=== PATIENT | male | born 1945 | race Caucasian/White ===

== ENCOUNTER → 2017-07-17 06:45 | Outpatient (REF) | payer MEDICARE, SELFPAY ==
[2017-07-17 09:13] LABS: Hematocrit 37.5 % (40-54); Hemoglobin 12.9 g/dl (13.0-16.5); Mean Corp Hgb Conc 34.4 g/gl (32-36); Mean Corpuscular Hgb 30.7 pg (27.0-32.0); Mean Corpuscular Volume 89.3 fL (80-94); Mean Platelet Vol. 11.7 fl (6.2-12.0); Platelet Count 153 K/mm3 (150-450); RBC Distribution Width CV 13.3 % (11.6-14.6); RBC Distribution Width SD 43.1 fl (35.1-43.9); Scan Indicated on CBC? Y/N NO; White Blood Count 13.5 K/mm3 (4.4-11.0)
[2017-07-17 09:30] LABS: Valproic Acid (Depakene) Level 43 ug/mL (50-100)
[2017-07-17 09:34] LABS: AST(SGOT) 13 U/L (15-37); Alanine Aminotransfer ALT/SGPT 16 U/L (16-61); Albumin, Serum 3.2 g/dL (3.2-5.0); Alkaline Phosphatase 63 U/L (45-117); Anion Gap 8 (5-15); BUN 14 mg/dL (7-18); BUN/Creat Ratio 14.2 RATIO (10-20); Bilirubin, Direct 0.08 mg/dL (0.00-0.30); Calcium,Total 8.2 mg/dL (8.5-10.1); Chloride 101 mmol/L (98-107); Cholesterol 129 mg/dL (200); Creatinine, Serum 0.98 mg/dL (0.70-1.30); EST Glomerular Filtration Rate 80 mL/min (>60); Est Glom Filt Rate - Afr Amer 96 mL/min (>60); Glucose 75 mg/dL (74-106); High Density Lipoprotein 41 mg/dL; Potassium 4.3 mmol/L (3.5-5.1); Protein, Total 6.2 g/dL (6.4-8.2); Sodium Level 134 mmol/L (136-145); Thyroid Stim Hormone (TSH) 0.53 uIU/mL (0.358-3.74); Triglycerides 97 mg/dL; Uric Acid 5.2 mg/dL (3.5-7.2); Very Low Density Lipoprotein 19 mg/dL (5-40)
== END ==
LOC: OLS.WHLEAS 06:45
PROVIDERS: Visit Provider Family Medicine
DX: I10 Essential (primary) hypertension (principal); E03.9 Hypothyroidism, unspecified; Z79.899 Other long term (current) drug therapy; J44.9 Chronic obstructive pulmonary disease, unspecified
CPT/HCPCS: 36415; 80048; 80061; 80076; 80164; 84443; 84550; 85027

== ENCOUNTER → 2017-10-09 05:41 | Outpatient (REF) | payer MEDICARE, SELFPAY ==
[2017-10-09 07:50] LABS: Anion Gap 9 (5-15); BUN 15 mg/dL (7-18); BUN/Creat Ratio 15.5 RATIO (10-20); Calcium,Total 8.4 mg/dL (8.5-10.1); Chloride 103 mmol/L (98-107); Creatinine, Serum 0.97 mg/dL (0.70-1.30); EST Glomerular Filtration Rate 81 mL/min (>60); Est Glom Filt Rate - Afr Amer 98 mL/min (>60); Glucose 85 mg/dL (74-106); Potassium 4.4 mmol/L (3.5-5.1); Sodium Level 136 mmol/L (136-145)
== END ==
LOC: OLS.WHLEAS 05:41
PROVIDERS: Visit Provider Family Medicine
DX: I10 Essential (primary) hypertension (principal); E87.1 Hypo-osmolality and hyponatremia
CPT/HCPCS: 36415; 80048

== ENCOUNTER → 2018-01-08 05:00 | Outpatient (REF) | payer MEDICARE, SELFPAY ==
[2018-01-08 08:07] LABS: Hematocrit 38.7 % (40-54); Hemoglobin 13.2 g/dl (13.0-16.5); Mean Corp Hgb Conc 34.1 g/gl (32-36); Mean Corpuscular Volume 90.8 fL (80-94); Mean Platelet Vol. 11.5 fl (6.2-12.0); Platelet Count 150 K/mm3 (150-450); RBC Distribution Width CV 13.3 % (11.6-14.6); Red Blood Count 4.26 M/mm3 (4.6-6.2); White Blood Count 13.5 K/mm3 (4.4-11.0)
[2018-01-08 08:11] LABS: Scan Indicated on CBC? Y/N NO
[2018-01-08 08:18] LABS: Valproic Acid (Depakene) Level 48 ug/mL (50-100)
[2018-01-08 08:27] LABS: AST(SGOT) 15 U/L (15-37); Alanine Aminotransfer ALT/SGPT 19 U/L (16-61); Albumin, Serum 3.8 g/dL (3.2-5.0); Alkaline Phosphatase 66 U/L (45-117); Anion Gap 10 (5-15); BUN 14 mg/dL (7-18); BUN/Creat Ratio 13.2 RATIO (10-20); Calcium,Total 8.7 mg/dL (8.5-10.1); Chloride 100 mmol/L (98-107); Cholesterol 135 mg/dL (200); Creatinine, Serum 1.06 mg/dL (0.70-1.30); EST Glomerular Filtration Rate 73 mL/min (>60); Est Glom Filt Rate - Afr Amer 88 mL/min (>60); Glucose 90 mg/dL (74-106); High Density Lipoprotein 55 mg/dL; Potassium 4.1 mmol/L (3.5-5.1); Protein, Total 6.8 g/dL (6.4-8.2); Sodium Level 136 mmol/L (136-145); Thyroid Stim Hormone (TSH) 0.42 uIU/mL (0.358-3.74); Triglycerides 73 mg/dL; Uric Acid 4.1 mg/dL (3.5-7.2); Very Low Density Lipoprotein 15 mg/dL (5-40)
== END ==
LOC: OLS.WHLEAS 05:00
PROVIDERS: Visit Provider Family Medicine
DX: J44.9 Chronic obstructive pulmonary disease, unspecified (principal); I10 Essential (primary) hypertension; E78.5 Hyperlipidemia, unspecified; Z79.899 Other long term (current) drug therapy
CPT/HCPCS: 36415; 80048; 80061; 80076; 80164; 84443; 84550; 85027

== ENCOUNTER → 2018-01-19 05:00 | Outpatient (REF) | payer MEDICARE, SELFPAY ==
[2018-01-19 10:26] LABS: Absolute Lymphocyte Count 9.07 X10^3/ul (0.83-4.51); Absolute Neutrophil Count 2.9 X10^3/uL (2.0-7.7); Basophil# 0.03 X10^3/uL; Basophil% 0.2 % (0-1); Eosinophil# 0.07 X10^3/uL; Eosinophils% 0.5 % (0-5); Hematocrit 37.4 % (40-54); Hemoglobin 12.9 g/dl (13.0-16.5); Lymphocyte # 9.07 X10^3/ul (4.0); Lymphocyte % 70.9 % (19-41); Mean Corp Hgb Conc 34.5 g/gl (32-36); Mean Corpuscular Hgb 31.1 pg (27.0-32.0); Mean Corpuscular Volume 90.1 fL (80-94); Mean Platelet Vol. 11.1 fl (6.2-12.0); Monocyte# 0.71 X10^3/uL; Monocyte% 5.6 % (0-10); Neutrophil # 2.89 X10^3/uL (2.7-7.7); Neutrophil % 22.6 % (47-70); Platelet Count 147 K/mm3 (150-450); RBC Distribution Width CV 13.1 % (11.6-14.6); RBC Distribution Width SD 42.9 fl (35.1-43.9); Red Blood Count 4.15 M/mm3 (4.6-6.2); White Blood Count 12.8 K/mm3 (4.4-11.0)
[2018-01-19 10:40] LABS: Differential Indicated SCAN CRITERIA MET; POSITIVE COUNT NO; POSITIVE DIFFERENTIAL YES; POSITIVE MORPHOLOGY YES
[2018-01-19 11:06] LABS: Anion Gap 7 (5-15); BUN 13 mg/dL (7-18); BUN/Creat Ratio 12.7 RATIO (10-20); Chloride 98 mmol/L (98-107); Creatinine, Serum 1.02 mg/dL (0.70-1.30); EST Glomerular Filtration Rate 76 mL/min (>60); Est Glom Filt Rate - Afr Amer 92 mL/min (>60); Glucose 88 mg/dL (74-106); Potassium 4.5 mmol/L (3.5-5.1); Sodium Level 131 mmol/L (136-145)
== END ==
LOC: OLS.WHLEAS 05:00
PROVIDERS: Visit Provider Family Medicine
DX: F03.90 Unspecified dementia, unspecified severity, without behavioral disturbance, psychotic disturbance, mood disturbance, and anxiety (principal); E11.9 Type 2 diabetes mellitus without complications; E03.9 Hypothyroidism, unspecified; J44.9 Chronic obstructive pulmonary disease, unspecified
CPT/HCPCS: 36415; 80048; 85025

== ENCOUNTER 2018-02-20 23:37 | Emergency (ER) | payer MEDICARE, SELFPAY ==
[2018-02-20 23:39] VITALS: BP 170/91; PULSE 70; RESP 24; TEMP 36.2; O2SAT 98; BMI 26.8
[2018-02-21] MEDS: Lidocaine Jelly 2% 20 ML Syringe (URO-JET) 20 APPLIC TOPICAL (00:21)
[2018-02-21 00:22] VITALS: BP 169/86
[2018-02-21 00:39] LABS: Mucous, Urine 0 SEEN /hpf (<or=2+); Squamous Epithelial Cells - UA 0 SEEN /hpf (0-5)
[2018-02-21 00:42] LABS: Color, Urine Yellow (Yellow); Glucose, Dipstick Normal (Normal); Ketone-Dipstick Negative (Negative); Leukocyte Esterase-Dipstick Negative /ul (Negative); Nitrite-Dipstick Negative (Negative); Occult Blood-Urine 50 /ul (Negative); Protein-Dipstick 30 mg/dl (Negative); Urine Bilirubin Dipstick Negative (Negative); Urine Clarity Clear (Clear); Urine Urobilinogen Normal (Normal)
[2018-02-21 00:45] LABS: Absolute Lymphocyte Count 9.79 X10^3/ul (0.83-4.51); Absolute Neutrophil Count 4.3 X10^3/uL (2.0-7.7); Basophil# 0.05 X10^3/uL; Basophil% 0.3 % (0-1); Eosinophil# 0.12 X10^3/uL; Eosinophils% 0.8 % (0-5); Hemoglobin 12.4 g/dl (13.0-16.5); Lymphocyte # 9.79 X10^3/ul (4.0); Lymphocyte % 63.7 % (19-41); Mean Corp Hgb Conc 34.4 g/gl (32-36); Mean Corpuscular Hgb 30.9 pg (27.0-32.0); Mean Corpuscular Volume 89.8 fL (80-94); Mean Platelet Vol. 10.6 fl (6.2-12.0); Monocyte# 1.03 X10^3/uL; Monocyte% 6.7 % (0-10); Neutrophil # 4.28 X10^3/uL (2.7-7.7); Neutrophil % 27.8 % (47-70); Platelet Count 150 K/mm3 (150-450); RBC Distribution Width CV 13.2 % (11.6-14.6); RBC Distribution Width SD 43.1 fl (35.1-43.9); Red Blood Count 4.01 M/mm3 (4.6-6.2); White Blood Count 15.4 K/mm3 (4.4-11.0)
[2018-02-21 00:46] LABS: Differential Indicated SCAN CRITERIA MET; POSITIVE COUNT NO; POSITIVE DIFFERENTIAL YES; POSITIVE MORPHOLOGY YES
[2018-02-21 00:47] LABS: Bacteria RARE /hpf (None Seen); Red Blood Cells-Urine 0-5 SEEN /hpf (0-5); White Blood Cells 0-5 SEEN /hpf (0-5)
[2018-02-21 01:10] LABS: Anion Gap 9 (5-15); BUN 16 mg/dL (7-18); BUN/Creat Ratio 12.5 RATIO (10-20); Calcium,Total 8.8 mg/dL (8.5-10.1); Chloride 98 mmol/L (98-107); Creatinine, Serum 1.28 mg/dL (0.70-1.30); EST Glomerular Filtration Rate 59 mL/min (>60); Est Glom Filt Rate - Afr Amer 71 mL/min (>60); Glucose 105 mg/dL (74-106); Potassium 4.7 mmol/L (3.5-5.1); Sodium Level 131 mmol/L (136-145)
--- NOTE | 2018-02-21 01:34 | ED.DCSUM_ITS ---
- ER Visit Summary Date of Service: 02/21/18 Chief Complaint: Urinary retention History of Present Illness: The patient is a 73 M presenting for evaluation secondary to urinary retention. Patient reports he has a history of a swollen prostate and has had a history of retaining urine in the past. Patient states of the course last 2-3 days he has been having increasing urinary frequency. He denies any presence of fevers. He does endorse some dysuria and abdominal pain. Denies any testicular pain. No hematuria. Review of systems otherwise negative. Physical Examination: Elderly male no acute distress sitting comfortably in the bed stable vital signs except for hypertension 170/91. Head normocephalic. Moist mucous membranes. No JVD. Heart regular rate and rhythm lungs clear. Abdomen was tender in suprapubic region nondistended no guarding or rebound tenderness. was normal to inspection. Remainder physical otherwise unremarkable. Test Results: CBC shows leukocytosis of 15, chemistry unremarkable no acute kidney injury, urinalysis shows no evident of infection Emergency Department Course and Treatment: Patient presented for evaluation secondary to urinary retention. He required 2 attempts, but ultimately a size 16 coud? catheter was able to be placed and the patient drained approximately 2 L of clear urine. There is no evidence of UTI, there is no evidence of acute kidney injury, patient has a leukocytosis likely reactive to his urinary retention discomfort. Patient will be discharged with a leg bag, he is already on Flomax, will be given follow-up with urology. Disposition: Discharge Impression: 1. Acute urinary retention This note was generated with [employer] dictation software. It may contain incorrect words, spelling, and punctuation that were not noted in review of the chart prior to signing ED Disposition - Plan for ED Patient: Disposition: Home or Assisted Living Chief Complaint: Complaint Diagnosis: Urinary retention Instructions: ED Retention Urinary Male Referrals: Riri Urrutia MD [STAFF PHYSICIAN] - 3-5 Days
[2018-02-21 01:38] VITALS: BP 146/92; PULSE 78; RESP 16; O2SAT 98
--- NOTE | 2018-02-24 12:39 | CM.ED ---
Call received from [facility] stating that patient's family tried to make urology appointment, as recommended, and was informed that Riri Urrutia MD only sees female patients. Laura Vasquez, from [facility], contacted me requesting that I assist family with finding a urologist. Laura requested I call family, Elvia Baptiste, directly. Call placed to Elvia with no answer. Voicemail left with contact information for urologists that are in-network for the patient and are accepting new patients. Return contact information provided.
--- NOTE | 2018-02-24 13:07 | CM.ED ---
Addendum entered by Delores Swanson 02/24/18 14:07: Pat called to let me know the patient has an appointment at [facility], with Dr. Ibarra, on ThursdayMarch 28. Clinicals faxed to this office. Original Note: Patient's sister, Elvia, returned call to . I reviewed options for other urologists in the area. Elvia states she will call, now, to schedule appointment for the patient. I asked Elvia to please call me back if she needs further assistance. Patient's sister denies questions or further needs at this time.
== END 2018-02-21 01:52 | disposition home or self-care (01) ==
PROVIDERS: Emergency Provider Emergency Medicine; Family Provider Family Medicine; PCP Family Medicine
DX: R33.9 Retention of urine, unspecified (principal); R30.0 Dysuria; R35.0 Frequency of micturition; R10.30 Lower abdominal pain, unspecified; I10 Essential (primary) hypertension; F20.9 Schizophrenia, unspecified; Z79.82 Long term (current) use of aspirin; Z79.899 Other long term (current) drug therapy
CPT/HCPCS: 51702; 80048; 81001; 85025; 99285; A4216

== ENCOUNTER → 2018-05-03 05:00 | Outpatient (REF) | payer MEDICARE, SELFPAY ==
[2018-05-03 09:06] LABS: Anion Gap 7 (5-15); BUN 14 mg/dL (7-18); BUN/Creat Ratio 11.8 RATIO (10-20); Calcium,Total 8.4 mg/dL (8.5-10.1); Chloride 100 mmol/L (98-107); Creatinine, Serum 1.19 mg/dL (0.70-1.30); EST Glomerular Filtration Rate 64 mL/min (>60); Est Glom Filt Rate - Afr Amer 77 mL/min (>60); Glucose 80 mg/dL (74-106); Potassium 4.2 mmol/L (3.5-5.1); Sodium Level 132 mmol/L (136-145)
== END ==
LOC: OLS.WHLEAS 05:00
PROVIDERS: Visit Provider Family Medicine
DX: I10 Essential (primary) hypertension (principal); F03.90 Unspecified dementia, unspecified severity, without behavioral disturbance, psychotic disturbance, mood disturbance, and anxiety; F31.9 Bipolar disorder, unspecified; E87.1 Hypo-osmolality and hyponatremia; E03.9 Hypothyroidism, unspecified
CPT/HCPCS: 36415; 80048

== ENCOUNTER → 2018-07-22 06:25 | Outpatient (REF) | payer MEDICARE, SELFPAY ==
[2018-07-22 08:42] LABS: Hemoglobin 12.1 g/dl (13.0-16.5); Mean Corp Hgb Conc 33.6 g/gl (32-36); Mean Corpuscular Hgb 29.8 pg (27.0-32.0); Mean Corpuscular Volume 88.7 fL (80-94); Mean Platelet Vol. 11.4 fl (6.2-12.0); Platelet Count 163 K/mm3 (150-450); RBC Distribution Width CV 14.2 % (11.6-14.6); RBC Distribution Width SD 45.6 fl (35.1-43.9); Red Blood Count 4.06 M/mm3 (4.6-6.2); Scan Indicated on CBC? Y/N NO; White Blood Count 20.5 K/mm3 (4.4-11.0)
[2018-07-22 08:47] LABS: Valproic Acid (Depakene) Level 52 ug/mL (50-100)
[2018-07-22 09:00] LABS: AST(SGOT) 11 U/L (15-37); Alanine Aminotransfer ALT/SGPT 12 U/L (16-61); Albumin, Serum 3.2 g/dL (3.2-5.0); Alkaline Phosphatase 65 U/L (45-117); Anion Gap 9 (5-15); BUN 11 mg/dL (7-18); BUN/Creat Ratio 10.3 RATIO (10-20); Bilirubin, Direct 0.09 mg/dL (0.00-0.30); Calcium,Total 8.4 mg/dL (8.5-10.1); Chloride 103 mmol/L (98-107); Cholesterol 117 mg/dL (200); Creatinine, Serum 1.07 mg/dL (0.70-1.30); EST Glomerular Filtration Rate 72 mL/min (>60); Est Glom Filt Rate - Afr Amer 87 mL/min (>60); Globulin 2.5 g/dL (2.2-4.2); Glucose 76 mg/dL (74-106); High Density Lipoprotein 38 mg/dL; Potassium 4.7 mmol/L (3.5-5.1); Protein, Total 5.7 g/dL (6.4-8.2); Sodium Level 135 mmol/L (136-145); Triglycerides 103 mg/dL; Very Low Density Lipoprotein 21 mg/dL (5-40)
== END ==
LOC: OLS.WHLEAS 06:25
PROVIDERS: Visit Provider Family Medicine
DX: I10 Essential (primary) hypertension (principal); F03.90 Unspecified dementia, unspecified severity, without behavioral disturbance, psychotic disturbance, mood disturbance, and anxiety; E03.9 Hypothyroidism, unspecified; F31.9 Bipolar disorder, unspecified; M10.9 Gout, unspecified; Z79.899 Other long term (current) drug therapy
CPT/HCPCS: 36415; 80048; 80061; 80076; 80164; 84443; 84550; 85027

== ENCOUNTER → 2018-07-24 04:45 | Outpatient (REF) | payer MEDICARE, SELFPAY ==
[2018-07-24 08:55] LABS: Mucous, Urine 0 SEEN /hpf (<or=2+)
[2018-07-24 09:20] LABS: Color, Urine Yellow (Yellow); Glucose, Dipstick Normal (Normal); Ketone-Dipstick Negative (Negative); Leukocyte Esterase-Dipstick 500 /ul (Negative); Nitrite-Dipstick Negative (Negative); Occult Blood-Urine 50 /ul (Negative); Protein-Dipstick 30 mg/dl (Negative); Specific Gravity, Urine 1.005 (1.002-1.030); Urine Bilirubin Dipstick Negative (Negative); Urine Clarity Cloudy (Clear); Urine Urobilinogen Normal (Normal)
[2018-07-24 09:50] LABS: Bacteria 3+ /hpf (None Seen); Red Blood Cells-Urine 0-5 SEEN /hpf (0-5); Squamous Epithelial Cells - UA 0-5 SEEN /hpf (0-5); White Blood Cells 5-10 SEEN /hpf (0-5)
== END ==
LOC: OLS.WHLCAR 04:45
PROVIDERS: Visit Provider Family Medicine
DX: N39.0 Urinary tract infection, site not specified (principal)
CPT/HCPCS: 81001; 87077; 87086; 87088; 87186

== ENCOUNTER → 2018-07-26 04:00 | Outpatient (REF) | payer MEDICARE, SELFPAY ==
[2018-07-26 08:41] LABS: Absolute Neutrophil Count 3.2 X10^3/uL (2.0-7.7); Basophil# 0.08 X10^3/uL; Basophil% 0.4 % (0-1); Eosinophil# 0.37 X10^3/uL; Eosinophils% 1.9 % (0-5); Hematocrit 36.6 % (40-54); Hemoglobin 12.4 g/dl (13.0-16.5); Lymphocyte % 76.5 % (19-41); Mean Corp Hgb Conc 33.9 g/gl (32-36); Mean Corpuscular Hgb 30.2 pg (27.0-32.0); Mean Corpuscular Volume 89.1 fL (80-94); Mean Platelet Vol. 11.8 fl (6.2-12.0); Monocyte# 0.87 X10^3/uL; Monocyte% 4.4 % (0-10); Neutrophil # 3.21 X10^3/uL (2.7-7.7); Neutrophil % 16.4 % (47-70); Platelet Count 161 K/mm3 (150-450); RBC Distribution Width CV 14.3 % (11.6-14.6); RBC Distribution Width SD 46.5 fl (35.1-43.9); Red Blood Count 4.11 M/mm3 (4.6-6.2); White Blood Count 19.6 K/mm3 (4.4-11.0)
[2018-07-26 08:51] LABS: Differential Indicated SCAN CRITERIA MET; POSITIVE COUNT NO; POSITIVE DIFFERENTIAL YES; POSITIVE MORPHOLOGY YES
[2018-07-26 10:11] LABS: Reactive Lymphocyte 2+
[2018-07-27 14:07] LABS: Pathologist Review Reviewed
== END ==
LOC: OLS.WHLEAS 04:00
PROVIDERS: Visit Provider Family Medicine
DX: Z79.899 Other long term (current) drug therapy (principal)
CPT/HCPCS: 36415; 85025

== ENCOUNTER → 2018-08-02 04:00 | Outpatient (REF) | payer MEDICARE, SELFPAY ==
[2018-08-02 09:28] LABS: Absolute Lymphocyte Count 14.66 X10^3/ul (0.83-4.51); Absolute Neutrophil Count 3.3 X10^3/uL (2.0-7.7); Basophil# 0.05 X10^3/uL; Basophil% 0.3 % (0-1); Differential Indicated SCAN CRITERIA MET; Eosinophil# 0.38 X10^3/uL; Hematocrit 34.4 % (40-54); Hemoglobin 11.7 g/dl (13.0-16.5); Lymphocyte # 14.66 X10^3/ul (4.0); Lymphocyte % 75.6 % (19-41); Mean Corpuscular Volume 88.2 fL (80-94); Mean Platelet Vol. 10.8 fl (6.2-12.0); Monocyte# 0.93 X10^3/uL; Monocyte% 4.8 % (0-10); Neutrophil # 3.32 X10^3/uL (2.7-7.7); POSITIVE COUNT NO; POSITIVE DIFFERENTIAL YES; POSITIVE MORPHOLOGY YES; Platelet Count 136 K/mm3 (150-450); RBC Distribution Width CV 14.3 % (11.6-14.6); RBC Distribution Width SD 46.3 fl (35.1-43.9); White Blood Count 19.4 K/mm3 (4.4-11.0)
[2018-08-04 10:12] LABS: Pathologist Review Reviewed
== END ==
LOC: OLS.WHLEAS 04:00
PROVIDERS: Visit Provider Family Medicine
DX: R53.83 Other fatigue (principal)
CPT/HCPCS: 36415; 85025

== ENCOUNTER → 2018-10-18 04:00 | Outpatient (REF) | payer MEDICARE, SELFPAY ==
[2018-10-18 09:11] LABS: Anion Gap 10 (5-15); BUN 14 mg/dL (7-18); BUN/Creat Ratio 13.2 RATIO (10-20); Calcium,Total 8.5 mg/dL (8.5-10.1); Chloride 106 mmol/L (98-107); Creatinine, Serum 1.06 mg/dL (0.70-1.30); EST Glomerular Filtration Rate 73 mL/min (>60); Est Glom Filt Rate - Afr Amer 88 mL/min (>60); Glucose 80 mg/dL (74-106); Potassium 4.3 mmol/L (3.5-5.1); Sodium Level 138 mmol/L (136-145)
[2018-10-18 10:49] VITALS: BMI 27.1
== END ==
LOC: OLS.WHLEAS 04:00
PROVIDERS: Visit Provider Family Medicine
DX: I10 Essential (primary) hypertension (principal)
CPT/HCPCS: 36415; 80048

== ENCOUNTER 2018-12-20 08:49 | Day surgery (SDC) | payer MEDICARE, MEDICAID, SELFPAY ==
[2018-10-18 10:49] VITALS: BMI 27.1
[2018-12-14 14:36] VITALS: BMI 27.1
--- NOTE | 2018-12-14 15:26 | RAD_ITS ---
STUDY: X-RAY CHEST REASON FOR EXAM: Male, 73 years old. Pacemaker change TECHNIQUE: Frontal and lateral views of the chest COMPARISON: None. FINDINGS: The lungs are clear. There are no pleural effusions. There is no pneumothorax. The heart is normal in size. There is a dual lead pacemaker with one lead overlying the right atrium and one lead overlying the right ventricle. The visualized osseous structures are within normal limits. RAD/Chest PA and Lateral IMPRESSION: Satisfactory position of the pacemaker. No pneumothorax. Electronically Signed: Javy Mandujano, at 16:35 EDT Tel , Service support ,
[2018-12-14 15:47] LABS: Mucous, Urine 0 SEEN /hpf (<or=2+)
[2018-12-14 16:31] LABS: Hematocrit 34.8 % (40-54); Hemoglobin 11.8 g/dl (13.0-16.5); Mean Corp Hgb Conc 33.9 g/gl (32-36); Mean Corpuscular Hgb 30.6 pg (27.0-32.0); Mean Corpuscular Volume 90.2 fL (80-94); Mean Platelet Vol. 10.9 fl (6.2-12.0); Platelet Count 148 K/mm3 (150-450); RBC Distribution Width CV 13.7 % (11.6-14.6); Red Blood Count 3.86 M/mm3 (4.6-6.2); White Blood Count 17.9 K/mm3 (4.4-11.0)
[2018-12-14 16:32] LABS: Scan Indicated on CBC? Y/N NO
[2018-12-14 16:39] LABS: Color, Urine Yellow (Yellow); Glucose, Dipstick Normal (Normal); International Normalized Ratio 1.1; Ketone-Dipstick Negative (Negative); Leukocyte Esterase-Dipstick 500 /ul (Negative); Nitrite-Dipstick Positive (Negative); Occult Blood-Urine 150 /ul (Negative); Protein-Dipstick 30 mg/dl (Negative); Prothrombin Time (Protime)PT. 13.7 SECONDS (11.7-14.9); Urine Bilirubin Dipstick Negative (Negative); Urine Clarity Sl. Cloudy (Clear); Urine Urobilinogen 1 mg/dl (Normal)
[2018-12-14 16:53] LABS: Anion Gap 8 (5-15); BUN 16 mg/dL (7-18); BUN/Creat Ratio 13.8 RATIO (10-20); Calcium,Total 8.5 mg/dL (8.5-10.1); Chloride 100 mmol/L (98-107); Creatinine, Serum 1.16 mg/dL (0.70-1.30); EST Glomerular Filtration Rate 65 mL/min (>60); Est Glom Filt Rate - Afr Amer 79 mL/min (>60); Glucose 83 mg/dL (74-106); Potassium 4.3 mmol/L (3.5-5.1); Red Blood Cells-Urine 5-10 SEEN /hpf (0-5); Sodium Level 135 mmol/L (136-145); Squamous Epithelial Cells - UA 0-5 SEEN /hpf (0-5)
[2018-12-14 16:54] LABS: Bacteria 2+ /hpf (None Seen); White Blood Cells 25-50 SEEN /hpf (0-5)
[2018-12-20] VITALS (14 sets, daily range): BP systolic 114–134; BP diastolic 68–81; PULSE 69–70; RESP 16; TEMP 36.1–37.1; O2SAT 96–100
--- NOTE | 2018-12-20 13:32 | PCM.HP.BLA ---
History and Physical Date of Admission: 12/20/18 HPI History of Present Illness Surgical H&P: Yes Details: Ibrahima Mercedes is a 73 year old male who presents to the hospital for pacemaker generator change. He has a history of sick sinus syndrome with pacemaker implant on 12/17/2010, hypertension, and hyperlipidemia. He also has a history of schizophrenia and resides in an assisted living. His dual-chamber pacemaker evaluation prior to office visit showed that he achieves FILEMON on 10/29/2018. Because of this, he will undergo a generator change. He denies chest, arm, jaw, or neck discomfort. His exercise tolerance is stable via walking. He denies symptoms of CHF, palpitations, lightheadedness, dizziness, near syncope, or syncopal episodes. He denies edema or claudication issues. He denies orthopnea, PND, fever, chills, blood in urine, blood in stool, myalgia, or unexplainable fatigue. Intake Vital Signs 12/14/18 Height 5 ft 9 in 12/14/18 Weight: 184 lb 12/14/18 Body Mass Index (BMI) 27.1 12/14/18 Blood Pressure 134/82 H 12/14/18 Blood Pressure Location Lt brachial 12/14/18 Blood Pressure Position Sitting 12/14/18 Respiratory Rate 18 12/14/18 Pulse Rate 70 12/14/18 Pulse Source Monitor 12/14/18 Pulse Ox 10 Intake Visit Reasons: update H & P for gen change/koby 2:30 Allergies No Known Allergies Allergy (Verified 12/14/18 14:54) Medications Acetaminophen [Tylenol] 650 mg PO Q4H PRN PRN 09/14/15 [History Confirmed 12/14/18] Allopurinol [Zyloprim] 100 mg PO DAILYCM 09/14/15 [History Confirmed 12/14/18] Aspirin [Aspirin, Baby] 81 mg PO DAILY@0800 09/14/15 [History Confirmed 12/14/18] Atorvastatin Calcium [Lipitor] 10 mg PO QHS 09/14/15 [History Confirmed 12/14/18] Divalproex Sodium [Depakote] 250 mg PO BID 09/14/15 [History Confirmed 12/14/18] Enalapril Maleate [Vasotec] 5 mg PO DAILY 09/14/15 [History Confirmed 12/14/18] Levothyroxine [Synthroid] 100 mcg PO DAILY 09/14/15 [History Confirmed 12/14/18] Quetiapine Fumarate [Seroquel] 200 mg PO BREAKFAST 09/14/15 [History Confirmed 12/14/18] Quetiapine Fumarate [Seroquel] 400 mg PO QHS 09/14/15 [History Confirmed 12/14/18] Risperidone [Risperdal] 3 mg PO QHS 09/14/15 [History Confirmed 12/14/18] traZODone [Desyrel] 50 mg PO QHS 09/14/15 [History Confirmed 12/14/18] alprazolam 1 mg tablet 1 mg PO DAILY PRN tab 10/18/18 [History Confirmed 12/14/18] buspirone 10 mg tablet 10 mg PO BID 10/18/18 [History Confirmed 12/14/18] guaifenesin 100 mg/5 mL oral liquid 200 mg PO Q6H PRN 10/18/18 [History Confirmed 12/14/18] ipratropium-albuterol 0.5 mg-3 mg(2.5 mg base)/3 mL nebulization soln 3 ml INHALATION Q4H PRN ml 10/18/18 [History Confirmed 12/14/18] magnesium hydroxide 400 mg/5 mL oral suspension 30 ml PO DAILY PRN ml 10/18/18 [History Confirmed 12/14/18] mirabegron ER 50 mg tablet,extended release 24 hr 50 mg PO DAILY 14 Days #14 tab 10/18/18 [History Confirmed 12/14/18] aluminum-mag hydroxide-simethicone 200 mg-200 mg-20 mg/5 mL oral susp 15 ml PO Q4H ml 12/14/18 [History Confirmed 12/14/18] ranitidine 150 mg tablet 150 mg PO DAILY 12/14/18 [History Confirmed 12/14/18] FOR[facility]LY [facility], [facility] Medical History (Updated 12/14/18 @ 15:24 by AIMEE Koch) Presence of permanent cardiac pacemaker (Chronic) Pure hypercholesterolemia (Chronic) Essential hypertension (Chronic) Sinoatrial node dysfunction (Chronic) 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) Retinopathy (Chronic) Gout (Chronic) Gout (Inactive) HTN (hypertension) (Inactive) Surgical History (Updated 10/11/18 @ 17:14 by Kacie Ramirez) History of lumbar surgery (Resolved) Family History (Updated 09/24/17 @ 13:52 by Laura Alvarez) Mother CAD (coronary artery disease) cabg Social History (Updated 12/14/18 @ 15:26 by AIMEE Koch) Smoking Status: Never smoker alcohol intake: never substance use type: does not use caffeine: Yes Type: coffee Number of servings: 6 what type of physical activity do you participate in: walking frequency: daily duration: 15-30 minutes/day seatbelt use: always do you feel safe at home: Yes ROS Const Const: Negative for fatigue, weakness, body ache, fever(s) or chills ENT ENT: Negative for dizziness Cardio Chest Pain: No Palpitations: No Edema: None Muscle aches with walking: None Resp Respiratory: Negative for SOB with activity, SOB at rest, SOB orthopnea\SOB lying down or paroxysmal nocturnal dyspnea GI GI: Negative nausea, vomiting blood/hematemesis, bright, red blood in stools or black,tarry stools : Negative for hematuria or frequent nighttime urination/ nocturia Musc Musc: Negative for muscle aches/ myalgia Skin Skin: Negative non-healing lesions or rash Neuro Neuro: Negative for dizziness, lightheadedness, near syncope, syncope, orthostatic symptoms or weakness Endo Endo: Negative for fatigue Allergy Allergy/Immunology: Negative for rash Cardiology Exam Const Appearance: cooperative, healthy appearing, comfortable and no acute distress Nutritional Appearance: well nourished and overweight Orientation: alert, awake and oriented x3 Head Head: normal to inspection Ears: hearing grossly normal bilaterally Nose: external nose normal Face and Sinus: face symmetric Mouth: oral mucosae normal Eyes General: appearance normal, both eyes and all related structures Eyelids: eyelids normal EOM: EOM intact bilaterally Neck Neck: normal visual inspection and no JVD Carotids: normal carotid upstroke Chest Chest inspection: normal inspection of the chest, symmetric chest movement and normal respiratory effort; negative cough Auscultation: Bilateral: Clear to Auscultation Cardio Rate: regular rate Rhythm: regular rhythm Heart sounds: S1 normal and S2 normal; negative rub, gallop or murmur GI GI: normal to inspection Neuro General: alert, awake, oriented x3 and CN's II-XI intact bilaterally Skin Skin: no rashes or lesions noted Extremities Pulses: Normal: Right Posterior Tibial Pulse, Left Posterior Tibial Pulse, Right Radial Pulse, Left Radial Pulse Lower Extremity Edema: None: Bilateral Psych Psychological: normal affect Assessment & Plan 1. Sinoatrial node dysfunction I49.5 Plan His pacemaker evaluation prior to office visit showed 0 MS episodes. He was ventricular paced at over greater than 99%. He was atrial paced at 52%. Patient's pacemaker appears to be functioning appropriately. We will continue to monitor this with routine/scheduled follow-ups. 2. Presence of permanent cardiac pacemaker Z95.0 Pacemaker placement 1992;Replacement of pulse generator 1999; Implant [employer] Pacemaker 2004; Implant of dual chamber [employer] pacemaker 12/17/10; His EKG today in office shows ventricular paced rhythm at 65 bpm. Orders Orders: 12 Lead EKG performed by [facility] [place] Today 3. Essential hypertension I10 Plan Patient's blood pressure is well-controlled. We will continue to monitor. We will not make any medication regimen changes. 4. Pure hypercholesterolemia E78.00 Plan Lipid panel from July 2018 showed cholesterol: 117, HDL: 38, LDL: 58, and triglycerides: 103. He will continue current low-dose statin medication. Plan Detail Additional Comments Thank you for allowing us to participate in the patients plan of care, if you have any questions please do not hesitate to call. This note was generated using a voice recognition system and there may be incorrect words, spelling or punctuation that were not noted when reviewing the office note prior to saving. Patient is scheduled to undergo a generator change with Dr. Wynne on 12/20/2018. He will follow-up with pacemaker clinic on 12/28/2018.
--- NOTE | 2018-12-20 14:10 | CL.IE_ITS ---
Patient: CARLA VANN Study Date: 12/20/2018 Performing: Flo Wynne MD : 1945 Age: 73 Gender: male PROCEDURES PERFORMED ZV35-[id number] REMOVAL+REPLACEMENT PACER-DUAL LEAD [id number]-HKSOAJ SINGLE LEAD (PACER OR ICD) INDICATIONS Sinoatrial node dysfunction/Sick sinus syndrome PROCEDURE DETAILS The patient was brought to the Catheterization Lab in the postabsorptive nonsedated state. Infor med consent was obtained prior to the procedure. Local anesthetic was given subcutaneously to the le ft subclavian region with Lidocaine 2%. Incision was made to the left subclavicular area. PPM generat or was removed. PPM atrial lead (existing) was checked and tested. PPM ventricular lead (existing) wa s checked and tested. PPM ventricular lead (existing) was checked and tested, it was determined that it needed to be replaced. PPM ventricular lead (existing) was disconnected and capped. Access was ach ieved and a guidewire was advanced into the left subclavian vein. PPM ventricular lead was inserted / positioned to right ventricular septal wall. PPM ventricular lead testing performed. PPM ventricular lead testing performed. PPM ventricular lead was removed. PPM ventricular lead was inserted / positi oned to right ventricular septal wall. PPM ventricular lead was removed. PPM ventricular lead was inserted / positioned to right ventricular septal wall. PPM ventricular lead testing perform ed. PPM ventricular lead testing performed. The Ventricular PM lead sutured in place with 3-0 Silk. P PM ventricular lead (existing) was disconnected and capped. Device pocket was irrigated with antibiot ic. PPM generator was attached to the lead(s) and inserted into the pocket. Subcutaneous closure was completed with 3-0 Vicryl. Skin closure was completed with 4-0 Vicryl. Steri-strips applied to left s ubclavicular incision. Instrument, sponge, and needle counts were noted to be normal. The patient teja erated the procedure well. 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[employer], Model # 5826 , Serial # [id number] IMPLANTED DEVICE(S): PPM Ventricular lead - Buy Boat Operator: [employer], Model # 7742 , Serial # [id number] PPM Ventricular lead - Buy Boat Operator: [employer], Model # 7742 , Serial # [id number] PPM Generator - Buy Boat Operator: [employer], Model # L111 , Serial # [id number] DEVICE PARAMETERS VENTRICULAR LEAD PARAMETERS: R wave (mV) - 10.0 current (mA) - 0.9 impedence (OHMS) - 1157 R wave- 10.0 (mV) Current- 0.9 (mA) threshold- 1.0V @ 0.4ms (V) impedence- 1157 (OHMS) DEVICE PARAMETERS: Mode - DDDR lower rate - 70 upper rate - 130 Mode- DDDR Lower rate- 70 Upper rate- 130 CONCLUSIONS / RECOMMENDATIONS Device Conclusions: Successful implantation of a dual chamber pacemaker battery change and replacemen t Device Recommendations: Follow up with Primary Care Physician PROCEDURE MEDICATIONS Versed 1 mg IV Versed 0.5 mg IV Oxygen: 2 L/min via nasal cannula Antibiotic given in appropriate timeframe. Ancef 2 Gm IV @ 12/20/2018 10:26:26 Signed By Flo Wynne MD On 12/20/2018 14:10:03 Flo Wynne MD
[2018-12-20] MEDS: Cefazolin 2 GM in 0.9% Normal Saline 100 ML IV (18:20)
[2018-12-21 02:52] VITALS: BP 146/72; PULSE 76; RESP 16; TEMP 36.7; O2SAT 94
[2018-12-21 02:59] VITALS: PULSE 73
--- NOTE | 2018-12-21 05:55 | RAD_ITS ---
STUDY: X-RAY CHEST REASON FOR EXAM: Male, 73 years old. Pneumothorax. TECHNIQUE: PA and lateral views of the chest. COMPARISON: 12/14/2018 FINDINGS: Lungs are mildly hypoinflated. Lungs are clear. No pneumothorax. There is no demonstrated pleural abnormality. Normal size heart. Stable left chest wall device. Normal mediastinum and jatinder. Normal visualized pulmonary arteries. Normal visualized aortic arch and descending thoracic aorta. Normal visualized thoracic spine. Normal visualized ribs, clavicles, and shoulders. There is no demonstrated abnormality of the visualized soft tissue structures of the upper abdomen. RAD/Chest PA and Lateral IMPRESSION: Lungs are mildly hypoinflated. No acute airspace disease. No pneumothorax. Electronically Signed: Vel Leung DO at 8:16 EDT Tel , Service support ,
[2018-12-21 07:00] VITALS: PULSE 89
--- NOTE | 2018-12-21 07:24 | PCM.PN.CARD ---
Subjectve: Patient seen and evaluated. Appears to be stable. Status post pacemaker lead revision yesterday. Mildly confused. Objective: Vital Signs Temp Pulse Resp BP Pulse Ox 98.0 F 89 16 146/72 H 94 12/21/18 02:52 12/21/18 07:00 12/21/18 02:52 12/21/18 02:52 12/21/18 02:52 Oxygen Delivery Method Room Air Body Mass Index (BMI) 27.1 Intake and Output for Last 24 Hours 12/19/18 12/20/18 12/21/18 23:59 23:59 23:59 Intake Total 627 / 627 240 / 240 Output Total 775 / 775 275 / 275 Balance -148 / -148 -35 / -35 General: Awake, Oriented x 3 HEENT: PERRL, EOMI, Sclera Non Icteric Neck: Supple, Good ROM, No Lymph Node Enlargement Lungs: Clear to auscultation Cardiovascular: Regular Rhythm, Normal S1, Normal S2, No Murmurs, No Rubs, No Gallops Vascular: No Carotid Bruits, Normal Femoral Pulses, Normal Radial Pulses, Normal Dorsalis Pedal Pulse, Normal Posterior Tibial Pulses Abdomen: Bowel Sounds Present, Soft, Non Tender, No HSM, No Organomegaly Extremities: No Cyanosis, No Clubbing, No edema Musculoskeletal: No Erythema Skin: No Rashes Lymphatic: No Lymph Node Enlargement Neurological: No Focal Motor or Sensory Deficit Psych/Mental Status: Appropriate Rhythm: EKG: ECHO: Stress Test: Cardiac Cath: PCI: CT Surgery: Holter monitor: EPS: PPM: CXR: Chest CT Scan: Medical Necessity - Tobacco Use Smoking Status: Never smoker Tobacco Use: Non-smoker Assessment/Plan 1. Status post pacemaker generator change yesterday. The patient also underwent a lead revision. Chest x-ray has been performed and will be reviewed. The pacemaker will also be interrogated. Patient has mild hematoma but this would be observed. Pacemaker interrogation demonstrates normal function and chest x-ray demonstrates no evidence of pneumothorax. The patient will be discharged for outpatient follow-up.
--- NOTE | 2018-12-21 08:40 | PCM.DC.PACE ---
Discharge Diet: No Restrictions Discharge Activity: May Not Drive Additional Activity Instructions:: May shower or bathe on []. Do not scrub the incision or soak in the tub. Just wash with soap and let the water run over the incision. Gently pat dry with towel. Medications: Take your pain medication as directed. Refer to your discharge instruction sheet for a list of medications you are to take. Call your doctor if your incision/area has: Continuous Slow Oozing, Sudden Increased Bleeding, Increased Pain/ Swelling, Increased Redness, Foul Smelling Discharge, Swelling at the incision site Call your doctor if you observe: Fever of 101 or Higher, Shortness of breath, Dizziness, Fainting spells, Swelling in the ankles, Chest pain, Prolonged hiccoughing, Increased palpitations (irregular heartbeat) Suture Line Care: Avoid Pulling/Pushing, Avoid Pinching/Bending Cleanse incision/area with: Do not get Incision Wet, Keep Dressing Clean & Dry Additional Dressing/Incision Instructions:: When dressing is removed, wash and dry incision. Keep covered with a light bandage if it is rubbing against your clothing. Do not cover the incision with an airtight bandage. Change the bandage daily. Do not remove steri strips. The strips will fall off on their own. Additional Instructions: Signs and Symptoms to Report to Your Doctor at Once - call your doctor's office or Doctor's Registry ([phone]) Call [phone] or go to the nearest Emergency Department if you feel you need urgent care. *Infection (fever, increased redness or swelling at the incision site, drainage from the incision increased pain at the pacemaker site) *Shortness of breath *Dizziness *Fainting spells *Swelling in the ankles *Chest pain *Prolonged hiccoughing *Increased palpitaitons (irregular heartbeat) Medications: Take your pain medication as directed. Refer to your discharge instruction sheet for a list of medications you are to take. Allergies/Adverse Reactions: Allergies No Known Allergies Allergy (Verified 12/14/18 14:54) Medications to take at Discharge Acetaminophen [Tylenol] 650 mg PO Q4H PRN PRN 09/14/15 Allopurinol [Zyloprim] 100 mg PO DAILYCM 09/14/15 Aspirin [Aspirin, Baby] 81 mg PO DAILY@0800 09/14/15 Atorvastatin Calcium [Lipitor] 10 mg PO QHS 09/14/15 Divalproex Sodium [Depakote] 250 mg PO BID 09/14/15 Enalapril Maleate [Vasotec] 5 mg PO DAILY 09/14/15 Levothyroxine [Synthroid] 100 mcg PO DAILY 09/14/15 Quetiapine Fumarate [Seroquel] 200 mg PO BREAKFAST 09/14/15 Quetiapine Fumarate [Seroquel] 400 mg PO QHS 09/14/15 Risperidone [Risperdal] 3 mg PO QHS 09/14/15 traZODone [Desyrel] 50 mg PO QHS 09/14/15 alprazolam 1 mg tablet 1 mg PO DAILY PRN tab 10/18/18 buspirone 10 mg tablet 10 mg PO BID 10/18/18 guaifenesin 100 mg/5 mL oral liquid 200 mg PO Q6H PRN 10/18/18 ipratropium-albuterol 0.5 mg-3 mg(2.5 mg base)/3 mL nebulization soln 3 ml INHALATION Q4H PRN ml 10/18/18 magnesium hydroxide 400 mg/5 mL oral suspension 30 ml PO DAILY ml 10/18/18 mirabegron ER 50 mg tablet,extended release 24 hr 50 mg PO DAILY 14 Days #14 tab 10/18/18 aluminum-mag hydroxide-simethicone 200 mg-200 mg-20 mg/5 mL oral susp 15 ml PO Q4H ml 12/14/18 ranitidine 150 mg tablet 150 mg PO DAILY 12/14/18 Primary Care Physician: Guillermo Espinal MD [Primary Care Provider] - Test Results: Test results from this visit will be discussed in further detail at your follow-up appointment, if applicable. When: PACER CLINIC FOLLOW UP SEE CARD Proposed Discharge Date: 12/21/18
[2018-12-21 09:15] VITALS: BP 143/87; PULSE 87; RESP 14; TEMP 36.6; O2SAT 94
--- NOTE | 2018-12-21 09:37 | CASEMGMT ---
Patient is from [facility] living. DESTINEY spoke with patient and his sister. 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 She gave her phone number. 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 Plan: d/c back to [facility]. Laura DU MSW
== END 2018-12-21 09:46 | disposition home or self-care (01) ==
LOC: CLSP 08:50 → PCU 12-21 09:08
PROVIDERS: Internal Medicine Cardiovascular Disease; Family Provider Family Medicine; Referring Provider Internal Medicine Cardiovascular Disease; Visit Provider Internal Medicine Cardiovascular Disease
DX: Z45.010 Encounter for checking and testing of cardiac pacemaker pulse generator [battery] (principal); I49.5 Sick sinus syndrome; I10 Essential (primary) hypertension; E78.00 Pure hypercholesterolemia, unspecified; F20.9 Schizophrenia, unspecified; M10.9 Gout, unspecified; Z79.899 Other long term (current) drug therapy
CPT/HCPCS: 33207; 33217; 33228; 33233; 36415; 71046; 80048; 81001; 85027; 85610; 99152; 99153; J7040; J7050; Q9967; C1769; C1894

== ENCOUNTER → 2018-12-22 06:42 | Outpatient (REF) | payer MEDICARE, SELFPAY ==
[2018-12-14 14:36] VITALS: BMI 27.1
[2018-12-22 08:07] LABS: Hematocrit 38.2 % (40-54); Mean Corpuscular Hgb 30.7 pg (27.0-32.0); Mean Corpuscular Volume 90.1 fL (80-94); Mean Platelet Vol. 11.9 fl (6.2-12.0); Platelet Count 180 K/mm3 (150-450); RBC Distribution Width CV 13.7 % (11.6-14.6); RBC Distribution Width SD 45.1 fl (35.1-43.9); Red Blood Count 4.24 M/mm3 (4.6-6.2); White Blood Count 23.6 K/mm3 (4.4-11.0)
[2018-12-22 08:20] LABS: Anion Gap 9 (5-15); BUN 28 mg/dL (7-18); BUN/Creat Ratio 24.3 RATIO (10-20); Calcium,Total 8.7 mg/dL (8.5-10.1); Chloride 102 mmol/L (98-107); Creatinine, Serum 1.15 mg/dL (0.70-1.30); EST Glomerular Filtration Rate 66 mL/min (>60); Est Glom Filt Rate - Afr Amer 80 mL/min (>60); Glucose 125 mg/dL (74-106); Potassium 4.3 mmol/L (3.5-5.1); Sodium Level 137 mmol/L (136-145)
== END ==
LOC: OLS.WHLEAS 06:42
PROVIDERS: Visit Provider Family Medicine
DX: K92.0 Hematemesis (principal)
CPT/HCPCS: 36415; 80048; 85027

== ENCOUNTER → 2019-01-17 06:15 | Outpatient (REF) | payer MEDICARE, SELFPAY ==
[2018-12-14 14:36] VITALS: BMI 27.1
[2019-01-17 08:57] LABS: Valproic Acid (Depakene) Level 51 ug/mL (50-100)
[2019-01-17 09:11] LABS: AST(SGOT) 10 U/L (15-37); Alanine Aminotransfer ALT/SGPT 11 U/L (16-61); Alkaline Phosphatase 64 U/L (45-117); Anion Gap 8 (5-15); BUN 15 mg/dL (7-18); BUN/Creat Ratio 13.5 RATIO (10-20); Bilirubin, Direct 0.11 mg/dL (0.00-0.30); Calcium,Total 8.2 mg/dL (8.5-10.1); Chloride 106 mmol/L (98-107); Cholesterol 116 mg/dL (200); Creatinine, Serum 1.11 mg/dL (0.70-1.30); EST Glomerular Filtration Rate 69 mL/min (>60); Est Glom Filt Rate - Afr Amer 83 mL/min (>60); Globulin 2.4 g/dL (2.2-4.2); Glucose 78 mg/dL (74-106); High Density Lipoprotein 41 mg/dL; Potassium 4.2 mmol/L (3.5-5.1); Protein, Total 5.4 g/dL (6.4-8.2); Sodium Level 140 mmol/L (136-145); Thyroid Stim Hormone (TSH) 1.94 uIU/mL (0.358-3.74); Triglycerides 80 mg/dL; Uric Acid 5.4 mg/dL (3.5-7.2); Very Low Density Lipoprotein 16 mg/dL (5-40)
== END ==
LOC: OLS.WHLEAS 06:15
PROVIDERS: Visit Provider Family Medicine
DX: F25.9 Schizoaffective disorder, unspecified (principal); F31.9 Bipolar disorder, unspecified; J44.9 Chronic obstructive pulmonary disease, unspecified; I10 Essential (primary) hypertension; E78.5 Hyperlipidemia, unspecified; I73.89 Other specified peripheral vascular diseases
CPT/HCPCS: 36415; 80048; 80061; 80076; 80164; 84443; 84550

== ENCOUNTER → 2019-04-18 05:00 | Outpatient (REF) | payer MEDICARE, SELFPAY ==
[2018-12-14 14:36] VITALS: BMI 27.1
[2019-04-18 08:17] LABS: Anion Gap 8 (5-15); BUN 12 mg/dL (7-18); Calcium,Total 8.4 mg/dL (8.5-10.1); Chloride 100 mmol/L (98-107); Creatinine, Serum 1.09 mg/dL (0.70-1.30); EST Glomerular Filtration Rate 70 mL/min (>60); Est Glom Filt Rate - Afr Amer 85 mL/min (>60); Glucose 80 mg/dL (74-106); Potassium 4.1 mmol/L (3.5-5.1); Sodium Level 132 mmol/L (136-145)
== END ==
LOC: OLS.WHLEAS 05:00
PROVIDERS: Visit Provider Family Medicine
DX: I10 Essential (primary) hypertension (principal); F25.9 Schizoaffective disorder, unspecified; F31.9 Bipolar disorder, unspecified; J44.9 Chronic obstructive pulmonary disease, unspecified; E78.5 Hyperlipidemia, unspecified; I73.89 Other specified peripheral vascular diseases
CPT/HCPCS: 36415; 80048

== ENCOUNTER → 2019-07-18 05:00 | Outpatient (REF) | payer MEDICARE, MEDICAID, SELFPAY ==
[2018-12-14 14:36] VITALS: BMI 27.1
[2019-07-18 08:38] LABS: Hematocrit 35.6 % (40-54); Hemoglobin 11.9 g/dL (13.0-16.5); Mean Corp Hgb Conc 33.4 g/dL (32-36); Mean Corpuscular Hgb 30.5 pg (27.0-32.0); Mean Corpuscular Volume 91.3 fL (80-94); Mean Platelet Vol. 11.1 fl (6.2-12.0); Platelet Count 180 K/mm3 (150-450); RBC Distribution Width CV 14.1 % (11.6-14.6); RBC Distribution Width SD 46.7 fl (35.1-43.9); White Blood Count 25.9 K/mm3 (4.4-11.0)
[2019-07-18 08:45] LABS: Valproic Acid (Depakene) Level 51 ug/mL (50-100)
[2019-07-18 08:58] LABS: AST(SGOT) 12 U/L (15-37); Alanine Aminotransfer ALT/SGPT 17 U/L (16-61); Albumin, Serum 3.4 g/dL (3.2-5.0); Alkaline Phosphatase 77 U/L (45-117); Anion Gap 4 (5-15); BUN 16 mg/dL (7-18); BUN/Creat Ratio 11.9 RATIO (10-20); Bilirubin, Direct 0.14 mg/dL (0.00-0.30); Calcium,Total 8.5 mg/dL (8.5-10.1); Chloride 98 mmol/L (98-107); Creatinine, Serum 1.34 mg/dL (0.70-1.30); EST Glomerular Filtration Rate 55 mL/min (>60); Est Glom Filt Rate - Afr Amer 67 mL/min (>60); Globulin 2.8 g/dL (2.2-4.2); Glucose 79 mg/dL (74-106); Potassium 4.1 mmol/L (3.5-5.1); Protein, Total 6.2 g/dL (6.4-8.2); Sodium Level 127 mmol/L (136-145); Thyroid Stim Hormone (TSH) 4.23 uIU/mL (0.358-3.74)
== END ==
LOC: OLS.WHLEAS 05:00
PROVIDERS: Visit Provider Family Medicine
DX: E78.5 Hyperlipidemia, unspecified (principal); E03.9 Hypothyroidism, unspecified; I10 Essential (primary) hypertension; F25.9 Schizoaffective disorder, unspecified; F31.9 Bipolar disorder, unspecified; F60.5 Obsessive-compulsive personality disorder; F03.91 Unspecified dementia, unspecified severity, with behavioral disturbance; J44.9 Chronic obstructive pulmonary disease, unspecified
CPT/HCPCS: 36415; 80048; 80076; 80164; 84443; 84550; 85027

== ENCOUNTER → 2019-09-22 05:00 | Outpatient (REF) | payer MEDICARE, MEDICAID, SELFPAY ==
[2018-12-14 14:36] VITALS: BMI 27.1
[2019-09-22 08:35] LABS: Absolute Neutrophil Count 6.3 X10^3/uL (2.0-7.7); Basophil# 0.09 X10^3/uL; Basophil% 0.2 % (0-1); Hematocrit 37.8 % (40-54); Hemoglobin 12.5 g/dL (13.0-16.5); Lymphocyte % 79.6 % (19-41); Mean Corp Hgb Conc 33.1 g/dL (32-36); Mean Corpuscular Hgb 30.4 pg (27.0-32.0); Mean Platelet Vol. 11.4 fl (6.2-12.0); Monocyte# 0.94 X10^3/uL; Monocyte% 2.6 % (0-10); NRBC Flagged by Analyzer 0 % (0-5); Neutrophil % 17.1 % (47-70); POSITIVE COUNT YES; POSITIVE DIFFERENTIAL YES; POSITIVE MORPHOLOGY YES; Platelet Count 189 K/mm3 (150-450); RBC Distribution Width CV 13.7 % (11.6-14.6); RBC Distribution Width SD 46.3 fl (35.1-43.9); Red Blood Count 4.11 M/mm3 (4.6-6.2)
[2019-09-22 08:46] LABS: White Blood Count 36.8 K/mm3 (4.4-11.0)
[2019-09-22 08:47] LABS: AST(SGOT) 16 U/L (15-37); Alanine Aminotransfer ALT/SGPT 15 U/L (16-61); Albumin, Serum 3.1 g/dL (3.2-5.0); Alkaline Phosphatase 70 U/L (45-117); Anion Gap 9 (5-15); BUN 24 mg/dL (7-18); BUN/Creat Ratio 20.7 RATIO (10-20); Calcium,Total 8.9 mg/dL (8.5-10.1); Chloride 101 mmol/L (98-107); Creatinine, Serum 1.16 mg/dL (0.70-1.30); EST Glomerular Filtration Rate 65 mL/min (>60); Est Glom Filt Rate - Afr Amer 79 mL/min (>60); Globulin 3.2 g/dL (2.2-4.2); Glucose 85 mg/dL (74-106); Potassium 3.8 mmol/L (3.5-5.1); Protein, Total 6.3 g/dL (6.4-8.2); Sodium Level 135 mmol/L (136-145); Thyroid Stim Hormone (TSH) 1.24 uIU/mL (0.358-3.74)
[2019-09-22 09:11] LABS: Differential Comment SCANNED
[2019-09-23 11:14] LABS: Pathologist Review Reviewed
== END ==
LOC: OLS.WHLEAS 05:00
PROVIDERS: Visit Provider Family Medicine
DX: E03.9 Hypothyroidism, unspecified (principal); F25.9 Schizoaffective disorder, unspecified; F31.9 Bipolar disorder, unspecified; F60.5 Obsessive-compulsive personality disorder; F03.91 Unspecified dementia, unspecified severity, with behavioral disturbance; J44.9 Chronic obstructive pulmonary disease, unspecified
CPT/HCPCS: 36415; 80053; 84443; 85025

== ENCOUNTER 2019-10-09 06:36 | Emergency (ER) | payer MEDICARE, MEDICAID, SELFPAY ==
[2018-12-14 14:36] VITALS: BMI 27.1
[2019-10-09 06:38] VITALS: BP 102/75; PULSE 79; RESP 16; TEMP 36.4; O2SAT 93; BMI 26.4
--- NOTE | 2019-10-09 06:51 | ED.DCSUM_ITS ---
- ER Visit Summary Date of Service: 10/09/19 Chief Complaint: Hematuria History of Present Illness: The patient is a 74 M who presents with hematuria that began today. Patient states he accidentally stepped on his Raymond catheter bag. Patient states this pulled on his catheter. Patient states he was having hematuria in his catheter since that time. Patient admits to some mild lower abdominal pain. Patient describes it as dull. Patient denies any fevers or chills. Patient denies any nausea or vomiting. Patient denies any abdominal pain. Physical Examination: Vital signs are stable. Patient is afebrile. Patient is in no acute distress. Oral mucosa is pink and moist. Neck is supple. Trachea is midline. There is no JVD. Heart was regular rate and rhythm. Lungs are clear and equal bilaterally. Abdomen is soft. Bowel sounds are normal. There is mild suprapubic tenderness. There is no rebound or guarding noted. Cranial nerves II through XII are grossly intact. There are no focal motor or sensory deficits noted. Test Results: CBC, basic metabolic profile, and urinalysis were ordered and are pending. Emergency Department Course and Treatment: A three-way Raymond catheter was placed and the bladder was irrigated. Disposition: Care of the patient was turned over to the oncoming physician pending lab results and bladder irrigation Impression: 1. Hematuria This note was generated with [employer] dictation software. It may contain incorrect words, spelling, and punctuation that were not noted in review of the chart prior to signing ED Disposition - Plan for ED Patient: Diagnosis: Hematuria Referrals: Guillermo Espinal MD [Primary Care Provider] -
[2019-10-09] MEDS: Lidocaine Jelly 2% 20 ML Syringe (URO-JET) 20 APPLIC TOPICAL (07:05)
[2019-10-09 07:16] LABS: Absolute Neutrophil Count 5.6 X10^3/uL (2.0-7.7); Basophil# 0.06 X10^3/uL; Basophil% 0.2 % (0-1); Hematocrit 30.7 % (40-54); Hemoglobin 9.9 g/dL (13.0-16.5); Lymphocyte % 72.7 % (19-41); Mean Corp Hgb Conc 32.2 g/dL (32-36); Mean Corpuscular Hgb 30.2 pg (27.0-32.0); Mean Corpuscular Volume 93.6 fL (80-94); Mean Platelet Vol. 9.9 fl (6.2-12.0); Monocyte# 1.79 X10^3/uL; Monocyte% 6.4 % (0-10); NRBC Flagged by Analyzer 0 % (0-5); Neutrophil # 5.62 X10^3/uL (2.7-7.7); Neutrophil % 20.3 % (47-70); POSITIVE DIFFERENTIAL YES; POSITIVE MORPHOLOGY YES; Platelet Count 201 K/mm3 (150-450); RBC Distribution Width CV 13.8 % (11.6-14.6); RBC Distribution Width SD 46.6 fl (35.1-43.9); Red Blood Count 3.28 M/mm3 (4.6-6.2); White Blood Count 27.8 K/mm3 (4.4-11.0)
[2019-10-09 07:17] LABS: Differential Indicated SCAN CRITERIA MET
--- NOTE | 2019-10-09 07:18 | ED.RN ---
patient from correction catheter replaced there. gross hematuria. catheter removed and 3 way moss catheter inserted manual irrigation with 300 ml of normal saline. large clots noted. able to get urine to a light pink ting. Patient tolerated procedure fairly well. Dr. Lemus made aware of results at this time
[2019-10-09 07:29] LABS: Anion Gap 7 (5-15); BUN 13 mg/dL (7-18); BUN/Creat Ratio 13.6 RATIO (10-20); Chloride 103 mmol/L (98-107); Creatinine, Serum 0.95 mg/dL (0.70-1.30); EST Glomerular Filtration Rate 82 mL/min (>60); Est Glom Filt Rate - Afr Amer 99 mL/min (>60); Estimated Creatinine Clearance 68.22 ml/min; Glucose 103 mg/dL (74-106); Potassium 3.9 mmol/L (3.5-5.1); Sodium Level 133 mmol/L (136-145)
[2019-10-09 07:33] LABS: Atypical Lymphocyte 1+ %; Differential Comment SCANNED; Reactive Lymphocyte 1+
[2019-10-09 11:44] VITALS: RESP 18
[2019-10-09 11:44] LABS: Mucous, Urine 0 SEEN /hpf (<or=2+)
[2019-10-09 11:55] LABS: Color, Urine Red (Yellow); Glucose, Dipstick Normal (Normal); Ketone-Dipstick 5 mg/dl (Negative); Leukocyte Esterase-Dipstick 500 /ul (Negative); Nitrite-Dipstick Negative (Negative); Occult Blood-Urine 250 /ul (Negative); Protein-Dipstick 100 mg/dl (Negative); Specific Gravity, Urine 1.005 (1.002-1.030); Urine Bilirubin Dipstick Negative (Negative); Urine Clarity Cloudy (Clear); Urine Urobilinogen Normal (Normal)
[2019-10-09 12:22] LABS: Red Blood Cells-Urine > 100 SEEN /hpf (0-5); White Blood Cells >100 SEEN /hpf (0-5)
[2019-10-09 12:23] LABS: Bacteria 4+ /hpf (None Seen); Squamous Epithelial Cells - UA 0-5 SEEN /hpf (0-5)
--- NOTE | 2019-10-09 12:27 | ED.DEP ---
ED Disposition - Plan for ED Patient: Diagnosis: Hematuria Instructions: ED Hematuria Referrals: Guillermo Espinal MD [Primary Care Provider] -
[2019-10-09 13:17] VITALS: BP 111/69; PULSE 71; RESP 16; TEMP 36.9; O2SAT 94
[2019-10-10 11:19] LABS: Pathologist Review Reviewed
== END 2019-10-09 13:15 | disposition home or self-care (01) ==
PROVIDERS: Emergency Provider Emergency Medicine
DX: N39.0 Urinary tract infection, site not specified (principal); R10.30 Lower abdominal pain, unspecified; C91.10 Chronic lymphocytic leukemia of B-cell type not having achieved remission; F41.9 Anxiety disorder, unspecified; Z96.0 Presence of urogenital implants; Z79.82 Long term (current) use of aspirin; Z79.899 Other long term (current) drug therapy; F25.9 Schizoaffective disorder, unspecified; F31.9 Bipolar disorder, unspecified; F03.91 Unspecified dementia, unspecified severity, with behavioral disturbance; F60.5 Obsessive-compulsive personality disorder; J44.9 Chronic obstructive pulmonary disease, unspecified
CPT/HCPCS: 51702; 80048; 81001; 85025; 87077; 87086; 87088; 87186; 99285; A4216

== ENCOUNTER → 2019-10-09 09:52 | Outpatient (REF) | payer MEDICARE, MEDICAID, SELFPAY ==
[2019-10-09 06:38] VITALS: BMI 26.4
[2019-10-09 09:58] LABS: Mucous, Urine 0 SEEN /hpf (<or=2+); Squamous Epithelial Cells - UA 0 SEEN /hpf (0-5)
[2019-10-09 10:29] LABS: Color, Urine Red (Yellow); Glucose, Dipstick Normal (Normal); Ketone-Dipstick 5 mg/dl (Negative); Leukocyte Esterase-Dipstick Negative /ul (Negative); Nitrite-Dipstick Negative (Negative); Occult Blood-Urine 150 /ul (Negative); Protein-Dipstick 500 mg/dl (Negative); Urine Bilirubin Dipstick Negative (Negative); Urine Clarity Turbid (Clear); Urine Urobilinogen Normal (Normal)
[2019-10-09 10:38] LABS: White Blood Cells 0 SEEN /hpf (0-5)
[2019-10-09 10:40] LABS: Bacteria 4+ /hpf (None Seen)
[2019-10-09 10:41] LABS: Red Blood Cells-Urine > 100 SEEN /hpf (0-5)
== END ==
LOC: OLS.WHLEAS 09:52
PROVIDERS: Visit Provider Family Medicine
DX: N39.0 Urinary tract infection, site not specified (principal); F25.9 Schizoaffective disorder, unspecified; F31.9 Bipolar disorder, unspecified; F03.91 Unspecified dementia, unspecified severity, with behavioral disturbance; F60.5 Obsessive-compulsive personality disorder; J44.9 Chronic obstructive pulmonary disease, unspecified
CPT/HCPCS: 81001; 87077; 87086; 87088; 87186

== ENCOUNTER → 2019-10-17 05:00 | Outpatient (REF) | payer MEDICARE, MEDICAID, SELFPAY ==
[2019-10-09 06:38] VITALS: BMI 26.4
[2019-10-17 09:10] LABS: Hematocrit 27.3 % (40-54); Hemoglobin 8.9 g/dL (13.0-16.5); Mean Corp Hgb Conc 32.6 g/dL (32-36); Mean Corpuscular Hgb 30.9 pg (27.0-32.0); Mean Corpuscular Volume 94.8 fL (80-94); Mean Platelet Vol. 11.3 fl (6.2-12.0); POSITIVE COUNT YES; Platelet Count 206 K/mm3 (150-450); RBC Distribution Width CV 14.6 % (11.6-14.6); RBC Distribution Width SD 50.3 fl (35.1-43.9); Red Blood Count 2.88 M/mm3 (4.6-6.2)
[2019-10-17 09:15] LABS: Scan Indicated on CBC? Y/N YES- FLAGS NOTED
[2019-10-17 09:23] LABS: Valproic Acid (Depakene) Level 44 ug/mL (50-100)
[2019-10-17 09:33] LABS: AST(SGOT) 16 U/L (15-37); Alanine Aminotransfer ALT/SGPT 13 U/L (16-61); Albumin, Serum 2.6 g/dL (3.2-5.0); Alkaline Phosphatase 60 U/L (45-117); Bilirubin, Direct 0.11 mg/dL (0.00-0.30); Cholesterol 109 mg/dL (200); Globulin 2.4 g/dL (2.2-4.2); High Density Lipoprotein 35 mg/dL; Thyroid Stim Hormone (TSH) 3.65 uIU/mL (0.358-3.74); Triglycerides 74 mg/dL; Uric Acid 4.9 mg/dL (3.5-7.2); Very Low Density Lipoprotein 15 mg/dL (5-40)
[2019-10-17 10:08] LABS: Differential Comment SCANNED
[2019-10-18 10:50] LABS: Pathologist Review Reviewed
== END ==
LOC: OLS.WHLEAS 05:00
PROVIDERS: Visit Provider Family Medicine
DX: I10 Essential (primary) hypertension (principal); F25.9 Schizoaffective disorder, unspecified; F31.9 Bipolar disorder, unspecified; F60.5 Obsessive-compulsive personality disorder; F03.91 Unspecified dementia, unspecified severity, with behavioral disturbance; J44.9 Chronic obstructive pulmonary disease, unspecified; E03.9 Hypothyroidism, unspecified; E78.5 Hyperlipidemia, unspecified
CPT/HCPCS: 36415; 80061; 80076; 80164; 84443; 84550; 85027

== ENCOUNTER → 2019-11-02 06:00 | Outpatient (REF) | payer MEDICARE, MEDICAID, SELFPAY ==
[2019-10-09 06:38] VITALS: BMI 26.4
[2019-11-02 11:12] LABS: Hematocrit 33.9 % (40-54); Hemoglobin 10.7 g/dL (13.0-16.5); Mean Corp Hgb Conc 31.6 g/dL (32-36); Mean Corpuscular Hgb 31.1 pg (27.0-32.0); Mean Corpuscular Volume 98.5 fL (80-94); Mean Platelet Vol. 11.5 fl (6.2-12.0); Platelet Count 176 K/mm3 (150-450); RBC Distribution Width CV 15.4 % (11.6-14.6); RBC Distribution Width SD 54.9 fl (35.1-43.9); Red Blood Count 3.44 M/mm3 (4.6-6.2); White Blood Count 18.5 K/mm3 (4.4-11.0)
[2019-11-03 09:56] VITALS: BMI 26.4
== END ==
LOC: OLS.WHLEAS 06:00
PROVIDERS: Visit Provider Family Medicine
DX: C91.10 Chronic lymphocytic leukemia of B-cell type not having achieved remission (principal); I10 Essential (primary) hypertension; F25.9 Schizoaffective disorder, unspecified; F31.9 Bipolar disorder, unspecified; F60.5 Obsessive-compulsive personality disorder; F03.91 Unspecified dementia, unspecified severity, with behavioral disturbance; J44.9 Chronic obstructive pulmonary disease, unspecified
CPT/HCPCS: 36415; 85027

== ENCOUNTER → 2020-01-16 04:00 | Outpatient (REF) | payer MEDICARE, MEDICAID, SELFPAY ==
[2019-11-03 09:56] VITALS: BMI 26.4
[2020-01-16 07:43] LABS: Hematocrit 32.2 % (40-54); Hemoglobin 10.5 g/dL (13.0-16.5); Mean Corp Hgb Conc 32.6 g/dL (32-36); Mean Corpuscular Hgb 30.6 pg (27.0-32.0); Mean Corpuscular Volume 93.9 fL (80-94); Mean Platelet Vol. 11.5 fl (6.2-12.0); POSITIVE COUNT YES; Platelet Count 167 K/mm3 (150-450); RBC Distribution Width CV 12.6 % (11.6-14.6); RBC Distribution Width SD 43.2 fl (35.1-43.9); Red Blood Count 3.43 M/mm3 (4.6-6.2)
[2020-01-16 07:49] LABS: Scan Indicated on CBC? Y/N YES- FLAGS NOTED
[2020-01-16 07:55] LABS: White Blood Count 33.5 K/mm3 (4.4-11.0)
[2020-01-16 08:06] LABS: Valproic Acid (Depakene) Level 46 ug/mL (50-100)
[2020-01-16 08:12] LABS: AST(SGOT) 12 U/L (15-37); Alanine Aminotransfer ALT/SGPT 14 U/L (16-61); Albumin, Serum 2.9 g/dL (3.2-5.0); Alkaline Phosphatase 77 U/L (45-117); Anion Gap 8 (5-15); BUN 12 mg/dL (7-18); BUN/Creat Ratio 11.1 RATIO (10-20); Bilirubin, Direct 0.14 mg/dL (0.00-0.30); Calcium,Total 8.2 mg/dL (8.5-10.1); Chloride 101 mmol/L (98-107); Cholesterol 101 mg/dL (200); Creatinine, Serum 1.08 mg/dL (0.70-1.30); EST Glomerular Filtration Rate 71 mL/min (>60); Est Glom Filt Rate - Afr Amer 86 mL/min (>60); Globulin 2.7 g/dL (2.2-4.2); Glucose 76 mg/dL (74-106); High Density Lipoprotein 28 mg/dL; Potassium 4.3 mmol/L (3.5-5.1); Protein, Total 5.6 g/dL (6.4-8.2); Sodium Level 135 mmol/L (136-145); Thyroid Stim Hormone (TSH) 1.81 uIU/mL (0.358-3.74); Triglycerides 95 mg/dL; Uric Acid 4.9 mg/dL (3.5-7.2); Very Low Density Lipoprotein 19 mg/dL (5-40)
[2020-01-16 13:15] LABS: Pathologist Review Reviewed
== END ==
LOC: OLS.WHLEAS 04:00
PROVIDERS: Visit Provider Family Medicine
DX: I10 Essential (primary) hypertension (principal); F25.9 Schizoaffective disorder, unspecified; F31.9 Bipolar disorder, unspecified; F60.5 Obsessive-compulsive personality disorder; F03.91 Unspecified dementia, unspecified severity, with behavioral disturbance; J44.9 Chronic obstructive pulmonary disease, unspecified
CPT/HCPCS: 36415; 80048; 80061; 80076; 80164; 84443; 84550; 85027

== ENCOUNTER → 2020-04-16 05:00 | Outpatient (REF) | payer MEDICARE, MEDICAID, SELFPAY ==
[2019-11-03 09:56] VITALS: BMI 26.4
[2020-04-16 08:39] LABS: Hematocrit 30.1 % (40-54); Hemoglobin 9.9 g/dL (13.0-16.5); Mean Corp Hgb Conc 32.9 g/dL (32-36); Mean Corpuscular Hgb 31.2 pg (27.0-32.0); POSITIVE COUNT YES; Platelet Count 163 K/mm3 (150-450); RBC Distribution Width CV 14.3 % (11.6-14.6); RBC Distribution Width SD 49.3 fl (35.1-43.9); Red Blood Count 3.17 M/mm3 (4.6-6.2); White Blood Count 35.4 K/mm3 (4.4-11.0)
[2020-04-16 08:47] LABS: Scan Indicated on CBC? Y/N YES- FLAGS NOTED
[2020-04-16 09:10] LABS: Valproic Acid (Depakene) Level 49 ug/mL (50-100)
[2020-04-16 09:13] LABS: Differential Comment SCANNED
[2020-04-16 09:16] LABS: AST(SGOT) 9 U/L (15-37); Alanine Aminotransfer ALT/SGPT 13 U/L (16-61); Albumin, Serum 3.2 g/dL (3.2-5.0); Alkaline Phosphatase 69 U/L (45-117); Anion Gap 6 (5-15); BUN 18 mg/dL (7-18); BUN/Creat Ratio 14.4 RATIO (10-20); Bilirubin, Direct 0.18 mg/dL (0.00-0.30); Calcium,Total 8.7 mg/dL (8.5-10.1); Chloride 110 mmol/L (98-107); Creatinine, Serum 1.25 mg/dL (0.70-1.30); EST Glomerular Filtration Rate 60 mL/min (>60); Est Glom Filt Rate - Afr Amer 72 mL/min (>60); Globulin 2.6 g/dL (2.2-4.2); Glucose 126 mg/dL (74-106); Potassium 3.8 mmol/L (3.5-5.1); Protein, Total 5.8 g/dL (6.4-8.2); Sodium Level 141 mmol/L (136-145)
[2020-04-17 13:59] LABS: Pathologist Review Reviewed
== END ==
LOC: OLS.WHLEAS 05:00
PROVIDERS: Visit Provider Family Medicine
DX: F25.9 Schizoaffective disorder, unspecified (principal); I10 Essential (primary) hypertension; F31.9 Bipolar disorder, unspecified; F60.5 Obsessive-compulsive personality disorder; F03.91 Unspecified dementia, unspecified severity, with behavioral disturbance; J44.9 Chronic obstructive pulmonary disease, unspecified
CPT/HCPCS: 36415; 80048; 80076; 80164; 85027

== ENCOUNTER → 2020-07-16 05:00 | Outpatient (REF) | payer MEDICARE, MEDICAID, SELFPAY ==
[2019-11-03 09:56] VITALS: BMI 26.4
[2020-07-16 07:15] LABS: Hematocrit 26.3 % (40-54); Hemoglobin 8.8 g/dL (13.0-16.5); Mean Corp Hgb Conc 33.5 g/dL (32-36); Mean Corpuscular Hgb 32.2 pg (27.0-32.0); Mean Corpuscular Volume 96.3 fL (80-94); Mean Platelet Vol. 11.9 fl (6.2-12.0); POSITIVE COUNT YES; Platelet Count 157 K/mm3 (150-450); RBC Distribution Width CV 13.3 % (11.6-14.6); RBC Distribution Width SD 46.4 fl (35.1-43.9); Red Blood Count 2.73 M/mm3 (4.6-6.2)
[2020-07-16 07:38] LABS: AST(SGOT) 13 U/L (15-37); Alanine Aminotransfer ALT/SGPT 20 U/L (16-61); Albumin, Serum 2.9 g/dL (3.2-5.0); Alkaline Phosphatase 66 U/L (45-117); Anion Gap 6 (5-15); BUN 23 mg/dL (7-18); BUN/Creat Ratio 20.7 RATIO (10-20); Bilirubin, Direct 0.08 mg/dL (0.00-0.30); Calcium,Total 8.2 mg/dL (8.5-10.1); Chloride 108 mmol/L (98-107); Cholesterol 96 mg/dL (200); Creatinine, Serum 1.11 mg/dL (0.70-1.30); EST Glomerular Filtration Rate 69 mL/min (>60); Est Glom Filt Rate - Afr Amer 83 mL/min (>60); Globulin 3.2 g/dL (2.2-4.2); Glucose 89 mg/dL (74-106); High Density Lipoprotein 28 mg/dL; Protein, Total 6.1 g/dL (6.4-8.2); Sodium Level 139 mmol/L (136-145); Thyroid Stim Hormone (TSH) 4.67 uIU/mL (0.358-3.74); Triglycerides 94 mg/dL; Uric Acid 5.7 mg/dL (3.5-7.2); Very Low Density Lipoprotein 19 mg/dL (5-40)
[2020-07-16 07:41] LABS: Scan Indicated on CBC? Y/N YES- FLAGS NOTED; White Blood Count 58.9 K/mm3 (4.4-11.0)
[2020-07-16 07:42] LABS: Differential Comment SCANNED
[2020-07-16 08:02] LABS: Valproic Acid (Depakene) Level 43 ug/mL (50-100)
[2020-07-17 12:51] LABS: Pathologist Review Reviewed
== END ==
LOC: OLS.WHLEAS 05:00
PROVIDERS: Visit Provider Family Medicine
DX: I10 Essential (primary) hypertension (principal); F25.9 Schizoaffective disorder, unspecified; F31.9 Bipolar disorder, unspecified; F60.5 Obsessive-compulsive personality disorder; F03.91 Unspecified dementia, unspecified severity, with behavioral disturbance; J44.9 Chronic obstructive pulmonary disease, unspecified; E78.5 Hyperlipidemia, unspecified; E03.9 Hypothyroidism, unspecified
CPT/HCPCS: 36415; 80048; 80061; 80076; 80164; 84443; 84550; 85027

== ENCOUNTER → 2020-09-10 03:44 | Outpatient (CLI) | payer MEDICARE, MEDICAID, SELFPAY ==
[2020-08-27 13:42] VITALS: BMI 24.3
== END ==
PROVIDERS: Visit Provider Internal Medicine Hematology & Oncology
DX: D72.820 Lymphocytosis (symptomatic) (principal); D64.9 Anemia, unspecified

== ENCOUNTER → 2020-09-12 05:00 | Outpatient (REF) | payer MEDICARE, MEDICAID, SELFPAY ==
[2020-08-27 13:42] VITALS: BMI 24.3
[2020-09-12 06:43] LABS: Absolute Lymphocyte Count 20.59 X10^3/uL (0.83-4.51); Absolute Neutrophil Count 4.2 X10^3/uL (2.0-7.7); Basophil# 0.05 X10^3/uL; Basophil% 0.2 % (0-1); Hemoglobin 9.4 g/dL (13.0-16.5); Lymphocyte # 20.59 X10^3/ul (4.0); Lymphocyte % 78.3 % (19-41); Mean Corp Hgb Conc 33.6 g/dL (32-36); Mean Corpuscular Hgb 32.5 pg (27.0-32.0); Mean Corpuscular Volume 96.9 fL (80-94); Monocyte# 1.35 X10^3/uL; Monocyte% 5.1 % (0-10); NRBC Flagged by Analyzer 0 % (0-5); Neutrophil # 4.23 X10^3/uL (2.7-7.7); Neutrophil % 16.1 % (47-70); POSITIVE DIFFERENTIAL YES; POSITIVE MORPHOLOGY YES; Platelet Count 208 K/mm3 (150-450); RBC Distribution Width CV 14.3 % (11.6-14.6); RBC Distribution Width SD 50.8 fl (35.1-43.9); Red Blood Count 2.89 M/mm3 (4.6-6.2); White Blood Count 26.3 K/mm3 (4.4-11.0)
[2020-09-12 06:44] LABS: Differential Indicated SCAN CRITERIA MET
[2020-09-12 06:51] LABS: Anion Gap 12 (5-15); BUN 57 mg/dL (7-18); Calcium,Total 8.5 mg/dL (8.5-10.1); Chloride 99 mmol/L (98-107); Creatinine, Serum 5.17 mg/dL (0.70-1.30); EST Glomerular Filtration Rate 12 mL/min (>60); Est Glom Filt Rate - Afr Amer 14 mL/min (>60); Glucose 111 mg/dL (74-106); Potassium 4.7 mmol/L (3.5-5.1); Sodium Level 131 mmol/L (136-145)
[2020-09-23 16:52] VITALS: BMI 26.9
== END ==
LOC: OLS.WHLEAS 05:00
PROVIDERS: Referring Provider Family Medicine; Visit Provider Family Medicine
DX: R33.9 Retention of urine, unspecified (principal); F25.9 Schizoaffective disorder, unspecified; F31.9 Bipolar disorder, unspecified; F60.5 Obsessive-compulsive personality disorder; F03.91 Unspecified dementia, unspecified severity, with behavioral disturbance; J44.9 Chronic obstructive pulmonary disease, unspecified
CPT/HCPCS: 36415; 80048; 85025

== ENCOUNTER 2020-09-12 08:18 | Inpatient (IN) | payer MEDICARE, MEDICAID, SELFPAY ==
[2020-08-27 13:42] VITALS: BMI 24.3
[2020-09-12] VITALS (30 sets, daily range): BP systolic 71–182; BP diastolic 45–136; PULSE 75–98; RESP 14–32; TEMP 36.2–38; O2SAT 85–100; BMI 25.5; BMI 25.3
--- NOTE | 2020-09-12 08:25 | EKG12_ITS ---
Test Reason : SOB Blood Pressure : / mmHG Vent. Rate : 087 BPM Atrial Rate : 087 BPM P-R Int : 208 ms QRS Dur : 114 ms QT Int : 390 ms P-R-T Axes : 078 110 064 degrees QTc Int : 469 ms Atrial-sensed ventricular-paced rhythm Abnormal ECG Confirmed by PRABHA BRIDGES, KAYLIE ([id number]), editor in chief JATIN HOUSTON ([id number]) on 09/14/2020 2:35:09 PM Referred By: MELBA Confirmed By:MIRIAM ARMANDO MD
[2020-09-12 08:38] LABS: Absolute Lymphocyte Count 19.16 X10^3/uL (0.83-4.51); Absolute Neutrophil Count 4.4 X10^3/uL (2.0-7.7); Basophil# 0.05 X10^3/uL; Basophil% 0.2 % (0-1); Hematocrit 28.6 % (40-54); Hemoglobin 9.8 g/dL (13.0-16.5); Lymphocyte # 19.16 X10^3/ul (4.0); Mean Corp Hgb Conc 34.3 g/dL (32-36); Mean Corpuscular Volume 96.3 fL (80-94); Mean Platelet Vol. 12.1 fl (6.2-12.0); Monocyte% 4.8 % (0-10); NRBC Flagged by Analyzer 0 % (0-5); Neutrophil # 4.43 X10^3/uL (2.7-7.7); Neutrophil % 17.8 % (47-70); POSITIVE DIFFERENTIAL YES; POSITIVE MORPHOLOGY YES; Platelet Count 222 K/mm3 (150-450); RBC Distribution Width CV 14.3 % (11.6-14.6); Red Blood Count 2.97 M/mm3 (4.6-6.2); White Blood Count 24.9 K/mm3 (4.4-11.0)
[2020-09-12 08:41] LABS: Differential Indicated SCAN CRITERIA MET
--- NOTE | 2020-09-12 08:46 | ED.DCSUM_ITS ---
History of Present Illness Chief Complaint: Shortness of Breath Informant: Patient, Family, SNF, PCP Onset: Days Context: Gradual Onset Narrative: Patient sent in from [facility] secondary to shortness of breath and concern for urosepsis. Patient report he developed a fever 2 days ago to 99.6. He has a chronic indwelling Raymond catheter and has had problems with urosepsis in the past. He was started on Levaquin. Last evening they noted decreased urine output. This morning they noted he did not have any urinary output and was more just short of breath with congestion. He was reportedly saturating 80% on 3 L nasal cannula. He is not normally on oxygen. On arrival patient's only complaint is left lower quadrant abdominal pain. He states this is been hurting him for quite some time. - Past Medical History (1) Schizophrenia Status: Chronic (2) CLL (chronic lymphocytic leukemia) Status: Chronic (3) Bipolar 1 disorder Status: Chronic (4) COPD (chronic obstructive pulmonary disease) Status: Chronic (5) Essential hypertension Status: Chronic (6) Hypothyroidism Status: Chronic (7) Pure hypercholesterolemia Status: Chronic (8) Schizo affective schizophrenia Status: Chronic Past Medical History - Allergies and Home Meds Allergies/Adverse Reactions: Allergies No Known Allergies Allergy (Verified 09/12/20 08:19) Primary Care Physician: Guillermo Espinal MD [Primary Care Provider] - Prior records reviewed: Yes Surgical History: - - History of pacemaker, back surgeries ?2 Lives: [facility] Smoking Status: Former smoker - Family History Maternal Family History: Family History (Last Reviewed 08/27/20 @ 14:03 by Caro Prieto) Mother CAD (coronary artery disease) Family History: Reports: Heart Disease Review of Systems General: Reports: Fever ENT: Denies: Rhinorrhea Cardiovascular: Denies: Chest pain Respiratory: Reports: Dyspnea Gastrointestinal: Reports: Abdominal pain, Vomiting Genitourinary: Reports: - - Chronic indwelling Raymond catheter Musculoskeletal: Denies: Extremity Pain Skin: Denies: Rash, Wounds Neurological: Reports: Weakness - Generalized weakness Hematologic: Denies: Easy bruising, Easy bleeding Allergy: Denies: Uticaria Physical Exam Vital Signs/Narrative: Vital Signs Temp Pulse Resp BP Pulse Ox 09/12/20 08:38 98.4 F 89 29 H 81/62 L 96 09/12/20 08:34 98.4 F 87 25 H 81/62 L 96 09/12/20 08:20 98.4 F 92 25 H 71/52 L 85 Inital Vital Signs reviewed: Yes General: Cachectic Head: Normocephalic Cardiovascular: Regular rate, Regular rhythm Respiratory: Rales, Rhonchi Abdomen: Soft, Tender - Left lower quadrant tenderness to palpation., Hypoactive bowel sounds Extremities: Nontender Skin: Pallor Neurological: Alert, - - No focal neurologic deficits. Diagnostic/Tx/Re-eval Chest X-Ray - ED: 1 View, Read by ED Physician, Chronic Changes Impressions Chest X-Ray 09/12/20 08:50 IMPRESSION: Left lower lobe pneumonia or atelectasis. Electronically Signed: Jermain Nicole MD at 9:14 EDT Tel , Service support , Abdomen/Pelvis CT 09/12/20 09:28 IMPRESSION: 1. Possible moderate small bowel obstruction but a transition point not clearly identified. No evidence of ischemia or perforation. Small amount of free fluid in the pelvis. 2. Small right inguinal hernia containing a segment of the cecum. 3. Large bilateral renal cysts. Electronically Signed: Jermain Nicole MD at 10:32 EDT Tel , Service support , Chest CT 09/12/20 09:28 IMPRESSION: Left lower lobe pneumonia. Electronically Signed: Jermain Nicole MD at 10:22 EDT Tel , Service support , 09/12/20 08:50 Chest 1 View (Portable) [RAD] Stat 09/12/20 09:28 Abdomen/Pelvis without Cont [CT] Stat CT Chest [Chest without Contrast] [CT] Stat 09/12/20 08:35 Mucosa - Nose SARS-CoV-2 Antigen (Rapid) - Final Laboratory Results 09/12/20 09/12/20 09/12/20 07:51 07:51 07:51 WBC 24.9 H RBC 2.97 L Hgb 9.8 L Hct 28.6 L MCV 96.3 H MCH 33.0 H MCHC 34.3 RDW Std Deviation 50.0 H RDW Coeff of Arben 14.3 Plt Count 222 MPV 12.1 H Immature Gran % (Auto) 0.200 Neut % (Auto) 17.8 L Lymph % (Auto) 77.0 H [place] % (Auto) 4.8 Eos % (Auto) 0.0 Baso % (Auto) 0.2 Absolute Neuts (auto) 4.4 Absolute Lymphs (auto) 19.16 H Nucleated RBC % 0 Differential Comment COMMENT PT 16.4 H INR 1.4 APTT 34.9 Sodium 130 L Potassium 5.0 Chloride 98 Carbon Dioxide 21.0 Anion Gap 11 BUN 58 H Creatinine 5.63 H Estim Creat Clear Calc 11.34 Est GFR (MDRD) Af Amer 13 L Est GFR (MDRD) Non-Af 11 L BUN/Creatinine Ratio 10.3 Glucose 114 H Lactic Acid Calcium 8.6 Total Bilirubin 0.80 AST 19 ALT 12 L Alkaline Phosphatase 58 Total Protein 5.6 L Albumin 2.6 L Globulin 3.0 Albumin/Globulin Ratio 0.9 Urine Color Urine Clarity Urine pH Ur Specific [place] Urine Protein Urine Glucose (UA) Urine Ketones Urine Occult Blood Urine Nitrite Urine Bilirubin Urine Urobilinogen Ur Leukocyte Esterase Urine RBC Urine WBC Ur Squamous Epith Cells Urine Bacteria Urine Mucus 09/12/20 09/12/20 07:51 08:50 WBC RBC Hgb Hct MCV MCH MCHC RDW Std Deviation RDW Coeff of Arben Plt Count MPV Immature Gran % (Auto) Neut % (Auto) Lymph % (Auto) [place] % (Auto) Eos % (Auto) Baso % (Auto) Absolute Neuts (auto) Absolute Lymphs (auto) Nucleated RBC % Differential Comment PT INR APTT Sodium Potassium Chloride Carbon Dioxide Anion Gap BUN Creatinine Estim Creat Clear Calc Est GFR (MDRD) Af Amer Est GFR (MDRD) Non-Af BUN/Creatinine Ratio Glucose Lactic Acid 3.0 H* Calcium Total Bilirubin AST ALT Alkaline Phosphatase Total Protein Albumin Globulin Albumin/Globulin Ratio Urine Color Yellow Urine Clarity Cloudy Urine pH 7.0 Ur Specific [place] 1.015 Urine Protein 500 H Urine Glucose (UA) Normal Urine Ketones 5 H Urine Occult Blood 250 H Urine Nitrite Negative Urine Bilirubin Negative Urine Urobilinogen 1 H Ur Leukocyte Esterase 500 H Urine RBC 0 SEEN Urine WBC >100 SEEN Ur Squamous Epith Cells 0 SEEN Urine Bacteria 0 SEEN Urine Mucus 0 SEEN - EKG Initial EKG Interpretation: - - Paced 87. No acute ST change. - Medical Decision Making Patient was placed on BiPAP on arrival. Patient has tolerated this very well and FiO2 has been able to be turned down to 30%. Patient's hypotension has been treated with small fluid boluses for a total of 30 cc/kg. Patient does have evidence of left lower lobe infiltrate. He is given Zosyn and vancomycin for this. Patient does have significant leukocytosis, however white count has been significantly elevated for some time secondary to his CLL. Patient has evidence of acute renal failure with a creatinine over 5. 3 weeks ago creatinine was 1.6. Lactic acid is elevated at 3. At this time on repeat evaluation heart rate is in the 60s. Blood pressures in the 90s over 70s and he is maintaining a MAP greater than 65. He does continue on BiPAP with an FiO2 of 30%. Patient's care has been discussed with his sister at bedside. She is POA. We discussed whether or not patient would want intubation if his respiratory status were to worsen. He currently has a DNR CCA order. She states that she will leave that up to hospital staff because she does not understand the long-term consequences of being on the ventilator. Patient will be discussed with hospitalist for admission. - Critical Care Time Critical care time (excluding procedures): 30-74 minutes, Discussing w/Patient &/or Family/Utility Teller, Performing Direct Patient Care at Bedside ED Disposition - Plan for ED Patient: Disposition: Acute Care Hospital [facility] Diagnosis: Pneumonia, Renal failure Referrals: Guillermo Espinal MD [Primary Care Provider] -
--- NOTE | 2020-09-12 08:50 | RAD_ITS ---
STUDY: X-RAY CHEST REASON FOR EXAM: Male, 75 years old. sob TECHNIQUE: Single AP portable view of the chest. COMPARISON: 12/21/2018 FINDINGS: Left subclavian triple lead pacemaker which is unchanged. Alveolar opacity in the lower left lung consistent with left lower lobe pneumonia or atelectasis. There is no demonstrated pleural abnormality. Normal size heart. Normal mediastinum and jatinder. Normal visualized pulmonary arteries. Normal visualized aortic arch and descending thoracic aorta. Normal visualized thoracic spine. Normal visualized ribs, clavicles, and shoulders. There is no demonstrated abnormality of the visualized soft tissue structures of the upper abdomen. RAD/Chest 1 View (Portable) IMPRESSION: Left lower lobe pneumonia or atelectasis. Electronically Signed: Jermain Nicole MD at 9:14 EDT Tel , Service support ,
[2020-09-12 08:53] LABS: Bacteria 0 SEEN /hpf (None Seen); Mucous, Urine 0 SEEN /hpf (<or=2+); Red Blood Cells-Urine 0 SEEN /hpf (0-5); Squamous Epithelial Cells - UA 0 SEEN /hpf (0-5)
[2020-09-12 08:54] LABS: ALB/GLOB Ratio 0.9 RATIO (0.9-2.4); AST(SGOT) 19 U/L (15-37); Alanine Aminotransfer ALT/SGPT 12 U/L (16-61); Albumin, Serum 2.6 g/dL (3.2-5.0); Alkaline Phosphatase 58 U/L (45-117); Anion Gap 11 (5-15); BUN 58 mg/dL (7-18); BUN/Creat Ratio 10.3 RATIO (10-20); Calcium,Total 8.6 mg/dL (8.5-10.1); Chloride 98 mmol/L (98-107); Creatinine, Serum 5.63 mg/dL (0.70-1.30); EST Glomerular Filtration Rate 11 mL/min (>60); Est Glom Filt Rate - Afr Amer 13 mL/min (>60); Estimated Creatinine Clearance 11.34 ml/min; Glucose 114 mg/dL (74-106); Protein, Total 5.6 g/dL (6.4-8.2); Sodium Level 130 mmol/L (136-145)
[2020-09-12 08:57] LABS: Color, Urine Yellow (Yellow); Glucose, Dipstick Normal (Normal); Ketone-Dipstick 5 mg/dl (Negative); Leukocyte Esterase-Dipstick 500 /ul (Negative); Nitrite-Dipstick Negative (Negative); Occult Blood-Urine 250 /ul (Negative); Protein-Dipstick 500 mg/dl (Negative); Specific Gravity, Urine 1.015 (1.002-1.030); Urine Bilirubin Dipstick Negative (Negative); Urine Clarity Cloudy (Clear); Urine Urobilinogen 1 mg/dl (Normal)
[2020-09-12 09:17] LABS: International Normalized Ratio 1.4; Prothrombin Time (Protime)PT. 16.4 SECONDS (11.7-14.9)
[2020-09-12 09:17] LABS: White Blood Cells >100 SEEN /hpf (0-5)
[2020-09-12 09:18] LABS: Partial Thromboplast Time 34.9 Seconds (24.1-36.2)
--- NOTE | 2020-09-12 09:28 | CT_ITS ---
STUDY: CT CHEST WITHOUT CONTRAST REASON FOR EXAM: Male, 75 years old. dyspnea RADIATION DOSAGE (If Supplied By Facility): CTDIvol = ( 19.53 ) mGy, DLP = ( 1748.95 ) mGycm TECHNIQUE: Transaxial imaging was performed without the administration of intravenous contrast material. Individualized dose optimization techniques were used for this CT. COMPARISON: Chest x-ray earlier today FINDINGS: Left subclavian pacemaker. Small air embolus in the right subclavian vein. Mild emphysematous changes. Alveolar density in the left lower lobe consistent with left lower lobe pneumonia. There is no demonstrated pleural abnormality. There is a small pericardial effusion. There are calcifications of the coronary arteries. Normal mediastinum. Normal hilar regions. Normal unenhanced pulmonary arteries. Normal aorta arch and descending thoracic aorta. Normal osseous structures. There is no demonstrated abnormality of the visualized upper abdomen. CT/Chest without Contrast IMPRESSION: Left lower lobe pneumonia. Electronically Signed: Jermain Nicole MD at 10:22 EDT Tel , Service support ,
--- NOTE | 2020-09-12 09:28 | CT_ITS ---
STUDY: CT ABDOMEN AND PELVIS WITHOUT CONTRAST REASON FOR EXAM: Male, 75 years old. abdominal pain RADIATION DOSAGE (If Supplied By Facility): CTDIvol = ( 19.53 ) mGy, DLP = ( 1748.95 ) mGycm TECHNIQUE: Transaxial images were obtained from the dome of the diaphragm to the symphysis pubis without oral contrast, and without intravenous contrast. Sagittal and coronal images were reconstructed. Individualized dose optimization techniques were used for this CT. COMPARISON: None. FINDINGS: Alveolar density in the left lower lobe consistent with left lower lobe pneumonia. The visualized portions of the heart are within normal limits. Normal liver. Normal gallbladder and extrahepatic biliary system. Normal spleen. Normal pancreas. Normal bilateral adrenal glands. Multiple large renal cysts bilaterally. Moderately distended fluid-filled stomach. Moderately dilated fluid-filled small bowel without a definite transition point. Normal colon. The appendix is visualized and appears normal. There is diffuse atherosclerotic calcification of the abdominal aorta, without a demonstrated aneurysm. Normal inferior vena cava. Normal retroperitoneum. Raymond catheter within the collapsed bladder. Small right angle hernia containing fat and a segment of the cecum. Normal osseous structures. CT/Abdomen/Pelvis without Cont IMPRESSION: 1. Possible moderate small bowel obstruction but a transition point not clearly identified. No evidence of ischemia or perforation. Small amount of free fluid in the pelvis. 2. Small right inguinal hernia containing a segment of the cecum. 3. Large bilateral renal cysts. Electronically Signed: Jermain Nicole MD at 10:32 EDT Tel , Service support ,
[2020-09-12] MEDS: 0.9% Normal Saline 1,000 ML 999 ML IV (09:39)
--- NOTE | 2020-09-12 11:35 | NURSING ---
DR COLE IN WITH PATIENT
--- NOTE | 2020-09-12 11:35 | NURSING ---
ICU 1 DOUGLAS PNEUMONIA, RESP FAILURE, SEPSIS
--- NOTE | 2020-09-12 11:47 | PCM.CON.CC ---
Reason for Consult Date of Consultation: 09/12/20 Reason for Consultation: Severe Sepsis History of Present Illness: The patient is a 75-year-old male, with a history as outlined below, who presented to the emergency department on September 12 with shortness of breath, fever and decreased urine output. The patient [facility] also [facility]. In addition, the patient had also reported the presence of some abdominal pain. The patient is not normally on supplemental oxygen at his baseline. On presentation to the emergency department, the patient was noted to be afebrile but was tachypneic and hypotensive with a blood pressure of 71/52 mmHg. The patient was initially placed on a nonrebreather and later a BiPAP to maintain appropriate oxygen saturations. Laboratory evaluation revealed an elevated white blood cell count to 25,000. Chemistry profile was notable for a sodium of 130, BUN of 58 and creatinine of 5.63. Lactate was elevated to 3.0. Urine analysis was positive for leukocyte esterase and greater than 100 white blood cells. Chest x-ray and CT chest was confirmed evidence of a left lower lobe pneumonia. The patient received supplemental IV fluid hydration and was started on broad-spectrum antimicrobials. He was subsequently admitted to the medical intensive care unit for further management. Past Medical History Past Medical History (Chronic Problems): Chronic Problems (Last Reviewed 08/27/20 @ 14:23 by Kacie Babcock RN) Hypothyroidism (Chronic) Bipolar 1 disorder (Chronic) COPD (chronic obstructive pulmonary disease) (Chronic) Schizo affective schizophrenia (Chronic) Lymphocytosis (Chronic) Anemia (Chronic) Schizophrenia (Chronic) CLL (chronic lymphocytic leukemia) (Chronic) Presence of permanent cardiac pacemaker (Chronic) Pacemaker placement 1992;Replacement of pulse generator 1999; Implant [employer] Pacemaker 2004; Implant of dual chamber [employer] pacemaker 12/17/10; Pure hypercholesterolemia (Chronic) Essential hypertension (Chronic) Sinoatrial node dysfunction (Chronic) nursing home use of drug (Chronic) Antihyperlipidemic Retinopathy (Chronic) Medical History: Medical History (Last Reviewed 08/27/20 @ 14:23 by Kacie Babcock RN) Presence of permanent cardiac pacemaker (Chronic) Z95.0 Pacemaker placement 1992;Replacement of pulse generator 1999; Implant [employer] Pacemaker 2004; Implant of dual chamber 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) Z79.899 Antihyperlipidemic Retinopathy (Chronic) H35.00 Gout M10.9 Gout (Inactive) M10.9 HTN (hypertension) (Inactive) I10 Allergies No Known Allergies Allergy (Verified 09/12/20 08:19) Home Medications: Ambulatory Orders Medication Instructions Recorded Acetaminophen [Tylenol] 650 mg PO Q4H PRN PRN 09/14/15 Allopurinol [Zyloprim] 100 mg PO DAILYCM 09/14/15 Aspirin [Aspirin, Baby] 81 mg PO DAILY@0800 09/14/15 Atorvastatin Calcium [Lipitor] 10 mg PO QHS 09/14/15 Divalproex Sodium [Depakote] 250 mg PO BID 09/14/15 Enalapril Maleate [Vasotec] 5 mg PO DAILY 09/14/15 Levothyroxine [Synthroid] 100 mcg PO DAILY 09/14/15 Quetiapine Fumarate [Seroquel] 200 mg PO BREAKFAST 09/14/15 Quetiapine Fumarate [Seroquel] 400 mg PO QHS 09/14/15 Risperidone [Risperdal] 3 mg PO QHS 09/14/15 traZODone [Desyrel] 50 mg PO QHS 09/14/15 alprazolam 1 mg tablet 1 mg PO DAILY PRN tab 10/18/18 guaifenesin 100 mg/5 mL oral liquid 200 mg PO Q6H PRN 10/18/18 ipratropium 0.5 mg-albuterol 3 mg 3 ml INHALATION Q4H PRN ml 10/18/18 (2.5 mg base)/3 mL nebulization soln magnesium hydroxide 400 mg/5 mL 30 ml PO DAILY ml 10/18/18 oral suspension aluminum-mag hydroxide-simethicone 15 ml PO Q4H ml 12/14/18 200 mg-200 mg-20 mg/5 mL oral susp buspirone 5 mg tablet 12.5 mg PO BID tab 11/03/19 mirabegron 50 mg tablet,extended 50 mg PO DAILY 14 Days #14 tab 11/03/19 release 24 hr Levofloxacin [Levaquin] 500 mg PO QHS 09/12/20 Surgical History: Surgical History (Last Reviewed 08/27/20 @ 14:03 by Caro Prieto) History of lumbar surgery Z98.890 Surgical History: - - History of pacemaker, back surgeries ?2 Psychiatric History: - - Bipolar disorder, schizoaffective personality disorder Lives: Group Home Smoking Status: Former smoker - *Family History Maternal Family History: Family History (Last Reviewed 08/27/20 @ 14:03 by Caro Prieto) Mother CAD (coronary artery disease) History Items: Heart Disease Review of Systems Constitutional: Denies: Chills, Fever Eyes: Denies: Blurred vision, Double vision HEENT: Denies: Head Aches, Sinus Congestion, Sinus Drainage Cardiovascular: Denies: Chest Pain, Palpitations Respiratory: Reports: Shortness of Breath Gastrointestinal: Reports: Abdominal Pain, Vomiting Genitourinary: Reports: - - Chronic indwelling Raymond catheter Musculoskeletal: Denies: Joint Pain, Joint Tenderness Skin: Denies: Rash, Wounds Neurological: Denies: Numbness, Tingling, Focal weakness Psychiatric: Denies: Anxiety, Depression, Homicidal Ideations, Suicidal Ideations Hematologic/ Lymphatic: Reports: Anemia Patient Problems: Active and Suspected Problems (Last Reviewed 08/27/20 @ 14:23 by Kacie Babcock RN) Pneumonia (Acute) Renal failure (Acute) Objective: The patient's most recent lab work, culture data and imaging studies have all been personally reviewed. Rapid coronavirus antigen testing was negative. Blood and urine cultures are pending. - Physical Exam Vitals/I&O's: Vital Signs Temp Pulse Resp BP Pulse Ox 97.1 F L 84 20 H 95/57 L 93 09/12/20 11:15 09/12/20 11:15 09/12/20 11:15 09/12/20 11:15 09/12/20 11:15 Oxygen Flow Rate (L/min) 15 Oxygen Delivery Method Bi-pap Weight: 173 lb 1.006 oz Body Mass Index (BMI) 25.5 Intake and Output for Last 24 Hours 09/10/20 09/11/20 09/12/20 23:59 23:59 23:59 Intake Total 1899 Balance 1899 General: Alert, Cooperative, Confused, - - BiPAP currently in place HEENT: Atraumatic, Normocephalic Oral: Dry Mucosa Neck: Supple, No Nodes, Trachea Midline Lungs: Diminished, Rhonchi Cardiovascular: Regular rate, Regular Rhythm Abdomen: Soft, Hypoactive Bowel Sounds, Distended Extremities: No clubbing, No cyanosis Skin: No breakdown Musculoskeletal: No Tenderness to Palpation of Joints or Extremities Lymphatic: No Cervical, Supraclavicular, or Inguinal Adenopathy Neurological: - - No focal neurological deficits. Psych/Mental Status: Normal Affect, Appropriate Labs (Last 48 Hours) 09/12/20 09/12/20 09/12/20 07:51 07:51 07:51 WBC 24.9 H RBC 2.97 L Hgb 9.8 L Hct 28.6 L MCV 96.3 H MCH 33.0 H MCHC 34.3 RDW Std Deviation 50.0 H RDW Coeff of Arben 14.3 Plt Count 222 MPV 12.1 H Immature Gran % (Auto) 0.200 Neut % (Auto) 17.8 L Lymph % (Auto) 77.0 H [place] % (Auto) 4.8 Eos % (Auto) 0.0 Baso % (Auto) 0.2 Absolute Neuts (auto) 4.4 Absolute Lymphs (auto) 19.16 H Nucleated RBC % 0 Differential Comment COMMENT PT 16.4 H INR 1.4 APTT 34.9 Sodium 130 L Potassium 5.0 Chloride 98 Carbon Dioxide 21.0 Anion Gap 11 BUN 58 H Creatinine 5.63 H Estim Creat Clear Calc 11.34 Est GFR (MDRD) Af Amer 13 L Est GFR (MDRD) Non-Af 11 L BUN/Creatinine Ratio 10.3 Glucose 114 H Lactic Acid Calcium 8.6 Total Bilirubin 0.80 AST 19 ALT 12 L Alkaline Phosphatase 58 Total Protein 5.6 L Albumin 2.6 L Globulin 3.0 Albumin/Globulin Ratio 0.9 Urine Color Urine Clarity Urine pH Ur Specific [place] Urine Protein Urine Glucose (UA) Urine Ketones Urine Occult Blood Urine Nitrite Urine Bilirubin Urine Urobilinogen Ur Leukocyte Esterase Urine RBC Urine WBC Ur Squamous Epith Cells Urine Bacteria Urine Mucus 09/12/20 09/12/20 07:51 08:50 WBC RBC Hgb Hct MCV MCH MCHC RDW Std Deviation RDW Coeff of Arben Plt Count MPV Immature Gran % (Auto) Neut % (Auto) Lymph % (Auto) [place] % (Auto) Eos % (Auto) Baso % (Auto) Absolute Neuts (auto) Absolute Lymphs (auto) Nucleated RBC % Differential Comment PT INR APTT Sodium Potassium Chloride Carbon Dioxide Anion Gap BUN Creatinine Estim Creat Clear Calc Est GFR (MDRD) Af Amer Est GFR (MDRD) Non-Af BUN/Creatinine Ratio Glucose Lactic Acid 3.0 H* Calcium Total Bilirubin AST ALT Alkaline Phosphatase Total Protein Albumin Globulin Albumin/Globulin Ratio Urine Color Yellow Urine Clarity Cloudy Urine pH 7.0 Ur Specific [place] 1.015 Urine Protein 500 H Urine Glucose (UA) Normal Urine Ketones 5 H Urine Occult Blood 250 H Urine Nitrite Negative Urine Bilirubin Negative Urine Urobilinogen 1 H Ur Leukocyte Esterase 500 H Urine RBC 0 SEEN Urine WBC >100 SEEN Ur Squamous Epith Cells 0 SEEN Urine Bacteria 0 SEEN Urine Mucus 0 SEEN Microbiology 09/12/20 08:35 Mucosa - Nose SARS-CoV-2 Antigen (Rapid) - Final Clinical Impression(s) from Imaging Studies Chest X-Ray 09/12/20 08:50 IMPRESSION: Left lower lobe pneumonia or atelectasis. Electronically Signed: Jermain Nicole MD at 9:14 EDT Tel , Service support , Abdomen/Pelvis CT 09/12/20 09:28 IMPRESSION: 1. Possible moderate small bowel obstruction but a transition point not clearly identified. No evidence of ischemia or perforation. Small amount of free fluid in the pelvis. 2. Small right inguinal hernia containing a segment of the cecum. 3. Large bilateral renal cysts. Electronically Signed: Jermain Nicole MD at 10:32 EDT Tel , Service support , Chest CT 09/12/20 09:28 IMPRESSION: Left lower lobe pneumonia. Electronically Signed: Jermain Nicole MD at 10:22 EDT Tel , Service support , Current Medications Vancomycin HCl 1,250 mg/ (Sodium Chloride) 275 mls @ 167 mls/hr IV X1 ONE Stop: 09/12/20 12:08 Last Admin: 09/12/20 11:15 Dose: 167 mls/hr Documented by: Assessment/Plan Active and Suspected Problems (Last Reviewed 08/27/20 @ 14:23 by Kcaie Babcock RN) Pneumonia (Acute) Renal failure (Acute) RECOMMENDATIONS: 1. Start additional supplemental IV fluid hydration, lactated Ringer's as ordered. 2. Continue broad-spectrum antimicrobials. 3. Maintain mean arterial pressure greater than 65 mmHg. Vasopressors to be initiated if indicated. 4. Hold antihypertensives and nephrotoxic medications. 5. Resend lactate now. 6. Wean patient from BiPAP and place on supplemental oxygen via nasal cannula. Goal to maintain saturations at or above 90%. 7. Start appropriate ICU prophylaxis. IMPRESSIONS: 1. Severe sepsis Clinical concern for pulmonary source of infection based upon chest imaging studies. In addition, the patient has a chronic indwelling Raymond, raising the possibility for concurrent urinary tract infection as well. The patient will be continued on broad-spectrum antimicrobials. He has been adequately volume resuscitated thus far. We will plan to continue gentle IV fluid hydration, with plans to initiate vasopressor support if clinically indicated. Plan to resend lactate now. Await finalized culture data. 2. Acute hypoxemic respiratory failure Appears to be secondary to large left lower lobe pneumonia. The patient is not normally on supplemental oxygen at his baseline. Although he was started on BiPAP in the emergency department, his oxygenation status has improved. Plan to wean from BiPAP to supplemental oxygen via nasal cannula with a goal to keep sats at or above 90%. 3. Acute kidney injury Likely prerenal in etiology. Aggressive volume resuscitation as noted above. Plan to replace Raymond catheter. Continue to monitor urine output. If no improvement is noted by tomorrow morning, will obtain nephrology consultation. 4. History of schizophrenia/sick sinus syndrome status post pacemaker implantation/hypothyroidism/hypertension/hyperlipidemia Complicates care, management, recovery and prognosis. This note was generated with [employer] dictation software. It may contain incorrect words, spelling, and punctuation that were not noted in checking the note before signing. Inpatient E&M: 56462 Init Hosp L3
--- NOTE | 2020-09-12 12:19 | NURSING ---
DR RIBEIRO IN ROOM
[2020-09-12 12:32] LABS: Reflex Lactate? Y
--- NOTE | 2020-09-12 12:32 | HP.PCM_ITS ---
Problem List (1) Hypothyroidism Status: Chronic (2) Bipolar 1 disorder Status: Chronic (3) COPD (chronic obstructive pulmonary disease) Status: Chronic (4) Schizo affective schizophrenia Status: Chronic (5) Lymphocytosis Status: Chronic (6) Anemia Status: Chronic (7) Schizophrenia Status: Chronic (8) CLL (chronic lymphocytic leukemia) Status: Chronic (9) Pneumonia Status: Acute (10) Renal failure Status: Acute (11) Presence of permanent cardiac pacemaker Status: Chronic Comment: Pacemaker placement 1992;Replacement of pulse generator 1999; Implant [employer] Pacemaker 2004; Implant of dual chamber 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 Patient also had vomiting last night and today. He complained of left lower quadrant abdominal pain and distention for last 2 days. Patient has chronic indwelling Raymond catheter and recurrent UTI in the past with multiple organisms, Providencia stuartii, E. coli, Proteus mirabilis; resistant to Cipro and Levaquin and Bactrim. As per ER physician, his primary care Dr. Espinal treated him for Levaquin for 2 last 2 days for low-grade fever. In ER, triage vitals shows hypotension 71/52, respiratory rate 25, heart rate 92, pulse ox 85% on nonrebreather and patient was put on BiPAP 70% FiO2, pulse ox 96%. Patient not on home oxygen. I saw the patient in the ER with Ms.Big Solano being her sister present in the room, her power of prosecuting attorney. I confirmed with patient and sister, he is DNR CC arrest and does not want intubation, ventilator and CPR. Lactic acid 3.0. Chest CT shows left lower lobe pneumonia. Patient has indwelling Raymond catheter for long time. The patient has not had good urine output since last evening and anuric since morning today. Past Medical History Past Medical History (Chronic Problems): Chronic Problems (Last Reviewed 08/27/20 @ 14:23 by Kacie Babcock RN) Hypothyroidism (Chronic) Bipolar 1 disorder (Chronic) COPD (chronic obstructive pulmonary disease) (Chronic) Schizo affective schizophrenia (Chronic) Lymphocytosis (Chronic) Anemia (Chronic) Schizophrenia (Chronic) CLL (chronic lymphocytic leukemia) (Chronic) Presence of permanent cardiac pacemaker (Chronic) Pacemaker placement 1992;Replacement of pulse generator 1999; Implant [employer] Pacemaker 2004; Implant of dual chamber [employer] pacemaker 12/17/10; Pure hypercholesterolemia (Chronic) Essential hypertension (Chronic) Sinoatrial node dysfunction (Chronic) recruiting team lead use of drug (Chronic) Antihyperlipidemic Retinopathy (Chronic) Medical History: Medical History (Last Reviewed 08/27/20 @ 14:23 by Kacie Babcock, ZEESHAN) Presence of permanent cardiac pacemaker (Chronic) Z95.0 Pacemaker placement 1992;Replacement of pulse generator 1999; Implant [employer] Pacemaker 2004; Implant of dual chamber [employer] pacemaker 12/17/10; Pure hypercholesterolemia (Chronic) E78.00 Essential hypertension (Chronic) I10 Sinoatrial node dysfunction (Chronic) I49.5 recruiting team lead use of drug (Chronic) Z79.899 Antihyperlipidemic Retinopathy (Chronic) H35.00 Gout M10.9 Gout (Inactive) M10.9 HTN (hypertension) (Inactive) I10 Allergies No Known Allergies Allergy (Verified 09/12/20 08:19) Home Medications: Ambulatory Orders Medication Instructions Recorded Acetaminophen [Tylenol] 650 mg PO Q4H PRN PRN 09/14/15 Allopurinol [Zyloprim] 100 mg PO DAILYCM 09/14/15 Aspirin [Aspirin, Baby] 81 mg PO DAILY@0800 09/14/15 Atorvastatin Calcium [Lipitor] 10 mg PO QHS 09/14/15 Divalproex Sodium [Depakote] 250 mg PO BID 09/14/15 Enalapril Maleate [Vasotec] 5 mg PO DAILY 09/14/15 Levothyroxine [Synthroid] 100 mcg PO DAILY 09/14/15 Quetiapine Fumarate [Seroquel] 200 mg PO BREAKFAST 09/14/15 Quetiapine Fumarate [Seroquel] 400 mg PO QHS 04/08/16 Risperidone [Risperdal] 3 mg PO QHS 09/14/15 traZODone [Desyrel] 50 mg PO QHS 09/14/15 alprazolam 1 mg tablet 1 mg PO DAILY PRN tab 10/18/18 guaifenesin 100 mg/5 mL oral liquid 200 mg PO Q6H PRN 10/18/18 ipratropium 0.5 mg-albuterol 3 mg 3 ml INHALATION Q4H PRN ml 10/18/18 (2.5 mg base)/3 mL nebulization soln magnesium hydroxide 400 mg/5 mL 30 ml PO DAILY ml 10/18/18 oral suspension aluminum-mag hydroxide-simethicone 15 ml PO Q4H ml 12/14/18 200 mg-200 mg-20 mg/5 mL oral susp buspirone 5 mg tablet 12.5 mg PO BID tab 11/03/19 mirabegron 50 mg tablet,extended 50 mg PO DAILY 14 Days #14 tab 11/03/19 release 24 hr Levofloxacin [Levaquin] 500 mg PO QHS 09/12/20 Surgical History: Surgical History (Last Reviewed 08/27/20 @ 14:03 by Caro Prieto) History of lumbar surgery Z98.890 Surgical History: - - History of pacemaker, back surgeries ?2 Psychiatric History: - - Bipolar disorder, schizoaffective personality disorder Lives: Long Term Smoking Status: Former smoker - *Family History Maternal Family History: Family History (Last Reviewed 08/27/20 @ 14:03 by Caro Prieto) Mother CAD (coronary artery disease) History Items: Heart Disease Review of Systems Cardiovascular: Denies: Chest Pain Respiratory: Reports: Cough, Shortness of Breath, Shortness of breath at rest, Shortness of breath upon exertion, Sputum production Gastrointestinal: Reports: Nausea, Vomiting, - - Last bowel movement yesterday. Patient passing flatus. Denies: Hematemesis, Hematochezia, Melena Genitourinary: Reports: - - Indwelling Raymond catheter. Anuric Musculoskeletal: Reports: Joint Pain Skin: Denies: Rash, Wounds Neurological: Reports: Balance problems, Incoordination Psychiatric: Reports: Anxiety, Depression Unable to obtain accurate/complete ROS d/t: Lethargic, BiPAP, mild altered mental status, short of breath VTE Information - Inpt Only VTE Present on Admission: No VTE Mechan Device Prophylaxis: None VTE Pharm Prophylaxis ordered?: Yes Patient Problems: Active and Suspected Problems (Last Reviewed 08/27/20 @ 14:23 by Kacie Babcock RN) Pneumonia (Acute) Renal failure (Acute) Objective: General: Awake, oriented x3, lethargic, in respiratory distress, HEENT: Atraumatic, PERRLA, EOMI, Normocephalic Oral: On BiPAP. Neck: Supple, No JVD, Negative Carotid Bruits Lungs: Air entry diminished in bilateral lung bases. Mild bilateral coarse crepitations less expiratory rhonchi. Cardiovascular: Regular rate, Regular Rhythm, Normal S1, Normal S2, left second ICS/LLSB systolic murmur 3/6 and grade Abdomen: Soft, tenderness present over left lower and upper quadrant. Distended. Bowel sound sluggish to absent : Indwelling Raymond catheter. Anuric. Dark urine in Raymond tube. no renal angle tenderness. No suprapubic tenderness. Extremities: Mild bilateral ankle edema, Capillary Refill Less than 3 Seconds Skin: Scar present in left leg. Musculoskeletal: No Tenderness to Palpation of Joints or Extremities Neurological: Cranial nerves II-XII grossly intact, Deep Tendon Reflexes 2+/4 Psych/Mental Status: Lethargic, anxious - Physical Exam Vitals/I&O's: Vital Signs Temp Pulse Resp BP Pulse Ox 97.1 F L 84 20 H 95/57 L 93 09/12/20 11:15 09/12/20 11:15 09/12/20 11:15 09/12/20 11:15 09/12/20 11:15 Oxygen Flow Rate (L/min) 15 Oxygen Delivery Method Bi-pap Weight: 173 lb 1.006 oz Body Mass Index (BMI) 25.5 Intake and Output for Last 24 Hours 09/10/20 09/11/20 09/12/20 23:59 23:59 23:59 Intake Total 1900 / 1900 Balance 1900 / 1900 Microbiology Past 72 Hours 09/12/20 08:35 Mucosa - Nose SARS-CoV-2 Antigen (Rapid) - Final Laboratory Results 09/12/20 07:51: WBC 24.9 H, RBC 2.97 L, Hgb 9.8 L, Hct 28.6 L, MCV 96.3 H, MCH 33.0 H, MCHC 34.3, RDW Std Deviation 50.0 H, RDW Coeff of Arben 14.3, Plt Count 222, MPV 12.1 H, Immature Gran % (Auto) 0.200, Neut % (Auto) 17.8 L, Lymph % (Auto) 77.0 H, Bonner % (Auto) 4.8, Eos % (Auto) 0.0, Baso % (Auto) 0.2, Absolute Neuts (auto) 4.4, Absolute Lymphs (auto) 19.16 H, Nucleated RBC % 0, Differential Comment COMMENT 09/12/20 07:51: PT 16.4 H, INR 1.4, APTT 34.9 09/12/20 07:51: Sodium 130 L, Potassium 5.0, Chloride 98, Carbon Dioxide 21.0, Anion Gap 11, BUN 58 H, Creatinine 5.63 H, Estim Creat Clear Calc 11.34, Est GFR (MDRD) Af Amer 13 L, Est GFR (MDRD) Non-Af 11 L, BUN/Creatinine Ratio 10.3, Glucose 114 H, Calcium 8.6, Total Bilirubin 0.80, AST 19, ALT 12 L, Alkaline Phosphatase 58, Total Protein 5.6 L, Albumin 2.6 L, Globulin 3.0, Albumin/Globulin Ratio 0.9 09/12/20 07:51: Lactic Acid 3.0 H* 09/12/20 08:50: Urine Color Yellow, Urine Clarity Cloudy, Urine pH 7.0, Ur Specific [place] 1.015, Urine Protein 500 H, Urine Glucose (UA) Normal, Urine Ketones 5 H, Urine Occult Blood 250 H, Urine Nitrite Negative, Urine Bilirubin Negative, Urine Urobilinogen 1 H, Ur Leukocyte Esterase 500 H, Urine RBC 0 SEEN, Urine WBC >100 SEEN, Ur Squamous Epith Cells 0 SEEN, Urine Bacteria 0 SEEN, Urine Mucus 0 SEEN Assessment/Plan All Active Problems (Last Reviewed 08/27/20 @ 14:23 by Kacie Babcock RN) Pneumonia (Acute) Renal failure (Acute) Anxiety (Resolved) Atherosclerotic heart disease (Resolved) Bipolar 1 disorder (Resolved) COPD (chronic obstructive pulmonary disease) (Resolved) Chronic lymphocytic leukemia of B-cell type not having achieved remission (Resolved) Dementia (Resolved) Dementia without behavioral disturbance (Resolved) HCAP (healthcare-associated pneumonia) (Resolved) Hypo-osmolality and hyponatremia (Resolved) Hyponatremia (Resolved) Hypothyroidism (Resolved) Insomnia (Resolved) Obsessive compulsive disorder (Resolved) Retention of urine (Resolved) Schizoaffective disorder (Resolved) Schizoaffective disorder (Resolved) Schizoaffective disorder (Resolved) Schizoaffective disorder (Resolved) 75-year-old gentleman from [facility] is being admitted in ICU for severe sepsis secondary to pneumonia, UTI possible MDRO and small bowel ileus 1. Severe sepsis secondary to secondary to left lower lobe pneumonia/UTI probably MDRO: Patient has hypotension, tachycardia, tachypnea and hypoxia and leukocytosis, 25,000 with left shift and lactic acidosis. Discussed with planning management it specialist. Green sheet in ER reviewed. Fluid bolus as per severe sepsis criteria 30 mils per KG. It seems patient had about 2 L IV fluid bolus during ER course including 500 mL normal saline given by EMS. 500 Ringer lactate bolus and then 100 mL/h. Broad-spectrum antibiotics IV vancomycin and Zosyn. Panculture with blood cultures x2, urine culture, sputum culture, MRSA nasal screen, respiratory panel and urinary antigens ordered. Rapid SARS-CoV-2 antigen negative. Keep patient n.p.o. 2. Acute hypoxic respiratory failure secondary to pneumonia: As mentioned abov e. Patient on BiPAP. Possible COPD although patient does not have PFT in EMR. 3. Small bowel ileus and gastric retention: CT abdomen individually reviewed and shows gastric and small bowel distention without definite transition point General surgeon consulted and discussed with Dr. Melissa. NG tube ordered and wall suction at medium pressure. Patient stated he moved bowel yesterday night but hard to corroborate history as patient might be confused. 4. Acute kidney injury stage 3 on CKD stage II with proteinuria in urine: Baseline BUN/creatinine 23/1.11 in July 29. Currently 58/5.63. Anuric. Will consult outside collector. 5. 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 Mendoza. Patient has leukocytosis. It was high about 58,000 in July 29. Hemoglo bin 9.8. 6. Other comorbidities include schizoaffective disorder, sick sinus syndrome status post pacemaker, hypothyroidism, dyslipidemia VTE prophylaxis: Heparin 5000 units subcutaneous twice daily and bilateral SCDs Living will/advanced directive/end of life care: Patient does have living will or advanced directive. Her sister is power of prosecuting attorney for health. After discussion of benefits/risks procedures involved with full code, DNR CC arrest and DNR CC, the patient and her sister opted for DNR-CC Arrest with no intubation Patient does not want artificial life support including intubation, tube feed, ventilator and/chest compression, but unclear about central venous catheter, vasopressor and DC shock if needed Total time spent in [id number] encounter in discussion of advanced directive 16 minutes. Clinical Impression(s) from Imaging Studies Chest X-Ray 09/12/20 08:50 IMPRESSION: Left lower lobe pneumonia or atelectasis. Electronically Signed: Jermain Nicole MD at 9:14 EDT Tel , Service support , Abdomen/Pelvis CT 09/12/20 09:28 IMPRESSION: 1. Possible moderate small bowel obstruction but a transition point not clearly identified. No evidence of ischemia or perforation. Small amount of free fluid in the pelvis. 2. Small right inguinal hernia containing a segment of the cecum. 3. Large bilateral renal cysts. Chest CT 09/12/20 09:28 IMPRESSION: Left lower lobe pneumonia. Electronically Signed: Jermain Nicole MD at 10:22 EDT Tel , Service support , Inpatient E&M: 21311 Init Hosp L3 Procedures: 16095 Advncd Care Plan 30 Min
--- NOTE | 2020-09-12 12:32 | PCM.CONS.GEN ---
Reason for Consult Date of Consultation: 09/13/20 History of Present Illness: The patient is a 75 year old M Admitted to the hospital from long-term due to anuric x1 day. In the ER patient was found to be hypotensive with a white blood count of 24, Creatinine of 5.63. Patient was admitted to ICU. Per nursing patient did have dried Brown emesis on him when he came up to the ICU. CT abdomen pelvis question possible bowel obstruction however no transition point was able to be seen. Patient has dementia and Is poor historian. Past Medical History Past Medical History (Chronic Problems): Chronic Problems (Last Reviewed 08/27/20 @ 14:23 by Kacie Babcock, RN) Hypothyroidism (Chronic) Bipolar 1 disorder (Chronic) COPD (chronic obstructive pulmonary disease) (Chronic) Schizo affective schizophrenia (Chronic) Lymphocytosis (Chronic) Anemia (Chronic) Schizophrenia (Chronic) CLL (chronic lymphocytic leukemia) (Chronic) Presence of permanent cardiac pacemaker (Chronic) Pacemaker placement 1992;Replacement of pulse generator 1999; Implant [employer] Pacemaker 2004; Implant of dual chamber [employer] pacemaker 12/17/10; Pure hypercholesterolemia (Chronic) Essential hypertension (Chronic) Sinoatrial node dysfunction (Chronic) correction use of drug (Chronic) Antihyperlipidemic Retinopathy (Chronic) Medical History: Medical History (Last Reviewed 08/27/20 @ 14:23 by Kacie Babcock, ZEESHAN) Presence of permanent cardiac pacemaker (Chronic) Z95.0 Pacemaker placement 1992;Replacement of pulse generator 1999; Implant [employer] Pacemaker 2004; Implant of dual chamber [employer] pacemaker 12/17/10; Pure hypercholesterolemia (Chronic) E78.00 Essential hypertension (Chronic) I10 Sinoatrial node dysfunction (Chronic) I49.5 correction use of drug (Chronic) Z79.899 Antihyperlipidemic Retinopathy (Chronic) H35.00 Gout M10.9 Gout (Inactive) M10.9 HTN (hypertension) (Inactive) I10 Allergies No Known Allergies Allergy (Verified 09/12/20 08:19) Home Medications: Ambulatory Orders Medication Instructions Recorded Acetaminophen [Tylenol] 650 mg PO Q4H PRN PRN 09/14/15 Allopurinol [Zyloprim] 100 mg PO DAILYCM 09/14/15 Aspirin [Aspirin, Baby] 81 mg PO DAILY@0800 09/14/15 Atorvastatin Calcium [Lipitor] 10 mg PO QHS 09/14/15 Divalproex Sodium [Depakote] 250 mg PO BID 09/14/15 Enalapril Maleate [Vasotec] 5 mg PO DAILY 09/14/15 Levothyroxine [Synthroid] 100 mcg PO DAILY 09/14/15 Quetiapine Fumarate [Seroquel] 200 mg PO BREAKFAST 09/14/15 Quetiapine Fumarate [Seroquel] 400 mg PO QHS 09/14/15 Risperidone [Risperdal] 3 mg PO QHS 09/14/15 traZODone [Desyrel] 50 mg PO QHS 09/14/15 alprazolam 1 mg tablet 1 mg PO DAILY PRN tab 10/18/18 guaifenesin 100 mg/5 mL oral liquid 200 mg PO Q6H PRN 10/18/18 ipratropium 0.5 mg-albuterol 3 mg 3 ml INHALATION Q4H PRN ml 10/18/18 (2.5 mg base)/3 mL nebulization soln magnesium hydroxide 400 mg/5 mL 30 ml PO DAILY ml 10/18/18 oral suspension aluminum-mag hydroxide-simethicone 15 ml PO Q4H ml 12/14/18 200 mg-200 mg-20 mg/5 mL oral susp buspirone 5 mg tablet 12.5 mg PO BID tab 11/03/19 mirabegron 50 mg tablet,extended 50 mg PO DAILY 14 Days #14 tab 11/03/19 release 24 hr Levofloxacin [Levaquin] 500 mg PO QHS 09/12/20 Surgical History: Surgical History (Last Reviewed 08/27/20 @ 14:03 by Caro Prieto) History of lumbar surgery Z98.890 Surgical History: - - History of pacemaker, back surgeries ?2 Psychiatric History: - - Bipolar disorder, schizoaffective personality disorder Lives: Half-Way Smoking Status: Former smoker - *Family History Maternal Family History: Family History (Last Reviewed 08/27/20 @ 14:03 by Caro Prieto) Mother CAD (coronary artery disease) History Items: Heart Disease Review of Systems Gastrointestinal: Reports: Abdominal Pain Unable to obtain accurate/complete ROS d/t: Due to patient's history of dementia Patient Problems: Active and Suspected Problems (Last Reviewed 08/27/20 @ 14:23 by Kacie Babcock RN) Pneumonia (Acute) Renal failure (Acute) - Physical Exam Vitals/I&O's: Vital Signs Temp Pulse Resp BP Pulse Ox 97.1 F L 84 20 H 95/57 L 93 09/12/20 11:15 09/12/20 11:15 09/12/20 11:15 09/12/20 11:15 09/12/20 11:15 Oxygen Flow Rate (L/min) 15 Oxygen Delivery Method Bi-pap Weight: 173 lb 1.006 oz Body Mass Index (BMI) 25.5 Intake and Output for Last 24 Hours 09/10/20 09/11/20 09/12/20 23:59 23:59 23:59 Intake Total 1899 Balance 1899 General: Alert, Cooperative, No apparent distress Lungs: Normal air movement Cardiovascular: Regular rate Abdomen: Soft, Distended, Tender - Left abdomen, no PS Neurological: Neuro grossly intact Psych/Mental Status: Flat Affect Microbiology Past 72 Hours 09/12/20 08:35 Mucosa - Nose SARS-CoV-2 Antigen (Rapid) - Final Laboratory Results 09/12/20 07:51: WBC 24.9 H, RBC 2.97 L, Hgb 9.8 L, Hct 28.6 L, MCV 96.3 H, MCH 33.0 H, MCHC 34.3, RDW Std Deviation 50.0 H, RDW Coeff of Arben 14.3, Plt Count 222, MPV 12.1 H, Immature Gran % (Auto) 0.200, Neut % (Auto) 17.8 L, Lymph % (Auto) 77.0 H, Price % (Auto) 4.8, Eos % (Auto) 0.0, Baso % (Auto) 0.2, Absolute Neuts (auto) 4.4, Absolute Lymphs (auto) 19.16 H, Nucleated RBC % 0, Differential Comment COMMENT 09/12/20 07:51: PT 16.4 H, INR 1.4, APTT 34.9 09/12/20 07:51: Sodium 130 L, Potassium 5.0, Chloride 98, Carbon Dioxide 21.0, Anion Gap 11, BUN 58 H, Creatinine 5.63 H, Estim Creat Clear Calc 11.34, Est GFR (MDRD) Af Amer 13 L, Est GFR (MDRD) Non-Af 11 L, BUN/Creatinine Ratio 10.3, Glucose 114 H, Calcium 8.6, Total Bilirubin 0.80, AST 19, ALT 12 L, Alkaline Phosphatase 58, Total Protein 5.6 L, Albumin 2.6 L, Globulin 3.0, Albumin/Globulin Ratio 0.9 09/12/20 07:51: Lactic Acid 3.0 H* 09/12/20 08:50: Urine Color Yellow, Urine Clarity Cloudy, Urine pH 7.0, Ur Specific [place] 1.015, Urine Protein 500 H, Urine Glucose (UA) Normal, Urine Ketones 5 H, Urine Occult Blood 250 H, Urine Nitrite Negative, Urine Bilirubin Negative, Urine Urobilinogen 1 H, Ur Leukocyte Esterase 500 H, Urine RBC 0 SEEN, Urine WBC >100 SEEN, Ur Squamous Epith Cells 0 SEEN, Urine Bacteria 0 SEEN, Urine Mucus 0 SEEN Assessment/Plan All Active Problems (Last Reviewed 08/27/20 @ 14:23 by Kacie Babcock RN) Pneumonia (Acute) Renal failure (Acute) Anxiety (Resolved) Atherosclerotic heart disease (Resolved) Bipolar 1 disorder (Resolved) COPD (chronic obstructive pulmonary disease) (Resolved) Chronic lymphocytic leukemia of B-cell type not having achieved remission (Resolved) Dementia (Resolved) Dementia without behavioral disturbance (Resolved) HCAP (healthcare-associated pneumonia) (Resolved) Hypo-osmolality and hyponatremia (Resolved) Hyponatremia (Resolved) Hypothyroidism (Resolved) Insomnia (Resolved) Obsessive compulsive disorder (Resolved) Retention of urine (Resolved) Schizoaffective disorder (Resolved) Schizoaffective disorder (Resolved) Schizoaffective disorder (Resolved) Schizoaffective disorder (Resolved) 75-year-old male with sepsis, leukocytosis, hypotension, possible small bowel obstruction Per CT 1. NPO/ivf, will place NG and continue to monitor. will check KUB in AM. Addendum: NG placed for about 250 of brown fluid, patient states his abdominal pain was resolved with NG placement. 2. ICU care per ICU 3. Abx per ICU/primary Raquel Melissa M.D. Pager: [phone] [facility] [address] [place] [address], [facility], [address] [place] [address] Office: [phone] Inpatient E&M: 38298 Init Hosp L3
--- NOTE | 2020-09-12 12:56 | SEPSISNOTE ---
Sepsis Note - Physical Exam/Vitals Subjective: On arrival to the ICU, the patient was noted to have a systolic pressure greater than 90 mmHg and MAP greater than 65. We will continue to monitor clinically and initiate vasopressors, if clinically indicated. Objective: Chest X-Ray 09/12/20 08:50 IMPRESSION: Left lower lobe pneumonia or atelectasis. Electronically Signed: Jermain Nicole MD at 9:14 EDT Tel , Service support , Abdomen/Pelvis CT 09/12/20 09:28 IMPRESSION: 1. Possible moderate small bowel obstruction but a transition point not clearly identified. No evidence of ischemia or perforation. Small amount of free fluid in the pelvis. 2. Small right inguinal hernia containing a segment of the cecum. 3. Large bilateral renal cysts. Electronically Signed: Jermain Nicole MD at 10:32 EDT Tel , Service support , Chest CT 09/12/20 09:28 IMPRESSION: Left lower lobe pneumonia. Electronically Signed: Jermain Nicole MD at 10:22 EDT Tel , Service support , Temp Pulse Resp BP Pulse Ox 97.1 F L 84 20 H 95/57 L 93 09/12/20 11:15 09/12/20 11:15 09/12/20 11:15 09/12/20 11:15 09/12/20 11:15 09/12/20 09/12/20 09/12/20 08:50 07:51 07:51 WBC RBC Hgb Hct MCV MCH MCHC RDW Std Deviation RDW Coeff of Arben Plt Count MPV Immature Gran % (Auto) Neut % (Auto) Lymph % (Auto) [place] % (Auto) Eos % (Auto) Baso % (Auto) Absolute Neuts (auto) Absolute Lymphs (auto) Nucleated RBC % Differential Comment PT INR APTT Sodium 130 L Potassium 5.0 Chloride 98 Carbon Dioxide 21.0 Anion Gap 11 BUN 58 H Creatinine 5.63 H Estim Creat Clear Calc 11.34 Est GFR (MDRD) Af Amer 13 L Est GFR (MDRD) Non-Af 11 L BUN/Creatinine Ratio 10.3 Glucose 114 H Lactic Acid 3.0 H* Calcium 8.6 Total Bilirubin 0.80 AST 19 ALT 12 L Alkaline Phosphatase 58 Total Protein 5.6 L Albumin 2.6 L Globulin 3.0 Albumin/Globulin Ratio 0.9 Urine Color Yellow Urine Clarity Cloudy Urine pH 7.0 Ur Specific [place] 1.015 Urine Protein 500 H Urine Glucose (UA) Normal Urine Ketones 5 H Urine Occult Blood 250 H Urine Nitrite Negative Urine Bilirubin Negative Urine Urobilinogen 1 H Ur Leukocyte Esterase 500 H Urine RBC 0 SEEN Urine WBC >100 SEEN Ur Squamous Epith Cells 0 SEEN Urine Bacteria 0 SEEN Urine Mucus 0 SEEN 09/12/20 09/12/20 07:51 07:51 WBC 24.9 H RBC 2.97 L Hgb 9.8 L Hct 28.6 L MCV 96.3 H MCH 33.0 H MCHC 34.3 RDW Std Deviation 50.0 H RDW Coeff of Arben 14.3 Plt Count 222 MPV 12.1 H Immature Gran % (Auto) 0.200 Neut % (Auto) 17.8 L Lymph % (Auto) 77.0 H [place] % (Auto) 4.8 Eos % (Auto) 0.0 Baso % (Auto) 0.2 Absolute Neuts (auto) 4.4 Absolute Lymphs (auto) 19.16 H Nucleated RBC % 0 Differential Comment COMMENT PT 16.4 H INR 1.4 APTT 34.9 Sodium Potassium Chloride Carbon Dioxide Anion Gap BUN Creatinine Estim Creat Clear Calc Est GFR (MDRD) Af Amer Est GFR (MDRD) Non-Af BUN/Creatinine Ratio Glucose Lactic Acid Calcium Total Bilirubin AST ALT Alkaline Phosphatase Total Protein Albumin Globulin Albumin/Globulin Ratio Urine Color Urine Clarity Urine pH Ur Specific [place] Urine Protein Urine Glucose (UA) Urine Ketones Urine Occult Blood Urine Nitrite Urine Bilirubin Urine Urobilinogen Ur Leukocyte Esterase Urine RBC Urine WBC Ur Squamous Epith Cells Urine Bacteria Urine Mucus General: Alert, Confused Lungs: Diminished, Rales, Rhonchi Cardiovascular: Regular rate, Regular Rhythm Capillary Refill: <3 seconds Peripheral Pulses: Diminished Skin Color: [place] - Assessment/Plan If hemodynamics become compromised, will initiate vasopressor support. Goal to maintain a mean arterial pressure at or above 65 mmHg. - Attestation Sepsis Attestation: Sepsis re-evaluation was performed
[2020-09-12] MEDS: Lactated Ringers 1,000 ML 100 ML IV ×2 (13:05→22:26)
--- NOTE | 2020-09-12 13:07 | RAD_ITS ---
STUDY: X-RAY - ABDOMEN/PELVIS REASON FOR EXAM: Male, 75 years old. NG tube confiramtion TECHNIQUE: AP supine and decubitus views of the abdomen and pelvis. COMPARISON: None. FINDINGS: Normal visualized lung bases. Pacemaker leads seen in place. There is a nasogastric tube coiled at the GE junction with the tip returning into the distal esophagus. There is distention of the small bowel loops up to 4.1 cm consistent with small bowel obstruction. There is no demonstrated free abdominal air. The visualized liver, spleen and kidneys are grossly normal in size and morphology. Normal soft tissue structures. Normal visualized osseous structures. RAD/Abdomen Single View IMPRESSION: Nasogastric tube is described, recommend repositioning. Small bowel obstruction. Electronically Signed: Nay Oakes MD at 4:28 EDT , Service support ,
[2020-09-12] MEDS: Lidocaine 4% 5 ML Ampul 2 ML INHALATION (13:09)
[2020-09-12] MEDS: Oxymetazoline 0.05% 1 SPRAY SPRAY.BTL 2 SPRAY NASAL (13:12)
--- NOTE | 2020-09-12 14:15 | RAD_ITS ---
STUDY: X-RAY - ABDOMEN/PELVIS REASON FOR EXAM: Male, 75 years old. NG placement TECHNIQUE: Single AP view of the abdomen / pelvis. COMPARISON: None. FINDINGS: NG tube is seen, its tip is in the lower esophagus deflected upward. There is an unremarkable bowel gas pattern. There is no demonstrated free abdominal air. The visualized liver, spleen and kidneys are grossly normal in size and morphology. Normal soft tissue structures. Normal visualized osseous structures. RAD/Abdomen Single View (Portable) IMPRESSION: NG tube is seen, its tip is in the lower esophagus deflected upward. Electronically Signed: Jose Kirk MD at 10:46 EDT Tel , Service support ,
--- NOTE | 2020-09-12 14:16 | RAD_ITS ---
STUDY: X-RAY - ABDOMEN/PELVIS REASON FOR EXAM: Male, 75 years old. NG placement TECHNIQUE: Single AP view of the abdomen / pelvis. COMPARISON: None. FINDINGS: An NG tube is seen its tip is within the gastric lumen. There is dilatation of small bowel loops throughout the abdomen suggesting bowel obstruction. There is no demonstrated free abdominal air. The visualized liver, spleen and kidneys are grossly normal in size and morphology. Normal soft tissue structures. Normal visualized osseous structures. RAD/Abdomen Single View (Portable) IMPRESSION: Small bowel obstruction. Electronically Signed: Jose Kirk MD at 12:57 EDT Tel , Service support ,
--- NOTE | 2020-09-12 14:24 | PCM.RX.CS ---
Consult Pharmacy has been consulted to manage selected antiobiotic: Vancomycin Type of Consult: New start Suspected Infection: Pneumonia Prior Doses of Antibiotics Received/Current Regimen: Received 1250mg iv x 1. Labs: Sodium 130 mmol/L (136-145) L 09/12/20 07:51 Potassium 5.0 mmol/L (3.5-5.1) 09/12/20 07:51 Chloride 98 mmol/L (98-107) 09/12/20 07:51 Carbon Dioxide 21.0 mmol/L (21.0-32.0) 09/12/20 07:51 Anion Gap 11 (5-15) 09/12/20 07:51 BUN 58 mg/dL (7-18) H 09/12/20 07:51 Creatinine 5.63 mg/dL (0.70-1.30) H 09/12/20 07:51 Est GFR (MDRD) Af Amer 13 mL/min (>60) L 09/12/20 07:51 Est GFR (MDRD) Non-Af 11 mL/min (>60) L 09/12/20 07:51 BUN/Creatinine Ratio 10.3 RATIO (10-20) 09/12/20 07:51 Glucose 114 mg/dL (74-106) H 09/12/20 07:51 Microbiology: Microbiology 09/12/20 08:35 Mucosa - Nose SARS-CoV-2 Antigen (Rapid) - Final Weight used for dosin.8 kg Estimated Creatinine Clearance: 11 ml/min Goal Trough: 15-20 mcg/mL Pharmacy Plan for Drug Dosing: Due to renal status will not give any further dosing until random level obtained on 09.14.20 in AM. Pharmacy Service will continue to monitor and adjust dosing as required. Follow-Up Labs: Trough Vancomycin - random level 09.14.20 @0600
[2020-09-12] MEDS: Ipratropium/Albuterol Sulfate 3 ML AMPUL.NEB INHALATION ×3 (14:28→22:21)
[2020-09-12 15:12] LABS: Lactic Acid 3.2 mmol/L (0.4-1.9)
[2020-09-12] MEDS: Heparin Injection (Vial) 5,000 UNIT/ML VIAL 5000 UNIT SC ×2 (16:13→22:26)
[2020-09-12 16:16] LABS: M R Staph aureus DNA By PCR POSITIVE (Negative); Probe Check PASS
[2020-09-13] VITALS (35 sets, daily range): BP systolic 88–122; BP diastolic 49–86; PULSE 16–95; RESP 15–24; TEMP 37.2–38; O2SAT 90–100
[2020-09-13] MEDS: Ipratropium/Albuterol Sulfate 3 ML AMPUL.NEB INHALATION ×6 (03:22→23:58)
[2020-09-13 04:48] LABS: Absolute Lymphocyte Count 4.13 X10^3/uL (0.83-4.51); Absolute Neutrophil Count 6.2 X10^3/uL (2.0-7.7); Basophil# 0.01 X10^3/uL; Basophil% 0.1 % (0-1); Hematocrit 21.2 % (40-54); Hemoglobin 7.4 g/dL (13.0-16.5); Lymphocyte # 4.13 X10^3/ul (4.0); Lymphocyte % 38.4 % (19-41); Mean Corp Hgb Conc 34.9 g/dL (32-36); Mean Corpuscular Hgb 33.6 pg (27.0-32.0); Mean Corpuscular Volume 96.4 fL (80-94); Mean Platelet Vol. 10.8 fl (6.2-12.0); Monocyte# 0.38 X10^3/uL; Monocyte% 3.5 % (0-10); NRBC Flagged by Analyzer 0 % (0-5); Neutrophil # 6.16 X10^3/uL (2.7-7.7); Neutrophil % 57.3 % (47-70); POSITIVE MORPHOLOGY YES; Platelet Count 168 K/mm3 (150-450); RBC Distribution Width CV 14.5 % (11.6-14.6); RBC Distribution Width SD 50.9 fl (35.1-43.9); White Blood Count 10.8 K/mm3 (4.4-11.0)
[2020-09-13 04:49] LABS: Differential Indicated SCAN CRITERIA MET
[2020-09-13 05:05] LABS: Anion Gap 12 (5-15); BUN 66 mg/dL (7-18); BUN/Creat Ratio 11.2 RATIO (10-20); Calcium,Total 7.8 mg/dL (8.5-10.1); Chloride 105 mmol/L (98-107); Creatinine, Serum 5.87 mg/dL (0.70-1.30); EST Glomerular Filtration Rate 10 mL/min (>60); Est Glom Filt Rate - Afr Amer 12 mL/min (>60); Estimated Creatinine Clearance 10.87 ml/min; Glucose 111 mg/dL (74-106); Magnesium 1.9 mg/dL (1.6-2.6); Phosphorus 5.3 mg/dL (2.5-4.9); Potassium 4.5 mmol/L (3.5-5.1); Sodium Level 134 mmol/L (136-145)
--- NOTE | 2020-09-13 05:43 | PN_ITS ---
Subjective: The patient was seen and examined at the bedside this morning. Events from the last 24 hours have been reviewed. The patient currently has a low-grade fever with a T-max overnight of 100.4 ?F. The patient is otherwise hemodynamically stable and maintaining appropriate oxygen saturations on 4 L/min via nasal cannula. Hemoglobin is down to 7.4 g/dL this morning. Chemistry profile revealed a bicarbonate of 17 and creatinine of 5.87. Objective: The patient's most recent lab work, culture data and imaging studies have all been personally reviewed. General: Alert, Cooperative, No apparent distress, Confused HEENT: Atraumatic, Normocephalic Oral: No Gingival or Mucosal Lesions/ Ulcerations Neck: Supple, No Nodes, Trachea Midline Lungs: Diminished, Rales, Rhonchi Cardiovascular: Regular rate, Regular Rhythm Abdomen: Soft, Distended, Tender Extremities: No clubbing, No cyanosis, No edema Skin: No breakdown Musculoskeletal: No Tenderness to Palpation of Joints or Extremities Lymphatic: No Cervical, Supraclavicular, or Inguinal Adenopathy Neurological: Neuro grossly intact Psych/Mental Status: Appropriate Vital Signs Temp Pulse Resp BP Pulse Ox 100.1 F H 91 21 H 112/56 L 93 09/13/20 05:00 09/13/20 05:00 09/13/20 05:00 09/13/20 05:00 09/13/20 05:00 Oxygen Flow Rate (L/min) 4 Oxygen Delivery Method Nasal Cannula Weight: 171 lb 8.314 oz Body Mass Index (BMI) 25.3 Intake and Output for Last 24 Hours 09/11/20 09/12/20 09/13/20 23:59 23:59 23:59 Intake Total 3220 / 3220 50 / 50 Output Total 715 / 715 250 / 250 Balance 2505 / 2505 -200 / -200 Labs (Last 48 Hours) 09/12/20 09/12/20 09/12/20 07:51 07:51 07:51 WBC 24.9 H RBC 2.97 L Hgb 9.8 L Hct 28.6 L MCV 96.3 H MCH 33.0 H MCHC 34.3 RDW Std Deviation 50.0 H RDW Coeff of Arben 14.3 Plt Count 222 MPV 12.1 H Immature Gran % (Auto) 0.200 Neut % (Auto) 17.8 L Lymph % (Auto) 77.0 H [place] % (Auto) 4.8 Eos % (Auto) 0.0 Baso % (Auto) 0.2 Absolute Neuts (auto) 4.4 Absolute Lymphs (auto) 19.16 H Nucleated RBC % 0 Differential Comment COMMENT PT 16.4 H INR 1.4 APTT 34.9 Sodium 130 L Potassium 5.0 Chloride 98 Carbon Dioxide 21.0 Anion Gap 11 BUN 58 H Creatinine 5.63 H Estim Creat Clear Calc 11.34 Est GFR (MDRD) Af Amer 13 L Est GFR (MDRD) Non-Af 11 L BUN/Creatinine Ratio 10.3 Glucose 114 H Lactic Acid Calcium 8.6 Phosphorus Magnesium Total Bilirubin 0.80 AST 19 ALT 12 L Alkaline Phosphatase 58 Total Protein 5.6 L Albumin 2.6 L Globulin 3.0 Albumin/Globulin Ratio 0.9 Urine Color Urine Clarity Urine pH Ur Specific [place] Urine Protein Urine Glucose (UA) Urine Ketones Urine Occult Blood Urine Nitrite Urine Bilirubin Urine Urobilinogen Ur Leukocyte Esterase Urine RBC Urine WBC Ur Squamous Epith Cells Urine Bacteria Urine Mucus MRSA (PCR) 09/12/20 09/12/20 09/12/20 07:51 08:50 14:30 WBC RBC Hgb Hct MCV MCH MCHC RDW Std Deviation RDW Coeff of Arben Plt Count MPV Immature Gran % (Auto) Neut % (Auto) Lymph % (Auto) [place] % (Auto) Eos % (Auto) Baso % (Auto) Absolute Neuts (auto) Absolute Lymphs (auto) Nucleated RBC % Differential Comment PT INR APTT Sodium Potassium Chloride Carbon Dioxide Anion Gap BUN Creatinine Estim Creat Clear Calc Est GFR (MDRD) Af Amer Est GFR (MDRD) Non-Af BUN/Creatinine Ratio Glucose Lactic Acid 3.0 H* 3.2 H* Calcium Phosphorus Magnesium Total Bilirubin AST ALT Alkaline Phosphatase Total Protein Albumin Globulin Albumin/Globulin Ratio Urine Color Yellow Urine Clarity Cloudy Urine pH 7.0 Ur Specific [place] 1.015 Urine Protein 500 H Urine Glucose (UA) Normal Urine Ketones 5 H Urine Occult Blood 250 H Urine Nitrite Negative Urine Bilirubin Negative Urine Urobilinogen 1 H Ur Leukocyte Esterase 500 H Urine RBC 0 SEEN Urine WBC >100 SEEN Ur Squamous Epith Cells 0 SEEN Urine Bacteria 0 SEEN Urine Mucus 0 SEEN MRSA (PCR) 09/12/20 09/13/20 09/13/20 14:33 04:40 04:40 WBC 10.8 RBC 2.20 L Hgb 7.4 L Hct 21.2 L MCV 96.4 H MCH 33.6 H MCHC 34.9 RDW Std Deviation 50.9 H RDW Coeff of Arben 14.5 Plt Count 168 MPV 10.8 Immature Gran % (Auto) 0.700 Neut % (Auto) 57.3 Lymph % (Auto) 38.4 [place] % (Auto) 3.5 Eos % (Auto) 0.0 Baso % (Auto) 0.1 Absolute Neuts (auto) 6.2 Absolute Lymphs (auto) 4.13 Nucleated RBC % 0 Differential Comment PT INR APTT Sodium 134 L Potassium 4.5 Chloride 105 Carbon Dioxide 17.0 L Anion Gap 12 BUN 66 H Creatinine 5.87 H Estim Creat Clear Calc 10.87 Est GFR (MDRD) Af Amer 12 L Est GFR (MDRD) Non-Af 10 L BUN/Creatinine Ratio 11.2 Glucose 111 H Lactic Acid Calcium 7.8 L Phosphorus 5.3 H Magnesium 1.9 Total Bilirubin AST ALT Alkaline Phosphatase Total Protein Albumin Globulin Albumin/Globulin Ratio Urine Color Urine Clarity Urine pH Ur Specific [place] Urine Protein Urine Glucose (UA) Urine Ketones Urine Occult Blood Urine Nitrite Urine Bilirubin Urine Urobilinogen Ur Leukocyte Esterase Urine RBC Urine WBC Ur Squamous Epith Cells Urine Bacteria Urine Mucus MRSA (PCR) POSITIVE H Microbiology 09/12/20 14:33 Mucosa - Nose Respiratory Panel (PCR) - Final 09/12/20 08:50 Urine Catheter - Raymond Legionella Antigen - Final 09/12/20 08:50 Urine Catheter - Rayomnd Streptococcus pneumoniae Antigen (M - Final 09/12/20 08:35 Mucosa - Nose SARS-CoV-2 Antigen (Rapid) - Final Clinical Impression(s) from Imaging Studies Chest X-Ray 09/12/20 08:50 IMPRESSION: Left lower lobe pneumonia or atelectasis. Electronically Signed: Jermain Nicole MD at 9:14 EDT Tel , Service support , Abdomen/Pelvis CT 09/12/20 09:28 IMPRESSION: 1. Possible moderate small bowel obstruction but a transition point not clearly identified. No evidence of ischemia or perforation. Small amount of free fluid in the pelvis. 2. Small right inguinal hernia containing a segment of the cecum. 3. Large bilateral renal cysts. Electronically Signed: Jermain Nicole MD at 10:32 EDT Tel , Service support , Chest CT 09/12/20 09:28 IMPRESSION: Left lower lobe pneumonia. Electronically Signed: Jermain Nicole MD at 10:22 EDT Tel , Service support , Medical Necessity - Tobacco Use Smoking Status: Never smoker Assessment/Plan All Active Problems (Last Reviewed 08/27/20 @ 14:23 by Kacie Babcock RN) Pneumonia (Acute) Renal failure (Acute) Anxiety (Resolved) Atherosclerotic heart disease (Resolved) Bipolar 1 disorder (Resolved) COPD (chronic obstructive pulmonary disease) (Resolved) Chronic lymphocytic leukemia of B-cell type not having achieved remission (Resolved) Dementia (Resolved) Dementia without behavioral disturbance (Resolved) HCAP (healthcare-associated pneumonia) (Resolved) Hypo-osmolality and hyponatremia (Resolved) Hyponatremia (Resolved) Hypothyroidism (Resolved) Insomnia (Resolved) Obsessive compulsive disorder (Resolved) Retention of urine (Resolved) Schizoaffective disorder (Resolved) Schizoaffective disorder (Resolved) Schizoaffective disorder (Resolved) Schizoaffective disorder (Resolved) RECOMMENDATIONS: 1. Continue supplemental IV fluid hydration. 2. Continue broad-spectrum antimicrobials. 3. Hold antihypertensives and nephrotoxic medications. 4. Wean supplemental oxygen to maintain saturations at or above 90%. 5. Nephrology following to assist with potential plans for dialysis. 6. Continue appropriate ICU prophylaxis. IMPRESSIONS: 1. Severe sepsis Clinical concern for pulmonary source of infection based upon chest imaging studies. In addition, the patient has a chronic indwelling Raymond, raising the possibility for concurrent urinary tract infection as well. The patient will be continued on broad-spectrum antimicrobials. He has been adequately volume resuscitated thus far. We will plan to continue gentle IV fluid hydration, with plans to initiate vasopressor support if clinically indicated. 2. Acute hypoxemic respiratory failure Improved. Appears to be secondary to large left lower lobe pneumonia. The patient is not normally on supplemental oxygen at his baseline. Although he was started on BiPAP in the emergency department, his oxygenation status has improved. Plan to wean supplemental oxygen with a goal to keep sats at or above 90%. 3. Acute kidney injury Likely prerenal in etiology. Aggressive volume resuscitation as noted above. Continue to monitor urine output. Nephrology following to assist with possible hemodialysis needs, as early as tomorrow. 4. History of schizophrenia/sick sinus syndrome status post pacemaker implantation/hypothyroidism/hypertension/hyperlipidemia Complicates care, management, recovery and prognosis. This note was generated with [employer] dictation software. It may contain incorrect words, spelling, and punctuation that were not noted in checking the note before signing. Inpatient E&M: 50626 Subs Hosp L3
--- NOTE | 2020-09-13 06:20 | US_ITS ---
STUDY: RENAL ULTRASOUND - COMPLETE REASON FOR EXAM: Male, 75 years old. JOSE ARMANDO TECHNIQUE: Ultrasound evaluation of the kidneys was performed with real-time and static talbot-scale imaging. COMPARISON: None. FINDINGS: RIGHT KIDNEY: Normal location of the right kidney, which is normal in size. The right kidney measures 11 x 7.5 x 7.5 cm. There is a normal cortex of the right kidney. The renal cortex measures 1.3 cm. Multiple cysts are seen the largest measures 7.3 cm. There are no right renal calculi. There is no right hydronephrosis. DISTAL RIGHT URETER: There is non-visualization of the distal right ureter. There is no demonstrated right ureterovesical junction calculus. There is no demonstrated right ureteral jet. LEFT KIDNEY: Normal location of the left kidney, which is normal in size. The left kidney measures 12.7 x 7.4 x 5.4 cm. There is a normal cortex of the left kidney. The renal cortex measures 1.8 cm. Multiple cysts are seen the largest measures 5.9 cm. There are no left renal calculi. There is no left hydronephrosis. DISTAL LEFT URETER: There is non-visualization of the distal left ureter. There is no demonstrated left ureterovesical junction calculus. There is no demonstrated left ureteral jet. AORTA: There is no demonstrated aneurysm.. I.V.C.: The IVC is patent. BLADDER: There is a VELA catheter in good position. There is a normal wall thickness of the distended urinary bladder. There is no demonstrated mass within the urinary bladder. There are no demonstrated bladder calculi. US/Kidney and Bladder IMPRESSION: There is no evidence of hydronephrosis. Electronically Signed: Jose Kirk MD at 13:36 EDT Tel , Service support ,
--- NOTE | 2020-09-13 07:34 | RAD_ITS ---
STUDY: X-RAY - ABDOMEN/PELVIS REASON FOR EXAM: Male, 75 years old. sbo -- portable TECHNIQUE: Two AP supine views of the abdomen and pelvis. COMPARISON: None. FINDINGS: NG tube is seen its tip is at the gastric antrum is in good position. There is dilatation of small bowel loops throughout abdomen suggesting bowel obstruction. There is no demonstrated free abdominal air. The visualized liver, spleen and kidneys are grossly normal in size and morphology. Normal soft tissue structures. Normal visualized osseous structures. RAD/Abdomen Single View (Portable) IMPRESSION: NG tube is seen its tip is at the gastric antrum is in good position. There is dilatation of small bowel loops throughout abdomen suggesting bowel obstruction. Electronically Signed: Jose Kirk MD at 13:17 EDT Tel , Service support ,
--- NOTE | 2020-09-13 07:41 | PN_ITS ---
Patient Problems: Active and Suspected Problems (Last Reviewed 08/27/20 @ 14:23 by Kacie Babcock RN) Pneumonia (Acute) Renal failure (Acute) Reason for Visit: Follow-up for severe sepsis due to bilateral pneumonia, small bowel ileus. Acute kidney injury on CKD Objective: Overnight ICU course discussed with the nursing staff. T-max 100.4 Fahrenheit. Patient maintaining his blood pressure, last BP 102/58. Hemoglobin dropped to 7.4. Patient still did not make any urine. Anuric, bicarb 17, creatinine 5.87. Physical exam General: Awake, oriented x3, more alert than yesterday, HEENT: Atraumatic, PERRLA, EOMI, Normocephalic Oral: On BiPAP. Neck: Supple, No JVD, Negative Carotid Bruits Lungs: Air entry diminished in bilateral lung bases. Mild bilateral coarse crepitations. Cardiovascular: Regular rate, Regular Rhythm, Normal S1, Normal S2, left second ICS/LLSB systolic murmur 3/6 and grade Abdomen: Soft, tenderness present over left lower quadrant. NG tube aspiration shows bilious fluid about 500 mL : Indwelling Raymond catheter. Anuric. Dark urine in Raymond tube. No suprapubic tenderness. Extremities: Mild bilateral ankle edema, Capillary Refill Less than 3 Seconds Skin: Skin is dry. No open ulcer. Musculoskeletal: No Tenderness to Palpation of Joints or Extremities Neurological: Cranial nerves II-XII grossly intact, Deep Tendon Reflexes 2+/4 Psych/Mental Status: Lethargic. Vitals/I&O's: Vital Signs Temp Pulse Resp BP Pulse Ox 100.0 F H 93 17 98/63 95 09/13/20 06:00 09/13/20 07:00 09/13/20 07:00 09/13/20 07:00 09/13/20 07:00 Oxygen Flow Rate (L/min) 4 Oxygen Delivery Method Nasal Cannula Weight: 170 lb 10.205 oz Body Mass Index (BMI) 25.3 Intake and Output for Last 24 Hours 09/11/20 09/12/20 09/13/20 23:59 23:59 23:59 Intake Total 3220 / 3220 50 / 50 Output Total 715 / 715 456 / 456 Balance 2505 / 2505 -406 / -406 Microbiology Past 72 Hours 09/12/20 14:33 Mucosa - Nose Respiratory Panel (PCR) - Final 09/12/20 08:50 Urine Catheter - Raymond Legionella Antigen - Final 09/12/20 08:50 Urine Catheter - Raymond Streptococcus pneumoniae Antigen (M - Final 09/12/20 08:35 Mucosa - Nose SARS-CoV-2 Antigen (Rapid) - Final Laboratory Results 09/12/20 07:51: WBC 24.9 H, RBC 2.97 L, Hgb 9.8 L, Hct 28.6 L, MCV 96.3 H, MCH 33.0 H, MCHC 34.3, RDW Std Deviation 50.0 H, RDW Coeff of Arben 14.3, Plt Count 222, MPV 12.1 H, Immature Gran % (Auto) 0.200, Neut % (Auto) 17.8 L, Lymph % (Auto) 77.0 H, [place] % (Auto) 4.8, Eos % (Auto) 0.0, Baso % (Auto) 0.2, Absolute Neuts (auto) 4.4, Absolute Lymphs (auto) 19.16 H, Nucleated RBC % 0, Differential Comment COMMENT 09/12/20 07:51: PT 16.4 H, INR 1.4, APTT 34.9 09/12/20 07:51: Sodium 130 L, Potassium 5.0, Chloride 98, Carbon Dioxide 21.0, Anion Gap 11, BUN 58 H, Creatinine 5.63 H, Estim Creat Clear Calc 11.34, Est GFR (MDRD) Af Amer 13 L, Est GFR (MDRD) Non-Af 11 L, BUN/Creatinine Ratio 10.3, Glucose 114 H, Calcium 8.6, Total Bilirubin 0.80, AST 19, ALT 12 L, Alkaline Phosphatase 58, Total Protein 5.6 L, Albumin 2.6 L, Globulin 3.0, Albumin/Globulin Ratio 0.9 09/12/20 07:51: Lactic Acid 3.0 H* 09/12/20 08:50: Urine Color Yellow, Urine Clarity Cloudy, Urine pH 7.0, Ur Specific [place] 1.015, Urine Protein 500 H, Urine Glucose (UA) Normal, Urine Ketones 5 H, Urine Occult Blood 250 H, Urine Nitrite Negative, Urine Bilirubin Negative, Urine Urobilinogen 1 H, Ur Leukocyte Esterase 500 H, Urine RBC 0 SEEN, Urine WBC >100 SEEN, Ur Squamous Epith Cells 0 SEEN, Urine Bacteria 0 SEEN, Urine Mucus 0 SEEN 09/12/20 14:30: Lactic Acid 3.2 H* 09/12/20 14:33: MRSA (PCR) POSITIVE H 09/13/20 04:40: WBC 10.8, RBC 2.20 L, Hgb 7.4 L, Hct 21.2 L, MCV 96.4 H, MCH 33.6 H, MCHC 34.9, RDW Std Deviation 50.9 H, RDW Coeff of Arben 14.5, Plt Count 168, MPV 10.8, Immature Gran % (Auto) 0.700, Neut % (Auto) 57.3, Lymph % (Auto) 38.4, [place] % (Auto) 3.5, Eos % (Auto) 0.0, Baso % (Auto) 0.1, Absolute Neuts (auto) 6.2, Absolute Lymphs (auto) 4.13, Nucleated RBC % 0 09/13/20 04:40: Sodium 134 L, Potassium 4.5, Chloride 105, Carbon Dioxide 17.0 L , Anion Gap 12, BUN 66 H, Creatinine 5.87 H, Estim Creat Clear Calc 10.87, Est GFR (MDRD) Af Amer 12 L, Est GFR (MDRD) Non-Af 10 L, BUN/Creatinine Ratio 11.2, Glucose 111 H, Calcium 7.8 L, Phosphorus 5.3 H, Magnesium 1.9 09/13/20 06:18: Blood Type Pending, Antibody Screen Pending Current Medications Acetaminophen (Acetaminophen 325 Mg Tablet) 650 mg PO Q6H PRN PRN PRN Reason: Pain Score 1-10/Temp > 100.7 F Albuterol Sulfate (Albuterol 2.5 Mg/3 Ml Vial.Neb.) 2.5 mg INHALATION Q2H PRN PRN PRN Reason: SOB/Wheezing Albuterol/Ipratropium (Ipratropium/Albuterol Sulfate 3 Ml Ampul.Neb) 3 ml INHALATION Q4H.RT [facility] Last Admin: 09/13/20 07:02 Dose: 3 ml Documented by: Heparin Sodium (Porcine) (Heparin Injection (Vial) 5,000 Unit/Ml Vial) 5,000 unit SC Q12 [facility] Last Admin: 09/12/20 22:26 Dose: 5,000 unit Documented by: Lactated Ringer's () 1,000 mls @ 100 mls/hr IV .Q10H [facility] Last Admin: 09/12/20 22:26 Dose: 100 mls/hr Documented by: Sodium Chloride () 250 mls @ 15 mls/hr IV .[id number] PRN PRN Reason: Saline Flush Sodium Chloride () 250 mls @ 15 mls/hr IV .[id number] PRN PRN Reason: Additional IVPB Infusion Piperacillin Sod/Tazobactam (Sod 3.375 gm/ Sodium Chloride) 50 mls @ 12.5 mls/hr IV Q12 [facility] Last Infusion: 09/13/20 02:30 Dose: Infused Documented by: Pantoprazole Sodium 40 mg/ (Sodium Chloride) 110 mls @ 330 mls/hr IV Q24 [facility] Last Infusion: 09/12/20 18:40 Dose: Infused Documented by: Vancomycin IV Pharmacy to Dose (1 each/ Sodium Chloride) 500 mls @ 250 mls/hr IV PRN PRN; Protocol PRN Reason: VANCOMYCIN DOSING PROTOCOL Nitroglycerin (Nitroglycerin (Inpatient Use) 0.4 Mg Tab.Subl) 0.4 mg SL Q5M PRN PRN Reason: CARDIAC/CHEST PAIN Ondansetron HCl (Ondansetron 4 Mg/2 Ml Vial) 4 mg IV Q8H PRN PRN PRN Reason: NAUSEA/VOMITING Prochlorperazine Edisylate (Prochlorperazine 10 Mg/2 Ml Vial) 5 mg IV Q4H PRN PRN PRN Reason: Breakthrough Nausea/Vomiting Senna/Docusate Sodium (Senna/Docusate Sodium 1 Tablet) 2 tablet GT BID PRN PRN Reason: Constipation Sodium Chloride (0.9% Saline Lock 10 Ml Syringe) 10 - 40 ml IV UD PRN PRN Reason: SALINE FLUSH STROKE Vital Signs/Narrative: Vital Signs Temp Pulse Resp BP Pulse Ox 09/13/20 07:00 93 17 98/63 95 09/13/20 06:50 92 09/13/20 06:00 100.0 F H 93 22 H 120/65 93 09/13/20 05:00 100.1 F H 91 21 H 112/56 L 93 09/13/20 04:00 100.3 F H 95 15 102/50 L 94 Medical Necessity - Tobacco Use Smoking Status: Never smoker Assessment/Plan All Active Problems (Last Reviewed 08/27/20 @ 14:23 by Kacie Babcock RN) Pneumonia (Acute) Renal failure (Acute) Anxiety (Resolved) Atherosclerotic heart disease (Resolved) Bipolar 1 disorder (Resolved) COPD (chronic obstructive pulmonary disease) (Resolved) Chronic lymphocytic leukemia of B-cell type not having achieved remission (Resolved) Dementia (Resolved) Dementia without behavioral disturbance (Resolved) HCAP (healthcare-associated pneumonia) (Resolved) Hypo-osmolality and hyponatremia (Resolved) Hyponatremia (Resolved) Hypothyroidism (Resolved) Insomnia (Resolved) Obsessive compulsive disorder (Resolved) Retention of urine (Resolved) Schizoaffective disorder (Resolved) Schizoaffective disorder (Resolved) Schizoaffective disorder (Resolved) Schizoaffective disorder (Resolved) 75-year-old gentleman from [facility] is being admitted in ICU for severe sepsis secondary to pneumonia, UTI possible MDRO and small bowel ileus 1. Severe sepsis secondary to secondary to left lower lobe pneumonia/UTI probably MDRO: Patient has hypotension, tachycardia, tachypnea and hypoxia and leukocytosis, 25,000 with left shift and lactic acidosis. Resuscitated with including severe sepsis protocol broad-spectrum antibiotics IV vancomycin and Zosyn. 09/13: Urine culture shows gram-negative rods 80,000- 100,000 colonies. Urinary antigens and respiratory panel are negative. Blood cultures x2 are pending. MRSA nasal screen positive. Maintaining the blood pressure. 2. Acute hypoxic respiratory failure secondary to pneumonia: As mentioned above. Patient on BiPAP. Possible COPD although patient does not have PFT in EMR. 09/13: Pulse ox 100% on 2 L of oxygen. 3. Small bowel ileus and gastric retention: CT abdomen individually reviewed and shows gastric and small bowel distention without definite transition point General surgeon consulted and discussed with Dr. Melissa. NG tube ordered and wall suction at medium pressure. Patient stated he moved bowel yesterday night but hard to corroborate history as patient might be confused. 09/13: Seen by surgeon. Patient had good NG tube bilious fluid suction, total 1200 mL. 4. Acute kidney injury stage 3 on CKD stage II with proteinuria in urine: Baseline BUN/creatinine 23/1.11 in July 29. Currently 58/5.63. 09/13: Patient remains anuric. Discussed with the digital media representative. Machine Operator discussed with the sister regarding dialysis option but no acute/urgent indication now. K4.5. Bicarb 17. Total urine output 370 mL dark-colored. 5. 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 Mendoza. Patient has leukocytosis. It was high about 58,000 in July 29. Hemoglobin 9.8. 4/8: Leukocytosis improved. Hemoglobin dropped to 7.4/21.2. 6. Other comorbidities include schizoaffective disorder, sick sinus syndrome status post pacemaker, hypothyroidism, dyslipidemia VTE prophylaxis: bilateral SCDs. Discontinue heparin as patient dropped hemoglobin 7.4. Living will/advanced directive/end of life care: Patient does have living will or advanced directive. Her sister is power of deputy commonwealth's attorney for health. After discussion of benefits/risks procedures involved with full code, DNR CC arrest and DNR CC, the patient and her sister opted for DNR-CC Arrest with no intubation Patient does not want artificial life support including intubation, tube feed, ventilator and/chest compression, but unclear about central venous catheter, vasopressor and DC shock if needed Total time spent in [id number] encounter in discussion of advanced directive 16 minutes. Clinical Impression(s) from Imaging Studies Chest X-Ray 09/12/20 08:50 IMPRESSION: Left lower lobe pneumonia or atelectasis. Electronically Signed: Jermain Nicole MD at 9:14 EDT Tel , Service support , Abdomen/Pelvis CT 09/12/20 09:28 IMPRESSION: 1. Possible moderate small bowel obstruction but a transition point not clearly identified. No evidence of ischemia or perforation. Small amount of free fluid in the pelvis. 2. Small right inguinal hernia containing a segment of the cecum. 3. Large bilateral renal cysts. Chest CT 09/12/20 09:28 IMPRESSION: Left lower lobe pneumonia. Electronically Signed: Jermain Nicole MD at 10:22 EDT Tel , Service support , Inpatient E&M: [id number] [place] [address] Hosp L3
--- NOTE | 2020-09-13 08:27 | PN.SURG_ITS ---
Patient Problems: Active and Suspected Problems (Last Reviewed 08/27/20 @ 14:23 by Kacie Babcock RN) Pneumonia (Acute) Renal failure (Acute) Subjective: Patient's KUB this morning shows NG tube in the duodenum, small bowel dilated gas as well as right colon likely ileus.Patient's white blood count did improve to normal with antibiotics, hemoglobin dropped to 7.4 patient has been typed and Screened.Patient denies abdominal pain, Urine culture positive for gram-Negative rods and MRSA PCR positive - Physical Exam Vitals/I&O's: Vital Signs Temp Pulse Resp BP Pulse Ox 100.0 F H 93 17 98/63 95 09/13/20 06:00 09/13/20 07:00 09/13/20 07:00 09/13/20 07:00 09/13/20 07:00 Oxygen Flow Rate (L/min) 4 Oxygen Delivery Method Nasal Cannula Weight: 170 lb 10.205 oz Body Mass Index (BMI) 25.3 Intake and Output for Last 24 Hours 09/11/20 09/12/20 09/13/20 23:59 23:59 23:59 Intake Total 3220 / 3220 50 / 50 Output Total 715 / 715 456 / 456 Balance 2505 / 2505 -406 / -406 General: Alert, Cooperative, No apparent distress Cardiovascular: Regular rate Abdomen: Soft, Non Tender, Distended - Mild Microbiology Past 72 Hours 09/12/20 14:33 Mucosa - Nose Respiratory Panel (PCR) - Final 09/12/20 08:50 Urine Catheter - Raymond Legionella Antigen - Final 09/12/20 08:50 Urine Catheter - Raymond Streptococcus pneumoniae Antigen (M - Final 09/12/20 08:35 Mucosa - Nose SARS-CoV-2 Antigen (Rapid) - Final Laboratory Results 09/12/20 07:51: WBC 24.9 H, RBC 2.97 L, Hgb 9.8 L, Hct 28.6 L, MCV 96.3 H, MCH 33.0 H, MCHC 34.3, RDW Std Deviation 50.0 H, RDW Coeff of Arben 14.3, Plt Count 222, MPV 12.1 H, Immature Gran % (Auto) 0.200, Neut % (Auto) 17.8 L, Lymph % (Auto) 77.0 H, [place] % (Auto) 4.8, Eos % (Auto) 0.0, Baso % (Auto) 0.2, Absolute Neuts (auto) 4.4, Absolute Lymphs (auto) 19.16 H, Nucleated RBC % 0, Differential Comment COMMENT 09/12/20 07:51: PT 16.4 H, INR 1.4, APTT 34.9 09/12/20 07:51: Sodium 130 L, Potassium 5.0, Chloride 98, Carbon Dioxide 21.0, Anion Gap 11, BUN 58 H, Creatinine 5.63 H, Estim Creat Clear Calc 11.34, Est GFR (MDRD) Af Amer 13 L, Est GFR (MDRD) Non-Af 11 L, BUN/Creatinine Ratio 10.3, Glucose 114 H, Calcium 8.6, Total Bilirubin 0.80, AST 19, ALT 12 L, Alkaline Phosphatase 58, Total Protein 5.6 L, Albumin 2.6 L, Globulin 3.0, Albumin/Globulin Ratio 0.9 09/12/20 07:51: Lactic Acid 3.0 H* 09/12/20 08:50: Urine Color Yellow, Urine Clarity Cloudy, Urine pH 7.0, Ur Specific [place] 1.015, Urine Protein 500 H, Urine Glucose (UA) Normal, Urine Ketones 5 H, Urine Occult Blood 250 H, Urine Nitrite Negative, Urine Bilirubin Negative, Urine Urobilinogen 1 H, Ur Leukocyte Esterase 500 H, Urine RBC 0 SEEN, Urine WBC >100 SEEN, Ur Squamous Epith Cells 0 SEEN, Urine Bacteria 0 SEEN, Urine Mucus 0 SEEN 09/12/20 14:30: Lactic Acid 3.2 H* 09/12/20 14:33: MRSA (PCR) POSITIVE H 09/13/20 04:40: WBC 10.8, RBC 2.20 L, Hgb 7.4 L, Hct 21.2 L, MCV 96.4 H, MCH 33.6 H, MCHC 34.9, RDW Std Deviation 50.9 H, RDW Coeff of Arben 14.5, Plt Count 168, MPV 10.8, Immature Gran % (Auto) 0.700, Neut % (Auto) 57.3, Lymph % (Auto) 38.4, [place] % (Auto) 3.5, Eos % (Auto) 0.0, Baso % (Auto) 0.1, Absolute Neuts (auto) 6.2, Absolute Lymphs (auto) 4.13, Nucleated RBC % 0 09/13/20 04:40: Sodium 134 L, Potassium 4.5, Chloride 105, Carbon Dioxide 17.0 L , Anion Gap 12, BUN 66 H, Creatinine 5.87 H, Estim Creat Clear Calc 10.87, Est GFR (MDRD) Af Amer 12 L, Est GFR (MDRD) Non-Af 10 L, BUN/Creatinine Ratio 11.2, Glucose 111 H, Calcium 7.8 L, Phosphorus 5.3 H, Magnesium 1.9 09/13/20 06:18: Blood Type A POSITIVE, Antibody Screen NEGATIVE Current Medications Acetaminophen (Acetaminophen 325 Mg Tablet) 650 mg PO Q6H PRN PRN PRN Reason: Pain Score 1-10/Temp > 100.7 F Albuterol Sulfate (Albuterol 2.5 Mg/3 Ml Vial.Neb.) 2.5 mg INHALATION Q2H PRN PRN PRN Reason: SOB/Wheezing Albuterol/Ipratropium (Ipratropium/Albuterol Sulfate 3 Ml Ampul.Neb) 3 ml INHALATION Q4H.RT [facility] Last Admin: 09/13/20 07:02 Dose: 3 ml Documented by: Heparin Sodium (Porcine) (Heparin Injection (Vial) 5,000 Unit/Ml Vial) 5,000 unit SC Q12 [facility] Last Admin: 09/12/20 22:26 Dose: 5,000 unit Documented by: Lactated Ringer's () 1,000 mls @ 100 mls/hr IV .Q10H [facility] Last Admin: 09/12/20 22:26 Dose: 100 mls/hr Documented by: Sodium Chloride () 250 mls @ 15 mls/hr IV .[id number] PRN PRN Reason: Saline Flush Sodium Chloride () 250 mls @ 15 mls/hr IV .[id number] PRN PRN Reason: Additional IVPB Infusion Piperacillin Sod/Tazobactam (Sod 3.375 gm/ Sodium Chloride) 50 mls @ 12.5 mls/hr IV Q12 [facility] Last Infusion: 09/13/20 02:30 Dose: Infused Documented by: Pantoprazole Sodium 40 mg/ (Sodium Chloride) 110 mls @ 330 mls/hr IV Q24 [facility] Last Infusion: 09/12/20 18:40 Dose: Infused Documented by: Vancomycin IV Pharmacy to Dose (1 each/ Sodium Chloride) 500 mls @ 250 mls/hr IV PRN PRN; Protocol PRN Reason: VANCOMYCIN DOSING PROTOCOL Nitroglycerin (Nitroglycerin (Inpatient Use) 0.4 Mg Tab.Subl) 0.4 mg SL Q5M PRN PRN Reason: CARDIAC/CHEST PAIN Ondansetron HCl (Ondansetron 4 Mg/2 Ml Vial) 4 mg IV Q8H PRN PRN PRN Reason: NAUSEA/VOMITING Prochlorperazine Edisylate (Prochlorperazine 10 Mg/2 Ml Vial) 5 mg IV Q4H PRN PRN PRN Reason: Breakthrough Nausea/Vomiting Senna/Docusate Sodium (Senna/Docusate Sodium 1 Tablet) 2 tablet GT BID PRN PRN Reason: Constipation Sodium Chloride (0.9% Saline Lock 10 Ml Syringe) 10 - 40 ml IV UD PRN PRN Reason: SALINE FLUSH Medical Necessity - Tobacco Use Smoking Status: Never smoker Assessment/Plan All Active Problems (Last Reviewed 08/27/20 @ 14:23 by Kacie Babcock RN) Pneumonia (Acute) Renal failure (Acute) Anxiety (Resolved) Atherosclerotic heart disease (Resolved) Bipolar 1 disorder (Resolved) COPD (chronic obstructive pulmonary disease) (Resolved) Chronic lymphocytic leukemia of B-cell type not having achieved remission (Resolved) Dementia (Resolved) Dementia without behavioral disturbance (Resolved) HCAP (healthcare-associated pneumonia) (Resolved) Hypo-osmolality and hyponatremia (Resolved) Hyponatremia (Resolved) Hypothyroidism (Resolved) Insomnia (Resolved) Obsessive compulsive disorder (Resolved) Retention of urine (Resolved) Schizoaffective disorder (Resolved) Schizoaffective disorder (Resolved) Schizoaffective disorder (Resolved) Schizoaffective disorder (Resolved) 75-year-old male with History of dementia,sepsis, leukocytosis, hypotension, possible small bowel obstruction Per CT, Acute kidney failure, Left lower lobe pneumonia 1. NPO/ivf, will place NG To low intermittent suction and continue to monitor. KUB seems to be consistent with ileus we will continue to monitor.Okay for meds with sip and clamping of NG 2. ICU care per ICU 3. Abx per ICU/primary Raquel Melissa M.D. Pager: [phone] [facility] [address] [place] [address], [facility], [address] [place] [address] Office: [phone] Inpatient E&M: [id number] Subs Hosp L2
[2020-09-13] MEDS: Lactated Ringers 1,000 ML 100 ML IV ×2 (09:18→19:23)
--- NOTE | 2020-09-13 09:57 | CASEMGMT ---
Addendum entered by Alyssa Mcdonough 09/13/20 11:09: Attempted to speak with patient in room. Patient currently sleeping. Per nursing staff patient has been confused and is having difficulty answering questions. Nursing reporting to have been speaking with patient Elvia MARRERO in regards to patient. Telephone call to Elvia Gan confirms that patient is a prison resident at [facility]. Elvia states He likes it there and it works for him. Patient with no further questions/concerns. PLAN: Return to [facility] ones medically cleared. Zach GREENWOOD, FILM BOOKER-S Original Note: Social Work Note Pt is listed as being from [facility]. DESTINEY placed a call to Najma at [facility] and left message regarding admission. DESTINEY faxed updated clinicals to [place]. DESTINEY to continue to follow. Gregoria Miller MSW, TILE MECHANIC HELPER
--- NOTE | 2020-09-13 10:22 | CON.PCM_ITS ---
Problem List (1) Renal failure Status: Acute Consultation - Renal 09/13/20 PCP/ Referring MD: Requesting physician: [] Primary care physician: Dr. Guillermo Espinal MD Reason for Consultation:: christiano - History of Present Illness History of Present Illness: The patient is a 75 year old M who presented to the hospital with complaints of shortness of breath. Current diagnoses include pneumonia, bowel obstruction, septic shock, possible pyelonephritis. Patient is currently a resident of [facility]. Currently denies any complaints. Asking for water. Has an NG tube to suction. - Allergies Allergies: Allergies No Known Allergies Allergy (Verified 09/12/20 08:19) - Current Medications Current Medications: Current Medications Acetaminophen (Acetaminophen 325 Mg Tablet) 650 mg PO Q6H PRN PRN PRN Reason: Pain Score 1-10/Temp > 100.7 F Albuterol Sulfate (Albuterol 2.5 Mg/3 Ml Vial.Neb.) 2.5 mg INHALATION Q2H PRN PRN PRN Reason: SOB/Wheezing Albuterol/Ipratropium (Ipratropium/Albuterol Sulfate 3 Ml Ampul.Neb) 3 ml INHALATION Q4H.RT [facility] Last Admin: 09/13/20 07:02 Dose: 3 ml Documented by: Heparin Sodium (Porcine) (Heparin Injection (Vial) 5,000 Unit/Ml Vial) 5,000 unit SC Q12 [facility] Last Admin: 09/12/20 22:26 Dose: 5,000 unit Documented by: Lactated Ringer's () 1,000 mls @ 100 mls/hr IV .Q10H [facility] Last Admin: 09/13/20 09:18 Dose: 100 mls/hr Documented by: Sodium Chloride () 250 mls @ 15 mls/hr IV .[id number] PRN PRN Reason: Saline Flush Sodium Chloride () 250 mls @ 15 mls/hr IV .[id number] PRN PRN Reason: Additional IVPB Infusion Piperacillin Sod/Tazobactam (Sod 3.375 gm/ Sodium Chloride) 50 mls @ 12.5 mls/hr IV Q12 [facility] Last Infusion: 09/13/20 02:30 Dose: Infused Documented by: Pantoprazole Sodium 40 mg/ (Sodium Chloride) 110 mls @ 330 mls/hr IV Q24 [facility] Last Infusion: 09/13/20 10:15 Dose: Infused Documented by: Vancomycin IV Pharmacy to Dose (1 each/ Sodium Chloride) 500 mls @ 250 mls/hr IV PRN PRN; Protocol PRN Reason: VANCOMYCIN DOSING PROTOCOL Nitroglycerin (Nitroglycerin (Inpatient Use) 0.4 Mg Tab.Subl) 0.4 mg SL Q5M PRN PRN Reason: CARDIAC/CHEST PAIN Ondansetron HCl (Ondansetron 4 Mg/2 Ml Vial) 4 mg IV Q8H PRN PRN PRN Reason: NAUSEA/VOMITING Prochlorperazine Edisylate (Prochlorperazine 10 Mg/2 Ml Vial) 5 mg IV Q4H PRN PRN PRN Reason: Breakthrough Nausea/Vomiting Senna/Docusate Sodium (Senna/Docusate Sodium 1 Tablet) 2 tablet GT BID PRN PRN Reason: Constipation Sodium Chloride (0.9% Saline Lock 10 Ml Syringe) 10 - 40 ml IV UD PRN PRN Reason: SALINE FLUSH - Past Medical History Past Medical History (Chronic Problems): Chronic Problems (Last Reviewed 08/27/20 @ 14:23 by Kacie Babcock RN) Hypothyroidism (Chronic) Bipolar 1 disorder (Chronic) COPD (chronic obstructive pulmonary disease) (Chronic) Schizo affective schizophrenia (Chronic) Lymphocytosis (Chronic) Anemia (Chronic) Schizophrenia (Chronic) CLL (chronic lymphocytic leukemia) (Chronic) Presence of permanent cardiac pacemaker (Chronic) Pacemaker placement 1992;Replacement of pulse generator 1999; Implant [employer] Pacemaker 2004; Implant of dual chamber [employer] pacemaker 12/17/10; Pure hypercholesterolemia (Chronic) Essential hypertension (Chronic) Sinoatrial node dysfunction (Chronic) nursing home use of drug (Chronic) Antihyperlipidemic Retinopathy (Chronic) - Past Surgical History Surgical History: - - History of pacemaker, back surgeries ?2 - Social History Smoking Status: Never smoker - Family History Maternal Family History: Family History (Last Reviewed 08/27/20 @ 14:03 by Caro Prieto) Mother CAD (coronary artery disease) History Items: Heart Disease Review of Systems Constitutional: Denies: Chills, Fever, Weight Change HEENT: Denies: Head Aches, Sinus Congestion, Sinus Drainage Cardiovascular: Denies: Chest Pain, Palpitations Respiratory: Denies: Cough, Shortness of breath at rest, Sputum production Gastrointestinal: Denies: Abdominal Pain, Nausea, Vomiting Genitourinary: Denies: Dysuria Musculoskeletal: Denies: Joint Pain, Joint Tenderness Skin: Denies: Rash, Wounds Neurological: Denies: Numbness, Tingling, Focal weakness Psychiatric: Denies: Anxiety, Depression, Homicidal Ideations, Suicidal Ideations Hematologic/ Lymphatic: Denies: Easy Bruising, Easy Bleeding Patient Problems: Active and Suspected Problems (Last Reviewed 08/27/20 @ 14:23 by Kacie Babcock RN) Pneumonia (Acute) Renal failure (Acute) - Physical Exam Vitals/I&O's: Vital Signs Temp Pulse Resp BP Pulse Ox 100.0 F H 93 17 98/63 95 09/13/20 06:00 09/13/20 07:00 09/13/20 07:00 09/13/20 07:00 09/13/20 07:00 Oxygen Flow Rate (L/min) 4 Oxygen Delivery Method Nasal Cannula Weight: 77.4 kg Body Mass Index (BMI) 25.3 Intake and Output for Last 24 Hours 09/11/20 09/12/20 09/13/20 23:59 23:59 23:59 Intake Total 3220 / 3220 1160 / 1160 Output Total 715 / 715 556 / 556 Balance 2505 / 2505 604 / 604 General: Alert, Oriented x3, Cooperative HEENT: Atraumatic, PERRLA, EOMI, Normocephalic Neck: Supple, No JVD, Negative Carotid Bruits Lungs: Clear to auscultation, Normal air movement Cardiovascular: Regular rate, No murmurs Abdomen: Bowel Sounds Present, Soft, Non Tender Extremities: No edema, Capillary Refill Less than 3 Seconds Skin: No rashes, No breakdown Musculoskeletal: No Tenderness to Palpation of Joints or Extremities Neurological: Cranial nerves II-XII grossly intact Psych/Mental Status: Normal Affect, Appropriate Microbiology Past 72 Hours 09/12/20 10:15 Urine Catheter - Raymond Urine Culture - Preliminary Gram negative pawel 09/12/20 14:33 Mucosa - Nose Respiratory Panel (PCR) - Final 09/12/20 08:50 Urine Catheter - Raymond Legionella Antigen - Final 09/12/20 08:50 Urine Catheter - Raymond Streptococcus pneumoniae Antigen (M - Final 09/12/20 08:35 Mucosa - Nose SARS-CoV-2 Antigen (Rapid) - Final Laboratory Results 09/12/20 08:23: WBC 24.9 H, RBC 2.97 L, Hgb 9.8 L, Hct 28.6 L, MCV 96.3 H, MCH 33.0 H, MCHC 34.3, RDW Std Deviation 50.0 H, RDW Coeff of Arben 14.3, Plt Count 222, MPV 12.1 H, Immature Gran % (Auto) 0.200, Neut % (Auto) 17.8 L, Lymph % (Auto) 77.0 H, Emery % (Auto) 4.8, Eos % (Auto) 0.0, Baso % (Auto) 0.2, Absolute Neuts (auto) 4.4, Absolute Lymphs (auto) 19.16 H, Nucleated RBC % 0, Differenti al Comment COMMENT 09/12/20 08:23: PT 16.4 H, INR 1.4, APTT 34.9 09/12/20 08:23: Sodium 130 L, Potassium 5.0, Chloride 98, Carbon Dioxide 21.0, Anion Gap 11, BUN 58 H, Creatinine 5.63 H, Estim Creat Clear Calc 11.34, Est GFR (MDRD) Af Amer 13 L, Est GFR (MDRD) Non-Af 11 L, BUN/Creatinine Ratio 10.3, Glucose 114 H, Calcium 8.6, Total Bilirubin 0.80, AST 19, ALT 12 L, Alkaline Phosphatase 58, Total Protein 5.6 L, Albumin 2.6 L, Globulin 3.0, Albumin/Globulin Ratio 0.9 09/12/20 08:23: Lactic Acid 3.0 H* 09/12/20 14:30: Lactic Acid 3.2 H* 09/12/20 14:33: MRSA (PCR) POSITIVE H 09/13/20 04:40: WBC 10.8, RBC 2.20 L, Hgb 7.4 L, Hct 21.2 L, MCV 96.4 H, MCH 33.6 H, MCHC 34.9, RDW Std Deviation 50.9 H, RDW Coeff of Arben 14.5, Plt Count 168, MPV 10.8, Immature Gran % (Auto) 0.700, Neut % (Auto) 57.3, Lymph % (Auto) 38.4, Emery % (Auto) 3.5, Eos % (Auto) 0.0, Baso % (Auto) 0.1, Absolute Neuts (auto) 6.2, Absolute Lymphs (auto) 4.13, Nucleated RBC % 0 09/13/20 04:40: Sodium 134 L, Potassium 4.5, Chloride 105, Carbon Dioxide 17.0 L , Anion Gap 12, BUN 66 H, Creatinine 5.87 H, Estim Creat Clear Calc 10.87, Est GFR (MDRD) Af Amer 12 L, Est GFR (MDRD) Non-Af 10 L, BUN/Creatinine Ratio 11.2, Glucose 111 H, Calcium 7.8 L, Phosphorus 5.3 H, Magnesium 1.9 09/13/20 06:18: Blood Type A POSITIVE, Antibody Screen NEGATIVE Current Medications Acetaminophen (Acetaminophen 325 Mg Tablet) 650 mg PO Q6H PRN PRN PRN Reason: Pain Score 1-10/Temp > 100.7 F Albuterol Sulfate (Albuterol 2.5 Mg/3 Ml Vial.Neb.) 2.5 mg INHALATION Q2H PRN PRN PRN Reason: SOB/Wheezing Albuterol/Ipratropium (Ipratropium/Albuterol Sulfate 3 Ml Ampul.Neb) 3 ml INHALATION Q4H.RT [facility] Last Admin: 09/13/20 07:02 Dose: 3 ml Documented by: Heparin Sodium (Porcine) (Heparin Injection (Vial) 5,000 Unit/Ml Vial) 5,000 unit SC Q12 [facility] Last Admin: 09/12/20 22:26 Dose: 5,000 unit Documented by: Lactated Ringer's () 1,000 mls @ 100 mls/hr IV .Q10H [facility] Last Admin: 09/13/20 09:18 Dose: 100 mls/hr Documented by: Sodium Chloride () 250 mls @ 15 mls/hr IV .[id number] PRN PRN Reason: Saline Flush Sodium Chloride () 250 mls @ 15 mls/hr IV .[id number] PRN PRN Reason: Additional IVPB Infusion Piperacillin Sod/Tazobactam (Sod 3.375 gm/ Sodium Chloride) 50 mls @ 12.5 mls/hr IV Q12 [facility] Last Infusion: 09/13/20 02:30 Dose: Infused Documented by: Pantoprazole Sodium 40 mg/ (Sodium Chloride) 110 mls @ 330 mls/hr IV Q24 [facility] Last Infusion: 09/13/20 10:15 Dose: Infused Documented by: Vancomycin IV Pharmacy to Dose (1 each/ Sodium Chloride) 500 mls @ 250 mls/hr IV PRN PRN; Protocol PRN Reason: VANCOMYCIN DOSING PROTOCOL Nitroglycerin (Nitroglycerin (Inpatient Use) 0.4 Mg Tab.Subl) 0.4 mg SL Q5M PRN PRN Reason: CARDIAC/CHEST PAIN Ondansetron HCl (Ondansetron 4 Mg/2 Ml Vial) 4 mg IV Q8H PRN PRN PRN Reason: NAUSEA/VOMITING Prochlorperazine Edisylate (Prochlorperazine 10 Mg/2 Ml Vial) 5 mg IV Q4H PRN PRN PRN Reason: Breakthrough Nausea/Vomiting Senna/Docusate Sodium (Senna/Docusate Sodium 1 Tablet) 2 tablet GT BID PRN PRN Reason: Constipation Sodium Chloride (0.9% Saline Lock 10 Ml Syringe) 10 - 40 ml IV UD PRN PRN Reason: SALINE FLUSH Assessment/Plan All Active Problems (Last Reviewed 08/27/20 @ 14:23 by Kacie Babcock RN) Pneumonia (Acute) Renal failure (Acute) Anxiety (Resolved) Atherosclerotic heart disease (Resolved) Bipolar 1 disorder (Resolved) COPD (chronic obstructive pulmonary disease) (Resolved) Chronic lymphocytic leukemia of B-cell type not having achieved remission (Resolved) Dementia (Resolved) Dementia without behavioral disturbance (Resolved) HCAP (healthcare-associated pneumonia) (Resolved) Hypo-osmolality and hyponatremia (Resolved) Hyponatremia (Resolved) Hypothyroidism (Resolved) Insomnia (Resolved) Obsessive compulsive disorder (Resolved) Retention of urine (Resolved) Schizoaffective disorder (Resolved) Schizoaffective disorder (Resolved) Schizoaffective disorder (Resolved) Schizoaffective disorder (Resolved) acute renal failure. Creatinine was normal as of [address] abdomen on admission does not show any hydronephrosis. Renal ultrasound images reviewed. He has somewhat large cysts measuring up to 6 cm but looks simple. Urine analysis shows large amount of leukocytes, protein. Suspected pyelonephritis/UTI Has been aggressively hydrated. BUN and creatinine are worse today. Urine output is minimal. Volume status looks acceptable. Potassium normal. Bicarbonate is slightly low. I did mention dialysis to him. He is not mentally sharp to make that decision I believe. He called his sister who is listed as POA. Explained about dialysis etc. At baseline he does not have a good quality of life. She said she'll get back to me sometime later today. No acute indications for dialysis today Other events - pneumonia, bowel obstruction, hemoglobin dropped from yesterday to today. Discussed with Dr. Cannon Discussed with hospitalist Dr. Aguilar
[2020-09-13] MEDS: Heparin Injection (Vial) 5,000 UNIT/ML VIAL 5000 UNIT SC (11:03)
--- NOTE | 2020-09-13 13:59 | CASEMGMT ---
Social Work Note SW received message from Najma at 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 SW to continue to follow. Plan: [facility] skilled Gregoria Miller [employer], [employer]
[2020-09-14] VITALS (26 sets, daily range): BP systolic 101–127; BP diastolic 54–73; PULSE 70–90; RESP 14–23; TEMP 36.2–37.5; O2SAT 90–97
--- NOTE | 2020-09-14 01:20 | NURSING ---
report called to ZEESHAN Flower in PCU.
[2020-09-14 04:52] LABS: Absolute Lymphocyte Count 4.75 X10^3/uL (0.83-4.51); Absolute Neutrophil Count 7.3 X10^3/uL (2.0-7.7); Basophil# 0.03 X10^3/uL; Basophil% 0.2 % (0-1); Eosinophil# 0.02 X10^3/uL; Eosinophils% 0.1 % (0-5); Hematocrit 20.9 % (40-54); Hemoglobin 7.2 g/dL (13.0-16.5); Lymphocyte # 4.75 X10^3/ul (4.0); Lymphocyte % 35.4 % (19-41); Mean Corp Hgb Conc 34.4 g/dL (32-36); Mean Corpuscular Hgb 33.3 pg (27.0-32.0); Mean Corpuscular Volume 96.8 fL (80-94); Monocyte# 0.79 X10^3/uL; Monocyte% 5.9 % (0-10); NRBC Flagged by Analyzer 0 % (0-5); Neutrophil # 7.31 X10^3/uL (2.7-7.7); Neutrophil % 54.7 % (47-70); Platelet Count 153 K/mm3 (150-450); RBC Distribution Width CV 14.6 % (11.6-14.6); RBC Distribution Width SD 51.4 fl (35.1-43.9); Red Blood Count 2.16 M/mm3 (4.6-6.2); White Blood Count 13.4 K/mm3 (4.4-11.0)
[2020-09-14 05:10] LABS: ALB/GLOB Ratio 0.5 RATIO (0.9-2.4); AST(SGOT) 34 U/L (15-37); Alanine Aminotransfer ALT/SGPT 15 U/L (16-61); Albumin, Serum 1.7 g/dL (3.2-5.0); Alkaline Phosphatase 45 U/L (45-117); Anion Gap 12 (5-15); BUN 74 mg/dL (7-18); BUN/Creat Ratio 13.7 RATIO (10-20); Calcium,Total 7.9 mg/dL (8.5-10.1); Chloride 107 mmol/L (98-107); EST Glomerular Filtration Rate 11 mL/min (>60); Est Glom Filt Rate - Afr Amer 13 mL/min (>60); Estimated Creatinine Clearance 11.82 ml/min; Globulin 3.1 g/dL (2.2-4.2); Glucose 85 mg/dL (74-106); Magnesium 1.8 mg/dL (1.6-2.6); Protein, Total 4.8 g/dL (6.4-8.2); Sodium Level 137 mmol/L (136-145)
[2020-09-14 05:16] LABS: Vancomycin, Random Level 13.3 ug/mL (0.0-15.0)
[2020-09-14] MEDS: Lactated Ringers 1,000 ML 100 ML IV (05:30)
--- NOTE | 2020-09-14 05:54 | PCM.PN.INT ---
Subjective: The patient was seen and examined at the bedside this morning. Events from the last 24 hours have been reviewed. The patient continues to have some low-grade fevers. He is otherwise hemodynamically stable and maintaining appropriate oxygen saturations on room air. Hemoglobin is stable at 7.2 g/dL. Chemistry profile revealed a bicarbonate of 18 and creatinine of 5.4. The patient is currently documented to be overall net +4.1 L for the hospital admission. There are no immediate plans for dialysis per nephrology. Objective: The patient's most recent lab work, culture data and imaging studies have all been personally reviewed. Rapid coronavirus antigen testing was negative. Strep and urine Legionella antigens were negative. Respiratory viral panel was negative. Sputum and blood cultures are pending. Urine culture was positive for a gram-negative pawel. Renal ultrasound revealed no evidence of hydronephrosis. General: Alert, Cooperative HEENT: Atraumatic, Normocephalic Oral: No Gingival or Mucosal Lesions/ Ulcerations Neck: Supple, No Nodes, Trachea Midline Lungs: Diminished, Rales Cardiovascular: Regular rate, Regular Rhythm Abdomen: Bowel Sounds Present, Soft, Non Tender Extremities: No clubbing, No cyanosis, No edema Skin: No breakdown Musculoskeletal: No Tenderness to Palpation of Joints or Extremities Lymphatic: No Cervical, Supraclavicular, or Inguinal Adenopathy Neurological: Neuro grossly intact Psych/Mental Status: Appropriate Vital Signs Temp Pulse Resp BP Pulse Ox 99.2 F H 80 15 110/61 95 09/14/20 05:00 09/14/20 05:00 09/14/20 05:00 09/14/20 05:00 09/14/20 05:00 Oxygen Flow Rate (L/min) 2 Oxygen Delivery Method Room Air Weight: 172 lb 6.424 oz Body Mass Index (BMI) 25.3 Intake and Output for Last 24 Hours 09/12/20 09/13/20 09/14/20 23:59 23:59 23:59 Intake Total 3220 / 3220 2260 / 2260 1050 / 1050 Output Total 715 / 715 1181 / 1456 525 / 525 Balance 2505 / 2505 1079 / 804 525 / 525 Labs (Last 48 Hours) 09/12/20 09/12/20 09/12/20 08:23 08:23 08:23 WBC 24.9 H RBC 2.97 L Hgb 9.8 L Hct 28.6 L MCV 96.3 H MCH 33.0 H MCHC 34.3 RDW Std Deviation 50.0 H RDW Coeff of Arben 14.3 Plt Count 222 MPV 12.1 H Immature Gran % (Auto) 0.200 Neut % (Auto) 17.8 L Lymph % (Auto) 77.0 H [place] % (Auto) 4.8 Eos % (Auto) 0.0 Baso % (Auto) 0.2 Absolute Neuts (auto) 4.4 Absolute Lymphs (auto) 19.16 H Nucleated RBC % 0 Differential Comment COMMENT PT 16.4 H INR 1.4 APTT 34.9 Sodium 130 L Potassium 5.0 Chloride 98 Carbon Dioxide 21.0 Anion Gap 11 BUN 58 H Creatinine 5.63 H Estim Creat Clear Calc 11.34 Est GFR (MDRD) Af Amer 13 L Est GFR (MDRD) Non-Af 11 L BUN/Creatinine Ratio 10.3 Glucose 114 H Lactic Acid Calcium 8.6 Phosphorus Magnesium Total Bilirubin 0.80 AST 19 ALT 12 L Alkaline Phosphatase 58 Total Protein 5.6 L Albumin 2.6 L Globulin 3.0 Albumin/Globulin Ratio 0.9 Urine Color Urine Clarity Urine pH Ur Specific [place] Urine Protein Urine Glucose (UA) Urine Ketones Urine Occult Blood Urine Nitrite Urine Bilirubin Urine Urobilinogen Ur Leukocyte Esterase Urine RBC Urine WBC Ur Squamous Epith Cells Urine Bacteria Urine Mucus Random Vancomycin MRSA (PCR) Blood Type Antibody Screen 09/12/20 09/12/20 09/12/20 08:23 08:50 14:30 WBC RBC Hgb Hct MCV MCH MCHC RDW Std Deviation RDW Coeff of Arben Plt Count MPV Immature Gran % (Auto) Neut % (Auto) Lymph % (Auto) [place] % (Auto) Eos % (Auto) Baso % (Auto) Absolute Neuts (auto) Absolute Lymphs (auto) Nucleated RBC % Differential Comment PT INR APTT Sodium Potassium Chloride Carbon Dioxide Anion Gap BUN Creatinine Estim Creat Clear Calc Est GFR (MDRD) Af Amer Est GFR (MDRD) Non-Af BUN/Creatinine Ratio Glucose Lactic Acid 3.0 H* 3.2 H* Calcium Phosphorus Magnesium Total Bilirubin AST ALT Alkaline Phosphatase Total Protein Albumin Globulin Albumin/Globulin Ratio Urine Color Yellow Urine Clarity Cloudy Urine pH 7.0 Ur Specific [place] 1.015 Urine Protein 500 H Urine Glucose (UA) Normal Urine Ketones 5 H Urine Occult Blood 250 H Urine Nitrite Negative Urine Bilirubin Negative Urine Urobilinogen 1 H Ur Leukocyte Esterase 500 H Urine RBC 0 SEEN Urine WBC >100 SEEN Ur Squamous Epith Cells 0 SEEN Urine Bacteria 0 SEEN Urine Mucus 0 SEEN Random Vancomycin MRSA (PCR) Blood Type Antibody Screen 09/12/20 09/13/20 09/13/20 14:33 04:40 04:40 WBC 10.8 RBC 2.20 L Hgb 7.4 L Hct 21.2 L MCV 96.4 H MCH 33.6 H MCHC 34.9 RDW Std Deviation 50.9 H RDW Coeff of Arben 14.5 Plt Count 168 MPV 10.8 Immature Gran % (Auto) 0.700 Neut % (Auto) 57.3 Lymph % (Auto) 38.4 [place] % (Auto) 3.5 Eos % (Auto) 0.0 Baso % (Auto) 0.1 Absolute Neuts (auto) 6.2 Absolute Lymphs (auto) 4.13 Nucleated RBC % 0 Differential Comment PT INR APTT Sodium 134 L Potassium 4.5 Chloride 105 Carbon Dioxide 17.0 L Anion Gap 12 BUN 66 H Creatinine 5.87 H Estim Creat Clear Calc 10.87 Est GFR (MDRD) Af Amer 12 L Est GFR (MDRD) Non-Af 10 L BUN/Creatinine Ratio 11.2 Glucose 111 H Lactic Acid Calcium 7.8 L Phosphorus 5.3 H Magnesium 1.9 Total Bilirubin AST ALT Alkaline Phosphatase Total Protein Albumin Globulin Albumin/Globulin Ratio Urine Color Urine Clarity Urine pH Ur Specific [place] Urine Protein Urine Glucose (UA) Urine Ketones Urine Occult Blood Urine Nitrite Urine Bilirubin Urine Urobilinogen Ur Leukocyte Esterase Urine RBC Urine WBC Ur Squamous Epith Cells Urine Bacteria Urine Mucus Random Vancomycin MRSA (PCR) POSITIVE H Blood Type Antibody Screen 09/13/20 09/14/20 09/14/20 06:18 04:45 04:45 WBC 13.4 H RBC 2.16 L Hgb 7.2 L Hct 20.9 L MCV 96.8 H MCH 33.3 H MCHC 34.4 RDW Std Deviation 51.4 H RDW Coeff of Arben 14.6 Plt Count 153 MPV 12.0 Immature Gran % (Auto) 3.700 H Neut % (Auto) 54.7 Lymph % (Auto) 35.4 [place] % (Auto) 5.9 Eos % (Auto) 0.1 Baso % (Auto) 0.2 Absolute Neuts (auto) 7.3 Absolute Lymphs (auto) 4.75 H Nucleated RBC % 0 Differential Comment PT INR APTT Sodium Potassium Chloride Carbon Dioxide Anion Gap BUN Creatinine Estim Creat Clear Calc Est GFR (MDRD) Af Amer Est GFR (MDRD) Non-Af BUN/Creatinine Ratio Glucose Lactic Acid Calcium Phosphorus Magnesium Total Bilirubin AST ALT Alkaline Phosphatase Total Protein Albumin Globulin Albumin/Globulin Ratio Urine Color Urine Clarity Urine pH Ur Specific [place] Urine Protein Urine Glucose (UA) Urine Ketones Urine Occult Blood Urine Nitrite Urine Bilirubin Urine Urobilinogen Ur Leukocyte Esterase Urine RBC Urine WBC Ur Squamous Epith Cells Urine Bacteria Urine Mucus Random Vancomycin 13.3 MRSA (PCR) Blood Type A POSITIVE Antibody Screen NEGATIVE 09/14/20 04:45 WBC RBC Hgb Hct MCV MCH MCHC RDW Std Deviation RDW Coeff of Arben Plt Count MPV Immature Gran % (Auto) Neut % (Auto) Lymph % (Auto) [place] % (Auto) Eos % (Auto) Baso % (Auto) Absolute Neuts (auto) Absolute Lymphs (auto) Nucleated RBC % Differential Comment PT INR APTT Sodium 137 Potassium 4.0 Chloride 107 Carbon Dioxide 18.0 L Anion Gap 12 BUN 74 H Creatinine 5.40 H Estim Creat Clear Calc 11.82 Est GFR (MDRD) Af Amer 13 L Est GFR (MDRD) Non-Af 11 L BUN/Creatinine Ratio 13.7 Glucose 85 Lactic Acid Calcium 7.9 L Phosphorus 5.0 H Magnesium 1.8 Total Bilirubin 0.70 AST 34 ALT 15 L Alkaline Phosphatase 45 Total Protein 4.8 L Albumin 1.7 L Globulin 3.1 Albumin/Globulin Ratio 0.5 L Urine Color Urine Clarity Urine pH Ur Specific [place] Urine Protein Urine Glucose (UA) Urine Ketones Urine Occult Blood Urine Nitrite Urine Bilirubin Urine Urobilinogen Ur Leukocyte Esterase Urine RBC Urine WBC Ur Squamous Epith Cells Urine Bacteria Urine Mucus Random Vancomycin MRSA (PCR) Blood Type Antibody Screen Microbiology 09/12/20 10:15 Urine Catheter - Raymond Urine Culture - Preliminary Gram negative pawel 09/12/20 14:33 Mucosa - Nose Respiratory Panel (PCR) - Final 09/12/20 08:50 Urine Catheter - Raymond Legionella Antigen - Final 09/12/20 08:50 Urine Catheter - Raymond Streptococcus pneumoniae Antigen (M - Final 09/12/20 08:35 Mucosa - Nose SARS-CoV-2 Antigen (Rapid) - Final Clinical Impression(s) from Imaging Studies Chest X-Ray 09/12/20 08:50 IMPRESSION: Left lower lobe pneumonia or atelectasis. Electronically Signed: Jermain Nicole MD at 9:14 EDT Tel , Service support , Abdomen/Pelvis CT 09/12/20 09:28 IMPRESSION: 1. Possible moderate small bowel obstruction but a transition point not clearly identified. No evidence of ischemia or perforation. Small amount of free fluid in the pelvis. 2. Small right inguinal hernia containing a segment of the cecum. 3. Large bilateral renal cysts. Electronically Signed: Jermain Nicole MD at 10:32 EDT Tel , Service support , Chest CT 09/12/20 09:28 IMPRESSION: Left lower lobe pneumonia. Electronically Signed: Jermain Nicole MD at 10:22 EDT Tel , Service support , KUB X-Ray 09/12/20 13:07 IMPRESSION: Nasogastric tube is described, recommend repositioning. Small bowel obstruction. Electronically Signed: Nay Oakes MD at 4:28 EDT , Service support , KUB X-Ray 09/12/20 14:15 IMPRESSION: NG tube is seen, its tip is in the lower esophagus deflected upward. Electronically Signed: Jose Kirk MD at 10:46 EDT Tel , Service support , KUB X-Ray 09/12/20 14:16 IMPRESSION: Small bowel obstruction. Electronically Signed: Jose Kirk MD at 12:57 EDT Tel , Service support , Renal Ultrasound 09/13/20 06:20 IMPRESSION: There is no evidence of hydronephrosis. Electronically Signed: Jose Kirk MD at 13:36 EDT Tel , Service support , KUB X-Ray 09/13/20 07:34 IMPRESSION: NG tube is seen its tip is at the gastric antrum is in good position. There is dilatation of small bowel loops throughout abdomen suggesting bowel obstruction. Electronically Signed: Jose Kirk MD at 13:17 EDT Tel , Service support , KUB X-Ray 09/14/20 05:55 IMPRESSION: Nasogastric tube is described. Diffuse bowel distention in both colonic and some suggested in the small bowel distribution. These findings are both assessed with small bowel follow-through if clinically indicated. Electronically Signed: Nay Oakes MD at 5:53 EDT , Service support , Medical Necessity - Tobacco Use Smoking Status: Never smoker Assessment/Plan All Active Problems (Last Reviewed 08/27/20 @ 14:23 by Kacie Babcock RN) Pneumonia (Acute) Renal failure (Acute) Anxiety (Resolved) Atherosclerotic heart disease (Resolved) Bipolar 1 disorder (Resolved) COPD (chronic obstructive pulmonary disease) (Resolved) Chronic lymphocytic leukemia of B-cell type not having achieved remission (Resolved) Dementia (Resolved) Dementia without behavioral disturbance (Resolved) HCAP (healthcare-associated pneumonia) (Resolved) Hypo-osmolality and hyponatremia (Resolved) Hyponatremia (Resolved) Hypothyroidism (Resolved) Insomnia (Resolved) Obsessive compulsive disorder (Resolved) Retention of urine (Resolved) Schizoaffective disorder (Resolved) Schizoaffective disorder (Resolved) Schizoaffective disorder (Resolved) Schizoaffective disorder (Resolved) RECOMMENDATIONS: 1. Okay to stop supplemental IV fluids. 2. Transfuse 1 unit of packed red blood cells today. Check H&H posttransfusion. 3. Continue antimicrobials. 4. Continue to hold antihypertensives and nephrotoxic medications. 5. Await decision by nephrology regarding need for dialysis. 6. Continue appropriate prophylaxis. IMPRESSIONS: 1. Severe sepsis Clinical concern for pulmonary source of infection based upon chest imaging studies. In addition, the patient has a chronic indwelling Raymond, raising the possibility for concurrent urinary tract infection as well. The patient will be continued on broad-spectrum antimicrobials. He has been adequately volume resuscitated thus far. Supplemental IV fluids can be discontinued today from my perspective. 2. Acute hypoxemic respiratory failure Improved. Appears to be secondary to large left lower lobe pneumonia. The patient is not normally on supplemental oxygen at his baseline. Although he was started on BiPAP in the emergency department, his oxygenation status has improved. Plan to wean supplemental oxygen with a goal to keep sats at or above 90%. 3. Acute kidney injury Likely prerenal in etiology. The patient has been adequately volume resuscitated. Continue to monitor urine output. Nephrology following to assist with possible hemodialysis needs. 4. Anemia Appears to be more acute based upon a review of the patient's prior blood counts. He will be transfused 1 unit of packed red blood cells today. He will be continued on PPI therapy as well. 5. History of schizophrenia/sick sinus syndrome status post pacemaker implantation/hypothyroidism/hypertension/hyperlipidemia Complicates care, management, recovery and prognosis. Okay to restart home medications. This note was generated with ePub Direct dictation software. It may contain incorrect words, spelling, and punctuation that were not noted in checking the note before signing. Inpatient E&M: [id number] [facility] Hosp L3
--- NOTE | 2020-09-14 05:55 | RAD_ITS ---
STUDY: X-RAY - ABDOMEN/PELVIS REASON FOR EXAM: Male, 75 years old. ileus vs sbo -- portable TECHNIQUE: Single AP view of the abdomen / pelvis. COMPARISON: None. FINDINGS: Pacemaker leads demonstrated in place. The nasogastric tube has the tip at the level of the gastric antrum. Nonspecific distention of bowel loops. There is no demonstrated free abdominal air. A catheter projects over the pelvis. The visualized liver, spleen and kidneys are grossly normal in size and morphology. Normal soft tissue structures. There are diffuse degenerative changes of the visualized lumbar spine. RAD/Abdomen Single View (Portable) IMPRESSION: Nasogastric tube is described. Diffuse bowel distention in both colonic and some suggested in the small bowel distribution. These findings are both assessed with small bowel follow-through if clinically indicated. Electronically Signed: Nay Oakes MD at 5:53 EDT , Service support ,
[2020-09-14] MEDS: Ipratropium/Albuterol Sulfate 3 ML AMPUL.NEB INHALATION ×3 (07:16→19:03)
--- NOTE | 2020-09-14 08:09 | CASEMGMT ---
Financial POA form in summary tab of echart stating Ting Baptiste is financial POA. No LW or Healthcare POA are on file. MAMI De Leon
--- NOTE | 2020-09-14 08:57 | PN.RENAL_ITS ---
Patient Problems: Active and Suspected Problems (Last Reviewed 08/27/20 @ 14:23 by Kacie Babcock RN) Pneumonia (Acute) Renal failure (Acute) Subjective: no new events Bp is ok urine output is better - Physical Exam Vitals/I&O's: Vital Signs Temp Pulse Resp BP Pulse Ox 99.3 F H 90 19 H 114/65 90 09/14/20 07:00 09/14/20 07:42 09/14/20 07:16 09/14/20 07:00 09/14/20 07:16 Oxygen Flow Rate (L/min) 2 Oxygen Delivery Method Room Air Weight: 78.2 kg Body Mass Index (BMI) 25.3 Intake and Output for Last 24 Hours 09/12/20 09/13/20 09/14/20 23:59 23:59 23:59 Intake Total 3220 / 3220 2260 / 2260 1050 / 1050 Output Total 715 / 715 1181 / 1456 725 / 725 Balance 2505 / 2505 1079 / 804 325 / 325 General: Alert, Oriented x3, Cooperative HEENT: Atraumatic, PERRLA, EOMI, Normocephalic Neck: Supple, No JVD, Negative Carotid Bruits Lungs: Clear to auscultation, Normal air movement Cardiovascular: Regular rate, No murmurs Abdomen: Bowel Sounds Present, Soft, Non Tender Extremities: No edema, Capillary Refill Less than 3 Seconds Skin: No rashes, No breakdown Musculoskeletal: No Tenderness to Palpation of Joints or Extremities Neurological: Cranial nerves II-XII grossly intact Psych/Mental Status: Normal Affect, Appropriate Microbiology Past 72 Hours 09/12/20 10:15 Urine Catheter - Raymond Urine Culture - Final Providencia stuartii 09/12/20 14:33 Mucosa - Nose Respiratory Panel (PCR) - Final 09/12/20 08:50 Urine Catheter - Raymond Legionella Antigen - Final 09/12/20 08:50 Urine Catheter - Raymond Streptococcus pneumoniae Antigen (M - Final 09/12/20 08:35 Mucosa - Nose SARS-CoV-2 Antigen (Rapid) - Final Laboratory Results 09/12/20 08:23: WBC 24.9 H, RBC 2.97 L, Hgb 9.8 L, Hct 28.6 L, MCV 96.3 H, MCH 33.0 H, MCHC 34.3, RDW Std Deviation 50.0 H, RDW Coeff of Arben 14.3, Plt Count 222, MPV 12.1 H, Immature Gran % (Auto) 0.200, Neut % (Auto) 17.8 L, Lymph % (Auto) 77.0 H, [place] % (Auto) 4.8, Eos % (Auto) 0.0, Baso % (Auto) 0.2, Absolute Neuts (auto) 4.4, Absolute Lymphs (auto) 19.16 H, Nucleated RBC % 0, Di fferential Comment COMMENT 09/12/20 08:23: PT 16.4 H, INR 1.4, APTT 34.9 09/12/20 08:23: Sodium 130 L, Potassium 5.0, Chloride 98, Carbon Dioxide 21.0, Anion Gap 11, BUN 58 H, Creatinine 5.63 H, Estim Creat Clear Calc 11.34, Est GFR (MDRD) Af Amer 13 L, Est GFR (MDRD) Non-Af 11 L, BUN/Creatinine Ratio 10.3, Glucose 114 H, Calcium 8.6, Total Bilirubin 0.80, AST 19, ALT 12 L, Alkaline Phosphatase 58, Total Protein 5.6 L, Albumin 2.6 L, Globulin 3.0, Albumin/Globulin Ratio 0.9 09/12/20 08:23: Lactic Acid 3.0 H* 09/13/20 06:30: Crossmatch See Detail 09/14/20 04:45: Random Vancomycin 13.3 09/14/20 04:45: WBC 13.4 H, RBC 2.16 L, Hgb 7.2 L, Hct 20.9 L, MCV 96.8 H, MCH 33.3 H, MCHC 34.4, RDW Std Deviation 51.4 H, RDW Coeff of Arben 14.6, Plt Count 153, MPV 12.0, Immature Gran % (Auto) 3.700 H, Neut % (Auto) 54.7, Lymph % (Auto) 35.4, [place] % (Auto) 5.9, Eos % (Auto) 0.1, Baso % (Auto) 0.2, Absolute Neuts (auto) 7.3, Absolute Lymphs (auto) 4.75 H, Nucleated RBC % 0 09/14/20 04:45: Sodium 137, Potassium 4.0, Chloride 107, Carbon Dioxide 18.0 L, Anion Gap 12, BUN 74 H, Creatinine 5.40 H, Estim Creat Clear Calc 11.82, Est GFR (MDRD) Af Amer 13 L, Est GFR (MDRD) Non-Af 11 L, BUN/Creatinine Ratio 13.7, Glucose 85, Calcium 7.9 L, Phosphorus 5.0 H, Magnesium 1.8, Total Bilirubin 0.70, AST 34, ALT 15 L, Alkaline Phosphatase 45, Total Protein 4.8 L, Albumin 1.7 L, Globulin 3.1, Albumin/Globulin Ratio 0.5 L Current Medications Acetaminophen (Acetaminophen 325 Mg Tablet) 650 mg PO Q6H PRN PRN PRN Reason: Pain Score 1-10/Temp > 100.7 F Albuterol Sulfate (Albuterol 2.5 Mg/3 Ml Vial.Neb.) 2.5 mg INHALATION Q2H PRN PRN PRN Reason: SOB/Wheezing Albuterol/Ipratropium (Ipratropium/Albuterol Sulfate 3 Ml Ampul.Neb) 3 ml INHALATION Q4H.RT [facility] Last Admin: 09/14/20 07:16 Dose: 3 ml Documented by: Sodium Chloride () 250 mls @ 15 mls/hr IV .[id number] PRN PRN Reason: Saline Flush Sodium Chloride () 250 mls @ 15 mls/hr IV .[id number] PRN PRN Reason: Additional IVPB Infusion Piperacillin Sod/Tazobactam (Sod 3.375 gm/ Sodium Chloride) 50 mls @ 12.5 mls/hr IV Q12 [facility] Last Infusion: 09/14/20 01:38 Dose: Infused Documented by: Pantoprazole Sodium 40 mg/ (Sodium Chloride) 110 mls @ 330 mls/hr IV Q24 [facility] Last Admin: 09/14/20 08:49 Dose: 330 mls/hr Documented by: Vancomycin IV Pharmacy to Dose (1 each/ Sodium Chloride) 500 mls @ 250 mls/hr IV PRN PRN; Protocol PRN Reason: VANCOMYCIN DOSING PROTOCOL Nitroglycerin (Nitroglycerin (Inpatient Use) 0.4 Mg Tab.Subl) 0.4 mg SL Q5M PRN PRN Reason: CARDIAC/CHEST PAIN Ondansetron HCl (Ondansetron 4 Mg/2 Ml Vial) 4 mg IV Q8H PRN PRN PRN Reason: NAUSEA/VOMITING Prochlorperazine Edisylate (Prochlorperazine 10 Mg/2 Ml Vial) 5 mg IV Q4H PRN PRN PRN Reason: Breakthrough Nausea/Vomiting Senna/Docusate Sodium (Senna/Docusate Sodium 1 Tablet) 2 tablet GT BID PRN PRN Reason: Constipation Sodium Chloride (0.9% Saline Lock 10 Ml Syringe) 10 - 40 ml IV UD PRN PRN Reason: SALINE FLUSH Medical Necessity - Tobacco Use Smoking Status: Never smoker Assessment/Plan All Active Problems (Last Reviewed 08/27/20 @ 14:23 by Kacie Babcock RN) Pneumonia (Acute) Renal failure (Acute) Anxiety (Resolved) Atherosclerotic heart disease (Resolved) Bipolar 1 disorder (Resolved) COPD (chronic obstructive pulmonary disease) (Resolved) Chronic lymphocytic leukemia of B-cell type not having achieved remission (Resolved) Dementia (Resolved) Dementia without behavioral disturbance (Resolved) HCAP (healthcare-associated pneumonia) (Resolved) Hypo-osmolality and hyponatremia (Resolved) Hyponatremia (Resolved) Hypothyroidism (Resolved) Insomnia (Resolved) Obsessive compulsive disorder (Resolved) Retention of urine (Resolved) Schizoaffective disorder (Resolved) Schizoaffective disorder (Resolved) Schizoaffective disorder (Resolved) Schizoaffective disorder (Resolved) acute renal failure. Creatinine was normal as of [address] abdomen on admission does not show any hydronephrosis. Renal ultrasound images reviewed. He has somewhat large cysts measuring up to 6 cm but looks simple. urine output has picked up. BUN and cr are better. hold off HD today IV fluids will be cut back today Other events - pneumonia, bowel obstruction, hemoglobin drop. Discussed with Dr. Cannon
--- NOTE | 2020-09-14 09:39 | PCM.RX.CS ---
Consult Pharmacy has been consulted to manage selected antiobiotic: Vancomycin Type of Consult: Follow-up Suspected Infection: Pneumonia Prior Doses of Antibiotics Received/Current Regimen: received 1250mg x1 on 09/12 at 11:15 Labs: Sodium 137 mmol/L (136-145) 09/14/20 04:45 Potassium 4.0 mmol/L (3.5-5.1) 09/14/20 04:45 Chloride 107 mmol/L (98-107) 09/14/20 04:45 Carbon Dioxide 18.0 mmol/L (21.0-32.0) L 09/14/20 04:45 Anion Gap 12 (5-15) 09/14/20 04:45 BUN 74 mg/dL (7-18) H 09/14/20 04:45 Creatinine 5.40 mg/dL (0.70-1.30) H 09/14/20 04:45 Est GFR (MDRD) Af Amer 13 mL/min (>60) L 09/14/20 04:45 Est GFR (MDRD) Non-Af 11 mL/min (>60) L 09/14/20 04:45 BUN/Creatinine Ratio 13.7 RATIO (10-20) 09/14/20 04:45 Glucose 85 mg/dL (74-106) 09/14/20 04:45 Random Vancomycin 13.3 ug/mL (0.0-15.0) 09/14/20 04:45 Microbiology: Microbiology 09/12/20 10:15 Urine Catheter - Raymond Urine Culture - Final Providencia stuartii 09/12/20 14:33 Mucosa - Nose Respiratory Panel (PCR) - Final 09/12/20 08:50 Urine Catheter - Raymond Legionella Antigen - Final 09/12/20 08:50 Urine Catheter - Raymond Streptococcus pneumoniae Antigen (M - Final 09/12/20 08:35 Mucosa - Nose SARS-CoV-2 Antigen (Rapid) - Final Weight used for dosin.2 kg Estimated Creatinine Clearance: 12 ml/min Goal Trough: 15-20 mcg/mL Pharmacy Plan for Drug Dosing: The vancomycin random level drawn this morning was 13.3. Since this is <20, will give another 1250mg (15mg/kg) dose today. Since the patient's CrCl is < 20ml/min and the patient is not on HD at this time, will continue to dose off random levels for now. Will repeat a random level in 48 hours. Pharmacy Service will continue to monitor and adjust dosing as required. Follow-Up Labs: Trough Vancomycin - random Labs to be done on [date and time ordered]: 09/16/20 0600
[2020-09-14] MEDS: busPIRone 5 MG Tablet 12.5 MG PO (10:35)
[2020-09-14] MEDS: QUEtiapine 100 MG Tablet 200 MG PO (10:35)
--- NOTE | 2020-09-14 10:38 | PN.SURG_ITS ---
Patient Problems: Active and Suspected Problems (Last Reviewed 08/27/20 @ 14:23 by Kacie Babcock RN) Pneumonia (Acute) Renal failure (Acute) Subjective: KUB shows gas in colon and SB c/w ileus per my read, Patient is having flatus per nursing as well has small liquid bowel movement last night. Patient denies any abdominal pain - Physical Exam Vitals/I&O's: Vital Signs Temp Pulse Resp BP Pulse Ox 99.3 F H 70 22 H 127/62 H 97 09/14/20 09:05 09/14/20 10:00 09/14/20 10:00 09/14/20 10:00 09/14/20 10:00 Oxygen Flow Rate (L/min) 2 Oxygen Delivery Method Room Air Weight: 172 lb 6.424 oz Body Mass Index (BMI) 25.3 Intake and Output for Last 24 Hours 09/12/20 09/13/20 09/14/20 23:59 23:59 23:59 Intake Total 3220 / 3220 2260 / 2260 1523.33 / 1523.33 Output Total 715 / 715 1181 / 1456 825 / 825 Balance 2505 / 2505 1079 / 804 698.33 / 698.33 General: Alert, Cooperative, No apparent distress Cardiovascular: Regular rate Abdomen: Soft, Non Tender, Non-Distended Microbiology Past 72 Hours 09/14/20 04:50 Sputum, Expectorated/Coughed Gram Stain - Final 09/12/20 10:15 Urine Catheter - Raymond Urine Culture - Final Providencia stuartii 09/12/20 14:33 Mucosa - Nose Respiratory Panel (PCR) - Final 09/12/20 08:50 Urine Catheter - Raymond Legionella Antigen - Final 09/12/20 08:50 Urine Catheter - Raymond Streptococcus pneumoniae Antigen (M - Final 09/12/20 08:35 Mucosa - Nose SARS-CoV-2 Antigen (Rapid) - Final Laboratory Results 09/13/20 06:30: Crossmatch See Detail 09/14/20 04:45: Random Vancomycin 13.3 09/14/20 04:45: WBC 13.4 H, RBC 2.16 L, Hgb 7.2 L, Hct 20.9 L, MCV 96.8 H, MCH 33.3 H, MCHC 34.4, RDW Std Deviation 51.4 H, RDW Coeff of Arben 14.6, Plt Count 153, MPV 12.0, Immature Gran % (Auto) 3.700 H, Neut % (Auto) 54.7, Lymph % (Auto) 35.4, [place] % (Auto) 5.9, Eos % (Auto) 0.1, Baso % (Auto) 0.2, Absolute Neuts (auto) 7.3, Absolute Lymphs (auto) 4.75 H, Nucleated RBC % 0 09/14/20 04:45: Sodium 137, Potassium 4.0, Chloride 107, Carbon Dioxide 18.0 L, Anion Gap 12, BUN 74 H, Creatinine 5.40 H, Estim Creat Clear Calc 11.82, Est GFR (MDRD) Af Amer 13 L, Est GFR (MDRD) Non-Af 11 L, BUN/Creatinine Ratio 13.7, Glucose 85, Calcium 7.9 L, Phosphorus 5.0 H, Magnesium 1.8, Total Bilirubin 0.70, AST 34, ALT 15 L, Alkaline Phosphatase 45, Total Protein 4.8 L, Albumin 1.7 L, Globulin 3.1, Albumin/Globulin Ratio 0.5 L Current Medications Acetaminophen (Acetaminophen 325 Mg Tablet) 650 mg PO Q6H PRN PRN PRN Reason: Pain Score 1-10/Temp > 100.7 F Albuterol Sulfate (Albuterol 2.5 Mg/3 Ml Vial.Neb.) 2.5 mg INHALATION Q2H PRN PRN PRN Reason: SOB/Wheezing Albuterol/Ipratropium (Ipratropium/Albuterol Sulfate 3 Ml Ampul.Neb) 3 ml INHALATION Q4H.RT [facility] Last Admin: 09/14/20 07:16 Dose: 3 ml Documented by: Buspirone HCl (Buspirone 5 Mg Tablet) 12.5 mg PO BID [facility] Last Admin: 09/14/20 10:35 Dose: 12.5 mg Documented by: Sodium Chloride () 250 mls @ 15 mls/hr IV .[id number] PRN PRN Reason: Saline Flush Sodium Chloride () 250 mls @ 15 mls/hr IV .[id number] PRN PRN Reason: Additional IVPB Infusion Piperacillin Sod/Tazobactam (Sod 3.375 gm/ Sodium Chloride) 50 mls @ 12.5 mls/hr IV Q12 [facility] Last Admin: 09/14/20 09:09 Dose: 12.5 mls/hr Documented by: Pantoprazole Sodium 40 mg/ (Sodium Chloride) 110 mls @ 330 mls/hr IV Q24 [facility] Last Infusion: 09/14/20 09:09 Dose: Infused Documented by: Vancomycin IV Pharmacy to Dose (1 each/ Sodium Chloride) 500 mls @ 250 mls/hr IV PRN PRN; Protocol PRN Reason: VANCOMYCIN DOSING PROTOCOL Vancomycin HCl 1,250 mg/ (Sodium Chloride) 275 mls @ 167 mls/hr IV X1 ONE Stop: 09/14/20 12:08 Last Admin: 09/14/20 10:35 Dose: 167 mls/hr Documented by: Nitroglycerin (Nitroglycerin (Inpatient Use) 0.4 Mg Tab.Subl) 0.4 mg SL Q5M PRN PRN Reason: CARDIAC/CHEST PAIN Ondansetron HCl (Ondansetron 4 Mg/2 Ml Vial) 4 mg IV Q8H PRN PRN PRN Reason: NAUSEA/VOMITING Prochlorperazine Edisylate (Prochlorperazine 10 Mg/2 Ml Vial) 5 mg IV Q4H PRN PRN PRN Reason: Breakthrough Nausea/Vomiting Quetiapine Fumarate (Quetiapine 100 Mg Tablet) 200 mg PO BREAKFAST [facility] Last Admin: 09/14/20 10:35 Dose: 200 mg Documented by: Quetiapine Fumarate (Quetiapine 100 Mg Tablet) 400 mg PO QHS [facility] Senna/Docusate Sodium (Senna/Docusate Sodium 1 Tablet) 2 tablet GT BID PRN PRN Reason: Constipation Sodium Chloride (0.9% Saline Lock 10 Ml Syringe) 10 - 40 ml IV UD PRN PRN Reason: SALINE FLUSH Medical Necessity - Tobacco Use Smoking Status: Never smoker Assessment/Plan All Active Problems (Last Reviewed 08/27/20 @ 14:23 by Kacie Babcock RN) Pneumonia (Acute) Renal failure (Acute) Anxiety (Resolved) Atherosclerotic heart disease (Resolved) Bipolar 1 disorder (Resolved) COPD (chronic obstructive pulmonary disease) (Resolved) Chronic lymphocytic leukemia of B-cell type not having achieved remission (Resolved) Dementia (Resolved) Dementia without behavioral disturbance (Resolved) HCAP (healthcare-associated pneumonia) (Resolved) Hypo-osmolality and hyponatremia (Resolved) Hyponatremia (Resolved) Hypothyroidism (Resolved) Insomnia (Resolved) Obsessive compulsive disorder (Resolved) Retention of urine (Resolved) Schizoaffective disorder (Resolved) Schizoaffective disorder (Resolved) Schizoaffective disorder (Resolved) Schizoaffective disorder (Resolved) 75-year-old male with sepsis, leukocytosis, hypotension, possible small bowel obstruction Per CT 1. Patient is having bowel function. Will advance diet to clears if tolerates clears okay to advance to regular 2. ICU care per ICU 3. Abx per ICU/primary Raquel Melissa M.D. Pager: [phone] [facility] [address] [place] [address], [facility], [address] [place] [address] Office: [phone] Inpatient E&M: 03669 Subs Hosp L2
--- NOTE | 2020-09-14 11:00 | CASEMGMT ---
Addendum entered by Gregoria Mliler 09/14/20 14:23: Pt transferred to PCU. DESTINEY convalescent [facility] in [place]. DESTINEY placed a call to Najma at [facility] and let her know pt may discharge back to [facility] this weekend if medically cleared. Original Note: Social Work Note DESTINEY faxed updated clinicals to [facility]. DESTINEY placed a call to Pat and updated her that [facility] is wanting pt to return skilled at discharge. Pat states understanding. Plan: Return to [facility] skilled Gregoria Miller SUBSTANCE ABUSE COUNSELOR, IRRIGATION FOREMAN
[2020-09-14 12:50] LABS: Hematocrit 25.9 % (40-54); Hemoglobin 8.5 g/dL (13.0-16.5)
--- NOTE | 2020-09-14 14:08 | PCM.PN.HOSP ---
Patient Problems: Active and Suspected Problems (Last Reviewed 08/27/20 @ 14:23 by Kacie Babcock RN) Pneumonia (Acute) Renal failure (Acute) Reason for Visit: Follow-up for severe sepsis, pneumonia, UTI and acute kidney injury Objective: Overall patient is improving. Patient started making urine. He had 630 mL urine yesterday and 825 mL today since midnight. Is more awake and alert. Denies abdominal pain. Physical exam General: Awake, oriented x3, responding appropriately. HEENT: Atraumatic, PERRLA, EOMI, Normocephalic Oral: On BiPAP. Neck: Supple, No JVD, Negative Carotid Bruits Lungs: Air entry diminished in bilateral lung bases. Mild bilateral coarse crepitations. Cardiovascular: Regular rate, Regular Rhythm, Normal S1, Normal S2, left second ICS/LLSB systolic murmur grade 3/6 Abdomen: Soft, nontender. Bowel sounds sluggish. NG tube aspiration shows bilious fluid : Indwelling Raymond catheter. Clear urine in the Raymond catheter. No suprapubic tenderness. Extremities: Mild bilateral ankle edema, Capillary Refill Less than 3 Seconds Skin: Skin is dry. No open ulcer. Musculoskeletal: Bilateral knee and hip joint arthritis and stiffness. No Tenderness to Palpation of Joints or Extremities Neurological: Cranial nerves II-XII grossly intact, Deep Tendon Reflexes 2+/4 Psych/Mental Status: Awake and pleasant behavior Vitals/I&O's: Vital Signs Temp Pulse Resp BP Pulse Ox 99.2 F H 89 15 122/68 H 94 09/14/20 13:00 09/14/20 13:00 09/14/20 13:00 09/14/20 13:00 09/14/20 13:00 Oxygen Flow Rate (L/min) 2 Oxygen Delivery Method Room Air Weight: 172 lb 6.424 oz Body Mass Index (BMI) 25.3 Intake and Output for Last 24 Hours 09/12/20 09/13/20 09/14/20 23:59 23:59 23:59 Intake Total 3220 / 3220 2260 / 2260 1848.33 / 1848.33 Output Total 715 / 715 1181 / 1456 875 / 875 Balance 2505 / 2505 1079 / 804 973.33 / 973.33 Microbiology Past 72 Hours 09/12/20 08:35 Blood Culture (Wb) - Anticubital Left Blood Culture - Preliminary No growth in 48 hours. 09/12/20 08:23 Blood Culture (Wb) - Anticubital Right Blood Culture - Preliminary No growth in 48 hours. 09/14/20 04:50 Sputum, Expectorated/Coughed Gram Stain - Final 09/12/20 10:15 Urine Catheter - Raymond Urine Culture - Final Providencia stuartii 09/12/20 14:33 Mucosa - Nose Respiratory Panel (PCR) - Final 09/12/20 08:50 Urine Catheter - Raymond Legionella Antigen - Final 09/12/20 08:50 Urine Catheter - Raymond Streptococcus pneumoniae Antigen (M - Final 09/12/20 08:35 Mucosa - Nose SARS-CoV-2 Antigen (Rapid) - Final Laboratory Results 09/13/20 06:30: Crossmatch See Detail 09/14/20 04:45: Random Vancomycin 13.3 09/14/20 04:45: WBC 13.4 H, RBC 2.16 L, Hgb 7.2 L, Hct 20.9 L, MCV 96.8 H, MCH 33.3 H, MCHC 34.4, RDW Std Deviation 51.4 H, RDW Coeff of Arben 14.6, Plt Count 153, MPV 12.0, Immature Gran % (Auto) 3.700 H, Neut % (Auto) 54.7, Lymph % (Auto) 35.4, [place] % (Auto) 5.9, Eos % (Auto) 0.1, Baso % (Auto) 0.2, Absolute Neuts (auto) 7.3, Absolute Lymphs (auto) 4.75 H, Nucleated RBC % 0 09/14/20 04:45: Sodium 137, Potassium 4.0, Chloride 107, Carbon Dioxide 18.0 L, Anion Gap 12, BUN 74 H, Creatinine 5.40 H, Estim Creat Clear Calc 11.82, Est GFR (MDRD) Af Amer 13 L, Est GFR (MDRD) Non-Af 11 L, BUN/Creatinine Ratio 13.7, Glucose 85, Calcium 7.9 L, Phosphorus 5.0 H, Magnesium 1.8, Total Bilirubin 0.70, AST 34, ALT 15 L, Alkaline Phosphatase 45, Total Protein 4.8 L, Albumin 1.7 L, Globulin 3.1, Albumin/Globulin Ratio 0.5 L 09/14/20 12:30: Hgb 8.5 L, Hct 25.9 L Current Medications Acetaminophen (Acetaminophen 325 Mg Tablet) 650 mg PO Q6H PRN PRN PRN Reason: Pain Score 1-10/Temp > 100.7 F Albuterol Sulfate (Albuterol 2.5 Mg/3 Ml Vial.Neb.) 2.5 mg INHALATION Q2H PRN PRN PRN Reason: SOB/Wheezing Albuterol/Ipratropium (Ipratropium/Albuterol Sulfate 3 Ml Ampul.Neb) 3 ml INHALATION Q4H.RT [facility] Last Admin: 09/14/20 11:12 Dose: 3 ml Documented by: Buspirone HCl (Buspirone 5 Mg Tablet) 12.5 mg PO BID [facility] Last Admin: 09/14/20 10:35 Dose: 12.5 mg Documented by: Sodium Chloride () 250 mls @ 15 mls/hr IV .[id number] PRN PRN Reason: Saline Flush Sodium Chloride () 250 mls @ 15 mls/hr IV .[id number] PRN PRN Reason: Additional IVPB Infusion Pantoprazole Sodium 40 mg/ (Sodium Chloride) 110 mls @ 330 mls/hr IV Q24 [facility] Last Infusion: 09/14/20 09:09 Dose: Infused Documented by: Vancomycin IV Pharmacy to Dose (1 each/ Sodium Chloride) 500 mls @ 250 mls/hr IV PRN PRN; Protocol PRN Reason: VANCOMYCIN DOSING PROTOCOL Ceftriaxone Sodium (Rocephin) 1 gm in 50 mls @ 100 mls/hr IV Q24 [facility] Nitroglycerin (Nitroglycerin (Inpatient Use) 0.4 Mg Tab.Subl) 0.4 mg SL Q5M PRN PRN Reason: CARDIAC/CHEST PAIN Ondansetron HCl (Ondansetron 4 Mg/2 Ml Vial) 4 mg IV Q8H PRN PRN PRN Reason: NAUSEA/VOMITING Prochlorperazine Edisylate (Prochlorperazine 10 Mg/2 Ml Vial) 5 mg IV Q4H PRN PRN PRN Reason: Breakthrough Nausea/Vomiting Quetiapine Fumarate (Quetiapine 100 Mg Tablet) 200 mg PO BREAKFAST [facility] Last Admin: 09/14/20 10:35 Dose: 200 mg Documented by: Quetiapine Fumarate (Quetiapine 100 Mg Tablet) 400 mg PO QHS [facility] Senna/Docusate Sodium (Senna/Docusate Sodium 1 Tablet) 2 tablet GT BID PRN PRN Reason: Constipation Sodium Chloride (0.9% Saline Lock 10 Ml Syringe) 10 - 40 ml IV UD PRN PRN Reason: SALINE FLUSH STROKE Vital Signs/Narrative: Vital Signs Temp Pulse Resp BP Pulse Ox 09/14/20 13:00 99.2 F H 89 15 122/68 H 94 09/14/20 11:12 73 21 H 09/14/20 11:02 72 Medical Necessity - Tobacco Use Smoking Status: Never smoker Assessment/Plan All Active Problems (Last Reviewed 08/27/20 @ 14:23 by Kacie Babcock RN) Pneumonia (Acute) Renal failure (Acute) Anxiety (Resolved) Atherosclerotic heart disease (Resolved) Bipolar 1 disorder (Resolved) COPD (chronic obstructive pulmonary disease) (Resolved) Chronic lymphocytic leukemia of B-cell type not having achieved remission (Resolved) Dementia (Resolved) Dementia without behavioral disturbance (Resolved) HCAP (healthcare-associated pneumonia) (Resolved) Hypo-osmolality and hyponatremia (Resolved) Hyponatremia (Resolved) Hypothyroidism (Resolved) Insomnia (Resolved) Obsessive compulsive disorder (Resolved) Retention of urine (Resolved) Schizoaffective disorder (Resolved) Schizoaffective disorder (Resolved) Schizoaffective disorder (Resolved) Schizoaffective disorder (Resolved) 75-year-old gentleman from [facility] is being admitted in ICU for severe sepsis secondary to pneumonia, UTI possible MDRO and small bowel ileus 1. Severe sepsis secondary to secondary to left lower lobe pneumonia/UTI probably MDRO: Patient has hypotension, tachycardia, tachypnea and hypoxia and leukocytosis, 25,000 with left shift and lactic acidosis. Resuscitated with including severe sepsis protocol broad-spectrum antibiotics IV vancomycin and Zosyn. 09/13: Urine culture shows gram-negative rods 80,000- 100,000 colonies. Urinary antigens and respiratory panel are negative. Blood cultures x2 are pending. MRSA nasal screen positive. Maintaining the blood pressure. 09/14: Patient hemodynamically improved. Transfer to PCU. Blood cultures x2 are negative for 48 hours. Urine culture shows [id number] Providencia stuartii. Sensitive to ceftriaxone. Antibiotic narrowed down to ceftriaxone. Zosyn discontinued. On vancomycin with MRSA nasal screen positive. ID consulted. Blood pressure 122/68. Patient is still is low-grade fever 99.2 Fahrenheit 2. Acute hypoxic respiratory failure secondary to pneumonia: As mentioned above. Patient on BiPAP. Possible COPD although patient does not have PFT in EMR. 09/13: Pulse ox 100% on 2 L of oxygen. 09/14: Oxygenation improved currently 94% on room air. 3. Small bowel ileus and gastric retention: CT abdomen individually reviewed and shows gastric and small bowel distention without definite transition point General surgeon consulted and discussed with Dr. Melissa. NG tube ordered and wall suction at medium pressure. Patient stated he moved bowel yesterday night but hard to corroborate history as patient might be confused. 09/14: NG suction 550 mL yesterday. Today 50 mL since midnight. 4. Acute kidney injury stage 3 on CKD stage II with proteinuria in urine: Baseline BUN/creatinine 23/1.11 in July 29. Currently 58/5.63. 09/13: Patient remains anuric. Discussed with the data communications software consultant. [employer] Librarian discussed with the sister regarding dialysis option but no acute/urgent indication now. K4.5. Bicarb 17. Total urine output 370 mL dark-colored. 09/14: Patient had improvement in urine output, 01/14/2025 emesis midnight today. Patient does not require dialysis anymore. 5. 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 Mendoza. Patient has leukocytosis. It was high about 58,000 in July 29. Hemoglobin 9.8. 09/13: Leukocytosis improved. Hemoglobin dropped to 7.4/21.2. 09/14: Hemoglobin improved. 1 unit of PRBC transfused. 6. Other comorbidities include schizoaffective disorder, sick sinus syndrome status post pacemaker, hypothyroidism, dyslipidemia VTE prophylaxis: bilateral SCDs. Discontinue heparin as patient dropped hemoglobin 7.4. Living will/advanced directive/end of life care: Patient does have living will or advanced directive. Her sister is power of associate attorney for health. After discussion of benefits/risks procedures involved with full code, DNR CC arrest and DNR CC, the patient and her sister opted for DNR-CC Arrest with no intubation Patient does not want artificial life support including intubation, tube feed, ventilator and/chest compression, but unclear about central venous catheter, vasopressor and DC shock if needed Total time spent in [id number] encounter in discussion of advanced directive 16 minutes. Microbiology Past 72 Hours 09/12/20 08:35 Blood Culture (Wb) - Anticubital Left Blood Culture - Preliminary No growth in 48 hours. 09/12/20 08:23 Blood Culture (Wb) - Anticubital Right Blood Culture - Preliminary No growth in 48 hours. 09/14/20 04:50 Sputum, Expectorated/Coughed Gram Stain - Final 09/12/20 10:15 Urine Catheter - Raymond Urine Culture - Final Providencia stuartii 09/12/20 14:33 Mucosa - Nose Respiratory Panel (PCR) - Final 09/12/20 08:50 Urine Catheter - Raymond Legionella Antigen - Final 09/12/20 08:50 Urine Catheter - Raymond Streptococcus pneumoniae Antigen (M - Final 09/12/20 08:35 Mucosa - Nose SARS-CoV-2 Antigen (Rapid) - Final Laboratory Results 09/13/20 06:30: Crossmatch See Detail 09/14/20 04:45: Random Vancomycin 13.3 09/14/20 04:45: WBC 13.4 H, RBC 2.16 L, Hgb 7.2 L, Hct 20.9 L, MCV 96.8 H, MCH 33.3 H, MCHC 34.4, RDW Std Deviation 51.4 H, RDW Coeff of Arben 14.6, Plt Count 153, MPV 12.0, Immature Gran % (Auto) 3.700 H, Neut % (Auto) 54.7, Lymph % (Auto) 35.4, [place] % (Auto) 5.9, Eos % (Auto) 0.1, Baso % (Auto) 0.2, Absolute Neuts (auto) 7.3, Absolute Lymphs (auto) 4.75 H, Nucleated RBC % 0 09/14/20 04:45: Sodium 137, Potassium 4.0, Chloride 107, Carbon Dioxide 18.0 L, Anion Gap 12, BUN 74 H, Creatinine 5.40 H, Estim Creat Clear Calc 11.82, Est GFR (MDRD) Af Amer 13 L, Est GFR (MDRD) Non-Af 11 L, BUN/Creatinine Ratio 13.7, Glucose 85, Calcium 7.9 L, Phosphorus 5.0 H, Magnesium 1.8, Total Bilirubin 0.70, AST 34, ALT 15 L, Alkaline Phosphatase 45, Total Protein 4.8 L, Albumin 1.7 L, Globulin 3.1, Albumin/Globulin Ratio 0.5 L 09/14/20 12:30: Hgb 8.5 L, Hct 25.9 L Clinical Impression(s) from Imaging Studies Chest X-Ray 09/12/20 08:50 IMPRESSION: Left lower lobe pneumonia or atelectasis. Abdomen/Pelvis CT 09/12/20 09:28 IMPRESSION: 1. Possible moderate small bowel obstruction but a transition point not clearly identified. No evidence of ischemia or perforation. Small amount of free fluid in the pelvis. 2. Small right inguinal hernia containing a segment of the cecum. 3. Large bilateral renal cysts. Electronically Signed: Jermain Nicole MD at 10:32 EDT Tel , Service support , Chest CT 09/12/20 09:28 IMPRESSION: Left lower lobe pneumonia. Renal Ultrasound 09/13/20 06:20 IMPRESSION: There is no evidence of hydronephrosis. KUB X-Ray 09/14/20 05:55 IMPRESSION: Nasogastric tube is described. Diffuse bowel distention in both colonic and some suggested in the small bowel distribution. These findings are both assessed with small bowel follow-through if clinically indicated. Inpatient E&M: 82540 Subs Hosp L3 Multi Select Codes - Visit Charges Visit Charges: 72335 Subs Hosp L3
[2020-09-14] MEDS: Ceftriaxone 1 GM/50 ML BAG IV (21:37)
[2020-09-15] VITALS (17 sets, daily range): BP systolic 119–140; BP diastolic 61–81; PULSE 74–94; RESP 17–24; TEMP 36.4–37.1; O2SAT 93–95
[2020-09-15] MEDS: Ipratropium/Albuterol Sulfate 3 ML AMPUL.NEB INHALATION ×6 (02:20→22:44)
--- NOTE | 2020-09-15 06:57 | PCM.PN.SRG ---
Patient Problems: Active and Suspected Problems (Last Reviewed 08/27/20 @ 14:23 by Kacie Babcock RN) Pneumonia (Acute) Renal failure (Acute) Subjective: The patient reports no abdominal pain or nausea or vomiting overnight. He says that he is passing flatus. - Physical Exam Vitals/I&O's: Vital Signs Temp Pulse Resp BP Pulse Ox 97.6 F L 77 18 127/61 H 93 09/15/20 03:30 09/15/20 03:30 09/15/20 03:30 09/15/20 03:30 09/15/20 03:30 Oxygen Flow Rate (L/min) 2 Oxygen Delivery Method Room Air Weight: 171 lb 11.841 oz Body Mass Index (BMI) 25.3 Intake and Output for Last 24 Hours 09/13/20 09/14/20 09/15/20 23:59 23:59 23:59 Intake Total 2260 / 2260 2298.33 / 2298.33 Output Total 1181 / 1456 1025 / 1025 225 / 225 Balance 1079 / 804 1273.33 / 1273.33 -225 / -225 General: Alert, Oriented x3 Lungs: Normal air movement Abdomen: Soft, Non Tender, Distended Microbiology Past 72 Hours 09/12/20 08:35 Blood Culture (Wb) - Anticubital Left Blood Culture - Preliminary No growth in 48 hours. 09/12/20 08:23 Blood Culture (Wb) - Anticubital Right Blood Culture - Preliminary No growth in 48 hours. 09/14/20 04:50 Sputum, Expectorated/Coughed Gram Stain - Final 09/12/20 10:15 Urine Catheter - Raymond Urine Culture - Final Providencia stuartii 09/12/20 14:33 Mucosa - Nose Respiratory Panel (PCR) - Final 09/12/20 08:50 Urine Catheter - Raymond Legionella Antigen - Final 09/12/20 08:50 Urine Catheter - Raymond Streptococcus pneumoniae Antigen (M - Final 09/12/20 08:35 Mucosa - Nose SARS-CoV-2 Antigen (Rapid) - Final Laboratory Results 09/13/20 06:30: Crossmatch See Detail 09/14/20 12:30: Hgb 8.5 L, Hct 25.9 L Current Medications Acetaminophen (Acetaminophen 325 Mg Tablet) 650 mg PO Q6H PRN PRN PRN Reason: Pain Score 1-10/Temp > 100.7 F Albuterol Sulfate (Albuterol 2.5 Mg/3 Ml Vial.Neb.) 2.5 mg INHALATION Q2H PRN PRN PRN Reason: SOB/Wheezing Albuterol/Ipratropium (Ipratropium/Albuterol Sulfate 3 Ml Ampul.Neb) 3 ml INHALATION Q4H.RT [facility] Last Admin: 09/15/20 02:20 Dose: 3 ml Documented by: Buspirone HCl (Buspirone 5 Mg Tablet) 12.5 mg PO BID [facility] Last Admin: 09/14/20 21:37 Dose: Not Given Documented by: Sodium Chloride () 250 mls @ 15 mls/hr IV .[id number] PRN PRN Reason: Saline Flush Sodium Chloride () 250 mls @ 15 mls/hr IV .[id number] PRN PRN Reason: Additional IVPB Infusion Pantoprazole Sodium 40 mg/ (Sodium Chloride) 110 mls @ 330 mls/hr IV Q24 [facility] Last Infusion: 09/14/20 09:09 Dose: Infused Documented by: Ceftriaxone Sodium (Rocephin) 1 gm in 50 mls @ 100 mls/hr IV Q24@2200 [facility] Last Infusion: 09/14/20 22:07 Dose: Infused Documented by: Nitroglycerin (Nitroglycerin (Inpatient Use) 0.4 Mg Tab.Subl) 0.4 mg SL Q5M PRN PRN Reason: CARDIAC/CHEST PAIN Ondansetron HCl (Ondansetron 4 Mg/2 Ml Vial) 4 mg IV Q8H PRN PRN PRN Reason: NAUSEA/VOMITING Prochlorperazine Edisylate (Prochlorperazine 10 Mg/2 Ml Vial) 5 mg IV Q4H PRN PRN PRN Reason: Breakthrough Nausea/Vomiting Quetiapine Fumarate (Quetiapine 100 Mg Tablet) 200 mg PO BREAKFAST [facility] Last Admin: 09/14/20 10:35 Dose: 200 mg Documented by: Quetiapine Fumarate (Quetiapine 100 Mg Tablet) 400 mg PO QHS [facility] Last Admin: 09/14/20 21:37 Dose: Not Given Documented by: Senna/Docusate Sodium (Senna/Docusate Sodium 1 Tablet) 2 tablet GT BID PRN PRN Reason: Constipation Sodium Chloride (0.9% Saline Lock 10 Ml Syringe) 10 - 40 ml IV UD PRN PRN Reason: SALINE FLUSH Medical Necessity - Tobacco Use Smoking Status: Never smoker Assessment/Plan All Active Problems (Last Reviewed 08/27/20 @ 14:23 by Kacie Babcock RN) Pneumonia (Acute) Renal failure (Acute) Anxiety (Resolved) Atherosclerotic heart disease (Resolved) Bipolar 1 disorder (Resolved) COPD (chronic obstructive pulmonary disease) (Resolved) Chronic lymphocytic leukemia of B-cell type not having achieved remission (Resolved) Dementia (Resolved) Dementia without behavioral disturbance (Resolved) HCAP (healthcare-associated pneumonia) (Resolved) Hypo-osmolality and hyponatremia (Resolved) Hyponatremia (Resolved) Hypothyroidism (Resolved) Insomnia (Resolved) Obsessive compulsive disorder (Resolved) Retention of urine (Resolved) Schizoaffective disorder (Resolved) Schizoaffective disorder (Resolved) Schizoaffective disorder (Resolved) Schizoaffective disorder (Resolved) 75-year-old male with ileus and pneumonia 1. The patient reports that he is passing flatus and having no nausea or vomiting. His abdomen is mildly distended but soft and nontender. The patient is awaiting a swallow eval. Once he passes that he may start a clear liquid diet and advance as tolerated. Adan Lees MD Pager: [facility] [address] [place] [address], [address] [place] [phone] Office:
[2020-09-15] MEDS: QUEtiapine 100 MG Tablet 200 MG PO (09:43)
[2020-09-15] MEDS: busPIRone 5 MG Tablet 12.5 MG PO ×2 (09:43→21:00)
[2020-09-15] MEDS: 0.9% Saline Lock 10 ML Syringe IV ×2 (10:27→21:01)
--- NOTE | 2020-09-15 12:44 | PN.RENAL_ITS ---
Patient Problems: Active and Suspected Problems (Last Reviewed 08/27/20 @ 14:23 by Kacie Babcock RN) Pneumonia (Acute) Renal failure (Acute) Subjective: No acute complaints - Physical Exam Vitals/I&O's: Vital Signs Temp Pulse Resp BP Pulse Ox 98.3 F 88 22 H 140/81 H 95 09/15/20 09:30 09/15/20 11:20 09/15/20 11:20 09/15/20 09:30 09/15/20 09:30 Oxygen Flow Rate (L/min) 2 Oxygen Delivery Method Room Air Weight: 77.9 kg Body Mass Index (BMI) 25.3 Intake and Output for Last 24 Hours 09/13/20 09/14/20 09/15/20 23:59 23:59 23:59 Intake Total 2260 / 2260 2298.33 / 2298.33 230 / 230 Output Total 1181 / 1456 1025 / 1025 525 / 525 Balance 1079 / 804 1273.33 / 1273.33 -295 / -295 General: Alert, Cooperative HEENT: Atraumatic Oral: Moist Mucosa Neck: Supple, No JVD Lungs: Clear to auscultation, Normal air movement, No rhonchi Cardiovascular: Regular rate, Regular Rhythm, Normal S1, Normal S2 Abdomen: Bowel Sounds Present, Soft, Non Tender Extremities: No clubbing, No cyanosis, No edema Skin: No rashes Musculoskeletal: No Tenderness to Palpation of Joints or Extremities Neurological: Cranial nerves II-XII grossly intact, Neuro grossly intact Microbiology Past 72 Hours 09/14/20 04:50 Sputum, Expectorated/Coughed Gram Stain - Final 09/14/20 04:50 Sputum, Expectorated/Coughed Respiratory Culture - Preliminary Staphylococcus aureus 09/12/20 08:35 Blood Culture (Wb) - Anticubital Left Blood Culture - Preliminary No growth in 48 hours. 09/12/20 08:23 Blood Culture (Wb) - Anticubital Right Blood Culture - Preliminary No growth in 48 hours. 09/12/20 10:15 Urine Catheter - Raymond Urine Culture - Final Providencia stuartii 09/12/20 14:33 Mucosa - Nose Respiratory Panel (PCR) - Final 09/12/20 08:50 Urine Catheter - Raymond Legionella Antigen - Final 09/12/20 08:50 Urine Catheter - Raymond Streptococcus pneumoniae Antigen (M - Final 09/12/20 08:35 Mucosa - Nose SARS-CoV-2 Antigen (Rapid) - Final Laboratory Results 09/13/20 06:30: Crossmatch See Detail 09/14/20 12:30: Hgb 8.5 L, Hct 25.9 L Current Medications Acetaminophen (Acetaminophen 325 Mg Tablet) 650 mg PO Q6H PRN PRN PRN Reason: Pain Score 1-10/Temp > 100.7 F Albuterol Sulfate (Albuterol 2.5 Mg/3 Ml Vial.Neb.) 2.5 mg INHALATION Q2H PRN PRN PRN Reason: SOB/Wheezing Albuterol/Ipratropium (Ipratropium/Albuterol Sulfate 3 Ml Ampul.Neb) 3 ml INHALATION Q4H.RT PENDING SALE TO [facility] Last Admin: 09/15/20 11:17 Dose: 3 ml Documented by: Buspirone HCl (Buspirone 5 Mg Tablet) 12.5 mg PO BID PENDING SALE TO [facility] Last Admin: 09/15/20 09:43 Dose: 12.5 mg Documented by: Sodium Chloride () 250 mls @ 15 mls/hr IV .[id number] PRN PRN Reason: Saline Flush Last Infusion: 09/15/20 10:47 Dose: 15 mls/hr Documented by: Sodium Chloride () 250 mls @ 15 mls/hr IV .[id number] PRN PRN Reason: Additional IVPB Infusion Pantoprazole Sodium 40 mg/ (Sodium Chloride) 110 mls @ 330 mls/hr IV Q24 PENDING SALE TO [facility] Last Infusion: 09/15/20 10:47 Dose: Infused Documented by: Ceftriaxone Sodium (Rocephin) 1 gm in 50 mls @ 100 mls/hr IV Q24@2200 PENDING SALE TO [facility] Last Infusion: 09/14/20 22:07 Dose: Infused Documented by: Nitroglycerin (Nitroglycerin (Inpatient Use) 0.4 Mg Tab.Subl) 0.4 mg SL Q5M PRN PRN Reason: CARDIAC/CHEST PAIN Ondansetron HCl (Ondansetron 4 Mg/2 Ml Vial) 4 mg IV Q8H PRN PRN PRN Reason: NAUSEA/VOMITING Prochlorperazine Edisylate (Prochlorperazine 10 Mg/2 Ml Vial) 5 mg IV Q4H PRN PRN PRN Reason: Breakthrough Nausea/Vomiting Quetiapine Fumarate (Quetiapine 100 Mg Tablet) 200 mg PO BREAKFAST PENDING SALE TO [facility] Last Admin: 09/15/20 09:43 Dose: 200 mg Documented by: Quetiapine Fumarate (Quetiapine 100 Mg Tablet) 400 mg PO QHS PENDING SALE TO [facility] Last Admin: 09/14/20 21:37 Dose: Not Given Documented by: Senna/Docusate Sodium (Senna/Docusate Sodium 1 Tablet) 2 tablet GT BID PRN PRN Reason: Constipation Sodium Chloride (0.9% Saline Lock 10 Ml Syringe) 10 - 40 ml IV UD PRN PRN Reason: SALINE FLUSH Last Admin: 09/15/20 10:27 Dose: 10 ml Documented by: Medical Necessity - Tobacco Use Smoking Status: Never smoker Assessment/Plan All Active Problems (Last Reviewed 08/27/20 @ 14:23 by Kacie Babcock RN) Pneumonia (Acute) Renal failure (Acute) Anxiety (Resolved) Atherosclerotic heart disease (Resolved) Bipolar 1 disorder (Resolved) COPD (chronic obstructive pulmonary disease) (Resolved) Chronic lymphocytic leukemia of B-cell type not having achieved remission (Resolved) Dementia (Resolved) Dementia without behavioral disturbance (Resolved) HCAP (healthcare-associated pneumonia) (Resolved) Hypo-osmolality and hyponatremia (Resolved) Hyponatremia (Resolved) Hypothyroidism (Resolved) Insomnia (Resolved) Obsessive compulsive disorder (Resolved) Retention of urine (Resolved) Schizoaffective disorder (Resolved) Schizoaffective disorder (Resolved) Schizoaffective disorder (Resolved) Schizoaffective disorder (Resolved) 1-acute renal failure. Creatinine was normal as of [address] abdomen on admission does not show any hydronephrosis. Renal ultrasound images reviewed. He has somewhat large cysts measuring up to 6 cm but looks simple. JOSE ARMANDO is from [facility] Cr started to improve. Cr is down to 5.4 mg/dl. UOP has increased No need for HD Check RFP in am Discussed with hospitalist Dr. Aguilar
--- NOTE | 2020-09-15 14:18 | PN_ITS ---
Patient Problems: Active and Suspected Problems (Last Reviewed 08/27/20 @ 14:23 by Kacie Babcock RN) Pneumonia (Acute) Renal failure (Acute) Reason for Visit: Follow-up for severe sepsis due to pneumonia, bowel obstruction and possible CAUTI Objective: Seen and examined No fever. Heart rate and blood pressure in normal range. Patient pulse ox 94% on ambient air. Discussed with the patient's sister near the bedside about the hospital course. Physical exam General: Awake, oriented x3, responding appropriately. HEENT: Atraumatic, PERRLA, EOMI, Normocephalic Oral: Oral mucosa is dry Neck: Supple, No JVD, Negative Carotid Bruits Lungs: Air entry diminished in bilateral lung bases. No crepitation/rhonchi. Cardiovascular: Regular rate, Regular Rhythm, Normal S1, Normal S2, left second ICS/LLSB systolic murmur grade 3/6 Abdomen: Soft, nontender. Bowel sounds sluggish. Nondistended. : Indwelling Raymond catheter. Clear urine in the Raymond catheter. No suprapubic tenderness. Extremities: Mild bilateral ankle edema, Capillary Refill Less than 3 Seconds Skin: Skin is dry. No open ulcer. Musculoskeletal: Bilateral knee and hip joint arthritis and stiffness. No Tenderness to Palpation of Joints or Extremities Neurological: Cranial nerves II-XII grossly intact, Deep Tendon Reflexes 2+/4 Psych/Mental Status: Awake and pleasant behavior Vitals/I&O's: Vital Signs Temp Pulse Resp BP Pulse Ox 98.3 F 88 22 H 140/81 H 95 09/15/20 09:30 09/15/20 11:20 09/15/20 11:20 09/15/20 09:30 09/15/20 09:30 Oxygen Flow Rate (L/min) 2 Oxygen Delivery Method Room Air Weight: 171 lb 11.841 oz Body Mass Index (BMI) 25.3 Intake and Output for Last 24 Hours 09/13/20 09/14/20 09/15/20 23:59 23:59 23:59 Intake Total 2260 / 2260 2298.33 / 2298.33 230 / 230 Output Total 1181 / 1456 1025 / 1025 525 / 525 Balance 1079 / 804 1273.33 / 1273.33 -295 / -295 Microbiology Past 72 Hours 09/14/20 04:50 Sputum, Expectorated/Coughed Gram Stain - Final 09/14/20 04:50 Sputum, Expectorated/Coughed Respiratory Culture - Preliminary Staphylococcus aureus 09/12/20 08:35 Blood Culture (Wb) - Anticubital Left Blood Culture - Preliminary No growth in 48 hours. 09/12/20 08:23 Blood Culture (Wb) - Anticubital Right Blood Culture - Preliminary No growth in 48 hours. 09/12/20 10:15 Urine Catheter - Raymond Urine Culture - Final Providencia stuartii 09/12/20 14:33 Mucosa - Nose Respiratory Panel (PCR) - Final 09/12/20 08:50 Urine Catheter - Raymond Legionella Antigen - Final 09/12/20 08:50 Urine Catheter - Raymond Streptococcus pneumoniae Antigen (M - Final Current Medications Acetaminophen (Acetaminophen 325 Mg Tablet) 650 mg PO Q6H PRN PRN PRN Reason: Pain Score 1-10/Temp > 100.7 F Albuterol Sulfate (Albuterol 2.5 Mg/3 Ml Vial.Neb.) 2.5 mg INHALATION Q2H PRN PRN PRN Reason: SOB/Wheezing Albuterol/Ipratropium (Ipratropium/Albuterol Sulfate 3 Ml Ampul.Neb) 3 ml INHALATION Q4H.RT [facility] Last Admin: 09/15/20 11:17 Dose: 3 ml Documented by: Buspirone HCl (Buspirone 5 Mg Tablet) 12.5 mg PO BID [facility] Last Admin: 09/15/20 09:43 Dose: 12.5 mg Documented by: Sodium Chloride () 250 mls @ 15 mls/hr IV .[id number] PRN PRN Reason: Saline Flush Last Infusion: 09/15/20 10:47 Dose: 15 mls/hr Documented by: Sodium Chloride () 250 mls @ 15 mls/hr IV .[id number] PRN PRN Reason: Additional IVPB Infusion Pantoprazole Sodium 40 mg/ (Sodium Chloride) 110 mls @ 330 mls/hr IV Q24 [facility] Last Infusion: 09/15/20 10:47 Dose: Infused Documented by: Ceftriaxone Sodium (Rocephin) 1 gm in 50 mls @ 100 mls/hr IV Q24@2200 [facility] Last Infusion: 09/14/20 22:07 Dose: Infused Documented by: Vancomycin IV Pharmacy to Dose (1 each/ Sodium Chloride) 500 mls @ 250 mls/hr IV PRN PRN; Protocol PRN Reason: RX TO DOSE Nitroglycerin (Nitroglycerin (Inpatient Use) 0.4 Mg Tab.Subl) 0.4 mg SL Q5M PRN PRN Reason: CARDIAC/CHEST PAIN Ondansetron HCl (Ondansetron 4 Mg/2 Ml Vial) 4 mg IV Q8H PRN PRN PRN Reason: NAUSEA/VOMITING Prochlorperazine Edisylate (Prochlorperazine 10 Mg/2 Ml Vial) 5 mg IV Q4H PRN PRN PRN Reason: Breakthrough Nausea/Vomiting Quetiapine Fumarate (Quetiapine 100 Mg Tablet) 200 mg PO BREAKFAST [facility] Last Admin: 09/15/20 09:43 Dose: 200 mg Documented by: Quetiapine Fumarate (Quetiapine 100 Mg Tablet) 400 mg PO QHS [facility] Last Admin: 09/14/20 21:37 Dose: Not Given Documented by: Senna/Docusate Sodium (Senna/Docusate Sodium 1 Tablet) 2 tablet GT BID PRN PRN Reason: Constipation Sodium Chloride (0.9% Saline Lock 10 Ml Syringe) 10 - 40 ml IV UD PRN PRN Reason: SALINE FLUSH Last Admin: 09/15/20 10:27 Dose: 10 ml Documented by: STROKE Vital Signs/Narrative: Vital Signs Pulse Resp 09/15/20 11:20 88 22 H Medical Necessity - Tobacco Use Smoking Status: Never smoker Assessment/Plan All Active Problems (Last Reviewed 08/27/20 @ 14:23 by Kacie Babcock RN) Pneumonia (Acute) Renal failure (Acute) Anxiety (Resolved) Atherosclerotic heart disease (Resolved) Bipolar 1 disorder (Resolved) COPD (chronic obstructive pulmonary disease) (Resolved) Chronic lymphocytic leukemia of B-cell type not having achieved remission (Resolved) Dementia (Resolved) Dementia without behavioral disturbance (Resolved) HCAP (healthcare-associated pneumonia) (Resolved) Hypo-osmolality and hyponatremia (Resolved) Hyponatremia (Resolved) Hypothyroidism (Resolved) Insomnia (Resolved) Obsessive compulsive disorder (Resolved) Retention of urine (Resolved) Schizoaffective disorder (Resolved) Schizoaffective disorder (Resolved) Schizoaffective disorder (Resolved) Schizoaffective disorder (Resolved) 75-year-old gentleman from [facility] is being admitted in ICU for severe sepsis secondary to pneumonia, UTI possible MDRO and small bowel ileus 1. Severe sepsis secondary to secondary to left lower lobe Staphylococcus pneumonia/Providencia stuartii CAUTI due to indwelling Raymond catheter probably MDRO: Patient has hypotension, tachycardia, tachypnea and hypoxia and leukocytosis, 25,000 with left shift and lactic acidosis. Resuscitated with including severe sepsis protocol broad-spectrum antibiotics IV vancomycin and Zosyn. 09/13: Urine culture shows gram-negative rods 80,000- 100,000 colonies. Urinary antigens and respiratory panel are negative. Blood cultures x2 are pending. MRSA nasal screen positive. Maintaining the blood pressure. 09/14: Patient hemodynamically improved. Transfer to PCU. Blood cultures x2 are negative for 48 hours. Urine culture shows [id number] Providencia stuartii. Sensitive to ceftriaxone. Antibiotic narrowed down to ceftriaxone. Zosyn discontinued. On vancomycin with MRSA nasal screen positive. ID consulted. Blood pressure 122/68. Patient is still is low-grade fever 99.2 Fahrenheit 09/15: Gram stain shows staph aureus, 2+ gram-positive cocci. Vancomycin continued with suspicion of MRSA. 2. Acute hypoxic respiratory failure secondary to pneumonia: As mentioned above. Patient on BiPAP. Possible COPD although patient does not have PFT in EMR. 09/13: Pulse ox 100% on 2 L of oxygen. 09/14: Oxygenation improved currently 94% on room air. 3. Small bowel ileus and gastric retention: CT abdomen individually reviewed and shows gastric and small bowel distention without definite transition point General surgeon consulted and discussed with Dr. Melissa. NG tube ordered and wall suction at medium pressure. Patient stated he moved bowel yesterday night but hard to corroborate history as patient might be confused. 09/14: NG suction 550 mL yesterday. Today 50 mL since midnight. NGT removed 09/15: Diet advanced to soft diet. 4. Acute kidney injury stage 3 on CKD stage II with proteinuria in urine: Baseline BUN/creatinine 23/1.11 in July 29. Currently 58/5.63. 09/13: Patient remains anuric. Discussed with the negative stripper. Sewer Pipe Layer discussed with the sister regarding dialysis option but no acute/urgent indication now. K4.5. Bicarb 17. Total urine output 370 mL dark-colored. 09/14: Patient had improvement in urine output, 01/14/2025 emesis midnight today. Patient does not require dialysis anymore. 09/15: Total urine output 975 yesterday. 5. 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 Mendoza. Patient has leukocytosis. It was high about 58,000 in July 29. Hemoglobin 9.8. 09/13: Leukocytosis improved. Hemoglobin dropped to 7.4/21.2. 09/14: Hemoglobin improved. 1 unit of PRBC transfused. 09/15: Hemoglobin 8.5. 6. Other comorbidities include schizoaffective disorder, sick sinus syndrome status post pacemaker, hypothyroidism, dyslipidemia VTE prophylaxis: bilateral SCDs. Discontinue heparin as patient dropped hemoglobin 7.4. Living will/advanced directive/end of life care: Patient does have living will or advanced directive. Her sister is power of collections attorney for health. After discussion of benefits/risks procedures involved with full code, DNR CC arrest and DNR CC, the patient and her sister opted for DNR-CC Arrest with no in tubation Patient does not want artificial life support including intubation, tube feed, ventilator and/chest compression, but unclear about central venous catheter, vasopressor and DC shock if needed Total time spent in [id number] encounter in discussion of advanced directive 16 minutes. Microbiology Past 72 Hours 09/12/20 08:35 Blood Culture (Wb) - Anticubital Left Blood Culture - Preliminary No growth in 48 hours. 09/12/20 08:23 Blood Culture (Wb) - Anticubital Right Blood Culture - Preliminary No growth in 48 hours. 09/14/20 04:50 Sputum, Expectorated/Coughed Gram Stain - Final 09/12/20 10:15 Urine Catheter - Raymond Urine Culture - Final Providencia stuartii 09/12/20 14:33 Mucosa - Nose Respiratory Panel (PCR) - Final 09/12/20 08:50 Urine Catheter - Raymond Legionella Antigen - Final 09/12/20 08:50 Urine Catheter - Raymond Streptococcus pneumoniae Antigen (M - Final 09/12/20 08:35 Mucosa - Nose SARS-CoV-2 Antigen (Rapid) - Final Laboratory Results 09/13/20 06:30: Crossmatch See Detail 09/14/20 04:45: Random Vancomycin 13.3 09/14/20 04:45: WBC 13.4 H, RBC 2.16 L, Hgb 7.2 L, Hct 20.9 L, MCV 96.8 H, MCH 33.3 H, MCHC 34.4, RDW Std Deviation 51.4 H, RDW Coeff of Arben 14.6, Plt Count 153, MPV 12.0, Immature Gran % (Auto) 3.700 H, Neut % (Auto) 54.7, Lymph % (Auto) 35.4, Frederick % (Auto) 5.9, Eos % (Auto) 0.1, Baso % (Auto) 0.2, Absolute Neuts (auto) 7.3, Absolute Lymphs (auto) 4.75 H, Nucleated RBC % 0 09/14/20 04:45: Sodium 137, Potassium 4.0, Chloride 107, Carbon Dioxide 18.0 L, Anion Gap 12, BUN 74 H, Creatinine 5.40 H, Estim Creat Clear Calc 11.82, Est GFR (MDRD) Af Amer 13 L, Est GFR (MDRD) Non-Af 11 L, BUN/Creatinine Ratio 13.7, Glucose 85, Calcium 7.9 L, Phosphorus 5.0 H, Magnesium 1.8, Total Bilirubin 0.70, AST 34, ALT 15 L, Alkaline Phosphatase 45, Total Protein 4.8 L, Albumin 1.7 L, Globulin 3.1, Albumin/Globulin Ratio 0.5 L 09/14/20 12:30: Hgb 8.5 L, Hct 25.9 L Clinical Impression(s) from Imaging Studies Chest X-Ray 09/12/20 08:50 IMPRESSION: Left lower lobe pneumonia or atelectasis. Abdomen/Pelvis CT 09/12/20 09:28 IMPRESSION: 1. Possible moderate small bowel obstruction but a transition point not clearly identified. No evidence of ischemia or perforation. Small amount of free fluid in the pelvis. 2. Small right inguinal hernia containing a segment of the cecum. 3. Large bilateral renal cysts. Electronically Signed: Jermain Nicole MD at 10:32 EDT Tel , Service support , Chest CT 09/12/20 09:28 IMPRESSION: Left lower lobe pneumonia. Renal Ultrasound 09/13/20 06:20 IMPRESSION: There is no evidence of hydronephrosis. KUB X-Ray 09/14/20 05:55 IMPRESSION: Nasogastric tube is described. Diffuse bowel distention in both colonic and some suggested in the small bowel distribution. These findings are both assessed with small bowel follow-through if clinically indicated. Inpatient E&M: [id number] [facility] Hosp L2
--- NOTE | 2020-09-15 15:21 | NURSING ---
1400-Observed pt resting in bed loudly yelling at physical medicine specialist who was at bedside. This RN asked pt to not yell at staff and that therapy was trying to help him improve his mobility. Pt verbalized understanding at this time.
--- NOTE | 2020-09-15 16:55 | PCM.RX.CS ---
Consult Pharmacy has been consulted to manage selected antiobiotic: Vancomycin Type of Consult: Follow-up Suspected Infection: Sepsis, Pneumonia Prior Doses of Antibiotics Received/Current Regimen: Last dose was 1250mg iv x 1 on 09.14.20. Labs: Sodium 137 mmol/L (136-145) 09/14/20 04:45 Potassium 4.0 mmol/L (3.5-5.1) 09/14/20 04:45 Chloride 107 mmol/L (98-107) 09/14/20 04:45 Carbon Dioxide 18.0 mmol/L (21.0-32.0) L 09/14/20 04:45 Anion Gap 12 (5-15) 09/14/20 04:45 BUN 74 mg/dL (7-18) H 09/14/20 04:45 Creatinine 5.40 mg/dL (0.70-1.30) H 09/14/20 04:45 Est GFR (MDRD) Af Amer 13 mL/min (>60) L 09/14/20 04:45 Est GFR (MDRD) Non-Af 11 mL/min (>60) L 09/14/20 04:45 BUN/Creatinine Ratio 13.7 RATIO (10-20) 09/14/20 04:45 Glucose 85 mg/dL (74-106) 09/14/20 04:45 Random Vancomycin 13.3 ug/mL (0.0-15.0) 09/14/20 04:45 Microbiology: Microbiology 09/14/20 04:50 Sputum, Expectorated/Coughed Gram Stain - Final 09/14/20 04:50 Sputum, Expectorated/Coughed Respiratory Culture - Preliminary Staphylococcus aureus 09/12/20 08:35 Blood Culture (Wb) - Anticubital Left Blood Culture - Preliminary No growth in 48 hours. 09/12/20 08:23 Blood Culture (Wb) - Anticubital Right Blood Culture - Preliminary No growth in 48 hours. 09/12/20 10:15 Urine Catheter - Raymond Urine Culture - Final Providencia stuartii 09/12/20 14:33 Mucosa - Nose Respiratory Panel (PCR) - Final 09/12/20 08:50 Urine Catheter - Raymond Legionella Antigen - Final 09/12/20 08:50 Urine Catheter - Raymond Streptococcus pneumoniae Antigen (M - Final 09/12/20 08:35 Mucosa - Nose SARS-CoV-2 Antigen (Rapid) - Final Weight used for dosin kg Estimated Creatinine Clearance: ~12 ml/min Goal Trough: 15-20 mcg/mL Pharmacy Plan for Drug Dosing: Vancomycin was DC'd and now being restarted per Dr. Aguilar. Patient received 1250mg iv x 1 on 09.14.20 per protocol based on random level of 13.3. Another random level is ordered for 09.16.20 in AM. No further dosing will be initiated at this time due to renal function of Cr 5.4. Will determine further dosing after results of random level in AM. Pharmacy Service will continue to monitor and adjust dosing as required. Follow-Up Labs: Trough Vancomycin - random level 09.16.20 @0600
[2020-09-15] MEDS: Ceftriaxone 1 GM/50 ML BAG IV (21:00)
[2020-09-15] MEDS: QUEtiapine 100 MG Tablet 400 MG PO (21:00)
[2020-09-16] VITALS (14 sets, daily range): BP systolic 127–152; BP diastolic 68–82; PULSE 77–93; RESP 16–24; TEMP 36.1–37.2; O2SAT 92–95
[2020-09-16] MEDS: Ipratropium/Albuterol Sulfate 3 ML AMPUL.NEB INHALATION ×5 (02:47→20:18)
[2020-09-16] MEDS: 0.9% Saline Lock 10 ML Syringe IV ×3 (03:02→21:23)
[2020-09-16 07:07] LABS: Vancomycin, Random Level 17.1 ug/mL (0.0-15.0)
--- NOTE | 2020-09-16 07:33 | PCM.RX.CS ---
Consult Pharmacy has been consulted to manage selected antiobiotic: Vancomycin Type of Consult: Follow-up Suspected Infection: Sepsis, Pneumonia Prior Doses of Antibiotics Received/Current Regimen: Last dose was 1250mg iv x 1 on 09.14.20. Labs: Sodium 137 mmol/L (136-145) 09/14/20 04:45 Potassium 4.0 mmol/L (3.5-5.1) 09/14/20 04:45 Chloride 107 mmol/L (98-107) 09/14/20 04:45 Carbon Dioxide 18.0 mmol/L (21.0-32.0) L 09/14/20 04:45 Anion Gap 12 (5-15) 09/14/20 04:45 BUN 74 mg/dL (7-18) H 09/14/20 04:45 Creatinine 5.40 mg/dL (0.70-1.30) H 09/14/20 04:45 Est GFR (MDRD) Af Amer 13 mL/min (>60) L 09/14/20 04:45 Est GFR (MDRD) Non-Af 11 mL/min (>60) L 09/14/20 04:45 BUN/Creatinine Ratio 13.7 RATIO (10-20) 09/14/20 04:45 Glucose 85 mg/dL (74-106) 09/14/20 04:45 Random Vancomycin 17.1 ug/mL (0.0-15.0) H 09/16/20 06:03 Microbiology: Microbiology 09/14/20 04:50 Sputum, Expectorated/Coughed Gram Stain - Final 09/14/20 04:50 Sputum, Expectorated/Coughed Respiratory Culture - Preliminary Staphylococcus aureus 09/12/20 08:35 Blood Culture (Wb) - Anticubital Left Blood Culture - Preliminary No growth in 48 hours. 09/12/20 08:23 Blood Culture (Wb) - Anticubital Right Blood Culture - Preliminary No growth in 48 hours. 09/12/20 10:15 Urine Catheter - Raymond Urine Culture - Final Providencia stuartii 09/12/20 14:33 Mucosa - Nose Respiratory Panel (PCR) - Final 09/12/20 08:50 Urine Catheter - Raymond Legionella Antigen - Final 09/12/20 08:50 Urine Catheter - Raymond Streptococcus pneumoniae Antigen (M - Final 09/12/20 08:35 Mucosa - Nose SARS-CoV-2 Antigen (Rapid) - Final Weight used for dosin.5 kg Estimated Creatinine Clearance: 12 ml/min Goal Trough: 15-20 mcg/mL Pharmacy Plan for Drug Dosing: Today's random level was 17.1 and in desired therapeutic range of 15-20mcg/ml. No dosing will be given today. Another random level will be ordered for tomorrow 09.17.20. Pharmacy Service will continue to monitor and adjust dosing as required. Follow-Up Labs: Trough Vancomycin - random 09.17.20@0600
--- NOTE | 2020-09-16 07:34 | PN.SURG_ITS ---
Patient Problems: Active and Suspected Problems (Last Reviewed 08/27/20 @ 14:23 by Kacie Babcock RN) Pneumonia (Acute) Renal failure (Acute) Subjective: Patient was advanced to regular diet. He is complaining of pain in his lower left abdomen and around his penis. He says he turned over and tore his stomach. The patient reports this is been like this for a week. - Physical Exam Vitals/I&O's: Vital Signs Temp Pulse Resp BP Pulse Ox 99.0 F 77 18 130/68 H 92 09/16/20 02:51 09/16/20 07:00 09/16/20 02:51 09/16/20 02:51 09/16/20 02:51 Oxygen Flow Rate (L/min) 2 Oxygen Delivery Method Room Air Weight: 170 lb 13.732 oz Body Mass Index (BMI) 25.3 Intake and Output for Last 24 Hours 09/14/20 09/15/20 09/16/20 23:59 23:59 23:59 Intake Total 2298.33 / 2298.33 555 / 605 50 / 50 Output Total 1025 / 1025 700 / 875 375 / 375 Balance 1273.33 / 1273.33 -145 / -270 -325 / -325 General: Alert, Oriented x3 Neck: No JVD Lungs: Clear to auscultation, Normal air movement Cardiovascular: Regular rate, Regular Rhythm Abdomen: Soft, Non-Distended Microbiology Past 72 Hours 09/14/20 04:50 Sputum, Expectorated/Coughed Gram Stain - Final 09/14/20 04:50 Sputum, Expectorated/Coughed Respiratory Culture - Preliminary Staphylococcus aureus 09/12/20 08:35 Blood Culture (Wb) - Anticubital Left Blood Culture - Preliminary No growth in 48 hours. 09/12/20 08:23 Blood Culture (Wb) - Anticubital Right Blood Culture - Prel iminary No growth in 48 hours. 09/12/20 10:15 Urine Catheter - Raymond Urine Culture - Final Providencia stuartii Laboratory Results 09/16/20 06:03: Random Vancomycin 17.1 H Current Medications Acetaminophen (Acetaminophen 325 Mg Tablet) 650 mg PO Q6H PRN PRN PRN Reason: Pain Score 1-10/Temp > 100.7 F Albuterol Sulfate (Albuterol 2.5 Mg/3 Ml Vial.Neb.) 2.5 mg INHALATION Q2H PRN PRN PRN Reason: SOB/Wheezing Albuterol/Ipratropium (Ipratropium/Albuterol Sulfate 3 Ml Ampul.Neb) 3 ml INHALATION Q4H.RT [facility] Last Admin: 09/16/20 02:47 Dose: 3 ml Documented by: Buspirone HCl (Buspirone 5 Mg Tablet) 12.5 mg PO BID [facility] Last Admin: 09/15/20 21:00 Dose: 12.5 mg Documented by: Sodium Chloride () 250 mls @ 15 mls/hr IV .[id number] PRN PRN Reason: Saline Flush Last Infusion: 09/15/20 11:47 Dose: 0 mls/hr Documented by: Sodium Chloride () 250 mls @ 15 mls/hr IV .[id number] PRN PRN Reason: Additional IVPB Infusion Pantoprazole Sodium 40 mg/ (Sodium Chloride) 110 mls @ 330 mls/hr IV Q24 [facility] Last Infusion: 09/15/20 10:47 Dose: Infused Documented by: Ceftriaxone Sodium (Rocephin) 1 gm in 50 mls @ 100 mls/hr IV Q24@2200 [facility] Last Infusion: 09/15/20 22:00 Dose: Infused Documented by: Vancomycin IV Pharmacy to Dose (1 each/ Sodium Chloride) 500 mls @ 250 mls/hr IV PRN PRN; Protocol PRN Reason: RX TO DOSE Nitroglycerin (Nitroglycerin (Inpatient Use) 0.4 Mg Tab.Subl) 0.4 mg SL Q5M PRN PRN Reason: CARDIAC/CHEST PAIN Ondansetron HCl (Ondansetron 4 Mg/2 Ml Vial) 4 mg IV Q8H PRN PRN PRN Reason: NAUSEA/VOMITING Prochlorperazine Edisylate (Prochlorperazine 10 Mg/2 Ml Vial) 5 mg IV Q4H PRN PRN PRN Reason: Breakthrough Nausea/Vomiting Quetiapine Fumarate (Quetiapine 100 Mg Tablet) 200 mg PO BREAKFAST [facility] Last Admin: 09/15/20 09:43 Dose: 200 mg Documented by: Quetiapine Fumarate (Quetiapine 100 Mg Tablet) 400 mg PO QHS [facility] Last Admin: 09/15/20 21:00 Dose: 400 mg Documented by: Senna/Docusate Sodium (Senna/Docusate Sodium 1 Tablet) 2 tablet GT BID PRN PRN Reason: Constipation Sodium Chloride (0.9% Saline Lock 10 Ml Syringe) 10 - 40 ml IV UD PRN PRN Reason: SALINE FLUSH Last Admin: 09/16/20 03:02 Dose: 10 ml Documented by: Medical Necessity - Tobacco Use Smoking Status: Never smoker Assessment/Plan All Active Problems (Last Reviewed 08/27/20 @ 14:23 by Kacie Babcock RN) Pneumonia (Acute) Renal failure (Acute) Anxiety (Resolved) Atherosclerotic heart disease (Resolved) Bipolar 1 disorder (Resolved) COPD (chronic obstructive pulmonary disease) (Resolved) Chronic lymphocytic leukemia of B-cell type not having achieved remission (Resolved) Dementia (Resolved) Dementia without behavioral disturbance (Resolved) HCAP (healthcare-associated pneumonia) (Resolved) Hypo-osmolality and hyponatremia (Resolved) Hyponatremia (Resolved) Hypothyroidism (Resolved) Insomnia (Resolved) Obsessive compulsive disorder (Resolved) Retention of urine (Resolved) Schizoaffective disorder (Resolved) Schizoaffective disorder (Resolved) Schizoaffective disorder (Resolved) Schizoaffective disorder (Resolved) 75-year-old male with ileus 1. Patient was advanced to regular diet yesterday but has not taken much p.o. He says he is still passing flatus. He is complaining of lower abdominal pain and saying that he tore his stomach but he does have dementia and says is been going on for an entire week. The abdomen does not seem as distended as it was yesterday and he is not having any point tenderness in his abdomen. Continue regular diet. Adan Lees MD Pager: [facility] [address] [place] [address], [address] [place] [address] Office:
[2020-09-16 07:43] LABS: Hematocrit 26.2 % (40-54); Hemoglobin 8.9 g/dL (13.0-16.5); Mean Corpuscular Hgb 32.6 pg (27.0-32.0); Mean Platelet Vol. 12.7 fl (6.2-12.0); POSITIVE COUNT YES; POSITIVE DIFFERENTIAL YES; POSITIVE MORPHOLOGY YES; Platelet Count 137 K/mm3 (150-450); RBC Distribution Width SD 56.1 fl (35.1-43.9); Red Blood Count 2.73 M/mm3 (4.6-6.2); White Blood Count 22.7 K/mm3 (4.4-11.0)
[2020-09-16 07:46] LABS: Differential Indicated MANUAL DIFF
[2020-09-16 07:52] LABS: Anion Gap 12 (5-15); BUN 78 mg/dL (7-18); BUN/Creat Ratio 18.9 RATIO (10-20); Calcium,Total 8.7 mg/dL (8.5-10.1); Chloride 111 mmol/L (98-107); Creatinine, Serum 4.12 mg/dL (0.70-1.30); EST Glomerular Filtration Rate 15 mL/min (>60); Est Glom Filt Rate - Afr Amer 18 mL/min (>60); Estimated Creatinine Clearance 15.49 ml/min; Glucose 116 mg/dL (74-106); Potassium 3.6 mmol/L (3.5-5.1); Sodium Level 139 mmol/L (136-145)
--- NOTE | 2020-09-16 08:12 | PCM.PN.PUL ---
Patient Problems: Active and Suspected Problems (Last Reviewed 08/27/20 @ 14:23 by Kacie Babcock RN) Pneumonia (Acute) Renal failure (Acute) Subjective: The patient was seen and examined at the bedside this morning. Events from the last 24 hours have been reviewed. The patient is currently afebrile, hemodynamically stable and maintaining appropriate oxygen saturations on room air. The patient does report the presence of abdominal pain. Hemoglobin is stable. Creatinine has improved to 4.12. Objective: The patient's most recent lab work, culture data and imaging studies have all been personally reviewed. Rapid coronavirus antigen testing was negative. Strep and urine Legionella antigens were negative. Respiratory viral panel was negative. Sputum and blood cultures are pending. Urine culture was positive for a gram-negative pawel. Renal ultrasound revealed no evidence of hydronephrosis. - Physical Exam Vitals/I&O's: Vital Signs Temp Pulse Resp BP Pulse Ox 99.0 F 77 18 130/68 H 92 09/16/20 02:51 09/16/20 07:00 09/16/20 02:51 09/16/20 02:51 09/16/20 02:51 Oxygen Flow Rate (L/min) 2 Oxygen Delivery Method Room Air Weight: 170 lb 13.732 oz Body Mass Index (BMI) 25.3 Intake and Output for Last 24 Hours 09/14/20 09/15/20 09/16/20 23:59 23:59 23:59 Intake Total 2298.33 / 2298.33 555 / 605 50 / 50 Output Total 1025 / 1025 700 / 875 375 / 375 Balance 1273.33 / 1273.33 -145 / -270 -325 / -325 General: Alert, No apparent distress HEENT: Atraumatic, Normocephalic Oral: No Gingival or Mucosal Lesions/ Ulcerations Neck: Supple, No Nodes, Trachea Midline Lungs: No rhonchi, No wheeze, No rales, Diminished Cardiovascular: Regular rate, Regular Rhythm Abdomen: Bowel Sounds Present, Soft, Non-Distended, Tender Extremities: No clubbing, No cyanosis, Edema Skin: No breakdown Musculoskeletal: No Tenderness to Palpation of Joints or Extremities Lymphatic: No Cervical, Supraclavicular, or Inguinal Adenopathy Neurological: Neuro grossly intact Psych/Mental Status: Normal Affect Labs (Last 48 Hours) 09/13/20 09/14/20 09/16/20 06:30 12:30 06:03 WBC RBC Hgb 8.5 L Hct 25.9 L MCV MCH MCHC RDW Std Deviation RDW Coeff of Arben Plt Count MPV Neut % (Auto) Absolute Neuts (auto) Sodium Potassium Chloride Carbon Dioxide Anion Gap BUN Creatinine Estim Creat Clear Calc Est GFR (MDRD) Af Amer Est GFR (MDRD) Non-Af BUN/Creatinine Ratio Glucose Calcium Random Vancomycin 17.1 H Crossmatch See Detail 09/16/20 09/16/20 06:03 06:03 WBC 22.7 H RBC 2.73 L Hgb 8.9 L Hct 26.2 L MCV 96.0 H MCH 32.6 H MCHC 34.0 RDW Std Deviation 56.1 H RDW Coeff of Arben 16.0 H Plt Count 137 L MPV 12.7 H Neut % (Auto) Not Reportable Absolute Neuts (auto) Pending Sodium 139 Potassium 3.6 Chloride 111 H Carbon Dioxide 16.0 L Anion Gap 12 BUN 78 H Creatinine 4.12 H Estim Creat Clear Calc 15.49 Est GFR (MDRD) Af Amer 18 L Est GFR (MDRD) Non-Af 15 L BUN/Creatinine Ratio 18.9 Glucose 116 H Calcium 8.7 Random Vancomycin Crossmatch Microbiology 09/14/20 04:50 Sputum, Expectorated/Coughed Gram Stain - Final 09/14/20 04:50 Sputum, Expectorated/Coughed Respiratory Culture - Preliminary Staphylococcus aureus 09/12/20 08:35 Blood Culture (Wb) - Anticubital Left Blood Culture - Preliminary No growth in 48 hours. 09/12/20 08:23 Blood Culture (Wb) - Anticubital Right Blood Culture - Preliminary No growth in 48 hours. 09/12/20 10:15 Urine Catheter - Raymond Urine Culture - Final Providencia stuartii Clinical Impression(s) from Imaging Studies Chest X-Ray 09/12/20 08:50 IMPRESSION: Left lower lobe pneumonia or atelectasis. Electronically Signed: Jermain Nicole MD at 9:14 EDT Tel , Service support , Abdomen/Pelvis CT 09/12/20 09:28 IMPRESSION: 1. Possible moderate small bowel obstruction but a transition point not clearly identified. No evidence of ischemia or perforation. Small amount of free fluid in the pelvis. 2. Small right inguinal hernia containing a segment of the cecum. 3. Large bilateral renal cysts. Electronically Signed: Jermain Nicole MD at 10:32 EDT Tel , Service support , Chest CT 09/12/20 09:28 IMPRESSION: Left lower lobe pneumonia. Electronically Signed: Jermain Nicole MD at 10:22 EDT Tel , Service support , KUB X-Ray 09/12/20 13:07 IMPRESSION: Nasogastric tube is described, recommend repositioning. Small bowel obstruction. Electronically Signed: Nay Oakes MD at 4:28 EDT , Service support , KUB X-Ray 09/12/20 14:15 IMPRESSION: NG tube is seen, its tip is in the lower esophagus deflected upward. Electronically Signed: Jose Kirk MD at 10:46 EDT Tel , Service support , KUB X-Ray 09/12/20 14:16 IMPRESSION: Small bowel obstruction. Electronically Signed: Jose Kirk MD at 12:57 EDT Tel , Service support , Renal Ultrasound 09/13/20 06:20 IMPRESSION: There is no evidence of hydronephrosis. Electronically Signed: Jose Kirk MD at 13:36 EDT Tel , Service support , KUB X-Ray 09/13/20 07:34 IMPRESSION: NG tube is seen its tip is at the gastric antrum is in good position. There is dilatation of small bowel loops throughout abdomen suggesting bowel obstruction. Electronically Signed: Jose Kirk MD at 13:17 EDT Tel , Service support , KUB X-Ray 09/14/20 05:55 IMPRESSION: Nasogastric tube is described. Diffuse bowel distention in both colonic and some suggested in the small bowel distribution. These findings are both assessed with small bowel follow-through if clinically indicated. Electronically Signed: Nay Oakes MD at 5:53 EDT , Service support , Current Medications Acetaminophen (Acetaminophen 325 Mg Tablet) 650 mg PO Q6H PRN PRN PRN Reason: Pain Score 1-10/Temp > 100.7 F Albuterol Sulfate (Albuterol 2.5 Mg/3 Ml Vial.Neb.) 2.5 mg INHALATION Q2H PRN PRN PRN Reason: SOB/Wheezing Albuterol/Ipratropium (Ipratropium/Albuterol Sulfate 3 Ml Ampul.Neb) 3 ml INHALATION Q4H.RT [facility] Last Admin: 09/16/20 07:51 Dose: 3 ml Documented by: Buspirone HCl (Buspirone 5 Mg Tablet) 12.5 mg PO BID [facility] Last Admin: 09/15/20 21:00 Dose: 12.5 mg Documented by: Sodium Chloride () 250 mls @ 15 mls/hr IV .[id number] PRN PRN Reason: Saline Flush Last Infusion: 09/15/20 11:47 Dose: 0 mls/hr Documented by: Sodium Chloride () 250 mls @ 15 mls/hr IV .[id number] PRN PRN Reason: Additional IVPB Infusion Pantoprazole Sodium 40 mg/ (Sodium Chloride) 110 mls @ 330 mls/hr IV Q24 [facility] Last Infusion: 09/15/20 10:47 Dose: Infused Documented by: Ceftriaxone Sodium (Rocephin) 1 gm in 50 mls @ 100 mls/hr IV Q24@2200 [facility] Last Infusion: 09/15/20 22:00 Dose: Infused Documented by: Vancomycin IV Pharmacy to Dose (1 each/ Sodium Chloride) 500 mls @ 250 mls/hr IV PRN PRN; Protocol PRN Reason: RX TO DOSE Nitroglycerin (Nitroglycerin (Inpatient Use) 0.4 Mg Tab.Subl) 0.4 mg SL Q5M PRN PRN Reason: CARDIAC/CHEST PAIN Ondansetron HCl (Ondansetron 4 Mg/2 Ml Vial) 4 mg IV Q8H PRN PRN PRN Reason: NAUSEA/VOMITING Prochlorperazine Edisylate (Prochlorperazine 10 Mg/2 Ml Vial) 5 mg IV Q4H PRN PRN PRN Reason: Breakthrough Nausea/Vomiting Quetiapine Fumarate (Quetiapine 100 Mg Tablet) 200 mg PO BREAKFAST [facility] Last Admin: 09/15/20 09:43 Dose: 200 mg Documented by: Quetiapine Fumarate (Quetiapine 100 Mg Tablet) 400 mg PO QHS [facility] Last Admin: 09/15/20 21:00 Dose: 400 mg Documented by: Senna/Docusate Sodium (Senna/Docusate Sodium 1 Tablet) 2 tablet GT BID PRN PRN Reason: Constipation Sodium Chloride (0.9% Saline Lock 10 Ml Syringe) 10 - 40 ml IV UD PRN PRN Reason: SALINE FLUSH Last Admin: 09/16/20 03:02 Dose: 10 ml Documented by: Medical Necessity - Tobacco Use Smoking Status: Never smoker Assessment/Plan All Active Problems (Last Reviewed 08/27/20 @ 14:23 by Kacie Babcock, RN) Pneumonia (Acute) Renal failure (Acute) Anxiety (Resolved) Atherosclerotic heart disease (Resolved) Bipolar 1 disorder (Resolved) COPD (chronic obstructive pulmonary disease) (Resolved) Chronic lymphocytic leukemia of B-cell type not having achieved remission (Resolved) Dementia (Resolved) Dementia without behavioral disturbance (Resolved) HCAP (healthcare-associated pneumonia) (Resolved) Hypo-osmolality and hyponatremia (Resolved) Hyponatremia (Resolved) Hypothyroidism (Resolved) Insomnia (Resolved) Obsessive compulsive disorder (Resolved) Retention of urine (Resolved) Schizoaffective disorder (Resolved) Schizoaffective disorder (Resolved) Schizoaffective disorder (Resolved) Schizoaffective disorder (Resolved) RECOMMENDATIONS: 1. Continue to monitor H&H daily and transfuse if hemoglobin drops below 7 g/dL. 2. Continue antimicrobials. 3. Encourage incentive spirometer use and mobilize patient as tolerated. 4. Given the patient's lack of further ICU or pulmonary needs, will sign off. Please call with any additional questions. IMPRESSIONS: 1. Severe sepsis Clinical concern for pulmonary source of infection based upon chest imaging studies. In addition, the patient has a chronic indwelling Raymond, raising the possibility for concurrent urinary tract infection as well. The patient will be continued on broad-spectrum antimicrobials. He has been adequately volume resuscitated and remains hemodynamically stable. 2. Acute hypoxemic respiratory failure Improved. Appears to be secondary to large left lower lobe pneumonia. The patient is not normally on supplemental oxygen at his baseline. Although he was started on BiPAP in the emergency department, his oxygenation status has improved. The patient has been weaned from supplemental oxygen at this time and is currently maintaining appropriate saturations on room air. 3. Acute kidney injury Likely prerenal in etiology. The patient has been adequately volume resuscitated. Continue to monitor urine output. Nephrology following to assist with possible hemodialysis needs. 4. Anemia Appears to be more acute based upon a review of the patient's prior blood counts. The patient was transfused packed red blood cells and has improved from a hemoglobin standpoint. Continue PPI therapy. Continue to monitor H&H daily with goals to transfuse if hemoglobin again drops below 7 g/dL. 5. History of schizophrenia/sick sinus syndrome status post pacemaker implantation/hypothyroidism/hypertension/hyperlipidemia Complicates care, management, recovery and prognosis. Okay to continue home medications. This note was generated with [employer] dictation software. It may contain incorrect words, spelling, and punctuation that were not noted in checking the note before signing. Inpatient E&M: [id number] Subs Hosp L2
[2020-09-16] MEDS: QUEtiapine 100 MG Tablet 200 MG PO (08:14)
[2020-09-16] MEDS: Acetaminophen 325 MG Tablet 650 MG PO ×3 (08:14→21:16)
[2020-09-16 08:15] LABS: Smudge Cells 2+
[2020-09-16] MEDS: busPIRone 5 MG Tablet 12.5 MG PO ×2 (08:15→21:16)
[2020-09-16 08:18] LABS: Hypochromasia 1+; Lymphocyte 40 % (19-41); Metamyelocyte 7 % (0-1); Monocyte 5 % (0-10); Myelocyte 3 % (0-0); Neutrophil-Band 7 % (0-5); Neutrophil-Segmented 38 % (47-70); Total Cells Counted 100 (MANUAL DIFF)
[2020-09-16 08:19] LABS: Absolute Neutrophil Count 3.4 X10^3/uL (2.0-7.7); Platelet Estimate SLT DEC (ADEQ); Red Cell Morphology N CYTIC NORMAL (NORM C&C)
[2020-09-16 08:20] LABS: Absolute Lymphocyte Count 9.08 X10^3/uL (0.83-4.51); Lymphocyte # 9.08 X10^3/ul (4.0)
--- NOTE | 2020-09-16 10:08 | TREXTCAR_ITS ---
- Diet 09/15/20 09:37 Diet: Regular - General Food consistency:: Mechanical (Minced/Moist) Liquid Consistency:: Pilgrim/Mildly Thick Is pt able to select menu?: No Diet Comments: 1:1 supervised meals, NO straws - Problem/Diagnosis (1) Hypothyroidism Status: Chronic (2) Bipolar 1 disorder Status: Chronic (3) COPD (chronic obstructive pulmonary disease) Status: Chronic (4) Schizo affective schizophrenia Status: Chronic (5) Lymphocytosis Status: Chronic (6) Anemia Status: Chronic (7) Schizophrenia Status: Chronic (8) CLL (chronic lymphocytic leukemia) Status: Chronic (9) Pneumonia Status: Acute (10) Renal failure Status: Acute (11) Presence of permanent cardiac pacemaker Status: Chronic Comment: Pacemaker placement 1992;Replacement of pulse generator 1999; Implant [employer] Pacemaker 2004; Implant of dual chamber [employer] pacemaker 12/17/10; (12) Pure hypercholesterolemia Status: Chronic (13) Essential hypertension Status: Chronic (14) Sinoatrial node dysfunction Status: Chronic (15) director long term care use of drug Status: Chronic Comment: Antihyperlipidemic (16) Retinopathy Status: Chronic - Allergies/Procedures Done in Hospital Allergies/Adverse Reactions: Allergies No Known Allergies Allergy (Verified 09/12/20 08:19) - Dietary and Speech Recommendations Dietitian Recommendations/Changes: Advance diet as tolerated to regular; will monitor labs/PO intake/tolerance of diet and adjust diet as indiciated. - Follow Up Care Primary Care Physician: Guillermo Espinal MD [Primary Care Provider] -
--- NOTE | 2020-09-16 10:08 | PCM.DC.SUM ---
Discharge Date and Diagnosis - Problem List Patient Problems: Active and Suspected Problems (Last Reviewed 08/27/20 @ 14:23 by Kacie Babcock RN) Pneumonia (Acute) Renal failure (Acute) Date of Admission: 09/12/20 Date of Discharge: 09/16/20 - Primary Discharge Diagnosis Acute Problems: Active Problems (Last Reviewed 08/27/20 @ 14:23 by Kacie Babcock RN) Pneumonia (Acute) Renal failure (Acute) - Secondary Discharge Diagnosis Chronic Problems: Chronic Problems (Last Reviewed 08/27/20 @ 14:23 by Kacie Babcock RN) Hypothyroidism (Chronic) Bipolar 1 disorder (Chronic) COPD (chronic obstructive pulmonary disease) (Chronic) Schizo affective schizophrenia (Chronic) Lymphocytosis (Chronic) Anemia (Chronic) Schizophrenia (Chronic) CLL (chronic lymphocytic leukemia) (Chronic) Presence of permanent cardiac pacemaker (Chronic) Pacemaker placement 1992;Replacement of pulse generator 1999; Implant [employer] Pacemaker 2004; Implant of dual chamber [employer] pacemaker 12/17/10; Pure hypercholesterolemia (Chronic) Essential hypertension (Chronic) Sinoatrial node dysfunction (Chronic) longterm use of drug (Chronic) Antihyperlipidemic Retinopathy (Chronic) Hospital Course and Treatment Summary of Care Provided: The patient is a 75 year old M [] Patient Problems: Active and Suspected Problems (Last Reviewed 08/27/20 @ 14:23 by Kacie Babcock RN) Pneumonia (Acute) Renal failure (Acute) - Physical Exam Vitals/I&O's: Vital Signs Temp Pulse Resp BP Pulse Ox 97 F L 92 19 H 133/74 H 94 09/16/20 08:30 09/16/20 08:30 09/16/20 08:30 09/16/20 08:30 09/16/20 08:30 Oxygen Flow Rate (L/min) 2 Oxygen Delivery Method Room Air Weight: 170 lb 13.732 oz Body Mass Index (BMI) 25.3 Intake and Output for Last 24 Hours 09/14/20 09/15/20 09/16/20 23:59 23:59 23:59 Intake Total 2298.33 / 2298.33 555 / 605 50 / 50 Output Total 1025 / 1025 700 / 875 375 / 375 Balance 1273.33 / 1273.33 -145 / -270 -325 / -325 Microbiology Past 72 Hours 09/14/20 04:50 Sputum, Expectorated/Coughed Gram Stain - Final 09/14/20 04:50 Sputum, Expectorated/Coughed Respiratory Culture - Preliminary Meth. resistant Staph. aureus Beta streptococcus 09/12/20 08:35 Blood Culture (Wb) - Anticubital Left Blood Culture - Preliminary No growth in 48 hours. 09/12/20 08:23 Blood Culture (Wb) - Anticubital Right Blood Culture - Preliminary No growth in 48 hours. 09/12/20 10:15 Urine Catheter - Raymond Urine Culture - Final Providencia stuartii Laboratory Results 09/16/20 06:03: Random Vancomycin 17.1 H 09/16/20 06:03: WBC 22.7 H, RBC 2.73 L, Hgb 8.9 L, Hct 26.2 L, MCV 96.0 H, MCH 32.6 H, MCHC 34.0, RDW Std Deviation 56.1 H, RDW Coeff of Arben 16.0 H, Plt Count 137 L, MPV 12.7 H, Neut % (Auto) Not Reportable, Absolute Neuts (auto) 3.4, Absolute Lymphs (auto) 9.08 H, Total Counted 100, Neutrophils % (Manual) 38 L, Band Neutrophils % 7 H, Lymphocytes % (Manual) 40, Monocytes % (Manual) 5, Metamyelocytes % 7 H, Myelocytes % 3 H, Diff Path Review May foll, Smudge Cells 2+, Platelet Estimate SLT DEC, RBC Morphology N CYTIC, Hypochromasia 1+ 09/16/20 06:03: Sodium 139, Potassium 3.6, Chloride 111 H, Carbon Dioxide 16.0 L, Anion Gap 12, BUN 78 H, Creatinine 4.12 H, Estim Creat Clear Calc 15.49, Est GFR (MDRD) Af Amer 18 L, Est GFR (MDRD) Non-Af 15 L, BUN/Creatinine Ratio 18.9, Glucose 116 H, Calcium 8.7 Current Medications Acetaminophen (Acetaminophen 325 Mg Tablet) 650 mg PO Q6H PRN PRN PRN Reason: Pain Score 1-10/Temp > 100.7 F Last Admin: 09/16/20 08:14 Dose: 650 mg Documented by: Albuterol Sulfate (Albuterol 2.5 Mg/3 Ml Vial.Neb.) 2.5 mg INHALATION Q2H PRN PRN PRN Reason: SOB/Wheezing Albuterol/Ipratropium (Ipratropium/Albuterol Sulfate 3 Ml Ampul.Neb) 3 ml INHALATION Q4H.RT [facility] Last Admin: 09/16/20 07:51 Dose: 3 ml Documented by: Buspirone HCl (Buspirone 5 Mg Tablet) 12.5 mg PO BID [facility] Last Admin: 09/16/20 08:15 Dose: 12.5 mg Documented by: Sodium Chloride () 250 mls @ 15 mls/hr IV .[id number] PRN PRN Reason: Saline Flush Last Infusion: 09/15/20 11:47 Dose: 0 mls/hr Documented by: Sodium Chloride () 250 mls @ 15 mls/hr IV .[id number] PRN PRN Reason: Additional IVPB Infusion Pantoprazole Sodium 40 mg/ (Sodium Chloride) 110 mls @ 330 mls/hr IV Q24 [facility] Last Admin: 09/16/20 10:02 Dose: 330 mls/hr Documented by: Ceftriaxone Sodium (Rocephin) 1 gm in 50 mls @ 100 mls/hr IV Q24@2200 [facility] Last Infusion: 09/15/20 22:00 Dose: Infused Documented by: Vancomycin IV Pharmacy to Dose (1 each/ Sodium Chloride) 500 mls @ 250 mls/hr IV PRN PRN; Protocol PRN Reason: RX TO DOSE Nitroglycerin (Nitroglycerin (Inpatient Use) 0.4 Mg Tab.Subl) 0.4 mg SL Q5M PRN PRN Reason: CARDIAC/CHEST PAIN Ondansetron HCl (Ondansetron 4 Mg/2 Ml Vial) 4 mg IV Q8H PRN PRN PRN Reason: NAUSEA/VOMITING Prochlorperazine Edisylate (Prochlorperazine 10 Mg/2 Ml Vial) 5 mg IV Q4H PRN PRN PRN Reason: Breakthrough Nausea/Vomiting Quetiapine Fumarate (Quetiapine 100 Mg Tablet) 200 mg PO BREAKFAST [facility] Last Admin: 09/16/20 08:14 Dose: 200 mg Documented by: Quetiapine Fumarate (Quetiapine 100 Mg Tablet) 400 mg PO QHS [facility] Last Admin: 09/15/20 21:00 Dose: 400 mg Documented by: Senna/Docusate Sodium (Senna/Docusate Sodium 1 Tablet) 2 tablet GT BID PRN PRN Reason: Constipation Sodium Chloride (0.9% Saline Lock 10 Ml Syringe) 10 - 40 ml IV UD PRN PRN Reason: SALINE FLUSH Last Admin: 09/16/20 10:02 Dose: 10 ml Documented by: Home Medications: Medications to take at Discharge Acetaminophen [Tylenol] 650 mg PO Q4H PRN PRN 09/14/15 Allopurinol [Zyloprim] 100 mg PO DAILYCM 09/14/15 Aspirin [Aspirin, Baby] 81 mg PO DAILY@0800 09/14/15 Atorvastatin Calcium [Lipitor] 10 mg PO QHS 09/14/15 Divalproex Sodium [Depakote] 250 mg PO BID 09/14/15 Enalapril Maleate [Vasotec] 5 mg PO DAILY 09/14/15 Levothyroxine [Synthroid] 100 mcg PO DAILY 09/14/15 Quetiapine Fumarate [Seroquel] 200 mg PO BREAKFAST 09/14/15 Quetiapine Fumarate [Seroquel] 400 mg PO QHS 09/14/15 Risperidone [Risperdal] 3 mg PO QHS 09/14/15 traZODone [Desyrel] 50 mg PO QHS 09/14/15 alprazolam 1 mg tablet 1 mg PO DAILY PRN tab 10/18/18 guaifenesin 100 mg/5 mL oral liquid 200 mg PO Q6H PRN 10/18/18 ipratropium 0.5 mg-albuterol 3 mg (2.5 mg base)/3 mL nebulization soln 3 ml INHALATION Q4H PRN ml 10/18/18 magnesium hydroxide 400 mg/5 mL oral suspension 30 ml PO DAILY ml 10/18/18 aluminum-mag hydroxide-simethicone 200 mg-200 mg-20 mg/5 mL oral susp 15 ml PO Q4H ml 12/14/18 buspirone 5 mg tablet 12.5 mg PO BID tab 11/03/19 mirabegron 50 mg tablet,extended release 24 hr 50 mg PO DAILY 14 Days #14 tab 11/03/19 Levofloxacin [Levaquin] 500 mg PO QHS 09/12/20 Primary Care Physician: Guillermo Espinal MD [Primary Care Provider] - Medical Necessity - Tobacco Use Smoking Status: Never smoker
--- NOTE | 2020-09-16 15:22 | PCM.PN.HOSP ---
Patient Problems: Active and Suspected Problems (Last Reviewed 08/27/20 @ 14:23 by Kacie Babcock RN) Pneumonia (Acute) Renal failure (Acute) Reason for Visit: Follow-up for pneumonia, small bowel obstruction/ileus and possible CAUTI Objective: Seen and examined No fever. Heart rate and blood pressure controlled. Patient complain of left lower quadrant abdominal pain. Patient had a bowel movement about 2 days ago and passing flatus. Physical exam General: Awake, oriented x3, responding appropriately. HEENT: Atraumatic, PERRLA, EOMI, Normocephalic Oral: Oral mucosa is dry Neck: Supple, No JVD, Negative Carotid Bruits Lungs: Air entry diminished in bilateral lung bases. No crepitation/rhonchi. Cardiovascular: Regular rate, Regular Rhythm, Normal S1, Normal S2, left second ICS/LLSB systolic murmur grade 3/6 Abdomen: Soft, tenderness present over left lower quadrant. Mild distention. Bowel sounds sluggish : Indwelling Raymond catheter. Clear urine in the Raymond catheter. No suprapubic tenderness. Extremities: Mild bilateral ankle edema, Capillary Refill Less than 3 Seconds Skin: Skin is dry. No open ulcer. Musculoskeletal: Bilateral knee and hip joint arthritis and stiffness. No Tenderness to Palpation of Joints or Extremities Neurological: Cranial nerves II-XII grossly intact, Deep Tendon Reflexes 2+/4 Psych/Mental Status: Awake and pleasant behavior Vitals/I&O's: Vital Signs Temp Pulse Resp BP Pulse Ox 98.1 F 89 19 H 127/82 H 95 09/16/20 15:00 09/16/20 15:00 09/16/20 15:00 09/16/20 15:00 09/16/20 15:00 Oxygen Flow Rate (L/min) 2 Oxygen Delivery Method Room Air Weight: 170 lb 13.732 oz Body Mass Index (BMI) 25.3 Intake and Output for Last 24 Hours 09/14/20 09/15/20 09/16/20 23:59 23:59 23:59 Intake Total 2298.33 / 2298.33 555 / 605 317.75 / 317.75 Output Total 1025 / 1025 700 / 875 825 / 825 Balance 1273.33 / 1273.33 -145 / -270 -507.25 / -507.25 Microbiology Past 72 Hours 09/14/20 04:50 Sputum, Expectorated/Coughed Gram Stain - Final 09/14/20 04:50 Sputum, Expectorated/Coughed Respiratory Culture - Preliminary Meth. resistant Staph. aureus Beta streptococcus 09/12/20 08:35 Blood Culture (Wb) - Anticubital Left Blood Culture - Preliminary No growth in 48 hours. 09/12/20 08:23 Blood Culture (Wb) - Anticubital Right Blood Culture - Preliminary No growth in 48 hours. 09/12/20 10:15 Urine Catheter - Raymond Urine Culture - Final Providencia stuartii Laboratory Results 09/16/20 06:03: Random Vancomycin 17.1 H 09/16/20 06:03: WBC 22.7 H, RBC 2.73 L, Hgb 8.9 L, Hct 26.2 L, MCV 96.0 H, MCH 32.6 H, MCHC 34.0, RDW Std Deviation 56.1 H, RDW Coeff of Arben 16.0 H, Plt Count 137 L, MPV 12.7 H, Neut % (Auto) Not Reportable, Absolute Neuts (auto) 3.4, Absolute Lymphs (auto) 9.08 H, Total Counted 100, Neutrophils % (Manual) 38 L, Band Neutrophils % 7 H, Lymphocytes % (Manual) 40, Monocytes % (Manual) 5, Metamyelocytes % 7 H, Myelocytes % 3 H, Diff Path Review May foll, Smudge Cells 2+, Platelet Estimate SLT DEC, RBC Morphology N CYTIC, Hypochromasia 1+ 09/16/20 06:03: Sodium 139, Potassium 3.6, Chloride 111 H, Carbon Dioxide 16.0 L, Anion Gap 12, BUN 78 H, Creatinine 4.12 H, Estim Creat Clear Calc 15.49, Est GFR (MDRD) Af Amer 18 L, Est GFR (MDRD) Non-Af 15 L, BUN/Creatinine Ratio 18.9, Glucose 116 H, Calcium 8.7 Current Medications Acetaminophen (Acetaminophen 325 Mg Tablet) 650 mg PO Q6H PRN PRN PRN Reason: Pain Score 1-10/Temp > 100.7 F Last Admin: 09/16/20 15:04 Dose: 650 mg Documented by: Albuterol Sulfate (Albuterol 2.5 Mg/3 Ml Vial.Neb.) 2.5 mg INHALATION Q2H PRN PRN PRN Reason: SOB/Wheezing Albuterol/Ipratropium (Ipratropium/Albuterol Sulfate 3 Ml Ampul.Neb) 3 ml INHALATION Q4H.RT [facility] Last Admin: 09/16/20 14:03 Dose: 3 ml Documented by: Buspirone HCl (Buspirone 5 Mg Tablet) 12.5 mg PO BID [facility] Last Admin: 09/16/20 08:15 Dose: 12.5 mg Documented by: Sodium Chloride () 250 mls @ 15 mls/hr IV .[id number] PRN PRN Reason: Saline Flush Last Infusion: 09/16/20 12:53 Dose: Infused Documented by: Sodium Chloride () 250 mls @ 15 mls/hr IV .[id number] PRN PRN Reason: Additional IVPB Infusion Pantoprazole Sodium 40 mg/ (Sodium Chloride) 110 mls @ 330 mls/hr IV Q24 [facility] Last Infusion: 09/16/20 10:22 Dose: Infused Documented by: Ceftriaxone Sodium (Rocephin) 1 gm in 50 mls @ 100 mls/hr IV Q24@2200 [facility] Last Infusion: 09/15/20 22:00 Dose: Infused Documented by: Vancomycin IV Pharmacy to Dose (1 each/ Sodium Chloride) 500 mls @ 250 mls/hr IV PRN PRN; Protocol PRN Reason: RX TO DOSE Nitroglycerin (Nitroglycerin (Inpatient Use) 0.4 Mg Tab.Subl) 0.4 mg SL Q5M PRN PRN Reason: CARDIAC/CHEST PAIN Ondansetron HCl (Ondansetron 4 Mg/2 Ml Vial) 4 mg IV Q8H PRN PRN PRN Reason: NAUSEA/VOMITING Prochlorperazine Edisylate (Prochlorperazine 10 Mg/2 Ml Vial) 5 mg IV Q4H PRN PRN PRN Reason: Breakthrough Nausea/Vomiting Quetiapine Fumarate (Quetiapine 100 Mg Tablet) 200 mg PO BREAKFAST [facility] Last Admin: 09/16/20 08:14 Dose: 200 mg Documented by: Quetiapine Fumarate (Quetiapine 100 Mg Tablet) 400 mg PO QHS [facility] Last Admin: 09/15/20 21:00 Dose: 400 mg Documented by: Senna/Docusate Sodium (Senna/Docusate Sodium 1 Tablet) 2 tablet GT BID PRN PRN Reason: Constipation Sodium Chloride (0.9% Saline Lock 10 Ml Syringe) 10 - 40 ml IV UD PRN PRN Reason: SALINE FLUSH Last Admin: 09/16/20 10:02 Dose: 10 ml Documented by: STROKE Vital Signs/Narrative: Vital Signs Temp Pulse Resp BP Pulse Ox 09/16/20 15:00 98.1 F 89 19 H 127/82 H 95 09/16/20 14:49 88 21 H 09/16/20 14:29 77 09/16/20 11:45 84 18 Medical Necessity - Tobacco Use Smoking Status: Never smoker Assessment/Plan All Active Problems (Last Reviewed 08/27/20 @ 14:23 by Kacie Babcock RN) Pneumonia (Acute) Renal failure (Acute) Anxiety (Resolved) Atherosclerotic heart disease (Resolved) Bipolar 1 disorder (Resolved) COPD (chronic obstructive pulmonary disease) (Resolved) Chronic lymphocytic leukemia of B-cell type not having achieved remission (Resolved) Dementia (Resolved) Dementia without behavioral disturbance (Resolved) HCAP (healthcare-associated pneumonia) (Resolved) Hypo-osmolality and hyponatremia (Resolved) Hyponatremia (Resolved) Hypothyroidism (Resolved) Insomnia (Resolved) Obsessive compulsive disorder (Resolved) Retention of urine (Resolved) Schizoaffective disorder (Resolved) Schizoaffective disorder (Resolved) Schizoaffective disorder (Resolved) Schizoaffective disorder (Resolved) 75-year-old gentleman from [facility] is being admitted in ICU for severe sepsis secondary to pneumonia, UTI possible MDRO and small bowel ileus 1. Severe sepsis secondary to secondary to left lower lobe Staphylococcus pneumonia/Providencia stuartii CAUTI due to indwelling Raymond catheter probably MDRO: Patient has hypotension, tachycardia, tachypnea and hypoxia and leukocytosis, 25,000 with left shift and lactic acidosis. Resuscitated with including severe sepsis protocol broad-spectrum antibiotics IV vancomycin and Zosyn. 09/13: Urine culture shows gram-negative rods 80,000- 100,000 colonies. Urinary antigens and respiratory panel are negative. Blood cultures x2 are pending. MRSA nasal screen positive. Maintaining the blood pressure. 09/14: Patient hemodynamically improved. Transfer to PCU. Blood cultures x2 are negative for 48 hours. Urine culture shows [id number] Providencia stuartii. Sensitive to ceftriaxone. Antibiotic narrowed down to ceftriaxone. Zosyn discontinued. On vancomycin with MRSA nasal screen positive. ID consulted. Blood pressure 122/68. Patient is still is low-grade fever 99.2 Fahrenheit 09/15: Gram stain shows staph aureus, 2+ gram-positive cocci. Vancomycin continued with suspicion of MRSA. 09/16: Gram stain shows MRSA and beta Streptococcus. Patient on vancomycin and ceftriaxone. 2. Acute hypoxic respiratory failure secondary to pneumonia: As mentioned above. Patient on BiPAP. Possible COPD although patient does not have PFT in EMR. 09/13: Pulse ox 100% on 2 L of oxygen. 09/14: Oxygenation improved currently 94% on room air. 3. Small bowel ileus and gastric retention: CT abdomen individually reviewed and shows gastric and small bowel distention without definite transition point General surgeon consulted and discussed with Dr. Melissa. NG tube ordered and wall suction at medium pressure. Patient stated he moved bowel yesterday night but hard to corroborate history as patient might be confused. 09/14: NG suction 550 mL yesterday. Today 50 mL since midnight. NGT removed 09/15: Diet advanced to soft diet. 09/16: Patient has been complaining of left lower quadrant abdominal pain with mild distention. Advised to continue liquid diet to soft diet. 4. Acute kidney injury stage 3 on CKD stage II with proteinuria in urine: Baseline BUN/creatinine 23/1.11 in July 29. Currently 58/5.63. 09/13: Patient remains anuric. Discussed with the shank faker. [employer] Specialist discussed with the sister regarding dialysis option but no acute/urgent indication now. K4.5. Bicarb 17. Total urine output 370 mL dark-colored. 09/14: Patient had improvement in urine output, 01/14/2025 emesis midnight today. Patient does not require dialysis anymore. 09/15: Total urine output 975 yesterday. 09/16: Improvement in creatinine to 4.12. 5. 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 Mendoza. Patient has leukocytosis. It was high about 58,000 in July 29. Hemoglobin 9.8. 09/13: Leukocytosis improved. Hemoglobin dropped to 7.4/21.2. 09/14: Hemoglobin improved. 1 unit of PRBC transfused. 09/15: Hemoglobin 8.5. 09/16: H&H stable 8.9/26. WBC count increased to 22.7 thousand. 6. Other comorbidities include schizoaffective disorder, sick sinus syndrome status post pacemaker, hypothyroidism, dyslipidemia VTE prophylaxis: bilateral SCDs. Discontinue heparin as patient dropped hemoglobin 7.4. Patient is not ready for discharge yet in view of abdominal pain mild abdominal distention. Living will/advanced directive/end of life care: Patient does have living will or advanced directive. Her sister is power of civil attorney for health. After discussion of benefits/risks procedures involved with full code, DNR CC arrest and DNR CC, the patient and her sister opted for DNR-CC Arrest with no intubation Patient does not want artificial life support including intubation, tube feed, ventilator and/chest compression, but unclear about central venous catheter, vasopressor and DC shock if needed Total time spent in [id number] encounter in discussion of advanced directive 16 minutes. Microbiology Past 72 Hours 09/14/20 04:50 Sputum, Expectorated/Coughed Gram Stain - Final 09/14/20 04:50 Sputum, Expectorated/Coughed Respiratory Culture - Preliminary Meth. resistant Staph. aureus Beta streptococcus 09/12/20 08:35 Blood Culture (Wb) - Anticubital Left Blood Culture - Preliminary No growth in 48 hours. 09/12/20 08:23 Blood Culture (Wb) - Anticubital Right Blood Culture - Preliminary No growth in 48 hours. 09/12/20 10:15 Urine Catheter - Raymond Urine Culture - Final Providencia stuartii Laboratory Results 09/16/20 06:03: Random Vancomycin 17.1 H 09/16/20 06:03: WBC 22.7 H, RBC 2.73 L, Hgb 8.9 L, Hct 26.2 L, MCV 96.0 H, MCH 32.6 H, MCHC 34.0, RDW Std Deviation 56.1 H, RDW Coeff of Arben 16.0 H, Plt Count 137 L, MPV 12.7 H, Neut % (Auto) Not Reportable, Absolute Neuts (auto) 3.4, Absolute Lymphs (auto) 9.08 H, Total Counted 100, Neutrophils % (Manual) 38 L, Band Neutrophils % 7 H, Lymphocytes % (Manual) 40, Monocytes % (Manual) 5, Metamyelocytes % 7 H, Myelocytes % 3 H, Diff Path Review May foll, Smudge Cells 2+, Platelet Estimate SLT DEC, RBC Morphology N CYTIC, Hypochromasia 1+ 09/16/20 06:03: Sodium 139, Potassium 3.6, Chloride 111 H, Carbon Dioxide 16.0 L, Anion Gap 12, BUN 78 H, Creatinine 4.12 H, Estim Creat Clear Calc 15.49, Est GFR (MDRD) Af Amer 18 L, Est GFR (MDRD) Non-Af 15 L, BUN/Creatinine Ratio 18.9, Glucose 116 H, Calcium 8.7 Clinical Impression(s) from Imaging Studies Chest X-Ray 09/12/20 08:50 IMPRESSION: Left lower lobe pneumonia or atelectasis. Abdomen/Pelvis CT 09/12/20 09:28 IMPRESSION: 1. Possible moderate small bowel obstruction but a transition point not clearly identified. No evidence of ischemia or perforation. Small amount of free fluid in the pelvis. 2. Small right inguinal hernia containing a segment of the cecum. 3. Large bilateral renal cysts. Electronically Signed: Jermain Nicole MD at 10:32 EDT Tel , Service support , Chest CT 09/12/20 09:28 IMPRESSION: Left lower lobe pneumonia. Renal Ultrasound 09/13/20 06:20 IMPRESSION: There is no evidence of hydronephrosis. KUB X-Ray 09/14/20 05:55 IMPRESSION: Nasogastric tube is described. Diffuse bowel distention in both colonic and some suggested in the small bowel distribution. These findings are both assessed with small bowel follow-through if clinically indicated. Inpatient E&M: [id number] Subs Hosp L2
[2020-09-16] MEDS: QUEtiapine 100 MG Tablet 400 MG PO (21:16)
[2020-09-16] MEDS: Ceftriaxone 1 GM/50 ML BAG IV (21:20)
--- NOTE | 2020-09-16 23:05 | CPS ---
Pt. took aerosol mask off of his face. When trying to put aerosol mask back on pt., he claimed, my breathing is fine.. I don't need this.
[2020-09-17] VITALS (10 sets, daily range): BP systolic 118–142; BP diastolic 66–87; PULSE 74–98; RESP 17–22; TEMP 36.3–36.9; O2SAT 93–95
[2020-09-17 06:43] LABS: Hematocrit 26.8 % (40-54); Hemoglobin 8.8 g/dL (13.0-16.5); Mean Corp Hgb Conc 32.8 g/dL (32-36); Mean Corpuscular Hgb 31.7 pg (27.0-32.0); Mean Corpuscular Volume 96.4 fL (80-94); Mean Platelet Vol. 12.4 fl (6.2-12.0); POSITIVE COUNT YES; POSITIVE DIFFERENTIAL YES; POSITIVE MORPHOLOGY YES; Platelet Count 143 K/mm3 (150-450); RBC Distribution Width CV 16.1 % (11.6-14.6); RBC Distribution Width SD 57.2 fl (35.1-43.9); Red Blood Count 2.78 M/mm3 (4.6-6.2); White Blood Count 27.4 K/mm3 (4.4-11.0)
[2020-09-17 06:47] LABS: Differential Indicated MANUAL DIFF
[2020-09-17 07:04] LABS: Anion Gap 9 (5-15); BUN 76 mg/dL (7-18); Calcium,Total 8.7 mg/dL (8.5-10.1); Chloride 113 mmol/L (98-107); Creatinine, Serum 3.62 mg/dL (0.70-1.30); EST Glomerular Filtration Rate 18 mL/min (>60); Est Glom Filt Rate - Afr Amer 21 mL/min (>60); Estimated Creatinine Clearance 17.63 ml/min; Glucose 119 mg/dL (74-106); Potassium 3.6 mmol/L (3.5-5.1); Sodium Level 140 mmol/L (136-145)
[2020-09-17 07:06] LABS: Lymphocyte 50 % (19-41); Metamyelocyte 4 % (0-1); Monocyte 8 % (0-10); Myelocyte 5 % (0-0); Neutrophil-Band 2 % (0-5); Neutrophil-Segmented 31 % (47-70); Total Cells Counted 100 (MANUAL DIFF)
[2020-09-17 07:07] LABS: Atypical Lymphocyte 1+ %; Platelet Estimate SLT DEC (ADEQ); Reactive Lymphocyte 2+; Red Cell Morphology NORM C+C NORMAL (NORM C&C)
[2020-09-17 07:14] LABS: Vancomycin, Random Level 13.3 ug/mL (0.0-15.0)
[2020-09-17] MEDS: Albuterol 2.5 MG/3 ML VIAL.NEB. INHALATION (08:25)
[2020-09-17] MEDS: Acetaminophen 325 MG Tablet 650 MG PO (08:46)
[2020-09-17] MEDS: busPIRone 5 MG Tablet 12.5 MG PO (08:46)
[2020-09-17] MEDS: QUEtiapine 100 MG Tablet 200 MG PO (08:47)
[2020-09-17] MEDS: 0.9% Saline Lock 10 ML Syringe IV ×3 (09:58→17:18)
--- NOTE | 2020-09-17 12:15 | RAD_ITS ---
STUDY: X-RAY - ABDOMEN/PELVIS REASON FOR EXAM: Male, 75 years old. Worsening abdominal distension TECHNIQUE: AP supine and upright views of the abdomen and pelvis. COMPARISON: Comparison is made with prior study dated . FINDINGS: Mild increased markings at the left lung base suggestive of a left basilar atelectasis and/or infiltrate. The nasogastric tube is not seen at this time. There are dilated loops of the small intestine with a non-distended colon consistent with a small bowel obstruction. The small bowel dilatation has progressed as compared to prior study. Gas and fecal material are seen in the colon. There is no demonstrated free abdominal air. The visualized liver, spleen and kidneys are grossly normal in size and morphology. Normal soft tissue structures. There are diffuse degenerative changes of the visualized lumbar spine. RAD/Abd Inc Decub and/or Erect IMPRESSION: Increasing small bowel dilatation. Electronically Signed: Darryl Mays MD at 12:55 EDT , Service support ,
[2020-09-17 12:21] LABS: Pathologist Review Reviewed
[2020-09-17 12:23] LABS: Pathologist Review Reviewed
--- NOTE | 2020-09-17 13:13 | CASEMGMT ---
DESTINEY called [facility], message left, updates faxed. MAMI De Leon
--- NOTE | 2020-09-17 13:13 | PCM.HP.ID ---
Problem List (1) Pneumonia Status: Acute Reason for Consult: pneumonia Consulted by: Dr. Evans History of Present Illness: The patient is a 75 [facility] with schizophrenia, chronic moss, presented 09/12 with 2 days of fever, altered mental status, dyspnea. Admitted to icu with hypotension. On vanc and ceftriaxone now. Some dyspnea and cough. Denies dysuria, no fever. C/o progressive abd distension and pain. No BM or flatus for 2 days. Full ROS performed and neg except as noted above. - Medical History Past Medical History (Chronic Problems): Chronic Problems (Last Reviewed 08/27/20 @ 14:23 by Kacie Babcock RN) Hypothyroidism (Chronic) Bipolar 1 disorder (Chronic) COPD (chronic obstructive pulmonary disease) (Chronic) Schizo affective schizophrenia (Chronic) Lymphocytosis (Chronic) Anemia (Chronic) Schizophrenia (Chronic) CLL (chronic lymphocytic leukemia) (Chronic) Presence of permanent cardiac pacemaker (Chronic) Pacemaker placement 1992;Replacement of pulse generator 1999; Implant [employer] Pacemaker 2004; Implant of dual chamber [employer] pacemaker 12/17/10; Pure hypercholesterolemia (Chronic) Essential hypertension (Chronic) Sinoatrial node dysfunction (Chronic) skilled nursing use of drug (Chronic) Antihyperlipidemic Retinopathy (Chronic) Allergies/Adverse Reactions: Allergies No Known Allergies Allergy (Verified 09/12/20 08:19) Home Medications: Ambulatory Orders Medication Instructions Recorded Acetaminophen [Tylenol] 650 mg PO Q4H PRN PRN 09/14/15 Allopurinol [Zyloprim] 100 mg PO DAILYCM 09/14/15 Aspirin [Aspirin, Baby] 81 mg PO DAILY@0800 09/14/15 Atorvastatin Calcium [Lipitor] 10 mg PO QHS 09/14/15 Divalproex Sodium [Depakote] 250 mg PO BID 09/14/15 Enalapril Maleate [Vasotec] 5 mg PO DAILY 09/14/15 Levothyroxine [Synthroid] 100 mcg PO DAILY 09/14/15 Quetiapine Fumarate [Seroquel] 200 mg PO BREAKFAST 09/14/15 Quetiapine Fumarate [Seroquel] 400 mg PO QHS 09/14/15 Risperidone [Risperdal] 3 mg PO QHS 09/14/15 traZODone [Desyrel] 50 mg PO QHS 09/14/15 alprazolam 1 mg tablet 1 mg PO DAILY PRN tab 10/18/18 guaifenesin 100 mg/5 mL oral liquid 200 mg PO Q6H PRN 10/18/18 ipratropium 0.5 mg-albuterol 3 mg 3 ml INHALATION Q4H PRN ml 10/18/18 (2.5 mg base)/3 mL nebulization soln magnesium hydroxide 400 mg/5 mL 30 ml PO DAILY ml 10/18/18 oral suspension aluminum-mag hydroxide-simethicone 15 ml PO Q4H ml 12/14/18 200 mg-200 mg-20 mg/5 mL oral susp buspirone 5 mg tablet 12.5 mg PO BID tab 11/03/19 mirabegron 50 mg tablet,extended 50 mg PO DAILY 14 Days #14 tab 11/03/19 release 24 hr Levofloxacin [Levaquin] 500 mg PO QHS 09/12/20 - Social History Tobacco Use: non-smoker Vital Signs Temp Pulse Resp BP Pulse Ox 97.8 F 84 20 H 137/77 H 94 09/17/20 08:19 09/17/20 10:57 09/17/20 08:25 09/17/20 08:19 09/17/20 08:25 Oxygen Flow Rate (L/min) 2 Oxygen Delivery Method Room Air Weight: 77.2 kg Body Mass Index (BMI) 25.3 Microbiology Past 72 Hours 09/12/20 08:35 Blood Culture - Final Blood Culture (Wb) - Anticubital Left No growth in 5 days. 09/12/20 08:23 Blood Culture - Final Blood Culture (Wb) - Anticubital Right No growth in 5 days. 09/14/20 04:50 Gram Stain - Final Sputum, Expectorated/Coughed Respiratory Culture - Final Meth. resistant Staph. aureus Streptococcus agalactiae (B) Laboratory Tests Past 24 Hrs 09/16/20 09/17/20 09/17/20 06:03 06:00 06:00 WBC 27.4 H RBC 2.78 L Hgb 8.8 L Hct 26.8 L MCV 96.4 H MCH 31.7 MCHC 32.8 RDW Std Deviation 57.2 H RDW Coeff of Arben 16.1 H Plt Count 143 L MPV 12.4 H Neut % (Auto) Not Reportable Absolute Neuts (auto) 9.0 H Absolute Lymphs (auto) 13.70 H Total Counted 100 Neutrophils % (Manual) 31 L Band Neutrophils % 2 Lymphocytes % (Manual) 50 H Monocytes % (Manual) 8 Metamyelocytes % 4 H Myelocytes % 5 H Diff Path Review Reviewed Reviewed Atypical Lymphocytes 1+ Reactive Lymphocytes 2+ Platelet Estimate SLT DEC RBC Morphology NORM C+C Sodium 140 Potassium 3.6 Chloride 113 H Carbon Dioxide 18.0 L Anion Gap 9 BUN 76 H Creatinine 3.62 H Estim Creat Clear Calc 17.63 Est GFR (MDRD) Af Amer 21 L Est GFR (MDRD) Non-Af 18 L BUN/Creatinine Ratio 21.0 H Glucose 119 H Calcium 8.7 Random Vancomycin 09/17/20 06:00 WBC RBC Hgb Hct MCV MCH MCHC RDW Std Deviation RDW Coeff of Arben Plt Count MPV Neut % (Auto) Absolute Neuts (auto) Absolute Lymphs (auto) Total Counted Neutrophils % (Manual) Band Neutrophils % Lymphocytes % (Manual) Monocytes % (Manual) Metamyelocytes % Myelocytes % Diff Path Review Atypical Lymphocytes Reactive Lymphocytes Platelet Estimate RBC Morphology Sodium Potassium Chloride Carbon Dioxide Anion Gap BUN Creatinine Estim Creat Clear Calc Est GFR (MDRD) Af Amer Est GFR (MDRD) Non-Af BUN/Creatinine Ratio Glucose Calcium Random Vancomycin 13.3 - Other Studies Radiology: [] reviewed Other Studies: [] Route of nutrition/ use of supplements: [] Nutritional Intake: [] IV Site: [] Moss Catheter: [] - Physical Exam General: Oriented x3, Cooperative, No apparent distress HEENT: Atraumatic, PERRLA, EOMI Neck: Supple, No Nodes Lungs: Clear to auscultation, Diminished Cardiovascular: Regular rate, Regular Rhythm Abdomen: Soft, Distended, Tender - mild diffuse Extremities: No edema Skin: No rashes IV Site: Peripheral, without redness Musculoskeletal: No Tenderness to Palpation of Joints or Extremities Neurological: Cranial nerves II-XII grossly intact - Assessment/Plan Antibiotics: [] Assessment/Plan: [] Active and Suspected Problems (Last Reviewed 08/27/20 @ 14:23 by Kacie Babcock RN) Pneumonia (Acute) Renal failure (Acute) sepsis with MSSA/GBS pneumonia and providencia uti - on vanc/ceftriaxone. No fever. JOSE ARMANDO improving. Wbc rising, may be related to abd distension/obstruction. Consider repeat CT abd/pelvis. Surgery following. Will follow, thank you
--- NOTE | 2020-09-17 13:25 | PCM.PN.SRG ---
Patient Problems: Active and Suspected Problems (Last Reviewed 08/27/20 @ 14:23 by Kacie Babcock RN) Pneumonia (Acute) Renal failure (Acute) Subjective: Patient complaining of abdominal pain KUB does show gaseous distention of the colon as well as small bowel - Physical Exam Vitals/I&O's: Vital Signs Temp Pulse Resp BP Pulse Ox 97.4 F L 82 18 118/79 94 09/17/20 13:19 09/17/20 13:19 09/17/20 13:19 09/17/20 13:19 09/17/20 13:19 Oxygen Flow Rate (L/min) 2 Oxygen Delivery Method Room Air Weight: 170 lb 3.15 oz Body Mass Index (BMI) 25.3 Intake and Output for Last 24 Hours 09/15/20 09/16/20 09/17/20 23:59 23:59 23:59 Intake Total 555 / 605 727.75 / 727.75 350 / 350 Output Total 700 / 875 1225 / 1225 700 / 700 Balance -145 / -270 -497.25 / -497.25 -350 / -350 General: Alert, Cooperative, No apparent distress Cardiovascular: Regular rate Abdomen: Soft, Distended, Tender - LLQ>LUQ, no guarding, no rebound Microbiology Past 72 Hours 09/12/20 08:35 Blood Culture (Wb) - Anticubital Left Blood Culture - Final No growth in 5 days. 09/12/20 08:23 Blood Culture (Wb) - Anticubital Right Blood Culture - Final No growth in 5 days. 09/14/20 04:50 Sputum, Expectorated/Coughed Gram Stain - Final 09/14/20 04:50 Sputum, Expectorated/Coughed Respiratory Culture - Final Meth. resistant Staph. aureus Streptococcus agalactiae (B) Laboratory Results 09/16/20 06:03: Diff Path Review Reviewed 09/17/20 06:00: WBC 27.4 H, RBC 2.78 L, Hgb 8.8 L, Hct 26.8 L, MCV 96.4 H, MCH 31.7, MCHC 32.8, RDW Std Deviation 57.2 H, RDW Coeff of Arben 16.1 H, Plt Count 143 L, MPV 12.4 H, Neut % (Auto) Not Reportable, Absolute Neuts (auto) 9.0 H, Absolute Lymphs (auto) 13.70 H, Total Counted 100, Neutrophils % (Manual) 31 L, Band Neutrophils % 2, Lymphocytes % (Manual) 50 H, Monocytes % (Manual) 8, Metamyelocytes % 4 H, Myelocytes % 5 H, Diff Path Review Reviewed, Atypical Lymphocytes 1+, Reactive Lymphocytes 2+, Platelet Estimate SLT DEC, RBC Morphology NORM C+C 09/17/20 06:00: Sodium 140, Potassium 3.6, Chloride 113 H, Carbon Dioxide 18.0 L, Anion Gap 9, BUN 76 H, Creatinine 3.62 H, Estim Creat Clear Calc 17.63, Est GFR (MDRD) Af Amer 21 L, Est GFR (MDRD) Non-Af 18 L, BUN/Creatinine Ratio 21.0 H, Glucose 119 H, Calcium 8.7 09/17/20 06:00: Random Vancomycin 13.3 Current Medications Acetaminophen (Acetaminophen 325 Mg Tablet) 650 mg PO Q6H PRN PRN PRN Reason: Pain Score 1-10/Temp > 100.7 F Last Admin: 09/17/20 08:46 Dose: 650 mg Documented by: Albuterol Sulfate (Albuterol 2.5 Mg/3 Ml Vial.Neb.) 2.5 mg INHALATION Q2H PRN PRN PRN Reason: SOB/Wheezing Last Admin: 09/17/20 08:25 Dose: 2.5 mg Documented by: Albuterol/Ipratropium (Ipratropium/Albuterol Sulfate 3 Ml Ampul.Neb) 3 ml INHALATION Q4H.RT [facility] Last Admin: 09/16/20 20:18 Dose: 3 ml Documented by: Buspirone HCl (Buspirone 5 Mg Tablet) 12.5 mg PO BID [facility] Last Admin: 09/17/20 08:46 Dose: 12.5 mg Documented by: Sodium Chloride () 250 mls @ 15 mls/hr IV .[id number] PRN PRN Reason: Saline Flush Last Infusion: 09/16/20 12:53 Dose: Infused Documented by: Sodium Chloride () 250 mls @ 15 mls/hr IV .[id number] PRN PRN Reason: Additional IVPB Infusion Pantoprazole Sodium 40 mg/ (Sodium Chloride) 110 mls @ 330 mls/hr IV Q24 [facility] Last Infusion: 09/17/20 10:18 Dose: Infused Documented by: Ceftriaxone Sodium (Rocephin) 1 gm in 50 mls @ 100 mls/hr IV Q24@2200 [facility] Last Infusion: 09/16/20 21:50 Dose: Infused Documented by: Vancomycin IV Pharmacy to Dose (1 each/ Sodium Chloride) 500 mls @ 250 mls/hr IV PRN PRN; Protocol PRN Reason: RX TO DOSE Vancomycin HCl 1,250 mg/ (Sodium Chloride) 275 mls @ 167 mls/hr IV X1 ONE Stop: 09/17/20 14:38 Last Admin: 09/17/20 13:22 Dose: 167 mls/hr Documented by: Nitroglycerin (Nitroglycerin (Inpatient Use) 0.4 Mg Tab.Subl) 0.4 mg SL Q5M PRN PRN Reason: CARDIAC/CHEST PAIN Ondansetron HCl (Ondansetron 4 Mg/2 Ml Vial) 4 mg IV Q8H PRN PRN PRN Reason: NAUSEA/VOMITING Prochlorperazine Edisylate (Prochlorperazine 10 Mg/2 Ml Vial) 5 mg IV Q4H PRN PRN PRN Reason: Breakthrough Nausea/Vomiting Quetiapine Fumarate (Quetiapine 100 Mg Tablet) 200 mg PO BREAKFAST [facility] Last Admin: 09/17/20 08:47 Dose: 200 mg Documented by: Quetiapine Fumarate (Quetiapine 100 Mg Tablet) 400 mg PO QHS [facility] Last Admin: 09/16/20 21:16 Dose: 400 mg Documented by: Senna/Docusate Sodium (Senna/Docusate Sodium 1 Tablet) 2 tablet GT BID PRN PRN Reason: Constipation Sodium Chloride (0.9% Saline Lock 10 Ml Syringe) 10 - 40 ml IV UD PRN PRN Reason: SALINE FLUSH Last Admin: 09/17/20 13:22 Dose: 10 ml Documented by: Medical Necessity - Tobacco Use Smoking Status: Never smoker Assessment/Plan All Active Problems (Last Reviewed 08/27/20 @ 14:23 by Kacie Babcock RN) Pneumonia (Acute) Renal failure (Acute) Anxiety (Resolved) Atherosclerotic heart disease (Resolved) Bipolar 1 disorder (Resolved) COPD (chronic obstructive pulmonary disease) (Resolved) Chronic lymphocytic leukemia of B-cell type not having achieved remission (Resolved) Dementia (Resolved) Dementia without behavioral disturbance (Resolved) HCAP (healthcare-associated pneumonia) (Resolved) Hypo-osmolality and hyponatremia (Resolved) Hyponatremia (Resolved) Hypothyroidism (Resolved) Insomnia (Resolved) Obsessive compulsive disorder (Resolved) Retention of urine (Resolved) Schizoaffective disorder (Resolved) Schizoaffective disorder (Resolved) Schizoaffective disorder (Resolved) Schizoaffective disorder (Resolved) 75-year-old male with sepsis, leukocytosis, hypotension, possible small bowel obstruction Per CT 1. Patient's KUB does show Gas distended small bowel and colon we will check CT abdomen pelvis with p.o. contrast, change back to NPO 2. Abx per ID Raquel Melissa M.D. Pager: [phone] [facility] [address] [place] [address], [facility], [address] [place] [address] Office: [phone] Inpatient E&M: 17071 Subs Hosp L2
--- NOTE | 2020-09-17 13:30 | CT_ITS ---
STUDY: CT ABDOMEN AND PELVIS WITHOUT CONTRAST REASON FOR EXAM: Male, 75 years old. abd pain RADIATION DOSAGE (If Supplied By Facility): CTDIvol = ( 18.86 ) mGy, DLP = ( 970.59 ) mGycm TECHNIQUE: Transaxial images were obtained from the dome of the diaphragm to the symphysis pubis with oral contrast, and without intravenous contrast. Sagittal and coronal images were reconstructed. Individualized dose optimization techniques were used for this CT. COMPARISON: 09/12/2020 FINDINGS: Alveolar density in the lower left lung consistent with left lower lobe pneumonia. The visualized portions of the heart are within normal limits. Normal liver. Normal gallbladder and extrahepatic biliary system. There is mild splenomegaly. Normal pancreas. Normal bilateral adrenal glands. No change in multiple large bilateral renal cysts. 3 There is a small hiatal hernia. Multiple loops of moderately dilated air and fluid-filled small bowel worrisome for a moderate small bowel obstruction. No obvious transition point. No pneumatosis to suggest bowel ischemia. No pneumoperitoneum to suggest bowel perforation. Normal colon. The appendix is visualized and appears normal. There is diffuse atherosclerotic calcification of the abdominal aorta, without a demonstrated aneurysm. Normal inferior vena cava. Normal retroperitoneum. Raymond catheter within the collapsed bladder. There is a right-sided inguinal hernia containing adipose tissue. Mild levoscoliosis of lumbar spine with degenerative disc disease. CT/Abdomen/Pel W ORAL Cont Only IMPRESSION: Moderate small bowel obstruction without visualization of the transition point. Small amount of ascites in the pelvis but no evidence of bowel ischemia or bowel perforation. Electronically Signed: Jermain Nicole MD at 16:40 EDT Tel , Service support ,
--- NOTE | 2020-09-17 13:36 | PCM.PN.REN ---
Patient Problems: Active and Suspected Problems (Last Reviewed 08/27/20 @ 14:23 by Kacie Babcock RN) Pneumonia (Acute) Renal failure (Acute) Subjective: Except abdominal pain the patient has no other complaints no nausea no vomiting - Physical Exam Vitals/I&O's: Vital Signs Temp Pulse Resp BP Pulse Ox 97.4 F L 82 18 118/79 94 09/17/20 13:19 09/17/20 13:19 09/17/20 13:19 09/17/20 13:19 09/17/20 13:19 Oxygen Flow Rate (L/min) 2 Oxygen Delivery Method Room Air Weight: 77.2 kg Body Mass Index (BMI) 25.3 Intake and Output for Last 24 Hours 09/15/20 09/16/20 09/17/20 23:59 23:59 23:59 Intake Total 555 / 605 727.75 / 727.75 350 / 350 Output Total 700 / 875 1225 / 1225 700 / 700 Balance -145 / -270 -497.25 / -497.25 -350 / -350 General: Alert, Cooperative HEENT: Atraumatic, Normocephalic Neck: Trachea Midline Lungs: Clear to auscultation, Normal air movement Cardiovascular: Regular rate, Regular Rhythm, Normal S1 Abdomen: Tender Extremities: No edema Microbiology Past 72 Hours 09/12/20 08:35 Blood Culture (Wb) - Anticubital Left Blood Culture - Final No growth in 5 days. 09/12/20 08:23 Blood Culture (Wb) - Anticubital Right Blood Culture - Final No growth in 5 days. 09/14/20 04:50 Sputum, Expectorated/Coughed Gram Stain - Final 09/14/20 04:50 Sputum, Expectorated/Coughed Respiratory Culture - Final Meth. resistant Staph. aureus Streptococcus agalactiae (B) Laboratory Results 09/16/20 06:03: Diff Path Review Reviewed 09/17/20 06:00: WBC 27.4 H, RBC 2.78 L, Hgb 8.8 L, Hct 26.8 L, MCV 96.4 H, MCH 31.7, MCHC 32.8, RDW Std Deviation 57.2 H, RDW Coeff of Arben 16.1 H, Plt Count 143 L, MPV 12.4 H, Neut % (Auto) Not Reportable, Absolute Neuts (auto) 9.0 H, Absolute Lymphs (auto) 13.70 H, Total Counted 100, Neutrophils % (Manual) 31 L, Band Neutrophils % 2, Lymphocytes % (Manual) 50 H, Monocytes % (Manual) 8, Metamyelocytes % 4 H, Myelocytes % 5 H, Diff Path Review Reviewed, Atypical Lymphocytes 1+, Reactive Lymphocytes 2+, Platelet Estimate SLT DEC, RBC Morphology NORM C+C 09/17/20 06:00: Sodium 140, Potassium 3.6, Chloride 113 H, Carbon Dioxide 18.0 L, Anion Gap 9, BUN 76 H, Creatinine 3.62 H, Estim Creat Clear Calc 17.63, Est GFR (MDRD) Af Amer 21 L, Est GFR (MDRD) Non-Af 18 L, BUN/Creatinine Ratio 21.0 H, Glucose 119 H, Calcium 8.7 09/17/20 06:00: Random Vancomycin 13.3 Current Medications Acetaminophen (Acetaminophen 325 Mg Tablet) 650 mg PO Q6H PRN PRN PRN Reason: Pain Score 1-10/Temp > 100.7 F Last Admin: 09/17/20 08:46 Dose: 650 mg Documented by: Albuterol Sulfate (Albuterol 2.5 Mg/3 Ml Vial.Neb.) 2.5 mg INHALATION Q2H PRN PRN PRN Reason: SOB/Wheezing Last Admin: 09/17/20 08:25 Dose: 2.5 mg Documented by: Albuterol/Ipratropium (Ipratropium/Albuterol Sulfate 3 Ml Ampul.Neb) 3 ml INHALATION Q4H.RT [facility] Last Admin: 09/16/20 20:18 Dose: 3 ml Documented by: Buspirone HCl (Buspirone 5 Mg Tablet) 12.5 mg PO BID [facility] Last Admin: 09/17/20 08:46 Dose: 12.5 mg Documented by: Sodium Chloride () 250 mls @ 15 mls/hr IV .[id number] PRN PRN Reason: Saline Flush Last Infusion: 09/16/20 12:53 Dose: Infused Documented by: Sodium Chloride () 250 mls @ 15 mls/hr IV .[id number] PRN PRN Reason: Additional IVPB Infusion Pantoprazole Sodium 40 mg/ (Sodium Chloride) 110 mls @ 330 mls/hr IV Q24 [facility] Last Infusion: 09/17/20 10:18 Dose: Infused Documented by: Ceftriaxone Sodium (Rocephin) 1 gm in 50 mls @ 100 mls/hr IV Q24@2200 [facility] Last Infusion: 09/16/20 21:50 Dose: Infused Documented by: Vancomycin IV Pharmacy to Dose (1 each/ Sodium Chloride) 500 mls @ 250 mls/hr IV PRN PRN; Protocol PRN Reason: RX TO DOSE Vancomycin HCl 1,250 mg/ (Sodium Chloride) 275 mls @ 167 mls/hr IV X1 ONE Stop: 09/17/20 14:38 Last Admin: 09/17/20 13:22 Dose: 167 mls/hr Documented by: Nitroglycerin (Nitroglycerin (Inpatient Use) 0.4 Mg Tab.Subl) 0.4 mg SL Q5M PRN PRN Reason: CARDIAC/CHEST PAIN Ondansetron HCl (Ondansetron 4 Mg/2 Ml Vial) 4 mg IV Q8H PRN PRN PRN Reason: NAUSEA/VOMITING Prochlorperazine Edisylate (Prochlorperazine 10 Mg/2 Ml Vial) 5 mg IV Q4H PRN PRN PRN Reason: Breakthrough Nausea/Vomiting Quetiapine Fumarate (Quetiapine 100 Mg Tablet) 200 mg PO BREAKFAST [facility] Last Admin: 09/17/20 08:47 Dose: 200 mg Documented by: Quetiapine Fumarate (Quetiapine 100 Mg Tablet) 400 mg PO QHS [facility] Last Admin: 09/16/20 21:16 Dose: 400 mg Documented by: Senna/Docusate Sodium (Senna/Docusate Sodium 1 Tablet) 2 tablet GT BID PRN PRN Reason: Constipation Sodium Chloride (0.9% Saline Lock 10 Ml Syringe) 10 - 40 ml IV UD PRN PRN Reason: SALINE FLUSH Last Admin: 09/17/20 13:22 Dose: 10 ml Documented by: Medical Necessity - Tobacco Use Smoking Status: Never smoker Assessment/Plan All Active Problems (Last Reviewed 08/27/20 @ 14:23 by Kacie Babcock RN) Pneumonia (Acute) Renal failure (Acute) Anxiety (Resolved) Atherosclerotic heart disease (Resolved) Bipolar 1 disorder (Resolved) COPD (chronic obstructive pulmonary disease) (Resolved) Chronic lymphocytic leukemia of B-cell type not having achieved remission (Resolved) Dementia (Resolved) Dementia without behavioral disturbance (Resolved) HCAP (healthcare-associated pneumonia) (Resolved) Hypo-osmolality and hyponatremia (Resolved) Hyponatremia (Resolved) Hypothyroidism (Resolved) Insomnia (Resolved) Obsessive compulsive disorder (Resolved) Retention of urine (Resolved) Schizoaffective disorder (Resolved) Schizoaffective disorder (Resolved) Schizoaffective disorder (Resolved) Schizoaffective disorder (Resolved) JOSE ARMANDO?ATN Renal cysts bilaterally Scr 3.62 better avoid neprhtoxins Recommend to dose vancomycin with levels to avoid nephrotoxicity
--- NOTE | 2020-09-17 16:19 | CASEMGMT ---
Pt qualifies for palliative referral via [facility] palliative screening tool and Dr. Evans is agreeble to c/s. Referral faxed and called to palliative. Dereje BYERS CM
[2020-09-17] MEDS: Lidocaine 2% Jelly 1 APPLIC Tube TOPICAL (17:18)
--- NOTE | 2020-09-17 18:50 | RAD_ITS ---
STUDY: X-RAY - ABDOMEN/PELVIS REASON FOR EXAM: Male, 75 years old. confirm NG placement TECHNIQUE: Single AP view of the abdomen / pelvis. COMPARISON: Abdominal x-ray dated SEPTEMBER 17, 2020 at 12:15 PM FINDINGS: Normal visualized lung bases. The feeding tube is coiled in the body of the stomach. There is a paralytic ileus or distal obstruction of the small intestine with mild to moderate gaseous distention. There is no demonstrated free abdominal air. Normal soft tissue structures. There are diffuse degenerative changes of the visualized lumbar spine. RAD/Abdomen Single View IMPRESSION: Small bowel ileus or distal obstruction. Electronically Signed: Raheel Ward MD at 20:04 EDT , Service support ,
--- NOTE | 2020-09-17 19:38 | PN_ITS ---
Patient Problems: Active and Suspected Problems (Last Reviewed 08/27/20 @ 14:23 by Kacie Babcock RN) Pneumonia (Acute) Renal failure (Acute) Reason for Visit: Follow-up on severe sepsis secondary to pneumonia/UTI/small bowel ileus Subjective: Patient was seen and examined. He complained of abdominal distension and discomfort. Denies passing gas or moving his bowels. Denies any nausea Objective: Physical exam General: Awake, oriented x3, responding appropriately. HEENT: Atraumatic, PERRLA, EOMI, Normocephalic Oral: Oral mucosa is dry Neck: Supple, No JVD, Negative Carotid Bruits Lungs: Air entry diminished in bilateral lung bases. No crepitation/rhonchi. Cardiovascular: Regular rate, Regular Rhythm, Normal S1, Normal S2, left second ICS/LLSB systolic murmur grade 3/6 Abdomen: Soft, tenderness present over left lower quadrant. Mild distention. Bowel sounds sluggish : Indwelling Raymond catheter. Clear urine in the Raymond catheter. No suprapubic tenderness. Extremities: Mild bilateral ankle edema, Capillary Refill Less than 3 Seconds Skin: Skin is dry. No open ulcer. Musculoskeletal: Bilateral knee and hip joint arthritis and stiffness. No Tenderness to Palpation of Joints or Extremities Neurological: Cranial nerves II-XII grossly intact, Deep Tendon Reflexes 2+/4 Psych/Mental Status: Awake and pleasant behavior Vitals/I&O's: Vital Signs Temp Pulse Resp BP Pulse Ox 97.6 F L 95 18 135/87 H 95 09/17/20 19:08 09/17/20 19:08 09/17/20 19:08 09/17/20 19:08 09/17/20 19:08 Oxygen Flow Rate (L/min) 2 Oxygen Delivery Method Room Air Weight: 77.2 kg Body Mass Index (BMI) 25.3 Intake and Output for Last 24 Hours 09/15/20 09/16/20 09/17/20 23:59 23:59 23:59 Intake Total 555 / 605 727.75 / 727.75 1105 / 1105 Output Total 700 / 875 1225 / 1225 1300 / 1300 Balance -145 / -270 -497.25 / -497.25 -195 / -195 Microbiology Past 72 Hours 09/12/20 08:35 Blood Culture (Wb) - Anticubital Left Blood Culture - Final No growth in 5 days. 09/12/20 08:23 Blood Culture (Wb) - Anticubital Right Blood Culture - Final No growth in 5 days. 09/14/20 04:50 Sputum, Expectorated/Coughed Gram Stain - Final 09/14/20 04:50 Sputum, Expectorated/Coughed Respiratory Culture - Final Meth. resistant Staph. aureus Streptococcus agalactiae (B) Laboratory Results 09/16/20 06:03: Diff Path Review Reviewed 09/17/20 06:00: WBC 27.4 H, RBC 2.78 L, Hgb 8.8 L, Hct 26.8 L, MCV 96.4 H, MCH 31.7, MCHC 32.8, RDW Std Deviation 57.2 H, RDW Coeff of Arben 16.1 H, Plt Count 143 L, MPV 12.4 H, Neut % (Auto) Not Reportable, Absolute Neuts (auto) 9.0 H, Absolute Lymphs (auto) 13.70 H, Total Counted 100, Neutrophils % (Manual) 31 L, Band Neutrophils % 2, Lymphocytes % (Manual) 50 H, Monocytes % (Manual) 8, Metamyelocytes % 4 H, Myelocytes % 5 H, Diff Path Review Reviewed, Atypical Lymphocytes 1+, Reactive Lymphocytes 2+, Platelet Estimate SLT DEC, RBC Morphology NORM C+C 09/17/20 06:00: Sodium 140, Potassium 3.6, Chloride 113 H, Carbon Dioxide 18.0 L , Anion Gap 9, BUN 76 H, Creatinine 3.62 H, Estim Creat Clear Calc 17.63, Est GFR (MDRD) Af Amer 21 L, Est GFR (MDRD) Non-Af 18 L, BUN/Creatinine Ratio 21.0 H , Glucose 119 H, Calcium 8.7 09/17/20 06:00: Random Vancomycin 13.3 Current Medications Acetaminophen (Acetaminophen 325 Mg Tablet) 650 mg PO Q6H PRN PRN PRN Reason: Pain Score 1-10/Temp > 100.7 F Last Admin: 09/17/20 08:46 Dose: 650 mg Documented by: Albuterol Sulfate (Albuterol 2.5 Mg/3 Ml Vial.Neb.) 2.5 mg INHALATION Q2H PRN PRN PRN Reason: SOB/Wheezing Last Admin: 09/17/20 08:25 Dose: 2.5 mg Documented by: Albuterol/Ipratropium (Ipratropium/Albuterol Sulfate 3 Ml Ampul.Neb) 3 ml INHALATION Q4H.RT [facility] Last Admin: 09/16/20 20:18 Dose: 3 ml Documented by: Buspirone HCl (Buspirone 5 Mg Tablet) 12.5 mg PO BID [facility] Last Admin: 09/17/20 08:46 Dose: 12.5 mg Documented by: Sodium Chloride () 250 mls @ 15 mls/hr IV .[id number] PRN PRN Reason: Saline Flush Last Infusion: 09/16/20 12:53 Dose: Infused Documented by: Sodium Chloride () 250 mls @ 15 mls/hr IV .[id number] PRN PRN Reason: Additional IVPB Infusion Pantoprazole Sodium 40 mg/ (Sodium Chloride) 110 mls @ 330 mls/hr IV Q24 [facility] Last Infusion: 09/17/20 10:18 Dose: Infused Documented by: Ceftriaxone Sodium (Rocephin) 1 gm in 50 mls @ 100 mls/hr IV Q24@2200 [facility] Last Infusion: 09/16/20 21:50 Dose: Infused Documented by: Vancomycin IV Pharmacy to Dose (1 each/ Sodium Chloride) 500 mls @ 250 mls/hr IV PRN PRN; Protocol PRN Reason: RX TO DOSE Nitroglycerin (Nitroglycerin (Inpatient Use) 0.4 Mg Tab.Subl) 0.4 mg SL Q5M PRN PRN Reason: CARDIAC/CHEST PAIN Ondansetron HCl (Ondansetron 4 Mg/2 Ml Vial) 4 mg IV Q8H PRN PRN PRN Reason: NAUSEA/VOMITING Prochlorperazine Edisylate (Prochlorperazine 10 Mg/2 Ml Vial) 5 mg IV Q4H PRN PRN PRN Reason: Breakthrough Nausea/Vomiting Quetiapine Fumarate (Quetiapine 100 Mg Tablet) 200 mg PO BREAKFAST [facility] Last Admin: 09/17/20 08:47 Dose: 200 mg Documented by: Quetiapine Fumarate (Quetiapine 100 Mg Tablet) 400 mg PO QHS [facility] Last Admin: 09/16/20 21:16 Dose: 400 mg Documented by: Senna/Docusate Sodium (Senna/Docusate Sodium 1 Tablet) 2 tablet GT BID PRN PRN Reason: Constipation Sodium Chloride (0.9% Saline Lock 10 Ml Syringe) 10 - 40 ml IV UD PRN PRN Reason: SALINE FLUSH Last Admin: 09/17/20 17:18 Dose: 10 ml Documented by: STROKE Vital Signs/Narrative: Vital Signs Temp Pulse Resp BP Pulse Ox 09/17/20 19:08 97.6 F L 95 18 135/87 H 95 09/17/20 19:00 98 Medical Necessity - Tobacco Use Smoking Status: Never smoker Assessment/Plan All Active Problems (Last Reviewed 08/27/20 @ 14:23 by Kacie Babcock, ZEESHAN) Pneumonia (Acute) Renal failure (Acute) Anxiety (Resolved) Atherosclerotic heart disease (Resolved) Bipolar 1 disorder (Resolved) COPD (chronic obstructive pulmonary disease) (Resolved) Chronic lymphocytic leukemia of B-cell type not having achieved remission (Resolved) Dementia (Resolved) Dementia without behavioral disturbance (Resolved) HCAP (healthcare-associated pneumonia) (Resolved) Hypo-osmolality and hyponatremia (Resolved) Hyponatremia (Resolved) Hypothyroidism (Resolved) Insomnia (Resolved) Obsessive compulsive disorder (Resolved) Retention of urine (Resolved) Schizoaffective disorder (Resolved) Schizoaffective disorder (Resolved) Schizoaffective disorder (Resolved) Schizoaffective disorder (Resolved) 1. Severe sepsis secondary to secondary to left lower lobe MRSA/beta strept pneumonia/Providencia stuartii, MDR, CAUTI due to indwelling Raymond catheter Blood cultures are negative. ID following Continue on IV vancomycin and ceftriaxone. 2. Acute hypoxic respiratory failure secondary to pneumonia, appears resolved 3. Acute small bowel ileus and gastric retention, persistent KUB and CT abd/pelvis with contrast shows moderate SBO Kept NPO, will resume on gentle IVF 4. Acute kidney injury stage 3 on CKD stage II with proteinuria in urine, appears to be improving Will continue to monitor 5. 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 Rest of other co-morbidities are stable- schizoaffective disorder/sick sinus syndrome status post pacemaker/hypothyroidism/dyslipidemia 7. DVT PPx-SCDs Inpatient E&M: 53582 Subs Hosp L2
[2020-09-17] MEDS: 0.9% Normal Saline 1,000 ML 75 ML IV (20:42)
[2020-09-17] MEDS: Ceftriaxone 1 GM/50 ML BAG IV (21:50)
[2020-09-18] VITALS (11 sets, daily range): BP systolic 127–146; BP diastolic 73–82; PULSE 70–81; RESP 18–20; TEMP 36.3–36.6; O2SAT 93–95
[2020-09-18 07:03] LABS: Hematocrit 30.9 % (40-54); Mean Corp Hgb Conc 32.4 g/dL (32-36); Mean Corpuscular Hgb 31.3 pg (27.0-32.0); Mean Corpuscular Volume 96.9 fL (80-94); Mean Platelet Vol. 12.9 fl (6.2-12.0); POSITIVE COUNT YES; POSITIVE DIFFERENTIAL YES; POSITIVE MORPHOLOGY YES; Platelet Count 179 K/mm3 (150-450); RBC Distribution Width CV 16.3 % (11.6-14.6); RBC Distribution Width SD 58.6 fl (35.1-43.9); Red Blood Count 3.19 M/mm3 (4.6-6.2)
[2020-09-18 07:06] LABS: Differential Indicated MANUAL DIFF
--- NOTE | 2020-09-18 07:16 | RAD_ITS ---
STUDY: X-RAY - ABDOMEN/PELVIS REASON FOR EXAM: Male, 75 years old. Abd pain -- portable TECHNIQUE: Single AP view of the abdomen / pelvis. COMPARISON: Comparison is made with prior study dated 09/17/2020. FINDINGS: A nasogastric tube is seen with the tip in the fundal portion of the stomach. This is unchanged. Persistent dilatation of small bowel loops. Gas is seen throughout the colon. This may represent an ileus pattern. A probe is seen within the rectum. Normal soft tissue structures. There are diffuse degenerative changes of the visualized lumbar spine. Osteoarthritis of both hip joints. RAD/Abdomen Single View (Portable) IMPRESSION: Small bowel dilatation. Gas is seen throughout a dilated colon down to the rectum. This most likely represents an ileus pattern. There has been essentially no change. Electronically Signed: Darryl Mays MD at 12:18 EDT , Service support ,
[2020-09-18 07:31] LABS: Anion Gap 13 (5-15); BUN 82 mg/dL (7-18); BUN/Creat Ratio 21.1 RATIO (10-20); Calcium,Total 8.5 mg/dL (8.5-10.1); Chloride 111 mmol/L (98-107); Creatinine, Serum 3.88 mg/dL (0.70-1.30); EST Glomerular Filtration Rate 16 mL/min (>60); Est Glom Filt Rate - Afr Amer 20 mL/min (>60); Estimated Creatinine Clearance 16.45 ml/min; Glucose 103 mg/dL (74-106); Sodium Level 140 mmol/L (136-145)
[2020-09-18 07:32] LABS: Vancomycin, Random Level 24.2 ug/mL (0.0-15.0)
[2020-09-18 07:35] LABS: Blast 3 % (0-0); Lymphocyte 54 % (19-41); Metamyelocyte 1 % (0-1); Monocyte 2 % (0-10); Neutrophil-Band 10 % (0-5); Neutrophil-Segmented 29 % (47-70); Promyelocyte 1 % (0-0); Total Cells Counted 100 (MANUAL DIFF)
[2020-09-18 07:37] LABS: Absolute Neutrophil Count 14.9 X10^3/uL (2.0-7.7)
[2020-09-18 07:38] LABS: Absolute Lymphocyte Count 19.54 X10^3/uL (0.83-4.51)
[2020-09-18 07:39] LABS: Acanthocytes 1+; Platelet Estimate ADEQUATE (ADEQ); Red Cell Morphology N CHROM NORMAL (NORM C&C)
[2020-09-18 07:41] LABS: White Blood Count 38.3 K/mm3 (4.4-11.0)
--- NOTE | 2020-09-18 07:42 | NURSING ---
Dr. Melissa aware of WBC 38.3, she informed this nurse.
--- NOTE | 2020-09-18 08:20 | RAD_ITS ---
PROCEDURE: SMALL BOWEL SERIES DATE OF EXAMINATION: 09/18/2020.. INDICATION: Male, 75 years old. Small bowel obstruction versus ileus. PHYSICIAN: Darryl Mays M.D. FLUOROSCOPY TIME (if supplied): (0:39) minutes/seconds. 12 images were obtained. TECHNIQUE: Radiographic and fluoroscopic images were taken of the small intestine following the ingestion of GASTROGRAFIN. COMPARISON: None. FINDINGS: A preliminary supine KUB was obtained. A nasogastric tube is seen. GASTROGRAFIN was introduced into the nasogastric tube. A small bowel follow-through examination was then obtained. Normal visualized fundus, body, and antrum of the stomach. Normal duodenal bulb, C-loop, and proximal jejunum. There is delayed transit of the GASTROGRAFIN through the dilated small bowel loops. No site of obstruction is seen. Findings are in keeping with ileus gas pattern. RAD/Small Bowel Series Only IMPRESSION: Findings in keeping with an ileus gas pattern. Electronically Signed: Darryl Mays MD at 10:39 EDT , Service support ,
--- NOTE | 2020-09-18 08:27 | PCM.PN.SRG ---
Patient Problems: Active and Suspected Problems (Last Reviewed 08/27/20 @ 14:23 by Kacie Babcock RN) Pneumonia (Acute) Renal failure (Acute) Debility (Acute) Weight loss, unintentional (Acute) Subjective: Patient not have much of his NG overnight night-- initially put out 450, states he has had some flatus and complained his abdomen is sore but better than before. - Physical Exam Vitals/I&O's: Vital Signs Temp Pulse Resp BP Pulse Ox 97.5 F L 79 18 146/82 H 93 09/18/20 04:58 09/18/20 04:58 09/18/20 04:58 09/18/20 04:58 09/18/20 08:27 Oxygen Flow Rate (L/min) 2 Oxygen Delivery Method Room Air Weight: 177 lb 11.081 oz Body Mass Index (BMI) 25.3 Intake and Output for Last 24 Hours 09/16/20 09/17/20 09/18/20 23:59 23:59 23:59 Intake Total 727.75 / 727.75 1401.25 / 1401.25 Output Total 1225 / 1225 1350 / 1350 200 / 200 Balance -497.25 / -497.25 51.25 / 51.25 -200 / -200 General: Alert, Cooperative, No apparent distress Abdomen: Soft, Distended, Tender - Left abdomen, no peritoneal signs Microbiology Past 72 Hours 09/12/20 08:35 Blood Culture (Wb) - Anticubital Left Blood Culture - Final No growth in 5 days. 09/12/20 08:23 Blood Culture (Wb) - Anticubital Right Blood Culture - Final No growth in 5 days. 09/14/20 04:50 Sputum, Expectorated/Coughed Gram Stain - Final 09/14/20 04:50 Sputum, Expectorated/Coughed Respiratory Culture - Final Meth. resistant Staph. aureus Streptococcus agalactiae (B) Laboratory Results 09/16/20 06:03: Diff Path Review Reviewed 09/17/20 06:00: Diff Path Review Reviewed 09/18/20 05:55: Sodium 140, Potassium 4.0, Chloride 111 H, Carbon Dioxide 16.0 L, Anion Gap 13, BUN 82 H, Creatinine 3.88 H, Estim Creat Clear Calc 16.45, Est GFR (MDRD) Af Amer 20 L, Est GFR (MDRD) Non-Af 16 L, BUN/Creatinine Ratio 21.1 H, Glucose 103, Calcium 8.5 09/18/20 05:55: Random Vancomycin 24.2 H 09/18/20 05:55: WBC 38.3 H*, RBC 3.19 L, Hgb 10.0 L, Hct 30.9 L, MCV 96.9 H, MCH 31.3, MCHC 32.4, RDW Std Deviation 58.6 H, RDW Coeff of Arben 16.3 H, Plt Count 179, MPV 12.9 H, Neut % (Auto) Not Reportable, Absolute Neuts (auto) 14.9 H, Absolute Lymphs (auto) 19.54 H, Total Counted 100, Neutrophils % (Manual) 29 L, Band Neutrophils % 10 H, Lymphocytes % (Manual) 54 H, Monocytes % (Manual) 2, Metamyelocytes % 1, Promyelocytes % 1 H, Blast Cells % 3 H*, Diff Path Review May foll, Platelet Estimate ADEQUATE, RBC Morphology N CHROM, Acanthocytes (Spur) 1+ Current Medications Acetaminophen (Acetaminophen 325 Mg Tablet) 650 mg PO Q6H PRN PRN PRN Reason: Pain Score 1-10/Temp > 100.7 F Last Admin: 09/17/20 08:46 Dose: 650 mg Documented by: Albuterol Sulfate (Albuterol 2.5 Mg/3 Ml Vial.Neb.) 2.5 mg INHALATION Q2H PRN PRN PRN Reason: SOB/Wheezing Last Admin: 09/17/20 08:25 Dose: 2.5 mg Documented by: Albuterol/Ipratropium (Ipratropium/Albuterol Sulfate 3 Ml Ampul.Neb) 3 ml INHALATION Q4H.RT [facility] Last Admin: 09/16/20 20:18 Dose: 3 ml Documented by: Buspirone HCl (Buspirone 5 Mg Tablet) 12.5 mg PO BID [facility] Last Admin: 09/17/20 21:08 Dose: Not Given Documented by: Sodium Chloride () 250 mls @ 15 mls/hr IV .[id number] PRN PRN Reason: Saline Flush Last Infusion: 09/16/20 12:53 Dose: Infused Documented by: Sodium Chloride () 250 mls @ 15 mls/hr IV .[id number] PRN PRN Reason: Additional IVPB Infusion Pantoprazole Sodium 40 mg/ (Sodium Chloride) 110 mls @ 330 mls/hr IV Q24 [facility] Last Infusion: 09/17/20 10:18 Dose: Infused Documented by: Ceftriaxone Sodium (Rocephin) 1 gm in 50 mls @ 100 mls/hr IV Q24@2200 [facility] Last Infusion: 09/17/20 22:51 Dose: Infused Documented by: Vancomycin IV Pharmacy to Dose (1 each/ Sodium Chloride) 500 mls @ 250 mls/hr IV PRN PRN; Protocol PRN Reason: RX TO DOSE Sodium Chloride () 1,000 mls @ 75 mls/hr IV .[id number] [facility] Last Infusion: 09/17/20 23:59 Dose: 75 mls/hr Documented by: Nitroglycerin (Nitroglycerin (Inpatient Use) 0.4 Mg Tab.Subl) 0.4 mg SL Q5M PRN PRN Reason: CARDIAC/CHEST PAIN Ondansetron HCl (Ondansetron 4 Mg/2 Ml Vial) 4 mg IV Q8H PRN PRN PRN Reason: NAUSEA/VOMITING Prochlorperazine Edisylate (Prochlorperazine 10 Mg/2 Ml Vial) 5 mg IV Q4H PRN PRN PRN Reason: Breakthrough Nausea/Vomiting Quetiapine Fumarate (Quetiapine 100 Mg Tablet) 200 mg PO BREAKFAST [facility] Last Admin: 09/17/20 08:47 Dose: 200 mg Documented by: Quetiapine Fumarate (Quetiapine 100 Mg Tablet) 400 mg PO QHS [facility] Last Admin: 09/17/20 21:08 Dose: Not Given Documented by: Senna/Docusate Sodium (Senna/Docusate Sodium 1 Tablet) 2 tablet GT BID PRN PRN Reason: Constipation Sodium Chloride (0.9% Saline Lock 10 Ml Syringe) 10 - 40 ml IV UD PRN PRN Reason: SALINE FLUSH Last Admin: 09/17/20 17:18 Dose: 10 ml Documented by: Medical Necessity - Tobacco Use Smoking Status: Never smoker Assessment/Plan All Active Problems (Last Reviewed 08/27/20 @ 14:23 by Kacie Babcock RN) Pneumonia (Acute) Renal failure (Acute) Debility (Acute) Weight loss, unintentional (Acute) Anxiety (Resolved) Atherosclerotic heart disease (Resolved) Bipolar 1 disorder (Resolved) COPD (chronic obstructive pulmonary disease) (Resolved) Chronic lymphocytic 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 N.p.o./IV fluids, NG. We will get a small bowel follow-through today. 2. Leukocytosis?Abx per ID; ? could be due to CLL Addendum: Patient small bowel follow-through is mostly staying in the stomach as far as contrast. Likely ileus. We will continue to get KUBs and also get another 1 in the morning. Also plan to give patient enemas to see if that helps resolve the ileus. Raquel Melissa M.D. Pager: [phone] [facility] [address] [place] [address], [facility], [address] [place] [address] Office: [phone] Inpatient E&M: 59127 [facility] L3
[2020-09-18] MEDS: 0.9% Saline Lock 10 ML Syringe IV ×2 (10:49→15:24)
--- NOTE | 2020-09-18 11:10 | PCM.CONS.P ---
Problem List (1) Debility Status: Acute (2) Weight loss, unintentional Status: Acute (3) Hypothyroidism Status: Chronic (4) Bipolar 1 disorder Status: Chronic (5) COPD (chronic obstructive pulmonary disease) Status: Chronic (6) Schizo affective schizophrenia Status: Chronic (7) Lymphocytosis Status: Chronic (8) Anemia Status: Chronic (9) CLL (chronic lymphocytic leukemia) Status: Chronic (10) Renal failure Status: Acute (11) Presence of permanent cardiac pacemaker Status: Chronic Comment: Pacemaker placement 1992;Replacement of pulse generator 1999; Implant [employer] Pacemaker 2004; Implant of dual chamber [employer] pacemaker 12/17/10; (12) Pure hypercholesterolemia Status: Chronic (13) Essential hypertension Status: Chronic (14) Sinoatrial node dysfunction Status: Chronic (15) correction use of drug Status: Chronic Comment: Antihyperlipidemic (16) Retinopathy Status: Chronic History of Present Illness Date of Consult: 09/18/20 Reason for Consult: debility, wt loss Requesting physician: [] Primary care physician: Dr. Guillermo Espinal MD - History of Present Illness The patient is a 75 year old M with PMH as below, presented to the ED 09/12/2020 with complaints of increased shortness of breath over the course of a couple of days low-grade fever, history of urosepsis with moss catheter, and nausea and vomiting. Seen today for initial palliative care consultation secondary to decrease in ADLs, weight loss, and overall debility. Patient is a resident at [facility], staff noticed he was more short of breath, congested, and had decreased urinary output. He was saturating 80% on 3 L and was normally not on supplemental oxygen. He has some left lower quadrant abdominal pain. CTA chest showed left lower lobe pneumonia. He was admitted to the intensive care unit for further evaluation and management. Given IV fluid hydration and started on broad-spectrum antibiotics. He required BiPAP. Patient is DNR CCA, no intubation. Nephrology was consulted possible pyelonephritis. Renal ultrasound showed no evidence of hydronephrosis, does have a large cyst 6 cm but looks simple. Creatinine initially elevated at 5.7, has not require any renal replacement therapy. Discharge 09/16, however continued with abdominal pain. KUB showed small bowel obstruction s/p NGT. ID also consulted for persistent fever, MSSA/GBS pneumonia. Patient resting in bed,, states he feels very tired and needs his rest. His abdomen is still painful but mild at this point. NG tube for decompression. States he was down in x-ray all morning. Reports he can no longer walk due to his left leg going numb quite some time ago. His left upper extremity is quite swollen, states it is not really painful. Elevated on a pillow. No current N/V/D. He is afebrile today, white count has went from 27,000-38,000. He appears very pale and weak. Again, patient has been a resident of [facility] for the past 7 years. POA is Idania Gandara. Her home phone number is [phone]. His other POA is his sister, Elvia Baptiste, her number is [phone]. Patient Problems: Chronic Problems (Last Reviewed 08/27/20 @ 14:23 by Kacie Babcock RN) Hypothyroidism (Chronic) Bipolar 1 disorder (Chronic) COPD (chronic obstructive pulmonary disease) (Chronic) Schizo affective schizophrenia (Chronic) Lymphocytosis (Chronic) Anemia (Chronic) Schizophrenia (Chronic) CLL (chronic lymphocytic leukemia) (Chronic) Presence of permanent cardiac pacemaker (Chronic) Pacemaker placement 1992;Replacement of pulse generator 1999; Implant [employer] Pacemaker 2004; Implant of dual chamber 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) Antihyperlipidemic Retinopathy (Chronic) Surgical History: - - History of pacemaker, back surgeries ?2 Psychiatric History: - - Bipolar disorder, schizoaffective personality disorder Home Medications: Ambulatory Orders Medication Instructions Recorded Acetaminophen [Tylenol] 650 mg PO Q4H PRN PRN 09/14/15 Allopurinol [Zyloprim] 100 mg PO DAILYCM 09/14/15 Aspirin [Aspirin, Baby] 81 mg PO DAILY@0800 09/14/15 Atorvastatin Calcium [Lipitor] 10 mg PO QHS 09/14/15 Divalproex Sodium [Depakote] 250 mg PO BID 09/14/15 Enalapril Maleate [Vasotec] 5 mg PO DAILY 09/14/15 Levothyroxine [Synthroid] 100 mcg PO DAILY 09/14/15 Quetiapine Fumarate [Seroquel] 200 mg PO BREAKFAST 09/14/15 Quetiapine Fumarate [Seroquel] 400 mg PO QHS 09/14/15 Risperidone [Risperdal] 3 mg PO QHS 09/14/15 traZODone [Desyrel] 50 mg PO QHS 09/14/15 alprazolam 1 mg tablet 1 mg PO DAILY PRN tab 10/18/18 guaifenesin 100 mg/5 mL oral liquid 200 mg PO Q6H PRN 10/18/18 ipratropium 0.5 mg-albuterol 3 mg 3 ml INHALATION Q4H PRN ml 10/18/18 (2.5 mg base)/3 mL nebulization soln magnesium hydroxide 400 mg/5 mL 30 ml PO DAILY ml 10/18/18 oral suspension aluminum-mag hydroxide-simethicone 15 ml PO Q4H ml 12/14/18 200 mg-200 mg-20 mg/5 mL oral susp buspirone 5 mg tablet 12.5 mg PO BID tab 11/03/19 mirabegron 50 mg tablet,extended 50 mg PO DAILY 14 Days #14 tab 11/03/19 release 24 hr Levofloxacin [Levaquin] 500 mg PO QHS 09/12/20 Allergies No Known Allergies Allergy (Verified 09/12/20 08:19) Maternal Family History: Family History (Last Reviewed 08/27/20 @ 14:03 by Caro Prieto) Mother CAD (coronary artery disease) History Items: Heart Disease - Social History Lives: Snf Smoking Status: Never smoker Review of Systems Constitutional: Reports: Anorexia, Chills, Malaise, Weakness, Weight Change, Fatigue. Denies: Fever, Night Sweats Eyes: Denies: Vision Change HEENT: Denies: Difficulty Swallowing, Head Aches, Sinus Congestion, Sinus Drainage, Sore Throat Cardiovascular: Denies: Chest Pain, Light Headedness, Palpitations Respiratory: Denies: Cough, Shortness of Breath, Shortness of breath at rest, Sputum production, Wheezing Gastrointestinal: Reports: Constipation. Denies: Abdominal Pain, Nausea, Vomiting Genitourinary: Reports: - - Chronic indwelling Moss catheter. Denies: Dysuria Musculoskeletal: Reports: Leg Pain. Denies: Joint Pain, Joint Tenderness Skin: Denies: Rash Neurological: Reports: Numbness, Tingling. Denies: Focal weakness, Seizures Psychiatric: Reports: Anxiety, Depression, - - Schizophrenia. Denies: Homicidal Ideations, Suicidal Ideations Hematologic/ Lymphatic: Reports: Anemia, Easy Bruising. Denies: Easy Bleeding Physical Exam Subjective: Cachectic, elderly frail individual. Resting in bed with eyes closed, denies any needs other than wanting to be covered up since he is cold. General: Alert, Cooperative, No apparent distress HEENT: Atraumatic, Normocephalic Oral: Dry Mucosa, - - Edentulous Neck: Supple Lungs: Clear to auscultation, Diminished Cardiovascular: Regular rate, Regular Rhythm, Normal S1, Normal S2 Abdomen: Distended, Tender Extremities: Edema - Left upper extremity Skin: No rashes Musculoskeletal: Cachexia, Muscle Wasting Neurological: Neuro grossly intact - Limited exam secondary to fatigue Psych/Mental Status: Appropriate, Flat Affect Objective: Vital Signs Temp Pulse Resp BP Pulse Ox 97.3 F L 80 20 H 137/80 H 94 09/18/20 10:53 09/18/20 10:54 09/18/20 10:53 09/18/20 10:53 09/18/20 10:53 Oxygen Flow Rate (L/min) 2 Oxygen Delivery Method Room Air Weight: 80.6 kg Body Mass Index (BMI) 25.3 Intake and Output for Last 24 Hours 09/16/20 09/17/20 09/18/20 23:59 23:59 23:59 Intake Total 727.75 / 727.75 1401.25 / 1401.25 110 / 110 Output Total 1225 / 1225 1350 / 1350 200 / 200 Balance -497.25 / -497.25 51.25 / 51.25 -90 / -90 Microbiology Past 72 Hours 09/12/20 08:35 Blood Culture - Final Blood Culture (Wb) - Anticubital Left No growth in 5 days. 09/12/20 08:23 Blood Culture - Final Blood Culture (Wb) - Anticubital Right No growth in 5 days. 09/14/20 04:50 Gram Stain - Final Sputum, Expectorated/Coughed Respiratory Culture - Final Meth. resistant Staph. aureus Streptococcus agalactiae (B) Laboratory Tests Past 24 Hrs 09/16/20 09/17/20 09/18/20 06:03 06:00 05:55 WBC RBC Hgb Hct MCV MCH MCHC RDW Std Deviation RDW Coeff of Arben Plt Count MPV Neut % (Auto) Absolute Neuts (auto) Absolute Lymphs (auto) Total Counted Neutrophils % (Manual) Band Neutrophils % Lymphocytes % (Manual) Monocytes % (Manual) Metamyelocytes % Promyelocytes % Blast Cells % Diff Path Review Reviewed Reviewed Platelet Estimate RBC Morphology Acanthocytes (Spur) Sodium 140 Potassium 4.0 Chloride 111 H Carbon Dioxide 16.0 L Anion Gap 13 BUN 82 H Creatinine 3.88 H Estim Creat Clear Calc 16.45 Est GFR (MDRD) Af Amer 20 L Est GFR (MDRD) Non-Af 16 L BUN/Creatinine Ratio 21.1 H Glucose 103 Calcium 8.5 Random Vancomycin 09/18/20 09/18/20 05:55 05:55 WBC 38.3 H* RBC 3.19 L Hgb 10.0 L Hct 30.9 L MCV 96.9 H MCH 31.3 MCHC 32.4 RDW Std Deviation 58.6 H RDW Coeff of Arben 16.3 H Plt Count 179 MPV 12.9 H Neut % (Auto) Not Reportable Absolute Neuts (auto) 14.9 H Absolute Lymphs (auto) 19.54 H Total Counted 100 Neutrophils % (Manual) 29 L Band Neutrophils % 10 H Lymphocytes % (Manual) 54 H Monocytes % (Manual) 2 Metamyelocytes % 1 Promyelocytes % 1 H Blast Cells % 3 H* Diff Path Review May foll Platelet Estimate ADEQUATE RBC Morphology N CHROM Acanthocytes (Spur) 1+ Sodium Potassium Chloride Carbon Dioxide Anion Gap BUN Creatinine Estim Creat Clear Calc Est GFR (MDRD) Af Amer Est GFR (MDRD) Non-Af BUN/Creatinine Ratio Glucose Calcium Random Vancomycin 24.2 H Assessment/Plan All Active Problems (Last Reviewed 08/27/20 @ 14:23 by Kacie Babcock, ZEESHAN) Pneumonia (Acute) Renal failure (Acute) Debility (Acute) Weight loss, unintentional (Acute) Anxiety (Resolved) Atherosclerotic heart disease (Resolved) Bipolar 1 disorder (Resolved) COPD (chronic obstructive pulmonary disease) (Resolved) Chronic lymphocytic leukemia of B-cell type not having achieved remission (Resolved) Dementia (Resolved) Dementia without behavioral disturbance (Resolved) HCAP (healthcare-associated pneumonia) (Resolved) Hypo-osmolality and hyponatremia (Resolved) Hyponatremia (Resolved) Hypothyroidism (Resolved) Insomnia (Resolved) Obsessive compulsive disorder (Resolved) Retention of urine (Resolved) Schizoaffective disorder (Resolved) Schizoaffective disorder (Resolved) Schizoaffective disorder (Resolved) Schizoaffective disorder (Resolved) 75-year-old male, history of CLL, progressive weakness, schizophrenia, resident of [facility]. Seen today for initial palliative consultation secondary to decrease in ADLs, weight loss, and overall debility. 1. Weakness/debility: Multifactorial, states he has been nonambulatory secondary to numbness and tingling of the left lower extremity. Unclear if this is been worked up. He is participating in therapy here at the hospital. We will follow him as an outpatient. 2. Anemia/CLL/schizoaffective disorder/bipolar/COPD/hypothyroidism/CKD/HTN/pacemaker: Complicates overall care, management, recovery, and prognosis. Thank you for the opportunity to participate in this patient's care, please do not hesitate to contact [facility] with any further questions or concerns. Palliative direct line is [phone]. We will have RN follow up approximately 3 days after discharge to home and will discuss palliative services further at that time. Will need to call POA(s) Elvia Baptiste or Idania Gandara. Greater than 50% of F2F visit dedicated to education and counseling of palliative care services, medications, comorbid conditions and potential assistance with management, and plan of care moving forward. Start time: 1109 End time: 1146
--- NOTE | 2020-09-18 11:50 | CPS ---
Pt continues to refused aerosols.
[2020-09-18 13:00] LABS: Pathologist Review Reviewed
--- NOTE | 2020-09-18 13:16 | PCM.PN.REN ---
Patient Problems: Active and Suspected Problems (Last Reviewed 08/27/20 @ 14:23 by Kacie Babcock RN) Pneumonia (Acute) Renal failure (Acute) Debility (Acute) Weight loss, unintentional (Acute) - Physical Exam Vitals/I&O's: Vital Signs Temp Pulse Resp BP Pulse Ox 97.3 F L 80 20 H 137/80 H 94 09/18/20 10:53 09/18/20 10:54 09/18/20 10:53 09/18/20 10:53 09/18/20 10:53 Oxygen Flow Rate (L/min) 2 Oxygen Delivery Method Room Air Weight: 80.6 kg Body Mass Index (BMI) 25.3 Intake and Output for Last 24 Hours 09/16/20 09/17/20 09/18/20 23:59 23:59 23:59 Intake Total 727.75 / 727.75 1401.25 / 1401.25 110 / 110 Output Total 1225 / 1225 1350 / 1350 200 / 200 Balance -497.25 / -497.25 51.25 / 51.25 -90 / -90 General: Alert HEENT: Atraumatic, Normocephalic Neck: Trachea Midline Lungs: Clear to auscultation, Normal air movement Cardiovascular: Regular rate, Regular Rhythm, Normal S1, Normal S2 Abdomen: Bowel Sounds Present, Soft Extremities: No clubbing Microbiology Past 72 Hours 09/12/20 08:35 Blood Culture (Wb) - Anticubital Left Blood Culture - Final No growth in 5 days. 09/12/20 08:23 Blood Culture (Wb) - Anticubital Right Blood Culture - Final No growth in 5 days. 09/14/20 04:50 Sputum, Expectorated/Coughed Gram Stain - Final 09/14/20 04:50 Sputum, Expectorated/Coughed Respiratory Culture - Final Meth. resistant Staph. aureus Streptococcus agalactiae (B) Laboratory Results 09/18/20 05:55: Sodium 140, Potassium 4.0, Chloride 111 H, Carbon Dioxide 16.0 L, Anion Gap 13, BUN 82 H, Creatinine 3.88 H, Estim Creat Clear Calc 16.45, Est GFR (MDRD) Af Amer 20 L, Est GFR (MDRD) Non-Af 16 L, BUN/Creatinine Ratio 21.1 H, Glucose 103, Calcium 8.5 09/18/20 05:55: Random Vancomycin 24.2 H 09/18/20 05:55: WBC 38.3 H*, RBC 3.19 L, Hgb 10.0 L, Hct 30.9 L, MCV 96.9 H, MCH 31.3, MCHC 32.4, RDW Std Deviation 58.6 H, RDW Coeff of Arben 16.3 H, Plt Count 179, MPV 12.9 H, Neut % (Auto) Not Reportable, Absolute Neuts (auto) 14.9 H, Absolute Lymphs (auto) 19.54 H, Total Counted 100, Neutrophils % (Manual) 29 L, Band Neutrophils % 10 H, Lymphocytes % (Manual) 54 H, Monocytes % (Manual) 2, Metamyelocytes % 1, Promyelocytes % 1 H, Blast Cells % 3 H*, Diff Path Review Reviewed, Platelet Estimate ADEQUATE, RBC Morphology N CHROM, Acanthocytes (Spur) 1+ Current Medications Acetaminophen (Acetaminophen 325 Mg Tablet) 650 mg PO Q6H PRN PRN PRN Reason: Pain Score 1-10/Temp > 100.7 F Last Admin: 09/17/20 08:46 Dose: 650 mg Documented by: Albuterol Sulfate (Albuterol 2.5 Mg/3 Ml Vial.Neb.) 2.5 mg INHALATION Q2H PRN PRN PRN Reason: SOB/Wheezing Last Admin: 09/17/20 08:25 Dose: 2.5 mg Documented by: Albuterol/Ipratropium (Ipratropium/Albuterol Sulfate 3 Ml Ampul.Neb) 3 ml INHALATION Q4H.RT [facility] Last Admin: 09/16/20 20:18 Dose: 3 ml Documented by: Buspirone HCl (Buspirone 5 Mg Tablet) 12.5 mg PO BID [facility] Last Admin: 09/18/20 09:17 Dose: Not Given Documented by: Sodium Chloride () 250 mls @ 15 mls/hr IV .[id number] PRN PRN Reason: Saline Flush Last Infusion: 09/16/20 12:53 Dose: Infused Documented by: Sodium Chloride () 250 mls @ 15 mls/hr IV .[id number] PRN PRN Reason: Additional IVPB Infusion Pantoprazole Sodium 40 mg/ (Sodium Chloride) 110 mls @ 330 mls/hr IV Q24 [facility] Last Infusion: 09/18/20 11:08 Dose: Infused Documented by: Ceftriaxone Sodium (Rocephin) 1 gm in 50 mls @ 100 mls/hr IV Q24@2200 [facility] Last Infusion: 09/17/20 22:51 Dose: Infused Documented by: Vancomycin IV Pharmacy to Dose (1 each/ Sodium Chloride) 500 mls @ 250 mls/hr IV PRN PRN; Protocol PRN Reason: RX TO DOSE Sodium Chloride () 1,000 mls @ 75 mls/hr IV .[id number] [facility] Last Infusion: 09/17/20 23:59 Dose: 75 mls/hr Documented by: Nitroglycerin (Nitroglycerin (Inpatient Use) 0.4 Mg Tab.Subl) 0.4 mg SL Q5M PRN PRN Reason: CARDIAC/CHEST PAIN Ondansetron HCl (Ondansetron 4 Mg/2 Ml Vial) 4 mg IV Q8H PRN PRN PRN Reason: NAUSEA/VOMITING Prochlorperazine Edisylate (Prochlorperazine 10 Mg/2 Ml Vial) 5 mg IV Q4H PRN PRN PRN Reason: Breakthrough Nausea/Vomiting Quetiapine Fumarate (Quetiapine 100 Mg Tablet) 200 mg PO BREAKFAST [facility] Last Admin: 09/18/20 09:17 Dose: Not Given Documented by: Quetiapine Fumarate (Quetiapine 100 Mg Tablet) 400 mg PO QHS [facility] Last Admin: 09/17/20 21:08 Dose: Not Given Documented by: Senna/Docusate Sodium (Senna/Docusate Sodium 1 Tablet) 2 tablet GT BID PRN PRN Reason: Constipation Sodium Chloride (0.9% Saline Lock 10 Ml Syringe) 10 - 40 ml IV UD PRN PRN Reason: SALINE FLUSH Last Admin: 09/18/20 10:49 Dose: 20 ml Documented by: Medical Necessity - Tobacco Use Smoking Status: Never smoker Assessment/Plan All Active Problems (Last Reviewed 08/27/20 @ 14:23 by Kacie Babcock RN) Pneumonia (Acute) Renal failure (Acute) Debility (Acute) Weight loss, unintentional (Acute) Anxiety (Resolved) Atherosclerotic heart disease (Resolved) Bipolar 1 disorder (Resolved) COPD (chronic obstructive pulmonary disease) (Resolved) Chronic lymphocytic leukemia of B-cell type not having achieved remission (Resolved) Dementia (Resolved) Dementia without behavioral disturbance (Resolved) HCAP (healthcare-associated pneumonia) (Resolved) Hypo-osmolality and hyponatremia (Resolved) Hyponatremia (Resolved) Hypothyroidism (Resolved) Insomnia (Resolved) Obsessive compulsive disorder (Resolved) Retention of urine (Resolved) Schizoaffective disorder (Resolved) Schizoaffective disorder (Resolved) Schizoaffective disorder (Resolved) Schizoaffective disorder (Resolved) JOSE ARMANDO?ATN Renal cysts bilaterally Scr 3.88 start ivf d/w and his sister present at the bedside and use of Ms. Buckner avoid neprhtoxins Recommend to dose vancomycin with levels to avoid nephrotoxicity
[2020-09-18] MEDS: 0.9% Normal Saline 1,000 ML 75 ML IV (15:24)
--- NOTE | 2020-09-18 16:20 | PN_ITS ---
Patient Problems: Active and Suspected Problems (Last Reviewed 08/27/20 @ 14:23 by Kacie Babcock RN) Pneumonia (Acute) Renal failure (Acute) Debility (Acute) Weight loss, unintentional (Acute) Reason for Visit: Follow-up on severe sepsis secondary to pneumonia/UTI/small bowel ileus Subjective: Patient was seen and examined. He had a small bowel follow-up but could not complete. He is still NPO. Objective: Physical exam General: Awake, oriented x3, responding appropriately. HEENT: Atraumatic, PERRLA, EOMI, Normocephalic Oral: Oral mucosa is dry Neck: Supple, No JVD, Negative Carotid Bruits Lungs: Air entry diminished in bilateral lung bases. No crepitation/rhonchi. Cardiovascular: Regular rate, Regular Rhythm, Normal S1, Normal S2, left second ICS/LLSB systolic murmur grade 3/6 Abdomen: Soft, tenderness present over left lower quadrant. Mild distention. Bowel sounds sluggish : Indwelling Raymond catheter. Clear urine in the Raymond catheter. No suprapubic tenderness. Extremities: Mild bilateral ankle edema, Capillary Refill Less than 3 Seconds Skin: Skin is dry. No open ulcer. Musculoskeletal: Bilateral knee and hip joint arthritis and stiffness. No Tenderness to Palpation of Joints or Extremities Neurological: Cranial nerves II-XII grossly intact, Deep Tendon Reflexes 2+/4 Psych/Mental Status: Awake and pleasant behavior Vitals/I&O's: Vital Signs Temp Pulse Resp BP Pulse Ox 97.8 F 74 20 H 127/76 H 95 09/18/20 15:34 09/18/20 15:34 09/18/20 15:34 09/18/20 15:34 09/18/20 15:34 Oxygen Flow Rate (L/min) 2 Oxygen Delivery Method Room Air Weight: 80.6 kg Body Mass Index (BMI) 25.3 Intake and Output for Last 24 Hours 09/16/20 09/17/20 09/18/20 23:59 23:59 23:59 Intake Total 727.75 / 727.75 1401.25 / 1401.25 863.75 / 863.75 Output Total 1225 / 1225 1350 / 1350 350 / 350 Balance -497.25 / -497.25 51.25 / 51.25 513.75 / 513.75 Microbiology Past 72 Hours 09/12/20 08:35 Blood Culture (Wb) - Anticubital Left Blood Culture - Final No growth in 5 days. 09/12/20 08:23 Blood Culture (Wb) - Anticubital Right Blood Culture - Final No growth in 5 days. 09/14/20 04:50 Sputum, Expectorated/Coughed Gram Stain - Final 09/14/20 04:50 Sputum, Expectorated/Coughed Respiratory Culture - Final Meth. resistant Staph. aureus Streptococcus agalactiae (B) Laboratory Results 09/18/20 05:55: Sodium 140, Potassium 4.0, Chloride 111 H, Carbon Dioxide 16.0 L , Anion Gap 13, BUN 82 H, Creatinine 3.88 H, Estim Creat Clear Calc 16.45, Est GFR (MDRD) Af Amer 20 L, Est GFR (MDRD) Non-Af 16 L, BUN/Creatinine Ratio 21.1 H , Glucose 103, Calcium 8.5 09/18/20 05:55: Random Vancomycin 24.2 H 09/18/20 05:55: WBC 38.3 H*, RBC 3.19 L, Hgb 10.0 L, Hct 30.9 L, MCV 96.9 H, MCH 31.3, MCHC 32.4, RDW Std Deviation 58.6 H, RDW Coeff of Arben 16.3 H, Plt Count 179, MPV 12.9 H, Neut % (Auto) Not Reportable, Absolute Neuts (auto) 14.9 H, Absolute Lymphs (auto) 19.54 H, Total Counted 100, Neutrophils % (Manual) 29 L, Band Neutrophils % 10 H, Lymphocytes % (Manual) 54 H, Monocytes % (Manual) 2, Metamyelocytes % 1, Promyelocytes % 1 H, Blast Cells % 3 H*, Diff Path Review Reviewed, Platelet Estimate ADEQUATE, RBC Morphology N CHROM, Acanthocytes (Spur) 1+ Current Medications Acetaminophen (Acetaminophen 325 Mg Tablet) 650 mg PO Q6H PRN PRN PRN Reason: Pain Score 1-10/Temp > 100.7 F Last Admin: 09/17/20 08:46 Dose: 650 mg Documented by: Albuterol Sulfate (Albuterol 2.5 Mg/3 Ml Vial.Neb.) 2.5 mg INHALATION Q2H PRN PRN PRN Reason: SOB/Wheezing Last Admin: 09/17/20 08:25 Dose: 2.5 mg Documented by: Albuterol/Ipratropium (Ipratropium/Albuterol Sulfate 3 Ml Ampul.Neb) 3 ml INHALATION Q4H.RT [facility] Last Admin: 09/16/20 20:18 Dose: 3 ml Documented by: Buspirone HCl (Buspirone 5 Mg Tablet) 12.5 mg PO BID [facility] Last Admin: 09/18/20 09:17 Dose: Not Given Documented by: Sodium Chloride () 250 mls @ 15 mls/hr IV .[id number] PRN PRN Reason: Saline Flush Last Infusion: 09/16/20 12:53 Dose: Infused Documented by: Sodium Chloride () 250 mls @ 15 mls/hr IV .[id number] PRN PRN Reason: Additional IVPB Infusion Pantoprazole Sodium 40 mg/ (Sodium Chloride) 110 mls @ 330 mls/hr IV Q24 [facility] Last Infusion: 09/18/20 11:08 Dose: Infused Documented by: Ceftriaxone Sodium (Rocephin) 1 gm in 50 mls @ 100 mls/hr IV Q24@2200 [facility] Last Infusion: 09/17/20 22:51 Dose: Infused Documented by: Vancomycin IV Pharmacy to Dose (1 each/ Sodium Chloride) 500 mls @ 250 mls/hr IV PRN PRN; Protocol PRN Reason: RX TO DOSE Sodium Chloride () 1,000 mls @ 75 mls/hr IV .[id number] [facility] Last Admin: 09/18/20 15:24 Dose: 75 mls/hr Documented by: Sodium Chloride () 1,000 mls @ 75 mls/hr IV .[id number] [facility] Nitroglycerin (Nitroglycerin (Inpatient Use) 0.4 Mg Tab.Subl) 0.4 mg SL Q5M PRN PRN Reason: CARDIAC/CHEST PAIN Ondansetron HCl (Ondansetron 4 Mg/2 Ml Vial) 4 mg IV Q8H PRN PRN PRN Reason: NAUSEA/VOMITING Prochlorperazine Edisylate (Prochlorperazine 10 Mg/2 Ml Vial) 5 mg IV Q4H PRN PRN PRN Reason: Breakthrough Nausea/Vomiting Quetiapine Fumarate (Quetiapine 100 Mg Tablet) 200 mg PO BREAKFAST [facility] Last Admin: 09/18/20 09:17 Dose: Not Given Documented by: Quetiapine Fumarate (Quetiapine 100 Mg Tablet) 400 mg PO QHS [facility] Last Admin: 09/17/20 21:08 Dose: Not Given Documented by: Senna/Docusate Sodium (Senna/Docusate Sodium 1 Tablet) 2 tablet GT BID PRN PRN Reason: Constipation Sodium Chloride (0.9% Saline Lock 10 Ml Syringe) 10 - 40 ml IV UD PRN PRN Reason: SALINE FLUSH Last Admin: 09/18/20 15:24 Dose: 20 ml Documented by: STROKE Vital Signs/Narrative: Vital Signs Temp Pulse Resp BP Pulse Ox 09/18/20 15:34 97.8 F 74 20 H 127/76 H 95 09/18/20 13:48 70 09/18/20 13:26 76 Medical Necessity - Tobacco Use Smoking Status: Never smoker Assessment/Plan All Active Problems (Last Reviewed 08/27/20 @ 14:23 by Kacie Babcock RN) Pneumonia (Acute) Renal failure (Acute) Debility (Acute) Weight loss, unintentional (Acute) Anxiety (Resolved) Atherosclerotic heart disease (Resolved) Bipolar 1 disorder (Resolved) COPD (chronic obstructive pulmonary disease) (Resolved) Chronic lymphocytic leukemia of B-cell type not having achieved remission (Resolved) Dementia (Resolved) Dementia without behavioral disturbance (Resolved) HCAP (healthcare-associated pneumonia) (Resolved) Hypo-osmolality and hyponatremia (Resolved) Hyponatremia (Resolved) Hypothyroidism (Resolved) Insomnia (Resolved) Obsessive compulsive disorder (Resolved) Retention of urine (Resolved) Schizoaffective disorder (Resolved) Schizoaffective disorder (Resolved) Schizoaffective disorder (Resolved) Schizoaffective disorder (Resolved) 1. Severe sepsis secondary to secondary to left lower lobe MRSA/beta strept pneumonia/Providencia stuartii, MDR, CAUTI due to indwelling Raymond catheter Blood cultures are negative. ID following Continue on IV vancomycin and ceftriaxone. 2. Acute hypoxic respiratory failure secondary to pneumonia, appears resolved 3. Acute small bowel ileus and gastric retention, persistent KUB and CT abd/pelvis with contrast shows moderate SBO Having small bowel follow-through today continue on gentle IVF 4. Acute kidney injury stage 3 on CKD stage II with proteinuria in urine, Cr slightly worse today; 3.88 from 3.62. Will continue on IVF Repeat blood work in am 5. 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 Rest of other co-morbidities are stable- schizoaffective disorder/sick sinus syndrome status post pacemaker/hypothyroidism/dyslipidemia 7. DVT PPx-SCDs Inpatient E&M: 08828 Subs Hosp L3
--- NOTE | 2020-09-18 19:18 | NURSING ---
1830 600 cc soap suds enema given again. Results were mostly mucoid liquid.
[2020-09-18] MEDS: Ceftriaxone 1 GM/50 ML BAG IV (21:35)
[2020-09-18] MEDS: QUEtiapine 100 MG Tablet 400 MG PO (21:45)
[2020-09-18] MEDS: busPIRone 5 MG Tablet 12.5 MG PO (21:46)
[2020-09-19] VITALS (10 sets, daily range): BP systolic 101–136; BP diastolic 58–78; PULSE 70–83; RESP 18; TEMP 36.4–36.7; O2SAT 93–97; BMI 27.1
[2020-09-19] MEDS: 0.9% Normal Saline 1,000 ML 75 ML IV (05:17)
[2020-09-19 06:36] LABS: Vancomycin, Random Level 18.2 ug/mL (0.0-15.0)
--- NOTE | 2020-09-19 07:30 | PCM.RX.CS ---
Consult Pharmacy has been consulted to manage selected antiobiotic: Vancomycin Type of Consult: Follow-up Suspected Infection: Pneumonia Labs: Sodium 140 mmol/L (136-145) 09/18/20 05:55 Potassium 4.0 mmol/L (3.5-5.1) 09/18/20 05:55 Chloride 111 mmol/L (98-107) H 09/18/20 05:55 Carbon Dioxide 16.0 mmol/L (21.0-32.0) L 09/18/20 05:55 Anion Gap 13 (5-15) 09/18/20 05:55 BUN 82 mg/dL (7-18) H 09/18/20 05:55 Creatinine 3.88 mg/dL (0.70-1.30) H 09/18/20 05:55 Est GFR (MDRD) Af Amer 20 mL/min (>60) L 09/18/20 05:55 Est GFR (MDRD) Non-Af 16 mL/min (>60) L 09/18/20 05:55 BUN/Creatinine Ratio 21.1 RATIO (10-20) H 09/18/20 05:55 Glucose 103 mg/dL (74-106) 09/18/20 05:55 Random Vancomycin 18.2 ug/mL (0.0-15.0) H 09/19/20 05:56 Microbiology: Microbiology 09/12/20 08:35 Blood Culture (Wb) - Anticubital Left Blood Culture - Final No growth in 5 days. 09/12/20 08:23 Blood Culture (Wb) - Anticubital Right Blood Culture - Final No growth in 5 days. 09/14/20 04:50 Sputum, Expectorated/Coughed Gram Stain - Final 09/14/20 04:50 Sputum, Expectorated/Coughed Respiratory Culture - Final Meth. resistant Staph. aureus Streptococcus agalactiae (B) 09/12/20 10:15 Urine Catheter - Raymond Urine Culture - Final Providencia stuartii 09/12/20 14:33 Mucosa - Nose Respiratory Panel (PCR) - Final 09/12/20 08:50 Urine Catheter - Raymond Legionella Antigen - Final 09/12/20 08:50 Urine Catheter - Raymond Streptococcus pneumoniae Antigen (M - Final 09/12/20 08:35 Mucosa - Nose SARS-CoV-2 Antigen (Rapid) - Final Goal Trough: 15-20 mcg/mL Pharmacy Plan for Drug Dosing: VANCOMYCIN LEVEL RECEIVED Current Vancomycin Dose: 1250MG IV X1 administered 09/17 @1322 Number of Doses Received: Dosing based on levels Vancomycin Level: 18.2 Hours Since Last Dose: 41 hr Renal Function: nnl today Renal Function Trend: nnl today Lab/Micro: SCx growing MRSA Vancomycin Plan/Comments: Random vancomycin level resulted in a value within goal of 15-20. Will give additional 1250mg IV x1 dose today and order another trough to determine next dose. Pending Level: RANDOM level 09/21/20 @0600 Pharmacy Service will continue to monitor and adjust dosing as required.
[2020-09-19 08:02] LABS: Absolute Lymphocyte Count 19.28 X10^3/uL (0.83-4.51); Absolute Neutrophil Count 10.1 X10^3/uL (2.0-7.7); Basophil# 0.08 X10^3/uL; Basophil% 0.2 % (0-1); Eosinophil# 1.14 X10^3/uL; Eosinophils% 3.3 % (0-5); Hematocrit 27.6 % (40-54); Hemoglobin 8.8 g/dL (13.0-16.5); Lymphocyte # 19.28 X10^3/ul (4.0); Lymphocyte % 55.2 % (19-41); Mean Corp Hgb Conc 31.9 g/dL (32-36); Mean Corpuscular Hgb 32.1 pg (27.0-32.0); Mean Corpuscular Volume 100.7 fL (80-94); Mean Platelet Vol. 12.6 fl (6.2-12.0); Monocyte# 2.58 X10^3/uL; Monocyte% 7.4 % (0-10); NRBC Flagged by Analyzer 0 % (0-5); Neutrophil # 10.09 X10^3/uL (2.7-7.7); Neutrophil % 28.9 % (47-70); POSITIVE COUNT YES; POSITIVE DIFFERENTIAL YES; POSITIVE MORPHOLOGY YES; Platelet Count 194 K/mm3 (150-450); RBC Distribution Width CV 16.5 % (11.6-14.6); RBC Distribution Width SD 60.2 fl (35.1-43.9); Red Blood Count 2.74 M/mm3 (4.6-6.2)
[2020-09-19 08:11] LABS: White Blood Count 34.9 K/mm3 (4.4-11.0)
[2020-09-19 08:15] LABS: AST(SGOT) 18 U/L (15-37); Alanine Aminotransfer ALT/SGPT 16 U/L (16-61); Albumin, Serum 2.1 g/dL (3.2-5.0); Alkaline Phosphatase 49 U/L (45-117); Anion Gap 9 (5-15); BUN 78 mg/dL (7-18); BUN/Creat Ratio 22.3 RATIO (10-20); Calcium,Total 7.6 mg/dL (8.5-10.1); Chloride 118 mmol/L (98-107); EST Glomerular Filtration Rate 18 mL/min (>60); Est Glom Filt Rate - Afr Amer 22 mL/min (>60); Estimated Creatinine Clearance 18.24 ml/min; Globulin 2.1 g/dL (2.2-4.2); Glucose 84 mg/dL (74-106); Potassium 3.7 mmol/L (3.5-5.1); Protein, Total 4.2 g/dL (6.4-8.2); Sodium Level 146 mmol/L (136-145)
--- NOTE | 2020-09-19 08:15 | RAD_ITS ---
STUDY: X-RAY - ABDOMEN/PELVIS REASON FOR EXAM: Male, 75 years old. Ileus follow-up. TECHNIQUE: Single AP view of the abdomen / pelvis. COMPARISON: 09/18/2020 FINDINGS: Normal visualized lung bases. Diffuse gaseous distention of both large and small bowel with air seen to the rectosigmoid, unchanged. There is no demonstrated free abdominal air. The visualized liver, spleen and kidneys are grossly normal in size and morphology. Normal soft tissue structures. Severe arthrosis of both hips unchanged. RAD/Abdomen Single View (Portable) IMPRESSION: Diffuse gaseous extension of large and small bowel, unchanged. The findings still compatible with ileus. Electronically Signed: Cj Banerjee MD at 13:27 EDT , Service support ,
[2020-09-19 08:23] LABS: Differential Indicated SCAN CRITERIA MET
[2020-09-19 08:27] LABS: Differential Comment SCANNED
--- NOTE | 2020-09-19 09:37 | PCM.PN.SRG ---
Patient Problems: Active and Suspected Problems (Last Reviewed 08/27/20 @ 14:23 by Kacie Babcock RN) Pneumonia (Acute) Renal failure (Acute) Debility (Acute) Weight loss, unintentional (Acute) Subjective: Patient has been getting multiple enemas has not had a lot of of bowel function with this. KUB does show still gaseous distended colon and small bowel does appear that the contrast is in the right colon.Only about 100 in the NG container - Physical Exam Vitals/I&O's: Vital Signs Temp Pulse Resp BP Pulse Ox 97.7 F L 83 18 133/69 H 95 09/19/20 09:30 09/19/20 09:30 09/19/20 09:30 09/19/20 09:30 09/19/20 09:30 Oxygen Flow Rate (L/min) 2 Oxygen Delivery Method Room Air Weight: 184 lb 1.376 oz Body Mass Index (BMI) 25.3 Intake and Output for Last 24 Hours 09/17/20 09/18/20 09/19/20 23:59 23:59 23:59 Intake Total 1401.25 / 1401.25 2107.50 / 2107.50 566.25 / 566.25 Output Total 1350 / 1350 630 / 630 125 / 125 Balance 51.25 / 51.25 1477.50 / 1477.50 441.25 / 441.25 General: Alert, Cooperative, No apparent distress Cardiovascular: Regular rate Abdomen: Soft, Non Tender, Distended - Mild to moderate Microbiology Past 72 Hours 09/12/20 08:35 Blood Culture (Wb) - Anticubital Left Blood Culture - Final No growth in 5 days. 09/12/20 08:23 Blood Culture (Wb) - Anticubital Right Blood Culture - Final No growth in 5 days. 09/14/20 04:50 Sputum, Expectorated/Coughed Gram Stain - Final 09/14/20 04:50 Sputum, Expectorated/Coughed Respiratory Culture - Final Meth. resistant Staph. aureus Streptococcus agalactiae (B) Laboratory Results 09/18/20 05:55: Diff Path Review Reviewed 09/19/20 05:56: Random Vancomycin 18.2 H 09/19/20 05:56: WBC 34.9 H*, RBC 2.74 L, Hgb 8.8 L, Hct 27.6 L, MCV 100.7 H, MCH 32.1 H, MCHC 31.9 L, RDW Std Deviation 60.2 H, RDW Coeff of Arben 16.5 H, Plt Count 194, MPV 12.6 H, Immature Gran % (Auto) 5.000 H, Neut % (Auto) 28.9 L, Lymph % (Auto) 55.2 H, Green % (Auto) 7.4, Eos % (Auto) 3.3, Baso % (Auto) 0.2, Absolute Neuts (auto) 10.1 H, Absolute Lymphs (auto) 19.28 H, Nucleated RBC % 0, Differential Comment SCANNED, Diff Path Review October09/19/20 05:56: Sodium 146 H, Potassium 3.7, Chloride 118 H, Carbon Dioxide 19.0 L, Anion Gap 9, BUN 78 H, Creatinine 3.50 H, Estim Creat Clear Calc 18.24, Est GFR (MDRD) Af Amer 22 L, Est GFR (MDRD) Non-Af 18 L, BUN/Creatinine Ratio 22.3 H, Glucose 84, Calcium 7.6 L, Total Bilirubin 0.30, AST 18, ALT 16, Alkaline Phosphatase 49, Total Protein 4.2 L, Albumin 2.1 L, Globulin 2.1 L, Albumin/Globulin Ratio 1.0 Current Medications Acetaminophen (Acetaminophen 325 Mg Tablet) 650 mg PO Q6H PRN PRN PRN Reason: Pain Score 1-10/Temp > 100.7 F Last Admin: 09/17/20 08:46 Dose: 650 mg Documented by: Albuterol Sulfate (Albuterol 2.5 Mg/3 Ml Vial.Neb.) 2.5 mg INHALATION Q2H PRN PRN PRN Reason: SOB/Wheezing Last Admin: 09/17/20 08:25 Dose: 2.5 mg Documented by: Albuterol/Ipratropium (Ipratropium/Albuterol Sulfate 3 Ml Ampul.Neb) 3 ml INHALATION Q4H.RT [facility] Last Admin: 09/16/20 20:18 Dose: 3 ml Documented by: Buspirone HCl (Buspirone 5 Mg Tablet) 12.5 mg PO BID [facility] Last Admin: 09/19/20 08:46 Dose: Not Given Documented by: Sodium Chloride () 250 mls @ 15 mls/hr IV .[id number] PRN PRN Reason: Saline Flush Last Infusion: 09/16/20 12:53 Dose: Infused Documented by: Sodium Chloride () 250 mls @ 15 mls/hr IV .[id number] PRN PRN Reason: Additional IVPB Infusion Pantoprazole Sodium 40 mg/ (Sodium Chloride) 110 mls @ 330 mls/hr IV Q24 [facility] Last Infusion: 09/18/20 11:08 Dose: Infused Documented by: Ceftriaxone Sodium (Rocephin) 1 gm in 50 mls @ 100 mls/hr IV Q24@2200 [facility] Last Infusion: 09/18/20 23:54 Dose: Infused Documented by: Vancomycin IV Pharmacy to Dose (1 each/ Sodium Chloride) 500 mls @ 250 mls/hr IV PRN PRN; Protocol PRN Reason: RX TO DOSE Sodium Chloride () 1,000 mls @ 75 mls/hr IV .[id number] [facility] Last Infusion: 09/19/20 08:05 Dose: 0 mls/hr Documented by: Vancomycin HCl 1,250 mg/ (Sodium Chloride) 275 mls @ 167 mls/hr IV X1 ONE Stop: 09/19/20 09:38 Last Admin: 09/19/20 08:44 Dose: 167 mls/hr Documented by: Nitroglycerin (Nitroglycerin (Inpatient Use) 0.4 Mg Tab.Subl) 0.4 mg SL Q5M PRN PRN Reason: CARDIAC/CHEST PAIN Ondansetron HCl (Ondansetron 4 Mg/2 Ml Vial) 4 mg IV Q8H PRN PRN PRN Reason: NAUSEA/VOMITING Prochlorperazine Edisylate (Prochlorperazine 10 Mg/2 Ml Vial) 5 mg IV Q4H PRN PRN PRN Reason: Breakthrough Nausea/Vomiting Quetiapine Fumarate (Quetiapine 100 Mg Tablet) 200 mg PO BREAKFAST [facility] Last Admin: 09/19/20 08:46 Dose: Not Given Documented by: Quetiapine Fumarate (Quetiapine 100 Mg Tablet) 400 mg PO QHS [facility] Last Admin: 09/18/20 21:45 Dose: 400 mg Documented by: Senna/Docusate Sodium (Senna/Docusate Sodium 1 Tablet) 2 tablet GT BID PRN PRN Reason: Constipation Sodium Chloride (0.9% Saline Lock 10 Ml Syringe) 10 - 40 ml IV UD PRN PRN Reason: SALINE FLUSH Last Admin: 09/18/20 15:24 Dose: 20 ml Documented by: Medical Necessity - Tobacco Use Smoking Status: Never smoker Assessment/Plan All Active Problems (Last Reviewed 08/27/20 @ 14:23 by Kacie Babcock RN) Pneumonia (Acute) Renal failure (Acute) Debility (Acute) Weight loss, unintentional (Acute) Anxiety (Resolved) Atherosclerotic heart disease (Resolved) Bipolar 1 disorder (Resolved) COPD (chronic obstructive pulmonary disease) (Resolved) Chronic lymphocytic 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 N.p.o./IV fluids, NG. KUB does show contrast in the right colon however still at a gas in the left colon as well as small bowel. We will continue enemas to hopefully help get the bowels moving. This can be difficult as patient is immobile hopefully getting patient up to the chair may help a little as well. 2. Leukocytosis?Abx per ID; ? could be due to CLL Raquel Melissa M.D. Pager: [phone] [facility] [address] [place] [address], Outpatient [address], [address] [place] [address] Office: [phone] Inpatient E&M: [id number] Subs Hosp L2
--- NOTE | 2020-09-19 09:54 | NT.THERAPY_ITS ---
Nutrition Therapy Report - History Nutrition Services has been consulted to:: Manage nutrient details of diet order Current diet / nutrition support order:: NPO w/ NG in place for suction. - Anthropometric Measurements Height:: 5 ft 9 in Weight:: 83.5 kg Body Mass Index (BMI):: 27.1 - Relevant Labs Relevant Labs:: WBC 34.9 K/mm3 (4.4-11.0) H* 09/19/20 05:56 RBC 2.74 M/mm3 (4.6-6.2) L 09/19/20 05:56 Hgb 8.8 g/dL (13.0-16.5) L 09/19/20 05:56 Hct 27.6 % (40-54) L 09/19/20 05:56 MCV 100.7 fL (80-94) H 09/19/20 05:56 MCH 32.1 pg (27.0-32.0) H 09/19/20 05:56 MCHC 31.9 g/dL (32-36) L 09/19/20 05:56 RDW Std Deviation 60.2 fl (35.1-43.9) H 09/19/20 05:56 RDW Coeff of Arben 16.5 % (11.6-14.6) H 09/19/20 05:56 Plt Count 143 K/mm3 (150-450) L 09/17/20 06:00 MPV 12.6 fl (6.2-12.0) H 09/19/20 05:56 Immature Gran % (Auto) 5.000 % (0.0-0.9) H 09/19/20 05:56 Neut % (Auto) 28.9 % (47-70) L 09/19/20 05:56 Lymph % (Auto) 55.2 % (19-41) H 09/19/20 05:56 Absolute Neuts (auto) 10.1 X10^3/uL (2.0-7.7) H 09/19/20 05:56 Absolute Lymphs (auto) 19.28 X10^3/uL (0.83-4.51) H 09/19/20 05:56 Neutrophils % (Manual) 29 % (47-70) L 09/18/20 05:55 Band Neutrophils % 10 % (0-5) H 09/18/20 05:55 Lymphocytes % (Manual) 54 % (19-41) H 09/18/20 05:55 Metamyelocytes % 4 % (0-1) H 09/17/20 06:00 Myelocytes % 5 % (0-0) H 09/17/20 06:00 Promyelocytes % 1 % (0-0) H 09/18/20 05:55 Blast Cells % 3 % (0-0) H* 09/18/20 05:55 PT 16.4 SECONDS (11.7-14.9) H 09/12/20 08:23 Sodium 146 mmol/L (136-145) H 09/19/20 05:56 Chloride 118 mmol/L (98-107) H 09/19/20 05:56 Carbon Dioxide 19.0 mmol/L (21.0-32.0) L 09/19/20 05:56 BUN 78 mg/dL (7-18) H 09/19/20 05:56 Creatinine 3.50 mg/dL (0.70-1.30) H 09/19/20 05:56 Est GFR (MDRD) Af Amer 22 mL/min (>60) L 09/19/20 05:56 Est GFR (MDRD) Non-Af 18 mL/min (>60) L 09/19/20 05:56 BUN/Creatinine Ratio 22.3 RATIO (10-20) H 09/19/20 05:56 Glucose 119 mg/dL (74-106) H 09/17/20 06:00 Lactic Acid 3.2 mmol/L (0.4-1.9) H* 09/12/20 14:30 Calcium 7.6 mg/dL (8.5-10.1) L 09/19/20 05:56 Phosphorus 5.0 mg/dL (2.5-4.9) H 09/14/20 04:45 ALT 15 U/L (16-61) L 09/14/20 04:45 Total Protein 4.2 g/dL (6.4-8.2) L 09/19/20 05:56 Albumin 2.1 g/dL (3.2-5.0) L 09/19/20 05:56 Globulin 2.1 g/dL (2.2-4.2) L 09/19/20 05:56 Albumin/Globulin Ratio 0.5 RATIO (0.9-2.4) L 09/14/20 04:45 - Assessment Food / Nutrition-Related History:: RDN attempted to speak w/ pt; pt sleeping soundly at this time. 09/14: NPO since admin, NGT removed; 09/15: Diet advanced Regular w/ mech (minced/moist) and nectar/mildly-thick liquids-overall intake at meals fair at best~50%. 09/16:Patient w/ left lower quadrant abdominal pain with mild distention- liquid diet to soft diet. 09/17: Changed to NPO d/t KUB results show Gas distended small bowel and colon- NG tube placed. 09/18: small bowel follow through 09/18 in several series, bowels are very slow-also had a soap suds enema. 09/19: remains NPO w/ NG in place low intermitent suction- 100 ml benitez ctioned. Limited bowel function despite enemas- repeat KUB shows gas in the left colon as well as small bowel. Pt w/ edema- Bilateral leg 1+, B arm 2+, L hand 2+, R hand 1+-- pt reported UBW 190# suggesting a ~20#/10% wt loss, unknown timeframe. Wt trending up since admission w/ wt gain 6.3 kg since previous review- nephrology following. - Nutrition Diagnosis Problem / Etiology / Signs & Symptoms (PES):: Inadequate oral intake RT altered GI function AEB NPO status w/ NG in place to suction. Evidence of Malnutrition Exists:: No - Nutrition Intervention Nutrition Prescription:: [id number] calories/day. 55-65 g protein/day - Food / Nutrient Delivery Interventions Summary of nutrition intervention:: Pt with </=50% energy intake compared to estimated energy needs x 7 days d/t NPO status and minimal intake when PO intake progressed consuming at best ~50% of meals. 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 Recommend consideration of alternative nutrition support if anticipated that pt will remain NPO and unable to be advanced to PO diet within the next 24-48 hours. Pt with one indicator of malnutrition at this time of </=50% energy intake compared to estimated energy needs x 7 days. Suspect pt w/ wt loss as reported UBW 190# suggesting a ~20#/10% wt loss, unknown timeframe. Wt gain since admin d/t edema- likely masking wt loss. Nutrition support ordered as / adjusted to:: As pt medically able rec JORY Regular, [id number] diet with texture modifications per [employer] SAL[employer]. Nutrition education provided?: No - MNT Monitoring Further MNT monitoring and evaluation required?: Yes MNT Follow-up in:: 1-2 days
[2020-09-19] MEDS: busPIRone 5 MG Tablet 12.5 MG PO ×2 (10:59→22:38)
[2020-09-19] MEDS: QUEtiapine 100 MG Tablet 200 MG PO (10:59)
--- NOTE | 2020-09-19 12:05 | PCM.PN.REN ---
Patient Problems: Active and Suspected Problems (Last Reviewed 08/27/20 @ 14:23 by Kacie Babcock RN) Pneumonia (Acute) Renal failure (Acute) Debility (Acute) Weight loss, unintentional (Acute) Subjective: feels thirsty - Physical Exam Vitals/I&O's: Vital Signs Temp Pulse Resp BP Pulse Ox 97.7 F L 83 18 133/69 H 95 09/19/20 09:30 09/19/20 09:30 09/19/20 09:30 09/19/20 09:30 09/19/20 09:30 Oxygen Flow Rate (L/min) 2 Oxygen Delivery Method Room Air Weight: 83.5 kg Body Mass Index (BMI) 27.1 Intake and Output for Last 24 Hours 09/17/20 09/18/20 09/19/20 23:59 23:59 23:59 Intake Total 1401.25 / 1401.25 2107.50 / 2107.50 951.25 / 951.25 Output Total 1350 / 1350 630 / 630 125 / 125 Balance 51.25 / 51.25 1477.50 / 1477.50 826.25 / 826.25 General: Alert HEENT: Atraumatic, Normocephalic, - - ngt Neck: Supple Lungs: Clear to auscultation, Normal air movement Cardiovascular: Regular rate, Regular Rhythm, Normal S1, Normal S2 Abdomen: Soft, Hypoactive Bowel Sounds Skin: No rashes Microbiology Past 72 Hours 09/12/20 08:35 Blood Culture (Wb) - Anticubital Left Blood Culture - Final No growth in 5 days. 09/12/20 08:23 Blood Culture (Wb) - Anticubital Right Blood Culture - Final No growth in 5 days. 09/14/20 04:50 Sputum, Expectorated/Coughed Gram Stain - Final 09/14/20 04:50 Sputum, Expectorated/Coughed Respiratory Culture - Final Meth. resistant Staph. aureus Streptococcus agalactiae (B) Laboratory Results 09/18/20 05:55: Diff Path Review Reviewed 09/19/20 05:56: Random Vancomycin 18.2 H 09/19/20 05:56: WBC 34.9 H*, RBC 2.74 L, Hgb 8.8 L, Hct 27.6 L, MCV 100.7 H, MCH 32.1 H, MCHC 31.9 L, RDW Std Deviation 60.2 H, RDW Coeff of Arben 16.5 H, Plt Count 194, MPV 12.6 H, Immature Gran % (Auto) 5.000 H, Neut % (Auto) 28.9 L, Lymph % (Auto) 55.2 H, [place] % (Auto) 7.4, Eos % (Auto) 3.3, Baso % (Auto) 0.2, Absolute Neuts (auto) 10.1 H, Absolute Lymphs (auto) 19.28 H, Nucleated RBC % 0, Differential Comment SCANNED, Diff Path Review October foll 09/19/20 05:56: Sodium 146 H, Potassium 3.7, Chloride 118 H, Carbon Dioxide 19.0 L, Anion Gap 9, BUN 78 H, Creatinine 3.50 H, Estim Creat Clear Calc 18.24, Est GFR (MDRD) Af Amer 22 L, Est GFR (MDRD) Non-Af 18 L, BUN/Creatinine Ratio 22.3 H, Glucose 84, Calcium 7.6 L, Total Bilirubin 0.30, AST 18, ALT 16, Alkaline Phosphatase 49, Total Protein 4.2 L, Albumin 2.1 L, Globulin 2.1 L, Albumin/Globulin Ratio 1.0 Current Medications Acetaminophen (Acetaminophen 325 Mg Tablet) 650 mg PO Q6H PRN PRN PRN Reason: Pain Score 1-10/Temp > 100.7 F Last Admin: 09/17/20 08:46 Dose: 650 mg Documented by: Albuterol Sulfate (Albuterol 2.5 Mg/3 Ml Vial.Neb.) 2.5 mg INHALATION Q2H PRN PRN PRN Reason: SOB/Wheezing Last Admin: 09/17/20 08:25 Dose: 2.5 mg Documented by: Albuterol/Ipratropium (Ipratropium/Albuterol Sulfate 3 Ml Ampul.Neb) 3 ml INHALATION Q4H.RT [facility]OJ Last Admin: 09/16/20 20:18 Dose: 3 ml Documented by: Buspirone HCl (Buspirone 5 Mg Tablet) 12.5 mg PO BID [facility] Last Admin: 09/19/20 10:59 Dose: 12.5 mg Documented by: Sodium Chloride () 250 mls @ 15 mls/hr IV .[id number] PRN PRN Reason: Saline Flush Last Infusion: 09/16/20 12:53 Dose: Infused Documented by: Sodium Chloride () 250 mls @ 15 mls/hr IV .[id number] PRN PRN Reason: Additional IVPB Infusion Pantoprazole Sodium 40 mg/ (Sodium Chloride) 110 mls @ 330 mls/hr IV Q24 [facility] Last Infusion: 09/19/20 11:16 Dose: Infused Documented by: Ceftriaxone Sodium (Rocephin) 1 gm in 50 mls @ 100 mls/hr IV Q24@2200 [facility] Last Infusion: 09/18/20 23:54 Dose: Infused Documented by: Vancomycin IV Pharmacy to Dose (1 each/ Sodium Chloride) 500 mls @ 250 mls/hr IV PRN PRN; Protocol PRN Reason: RX TO DOSE Sodium Chloride () 1,000 mls @ 75 mls/hr IV .[id number] [facility] Last Infusion: 09/19/20 11:17 Dose: 75 mls/hr Documented by: Nitroglycerin (Nitroglycerin (Inpatient Use) 0.4 Mg Tab.Subl) 0.4 mg SL Q5M PRN PRN Reason: CARDIAC/CHEST PAIN Ondansetron HCl (Ondansetron 4 Mg/2 Ml Vial) 4 mg IV Q8H PRN PRN PRN Reason: NAUSEA/VOMITING Prochlorperazine Edisylate (Prochlorperazine 10 Mg/2 Ml Vial) 5 mg IV Q4H PRN PRN PRN Reason: Breakthrough Nausea/Vomiting Quetiapine Fumarate (Quetiapine 100 Mg Tablet) 200 mg PO BREAKFAST [facility] Last Admin: 09/19/20 10:59 Dose: 200 mg Documented by: Quetiapine Fumarate (Quetiapine 100 Mg Tablet) 400 mg PO QHS [facility] Last Admin: 09/18/20 21:45 Dose: 400 mg Documented by: Senna/Docusate Sodium (Senna/Docusate Sodium 1 Tablet) 2 tablet GT BID PRN PRN Reason: Constipation Sodium Chloride (0.9% Saline Lock 10 Ml Syringe) 10 - 40 ml IV UD PRN PRN Reason: SALINE FLUSH Last Admin: 09/18/20 15:24 Dose: 20 ml Documented by: Medical Necessity - Tobacco Use Smoking Status: Never smoker Assessment/Plan All Active Problems (Last Reviewed 08/27/20 @ 14:23 by Kacie Babcock RN) Pneumonia (Acute) Renal failure (Acute) Debility (Acute) Weight loss, unintentional (Acute) Anxiety (Resolved) Atherosclerotic heart disease (Resolved) Bipolar 1 disorder (Resolved) COPD (chronic obstructive pulmonary disease) (Resolved) Chronic lymphocytic leukemia of B-cell type not having achieved remission (Resolved) Dementia (Resolved) Dementia without behavioral disturbance (Resolved) HCAP (healthcare-associated pneumonia) (Resolved) Hypo-osmolality and hyponatremia (Resolved) Hyponatremia (Resolved) Hypothyroidism (Resolved) Insomnia (Resolved) Obsessive compulsive disorder (Resolved) Retention of urine (Resolved) Schizoaffective disorder (Resolved) Schizoaffective disorder (Resolved) Schizoaffective disorder (Resolved) Schizoaffective disorder (Resolved) JOSE ARMANDO?ATN Renal cysts bilaterally Ileus CLL Scr 3.5 continue ivf surgery following still getting enemas d/w patient avoid neprhtoxins Recommend to dose vancomycin with levels to avoid nephrotoxicity
--- NOTE | 2020-09-19 13:53 | PN.ID_ITS ---
Patient Problems: Active and Suspected Problems (Last Reviewed 08/27/20 @ 14:23 by Kacie Babcock RN) Pneumonia (Acute) Renal failure (Acute) Debility (Acute) Weight loss, unintentional (Acute) Subjective: sleeping, NAD - Physical Exam Vitals/I&O's: Vital Signs Temp Pulse Resp BP Pulse Ox 97.7 F L 83 18 133/69 H 96 09/19/20 09:30 09/19/20 09:30 09/19/20 09:30 09/19/20 09:30 09/19/20 10:51 Oxygen Flow Rate (L/min) 2 Oxygen Delivery Method Room Air Weight: 83.5 kg Body Mass Index (BMI) 27.1 Intake and Output for Last 24 Hours 09/17/20 09/18/20 09/19/20 23:59 23:59 23:59 Intake Total 1401.25 / 1401.25 2107.50 / 2107.50 1051.25 / 1051.25 Output Total 1350 / 1350 630 / 630 375 / 375 Balance 51.25 / 51.25 1477.50 / 1477.50 676.25 / 676.25 General: No apparent distress Lungs: Clear to auscultation, Normal air movement Cardiovascular: Regular rate, Regular Rhythm Abdomen: Soft, Non Tender, Distended - improved Skin: No rashes Microbiology Past 72 Hours 09/12/20 08:35 Blood Culture (Wb) - Anticubital Left Blood Culture - Final No growth in 5 days. 09/12/20 08:23 Blood Culture (Wb) - Anticubital Right Blood Culture - Final No growth in 5 days. 09/14/20 04:50 Sputum, Expectorated/Coughed Gram Stain - Final 09/14/20 04:50 Sputum, Expectorated/Coughed Respiratory Culture - Final Meth. resistant Staph. aureus Streptococcus agalactiae (B) Laboratory Results 09/19/20 05:56: Random Vancomycin 18.2 H 09/19/20 05:56: WBC 34.9 H*, RBC 2.74 L, Hgb 8.8 L, Hct 27.6 L, MCV 100.7 H, MCH 32.1 H, MCHC 31.9 L, RDW Std Deviation 60.2 H, RDW Coeff of Arben 16.5 H, Plt Count 194, MPV 12.6 H, Immature Gran % (Auto) 5.000 H, Neut % (Auto) 28.9 L, Lymph % (Auto) 55.2 H, [place] % (Auto) 7.4, Eos % (Auto) 3.3, Baso % (Auto) 0.2, Absolute Neuts (auto) 10.1 H, Absolute Lymphs (auto) 19.28 H, Nucleated RBC % 0, Differential Comment SCANNED, Diff Path Review October09/19/20 05:56: Sodium 146 H, Potassium 3.7, Chloride 118 H, Carbon Dioxide 19.0 L, Anion Gap 9, BUN 78 H, Creatinine 3.50 H, Estim Creat Clear Calc 18.24, Est GFR (MDRD) Af Amer 22 L, Est GFR (MDRD) Non-Af 18 L, BUN/Creatinine Ratio 22.3 H , Glucose 84, Calcium 7.6 L, Total Bilirubin 0.30, AST 18, ALT 16, Alkaline Phosphatase 49, Total Protein 4.2 L, Albumin 2.1 L, Globulin 2.1 L, Albumin/Globulin Ratio 1.0 Current Medications Acetaminophen (Acetaminophen 325 Mg Tablet) 650 mg PO Q6H PRN PRN PRN Reason: Pain Score 1-10/Temp > 100.7 F Last Admin: 09/17/20 08:46 Dose: 650 mg Documented by: Albuterol Sulfate (Albuterol 2.5 Mg/3 Ml Vial.Neb.) 2.5 mg INHALATION Q2H PRN PRN PRN Reason: SOB/Wheezing Last Admin: 09/17/20 08:25 Dose: 2.5 mg Documented by: Albuterol/Ipratropium (Ipratropium/Albuterol Sulfate 3 Ml Ampul.Neb) 3 ml INHALATION Q4H.RT MANOJ Last Admin: 09/16/20 20:18 Dose: 3 ml Documented by: Buspirone HCl (Buspirone 5 Mg Tablet) 12.5 mg PO BID [facility] Last Admin: 09/19/20 10:59 Dose: 12.5 mg Documented by: Sodium Chloride () 250 mls @ 15 mls/hr IV .[id number] PRN PRN Reason: Saline Flush Last Infusion: 09/16/20 12:53 Dose: Infused Documented by: Sodium Chloride () 250 mls @ 15 mls/hr IV .[id number] PRN PRN Reason: Additional IVPB Infusion Pantoprazole Sodium 40 mg/ (Sodium Chloride) 110 mls @ 330 mls/hr IV Q24 [facility] Last Infusion: 09/19/20 11:16 Dose: Infused Documented by: Ceftriaxone Sodium (Rocephin) 1 gm in 50 mls @ 100 mls/hr IV Q24@2200 [facility] Last Infusion: 09/18/20 23:54 Dose: Infused Documented by: Vancomycin IV Pharmacy to Dose (1 each/ Sodium Chloride) 500 mls @ 250 mls/hr IV PRN PRN; Protocol PRN Reason: RX TO DOSE Sodium Chloride () 1,000 mls @ 75 mls/hr IV .[id number] [facility] Last Infusion: 09/19/20 11:17 Dose: 75 mls/hr Documented by: Nitroglycerin (Nitroglycerin (Inpatient Use) 0.4 Mg Tab.Subl) 0.4 mg SL Q5M PRN PRN Reason: CARDIAC/CHEST PAIN Ondansetron HCl (Ondansetron 4 Mg/2 Ml Vial) 4 mg IV Q8H PRN PRN PRN Reason: NAUSEA/VOMITING Prochlorperazine Edisylate (Prochlorperazine 10 Mg/2 Ml Vial) 5 mg IV Q4H PRN PRN PRN Reason: Breakthrough Nausea/Vomiting Quetiapine Fumarate (Quetiapine 100 Mg Tablet) 200 mg PO BREAKFAST [facility] Last Admin: 09/19/20 10:59 Dose: 200 mg Documented by: Quetiapine Fumarate (Quetiapine 100 Mg Tablet) 400 mg PO QHS [facility] Last Admin: 09/18/20 21:45 Dose: 400 mg Documented by: Senna/Docusate Sodium (Senna/Docusate Sodium 1 Tablet) 2 tablet GT BID PRN PRN Reason: Constipation Sodium Chloride (0.9% Saline Lock 10 Ml Syringe) 10 - 40 ml IV UD PRN PRN Reason: SALINE FLUSH Last Admin: 09/18/20 15:24 Dose: 20 ml Documented by: Medical Necessity - Tobacco Use Smoking Status: Never smoker Route of nutrition/ use of supplements: [] Nutritional Intake: [] IV Site: [] Raymond Catheter: [] - Assessment/Plan Antibiotics: [] Assessment/Plan: [] Active and Suspected Problems (Last Reviewed 08/27/20 @ 14:23 by Kacie Babcock, RN) Pneumonia (Acute) Renal failure (Acute) sepsis with MSSA/GBS pneumonia and providencia uti - on vanc/ceftriaxone. No fever. JOSE ARMANDO improving. Wbc starting to improve. Abd less distended. CT done, surgery following. Will follow
--- NOTE | 2020-09-19 14:51 | PCM.PN.HOSP ---
Patient Problems: Active and Suspected Problems (Last Reviewed 08/27/20 @ 14:23 by Kacie Babcock RN) Pneumonia (Acute) Renal failure (Acute) Debility (Acute) Weight loss, unintentional (Acute) Reason for Visit: Follow-up on severe sepsis secondary to pneumonia/UTI/small bowel ileus Subjective: Patient was seen and examined. He wants the NG tube pulled out. He denied any passage of flatus or stools. Objective: Physical exam General: Awake, oriented x3, responding appropriately. HEENT: Atraumatic, PERRLA, EOMI, Normocephalic Oral: Oral mucosa is dry Neck: Supple, No JVD, Negative Carotid Bruits Lungs: Air entry diminished in bilateral lung bases. No crepitation/rhonchi. Cardiovascular: Regular rate, Regular Rhythm, Normal S1, Normal S2, left second ICS/LLSB systolic murmur grade 3/6 Abdomen: Soft, tenderness present over left lower quadrant. Mild distention. Bowel sounds sluggish : Indwelling Raymond catheter. Clear urine in the Raymond catheter. No suprapubic tenderness. Extremities: Mild bilateral ankle edema, Capillary Refill Less than 3 Seconds Skin: Skin is dry. No open ulcer. Musculoskeletal: Bilateral knee and hip joint arthritis and stiffness. No Tenderness to Palpation of Joints or Extremities Neurological: Cranial nerves II-XII grossly intact, Deep Tendon Reflexes 2+/4 Psych/Mental Status: Awake and pleasant behavior Vitals/I&O's: Vital Signs Temp Pulse Resp BP Pulse Ox 97.7 F L 83 18 133/69 H 96 09/19/20 09:30 09/19/20 09:30 09/19/20 09:30 09/19/20 09:30 09/19/20 10:51 Oxygen Flow Rate (L/min) 2 Oxygen Delivery Method Room Air Weight: 83.5 kg Body Mass Index (BMI) 27.1 Intake and Output for Last 24 Hours 09/17/20 09/18/20 09/19/20 23:59 23:59 23:59 Intake Total 1401.25 / 1401.25 2107.50 / 2107.50 1051.25 / 1051.25 Output Total 1350 / 1350 630 / 630 375 / 375 Balance 51.25 / 51.25 1477.50 / 1477.50 676.25 / 676.25 Microbiology Past 72 Hours 09/12/20 08:35 Blood Culture (Wb) - Anticubital Left Blood Culture - Final No growth in 5 days. 09/12/20 08:23 Blood Culture (Wb) - Anticubital Right Blood Culture - Final No growth in 5 days. 09/14/20 04:50 Sputum, Expectorated/Coughed Gram Stain - Final 09/14/20 04:50 Sputum, Expectorated/Coughed Respiratory Culture - Final Meth. resistant Staph. aureus Streptococcus agalactiae (B) Laboratory Results 09/19/20 05:56: Random Vancomycin 18.2 H 09/19/20 05:56: WBC 34.9 H*, RBC 2.74 L, Hgb 8.8 L, Hct 27.6 L, MCV 100.7 H, MCH 32.1 H, MCHC 31.9 L, RDW Std Deviation 60.2 H, RDW Coeff of Arben 16.5 H, Plt Count 194, MPV 12.6 H, Immature Gran % (Auto) 5.000 H, Neut % (Auto) 28.9 L, Lymph % (Auto) 55.2 H, [place] % (Auto) 7.4, Eos % (Auto) 3.3, Baso % (Auto) 0.2, Absolute Neuts (auto) 10.1 H, Absolute Lymphs (auto) 19.28 H, Nucleated RBC % 0, Differential Comment SCANNED, Diff Path Review October09/19/20 05:56: Sodium 146 H, Potassium 3.7, Chloride 118 H, Carbon Dioxide 19.0 L, Anion Gap 9, BUN 78 H, Creatinine 3.50 H, Estim Creat Clear Calc 18.24, Est GFR (MDRD) Af Amer 22 L, Est GFR (MDRD) Non-Af 18 L, BUN/Creatinine Ratio 22.3 H, Glucose 84, Calcium 7.6 L, Total Bilirubin 0.30, AST 18, ALT 16, Alkaline Phosphatase 49, Total Protein 4.2 L, Albumin 2.1 L, Globulin 2.1 L, Albumin/Globulin Ratio 1.0 Current Medications Acetaminophen (Acetaminophen 325 Mg Tablet) 650 mg PO Q6H PRN PRN PRN Reason: Pain Score 1-10/Temp > 100.7 F Last Admin: 09/17/20 08:46 Dose: 650 mg Documented by: Albuterol Sulfate (Albuterol 2.5 Mg/3 Ml Vial.Neb.) 2.5 mg INHALATION Q2H PRN PRN PRN Reason: SOB/Wheezing Last Admin: 09/17/20 08:25 Dose: 2.5 mg Documented by: Albuterol/Ipratropium (Ipratropium/Albuterol Sulfate 3 Ml Ampul.Neb) 3 ml INHALATION Q4H.RT [facility] Last Admin: 09/16/20 20:18 Dose: 3 ml Documented by: Buspirone HCl (Buspirone 5 Mg Tablet) 12.5 mg PO BID [facility] Last Admin: 09/19/20 10:59 Dose: 12.5 mg Documented by: Sodium Chloride () 250 mls @ 15 mls/hr IV .[id number] PRN PRN Reason: Saline Flush Last Infusion: 09/16/20 12:53 Dose: Infused Documented by: Sodium Chloride () 250 mls @ 15 mls/hr IV .[id number] PRN PRN Reason: Additional IVPB Infusion Pantoprazole Sodium 40 mg/ (Sodium Chloride) 110 mls @ 330 mls/hr IV Q24 [facility] Last Infusion: 09/19/20 11:16 Dose: Infused Documented by: Ceftriaxone Sodium (Rocephin) 1 gm in 50 mls @ 100 mls/hr IV Q24@2200 [facility] Last Infusion: 09/18/20 23:54 Dose: Infused Documented by: Vancomycin IV Pharmacy to Dose (1 each/ Sodium Chloride) 500 mls @ 250 mls/hr IV PRN PRN; Protocol PRN Reason: RX TO DOSE Sodium Chloride () 1,000 mls @ 75 mls/hr IV .[id number] [facility] Last Admin: 09/19/20 14:42 Dose: Not Given Documented by: Nitroglycerin (Nitroglycerin (Inpatient Use) 0.4 Mg Tab.Subl) 0.4 mg SL Q5M PRN PRN Reason: CARDIAC/CHEST PAIN Ondansetron HCl (Ondansetron 4 Mg/2 Ml Vial) 4 mg IV Q8H PRN PRN PRN Reason: NAUSEA/VOMITING Prochlorperazine Edisylate (Prochlorperazine 10 Mg/2 Ml Vial) 5 mg IV Q4H PRN PRN PRN Reason: Breakthrough Nausea/Vomiting Quetiapine Fumarate (Quetiapine 100 Mg Tablet) 200 mg PO BREAKFAST [facility] Last Admin: 09/19/20 10:59 Dose: 200 mg Documented by: Quetiapine Fumarate (Quetiapine 100 Mg Tablet) 400 mg PO QHS [facility] Last Admin: 09/18/20 21:45 Dose: 400 mg Documented by: Senna/Docusate Sodium (Senna/Docusate Sodium 1 Tablet) 2 tablet GT BID PRN PRN Reason: Constipation Sodium Chloride (0.9% Saline Lock 10 Ml Syringe) 10 - 40 ml IV UD PRN PRN Reason: SALINE FLUSH Last Admin: 09/18/20 15:24 Dose: 20 ml Documented by: Medical Necessity - Tobacco Use Smoking Status: Never smoker Assessment/Plan All Active Problems (Last Reviewed 08/27/20 @ 14:23 by Kacie Babcock RN) Pneumonia (Acute) Renal failure (Acute) Debility (Acute) Weight loss, unintentional (Acute) Anxiety (Resolved) Atherosclerotic heart disease (Resolved) Bipolar 1 disorder (Resolved) COPD (chronic obstructive pulmonary disease) (Resolved) Chronic lymphocytic leukemia of B-cell type not having achieved remission (Resolved) Dementia (Resolved) Dementia without behavioral disturbance (Resolved) HCAP (healthcare-associated pneumonia) (Resolved) Hypo-osmolality and hyponatremia (Resolved) Hyponatremia (Resolved) Hypothyroidism (Resolved) Insomnia (Resolved) Obsessive compulsive disorder (Resolved) Retention of urine (Resolved) Schizoaffective disorder (Resolved) Schizoaffective disorder (Resolved) Schizoaffective disorder (Resolved) Schizoaffective disorder (Resolved) 1. Severe sepsis secondary to secondary to left lower lobe MRSA/beta strept pneumonia/Providencia stuartii, MDR, CAUTI due to indwelling Raymond catheter Blood cultures are negative. ID following Continue on IV vancomycin and ceftriaxone. 2. Acute hypoxic respiratory failure secondary to pneumonia, appears resolved 3. Acute small bowel ileus and gastric retention, persistent KUB and CT abd/pelvis with contrast shows moderate SBO Small bowel follow-through showed ileus 4. Acute kidney injury stage 3 on CKD stage II with proteinuria in urine, Creatinine is 3.50. Will switch IV fluids to D5 water Repeat blood work in am 5. 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 Rest of other co-morbidities are stable- schizoaffective disorder/sick sinus syndrome status post pacemaker/hypothyroidism/dyslipidemia 7. DVT PPx-SCDs Inpatient E&M: [id number] Subs Hosp L3
[2020-09-19] MEDS: Lactulose 20 GM/30 ML UDC PO (16:48)
--- NOTE | 2020-09-19 20:46 | NURSING ---
Patient refused soap suds keaton molina at 1999. This RN re-educated patient. Pt stated that he had 3 or 4 yesterday and today and does not want anymore. RN notified
[2020-09-19] MEDS: Senna/Docusate Sodium 1 Tablet 2 TABLET GT (22:38)
[2020-09-19] MEDS: QUEtiapine 100 MG Tablet 400 MG PO (22:38)
[2020-09-19] MEDS: Magnesium Citrate 300 ML 150 ML PO (22:39)
[2020-09-19] MEDS: Ceftriaxone 1 GM/50 ML BAG IV (22:59)
[2020-09-20] VITALS (9 sets, daily range): BP systolic 120–141; BP diastolic 61–76; PULSE 70–84; RESP 17–20; TEMP 36.3–36.9; O2SAT 92–97; BMI 27.3
[2020-09-20 05:33] LABS: Absolute Lymphocyte Count 18.47 X10^3/uL (0.83-4.51); Absolute Neutrophil Count 11.1 X10^3/uL (2.0-7.7); Basophil# 0.18 X10^3/uL; Basophil% 0.5 % (0-1); Hematocrit 28.4 % (40-54); Hemoglobin 9.1 g/dL (13.0-16.5); Lymphocyte # 18.47 X10^3/ul (0.83-4.51); Lymphocyte % 55.2 % (19-41); Mean Corpuscular Hgb 31.8 pg (27.0-32.0); Mean Corpuscular Volume 99.3 fL (80-94); Mean Platelet Vol. 12.3 fl (6.2-12.0); Monocyte# 2.17 X10^3/uL; Monocyte% 6.5 % (0-10); NRBC Flagged by Analyzer 0 % (0-5); Neutrophil # 11.13 X10^3/uL (2.7-7.7); Neutrophil % 33.3 % (47-70); POSITIVE COUNT YES; POSITIVE DIFFERENTIAL YES; POSITIVE MORPHOLOGY YES; Platelet Count 206 K/mm3 (150-450); RBC Distribution Width CV 16.3 % (11.6-14.6); RBC Distribution Width SD 58.8 fl (35.1-43.9); Red Blood Count 2.86 M/mm3 (4.6-6.2)
[2020-09-20 05:34] LABS: Differential Indicated SCAN CRITERIA MET
[2020-09-20 05:35] LABS: White Blood Count 33.5 K/mm3 (4.4-11.0)
[2020-09-20 05:51] LABS: ALB/GLOB Ratio 0.8 RATIO (0.9-2.4); AST(SGOT) 22 U/L (15-37); Alanine Aminotransfer ALT/SGPT 18 U/L (16-61); Albumin, Serum 2.1 g/dL (3.2-5.0); Alkaline Phosphatase 55 U/L (45-117); Anion Gap 9 (5-15); BUN 64 mg/dL (7-18); BUN/Creat Ratio 20.8 RATIO (10-20); Calcium,Total 7.8 mg/dL (8.5-10.1); Chloride 114 mmol/L (98-107); Creatinine, Serum 3.07 mg/dL (0.70-1.30); Differential Comment SCANNED; EST Glomerular Filtration Rate 21 mL/min (>60); Est Glom Filt Rate - Afr Amer 26 mL/min (>60); Estimated Creatinine Clearance 20.79 ml/min; Globulin 2.8 g/dL (2.2-4.2); Glucose 149 mg/dL (74-106); Potassium 3.4 mmol/L (3.5-5.1); Protein, Total 4.9 g/dL (6.4-8.2); Sodium Level 139 mmol/L (136-145)
[2020-09-20 05:58] LABS: Smudge Cells 2+
--- NOTE | 2020-09-20 06:09 | RAD_ITS ---
STUDY: X-RAY - ABDOMEN/PELVIS REASON FOR EXAM: Male, 75 years old. Constipation -- portable TECHNIQUE: Single AP view of the abdomen / pelvis. COMPARISON: Previous day FINDINGS: NG tube is stable, terminating in the upper stomach. Persisting gaseous distention of predominantly colon with some bowel contrast seen in the right colon. Mildly dilated loops of small bowel centrally stable in diameter since prior study. There is no demonstrated free abdominal air. The visualized liver, spleen and kidneys are grossly normal in size and morphology. Normal soft tissue structures. There are diffuse degenerative changes of the visualized lumbar spine. RAD/Abdomen Single View (Portable) IMPRESSION: Stable ileus. Electronically Signed: Tyler Warren MD ([place]) at 7:48 EDT , Service support ,
--- NOTE | 2020-09-20 07:33 | PN_ITS ---
Patient Problems: Active and Suspected Problems (Last Reviewed 08/27/20 @ 14:23 by Kacie Babcock RN) Pneumonia (Acute) Renal failure (Acute) Debility (Acute) Weight loss, unintentional (Acute) Reason for Visit: Follow-up on severe sepsis secondary to pneumonia/UTI/small bowel ileus Subjective: Patient was seen and examined. He feels about the same. Denies gas or moving his bowels. Has been refusing any meds. He will be ambulated out of bed to chair. Objective: Physical exam General: Awake, oriented x3, responding appropriately. HEENT: Atraumatic, PERRLA, EOMI, Normocephalic Oral: Oral mucosa is dry Neck: Supple, No JVD, Negative Carotid Bruits Lungs: Air entry diminished in bilateral lung bases. No crepitation/rhonchi. Cardiovascular: Regular rate, Regular Rhythm, Normal S1, Normal S2, left second ICS/LLSB systolic murmur grade 3/6 Abdomen: Soft, tenderness present over left lower quadrant. Mild distention. Bowel sounds sluggish : Indwelling Raymond catheter. Clear urine in the Raymond catheter. No suprapubic tenderness. Extremities: Mild bilateral ankle edema, Capillary Refill Less than 3 Seconds Skin: Skin is dry. No open ulcer. Musculoskeletal: Bilateral knee and hip joint arthritis and stiffness. No Tenderness to Palpation of Joints or Extremities Neurological: Cranial nerves II-XII grossly intact, Deep Tendon Reflexes 2+/4 Psych/Mental Status: Awake and pleasant behavior Vitals/I&O's: Vital Signs Temp Pulse Resp BP Pulse Ox 98.4 F 79 17 131/75 H 94 09/20/20 03:30 09/20/20 06:36 09/20/20 03:30 09/20/20 03:30 09/20/20 03:30 Oxygen Flow Rate (L/min) 2 Oxygen Delivery Method Room Air Weight: 84 kg Body Mass Index (BMI) 27.1 Intake and Output for Last 24 Hours 09/18/20 09/19/20 09/20/20 23:59 23:59 23:59 Intake Total 2107.50 / 2107.50 1460.00 / 1460.00 1050 / 1050 Output Total 630 / 630 775 / 775 450 / 450 Balance 1477.50 / 1477.50 685.00 / 685.00 600 / 600 Microbiology Past 72 Hours 09/12/20 08:35 Blood Culture (Wb) - Anticubital Left Blood Culture - Final No growth in 5 days. 09/12/20 08:23 Blood Culture (Wb) - Anticubital Right Blood Culture - Final No growth in 5 days. 09/14/20 04:50 Sputum, Expectorated/Coughed Gram Stain - Final 09/14/20 04:50 Sputum, Expectorated/Coughed Respiratory Culture - Final Meth. resistant Staph. aureus Streptococcus agalactiae (B) Laboratory Results 09/19/20 05:56: WBC 34.9 H*, RBC 2.74 L, Hgb 8.8 L, Hct 27.6 L, MCV 100.7 H, MCH 32.1 H, MCHC 31.9 L, RDW Std Deviation 60.2 H, RDW Coeff of Arben 16.5 H, Plt Count 194, MPV 12.6 H, Immature Gran % (Auto) 5.000 H, Neut % (Auto) 28.9 L, Lymph % (Auto) 55.2 H, [place] % (Auto) 7.4, Eos % (Auto) 3.3, Baso % (Auto) 0.2, Absolute Neuts (auto) 10.1 H, Absolute Lymphs (auto) 19.28 H, Nucleated RBC % 0, Differential Comment SCANNED, Diff Path Review October09/19/20 05:56: Sodium 146 H, Potassium 3.7, Chloride 118 H, Carbon Dioxide 19.0 L, Anion Gap 9, BUN 78 H, Creatinine 3.50 H, Estim Creat Clear Calc 18.24, Est GFR (MDRD) Af Amer 22 L, Est GFR (MDRD) Non-Af 18 L, BUN/Creatinine Ratio 22.3 H , Glucose 84, Calcium 7.6 L, Total Bilirubin 0.30, AST 18, ALT 16, Alkaline Phosphatase 49, Total Protein 4.2 L, Albumin 2.1 L, Globulin 2.1 L, Albumin/Globulin Ratio 1.0 09/20/20 05:16: WBC 33.5 H*, RBC 2.86 L, Hgb 9.1 L, Hct 28.4 L, MCV 99.3 H, MCH 31.8, MCHC 32.0, RDW Std Deviation 58.8 H, RDW Coeff of Arben 16.3 H, Plt Count 206, MPV 12.3 H, Immature Gran % (Auto) 4.500 H, Neut % (Auto) 33.3 L, Lymph % (Auto) 55.2 H, [place] % (Auto) 6.5, Eos % (Auto) 0.0, Baso % (Auto) 0.5, Absolute Neuts (auto) 11.1 H, Absolute Lymphs (auto) 18.47 H, Nucleated RBC % 0, Differential Comment SCANNED, Diff Path Review May foll, Smudge Cells 2+ 09/20/20 05:16: Sodium 139, Potassium 3.4 L, Chloride 114 H, Carbon Dioxide 16.0 L, Anion Gap 9, BUN 64 H, Creatinine 3.07 H, Estim Creat Clear Calc 20.79, Est GFR (MDRD) Af Amer 26 L, Est GFR (MDRD) Non-Af 21 L, BUN/Creatinine Ratio 20.8 H , Glucose 149 H, Calcium 7.8 L, Total Bilirubin 0.30, AST 22, ALT 18, Alkaline Phosphatase 55, Total Protein 4.9 L, Albumin 2.1 L, Globulin 2.8, Albumin/Globulin Ratio 0.8 L Current Medications Acetaminophen (Acetaminophen 325 Mg Tablet) 650 mg PO Q6H PRN PRN PRN Reason: Pain Score 1-10/Temp > 100.7 F Last Admin: 09/17/20 08:46 Dose: 650 mg Documented by: Albuterol Sulfate (Albuterol 2.5 Mg/3 Ml Vial.Neb.) 2.5 mg INHALATION Q2H PRN PRN PRN Reason: SOB/Wheezing Last Admin: 09/17/20 08:25 Dose: 2.5 mg Documented by: Albuterol/Ipratropium (Ipratropium/Albuterol Sulfate 3 Ml Ampul.Neb) 3 ml INHALATION Q4H.RT MANOJ Last Admin: 09/16/20 20:18 Dose: 3 ml Documented by: Buspirone HCl (Buspirone 5 Mg Tablet) 12.5 mg PO BID MANOJ Last Admin: 09/19/20 22:38 Dose: 12.5 mg Documented by: Sodium Chloride () 250 mls @ 15 mls/hr IV .[id number] PRN PRN Reason: Saline Flush Last Infusion: 09/16/20 12:53 Dose: Infused Documented by: Sodium Chloride () 250 mls @ 15 mls/hr IV .[id number] PRN PRN Reason: Additional IVPB Infusion Pantoprazole Sodium 40 mg/ (Sodium Chloride) 110 mls @ 330 mls/hr IV Q24 [facility] Last Infusion: 09/19/20 11:16 Dose: Infused Documented by: Ceftriaxone Sodium (Rocephin) 1 gm in 50 mls @ 100 mls/hr IV Q24@2200 [facility] Last Infusion: 09/20/20 00:19 Dose: Infused Documented by: Vancomycin IV Pharmacy to Dose (1 each/ Sodium Chloride) 500 mls @ 250 mls/hr IV PRN PRN; Protocol PRN Reason: RX TO DOSE Dextrose () 1,000 mls @ 100 mls/hr IV .Q10H [facility] Last Admin: 09/20/20 01:24 Dose: 100 mls/hr Documented by: Potassium Chloride () 10 meq in 100 mls @ 100 mls/hr IV BOLUS Q1H [facility] Stop: 09/20/20 09:44 Nitroglycerin (Nitroglycerin (Inpatient Use) 0.4 Mg Tab.Subl) 0.4 mg SL Q5M PRN PRN Reason: CARDIAC/CHEST PAIN Ondansetron HCl (Ondansetron 4 Mg/2 Ml Vial) 4 mg IV Q8H PRN PRN PRN Reason: NAUSEA/VOMITING Prochlorperazine Edisylate (Prochlorperazine 10 Mg/2 Ml Vial) 5 mg IV Q4H PRN PRN PRN Reason: Breakthrough Nausea/Vomiting Quetiapine Fumarate (Quetiapine 100 Mg Tablet) 200 mg PO BREAKFAST [facility] Last Admin: 09/19/20 10:59 Dose: 200 mg Documented by: Quetiapine Fumarate (Quetiapine 100 Mg Tablet) 400 mg PO QHS [facility] Last Admin: 09/19/20 22:38 Dose: 400 mg Documented by: Senna/Docusate Sodium (Senna/Docusate Sodium 1 Tablet) 2 tablet GT BID PRN PRN Reason: Constipation Last Admin: 09/19/20 22:38 Dose: 2 tablet Documented by: Sodium Chloride (0.9% Saline Lock 10 Ml Syringe) 10 - 40 ml IV UD PRN PRN Reason: SALINE FLUSH Last Admin: 09/18/20 15:24 Dose: 20 ml Documented by: STROKE Vital Signs/Narrative: Vital Signs Pulse 09/20/20 06:36 79 Medical Necessity - Tobacco Use Smoking Status: Never smoker Assessment/Plan All Active Problems (Last Reviewed 08/27/20 @ 14:23 by Kacie Babcock, RN) Pneumonia (Acute) Renal failure (Acute) Debility (Acute) Weight loss, unintentional (Acute) Anxiety (Resolved) Atherosclerotic heart disease (Resolved) Bipolar 1 disorder (Resolved) COPD (chronic obstructive pulmonary disease) (Resolved) Chronic lymphocytic leukemia of B-cell type not having achieved remission (Resolved) Dementia (Resolved) Dementia without behavioral disturbance (Resolved) HCAP (healthcare-associated pneumonia) (Resolved) Hypo-osmolality and hyponatremia (Resolved) Hyponatremia (Resolved) Hypothyroidism (Resolved) Insomnia (Resolved) Obsessive compulsive disorder (Resolved) Retention of urine (Resolved) Schizoaffective disorder (Resolved) Schizoaffective disorder (Resolved) Schizoaffective disorder (Resolved) Schizoaffective disorder (Resolved) 1. Severe sepsis secondary to secondary to left lower lobe MRSA/beta strept pneumonia/Providencia stuartii, MDR, Providencia CAUTI due to indwelling Raymond catheter. Blood cultures are negative. Sputum cultures growing MRSA/ strept agalactiae. Cultures also growing Providentia ID following , Continue on IV vancomycin and ceftriaxone. 2. Acute hypoxic respiratory failure secondary to pneumonia, appears resolved 3. Acute small bowel ileus and gastric retention, persistent KUB and CT abd/pelvis with contrast shows moderate SBO; small bowel follow- through showed ileus Continue with ambulation out of bed, and enemas General surgery following 4. Acute kidney injury stage 3 on CKD stage II with proteinuria in urine, Creatinine is 3.07. Continue on D5 water Repeat blood work in am 5. Hypernatremia due to dehydration, resolved, continue to monitor on D5 water 6. Hypokalemia, K 3.4, replaced, recheck in am 7. CLL with anemia of chronic disease due to CLL, follows in the outpatient s/p 1 unit pRBC, will continue to monitor 8. Rest of other co-morbidities are stable- schizoaffective disorder/sick sinus syndrome status post pacemaker/hypothyroidism/dyslipidemia 9. DVT PPx-SCDs Inpatient E&M: 36454 Subs Hosp L2
--- NOTE | 2020-09-20 08:25 | PN.SURG_ITS ---
Patient Problems: Active and Suspected Problems (Last Reviewed 08/27/20 @ 14:23 by Kacie Babcock RN) Pneumonia (Acute) Renal failure (Acute) Debility (Acute) Weight loss, unintentional (Acute) Subjective: Patient removed refused enema last night, patient would only sit on the side of bed with therapy for short bit did not get into the chair yesterday.Patient denies abdominal pain states he did have some flatus, had a small amount of stool with enema this morning - Physical Exam Vitals/I&O's: Vital Signs Temp Pulse Resp BP Pulse Ox 98.4 F 79 17 131/75 H 94 09/20/20 03:30 09/20/20 06:36 09/20/20 03:30 09/20/20 03:30 09/20/20 03:30 Oxygen Flow Rate (L/min) 2 Oxygen Delivery Method Room Air Weight: 185 lb 3.013 oz Body Mass Index (BMI) 27.1 Intake and Output for Last 24 Hours 09/18/20 09/19/20 09/20/20 23:59 23:59 23:59 Intake Total 2107.50 / 2107.50 1460.00 / 1460.00 1050 / 1050 Output Total 630 / 630 775 / 775 450 / 450 Balance 1477.50 / 1477.50 685.00 / 685.00 600 / 600 General: Alert, Cooperative, No apparent distress Cardiovascular: Regular rate Abdomen: Soft, Non Tender, Distended - Moderate, - - Right inguinal hernia Easily reducible Microbiology Past 72 Hours 09/12/20 08:35 Blood Culture (Wb) - Anticubital Left Blood Culture - Final No growth in 5 days. 09/12/20 08:23 Blood Culture (Wb) - Anticubital Right Blood Culture - Final No growth in 5 days. 09/14/20 04:50 Sputum, Expectorated/Coughed Gram Stain - Final 09/14/20 04:50 Sputum, Expectorated/Coughed Respiratory Culture - Final Meth. resistant Staph. aureus Streptococcus agalactiae (B) Laboratory Results 09/19/20 05:56: Differential Comment SCANNED, Diff Path Review October09/20/20 05:16: WBC 33.5 H*, RBC 2.86 L, Hgb 9.1 L, Hct 28.4 L, MCV 99.3 H, MCH 31.8, MCHC 32.0, RDW Std Deviation 58.8 H, RDW Coeff of Arben 16.3 H, Plt Count 206, MPV 12.3 H, Immature Gran % (Auto) 4.500 H, Neut % (Auto) 33.3 L, Lymph % (Auto) 55.2 H, [place] % (Auto) 6.5, Eos % (Auto) 0.0, Baso % (Auto) 0.5, Absolute Neuts (auto) 11.1 H, Absolute Lymphs (auto) 18.47 H, Nucleated RBC % 0, Differential Comment SCANNED, Diff Path Review May foll, Smudge Cells 2+ 09/20/20 05:16: Sodium 139, Potassium 3.4 L, Chloride 114 H, Carbon Dioxide 16.0 L, Anion Gap 9, BUN 64 H, Creatinine 3.07 H, Estim Creat Clear Calc 20.79, Est GFR (MDRD) Af Amer 26 L, Est GFR (MDRD) Non-Af 21 L, BUN/Creatinine Ratio 20.8 H , Glucose 149 H, Calcium 7.8 L, Total Bilirubin 0.30, AST 22, ALT 18, Alkaline Phosphatase 55, Total Protein 4.9 L, Albumin 2.1 L, Globulin 2.8, Alb umin/Globulin Ratio 0.8 L 09/20/20 05:16: Magnesium 2.0 Current Medications Acetaminophen (Acetaminophen 325 Mg Tablet) 650 mg PO Q6H PRN PRN PRN Reason: Pain Score 1-10/Temp > 100.7 F Last Admin: 09/17/20 08:46 Dose: 650 mg Documented by: Albuterol Sulfate (Albuterol 2.5 Mg/3 Ml Vial.Neb.) 2.5 mg INHALATION Q2H PRN PRN PRN Reason: SOB/Wheezing Last Admin: 09/17/20 08:25 Dose: 2.5 mg Documented by: Albuterol/Ipratropium (Ipratropium/Albuterol Sulfate 3 Ml Ampul.Neb) 3 ml INHALATION Q4H.RT MANOJ Last Admin: 09/16/20 20:18 Dose: 3 ml Documented by: Buspirone HCl (Buspirone 5 Mg Tablet) 12.5 mg PO BID MANOJ Last Admin: 09/19/20 22:38 Dose: 12.5 mg Documented by: Sodium Chloride () 250 mls @ 15 mls/hr IV .[id number] PRN PRN Reason: Saline Flush Last Infusion: 09/16/20 12:53 Dose: Infused Documented by: Sodium Chloride () 250 mls @ 15 mls/hr IV .[id number] PRN PRN Reason: Additional IVPB Infusion Pantoprazole Sodium 40 mg/ (Sodium Chloride) 110 mls @ 330 mls/hr IV Q24 [facility] Last Infusion: 09/19/20 11:16 Dose: Infused Documented by: Ceftriaxone Sodium (Rocephin) 1 gm in 50 mls @ 100 mls/hr IV Q24@2200 [facility] Last Infusion: 09/20/20 00:19 Dose: Infused Documented by: Vancomycin IV Pharmacy to Dose (1 each/ Sodium Chloride) 500 mls @ 250 mls/hr IV PRN PRN; Protocol PRN Reason: RX TO DOSE Dextrose () 1,000 mls @ 100 mls/hr IV .Q10H [facility] Last Admin: 09/20/20 01:24 Dose: 100 mls/hr Documented by: Potassium Chloride () 10 meq in 100 mls @ 100 mls/hr IV BOLUS Q1H [facility] Stop: 09/20/20 09:59 Levothyroxine Sodium (Levothyroxine 100 Mcg Tablet) 100 mcg PO DAILY@0600 [facility] Nitroglycerin (Nitroglycerin (Inpatient Use) 0.4 Mg Tab.Subl) 0.4 mg SL Q5M PRN PRN Reason: CARDIAC/CHEST PAIN Ondansetron HCl (Ondansetron 4 Mg/2 Ml Vial) 4 mg IV Q8H PRN PRN PRN Reason: NAUSEA/VOMITING Prochlorperazine Edisylate (Prochlorperazine 10 Mg/2 Ml Vial) 5 mg IV Q4H PRN PRN PRN Reason: Breakthrough Nausea/Vomiting Quetiapine Fumarate (Quetiapine 100 Mg Tablet) 200 mg PO BREAKFAST [facility] Last Admin: 09/19/20 10:59 Dose: 200 mg Documented by: Quetiapine Fumarate (Quetiapine 100 Mg Tablet) 400 mg PO QHS [facility] Last Admin: 09/19/20 22:38 Dose: 400 mg Documented by: Senna/Docusate Sodium (Senna/Docusate Sodium 1 Tablet) 2 tablet GT BID PRN PRN Reason: Constipation Last Admin: 09/19/20 22:38 Dose: 2 tablet Documented by: Sodium Chloride (0.9% Saline Lock 10 Ml Syringe) 10 - 40 ml IV UD PRN PRN Reason: SALINE FLUSH Last Admin: 09/18/20 15:24 Dose: 20 ml Documented by: Medical Necessity - Tobacco Use Smoking Status: Never smoker Assessment/Plan All Active Problems (Last Reviewed 08/27/20 @ 14:23 by Kacie Babcock RN) Pneumonia (Acute) Renal failure (Acute) Debility (Acute) Weight loss, unintentional (Acute) Anxiety (Resolved) Atherosclerotic heart disease (Resolved) Bipolar 1 disorder (Resolved) COPD (chronic obstructive pulmonary disease) (Resolved) Chronic lymphocytic 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 N.p.o./IV fluids, NG. KUB does show contrast in the right colon however still at a gas in the left colon as well as small bowel. We will continue enemas to hopefully help get the bowels moving and did try some PO laxatives yesterday. This can be difficult as patient is immobile and is resistant to therapy or getting up in the chair, But did state he would get up to chair today if he had 3 people to help move 2. Leukocytosis?Improving?Abx per ID Raquel Melissa M.D. Pager: [phone] [facility] [address] [place] [address], Outpatient [place], [address] [place] [id number] Office: [phone] Inpatient E&M: 55302 [facility] Hosp L2
--- NOTE | 2020-09-20 09:09 | NURSING ---
Soap suds enema completed with Celia Aldrich RN. Minimal amount of brown stool out with enema.
[2020-09-20] MEDS: Potassium Chloride 10mEq/100mL 10 MEQ/100 ML IV.SOLN. 100 MEQ IV BOLUS ×2 (09:18→10:12)
[2020-09-20] MEDS: 0.9% Saline Lock 10 ML Syringe IV ×2 (09:20→21:36)
[2020-09-20] MEDS: Levothyroxine 100 MCG Tablet PO (09:23)
[2020-09-20] MEDS: busPIRone 5 MG Tablet 12.5 MG PO (09:23)
[2020-09-20] MEDS: QUEtiapine 100 MG Tablet 200 MG PO (09:25)
--- NOTE | 2020-09-20 10:02 | PN.ID_ITS ---
Patient Problems: Active and Suspected Problems (Last Reviewed 08/27/20 @ 14:23 by Kacie Babcock RN) Pneumonia (Acute) Renal failure (Acute) Debility (Acute) Weight loss, unintentional (Acute) Subjective: Feeling better, no fever - Physical Exam Vitals/I&O's: Vital Signs Temp Pulse Resp BP Pulse Ox 98.4 F 81 18 141/76 H 94 09/20/20 09:10 09/20/20 09:10 09/20/20 09:10 09/20/20 09:10 09/20/20 09:10 Oxygen Flow Rate (L/min) 2 Oxygen Delivery Method Room Air Weight: 84 kg Body Mass Index (BMI) 27.1 Intake and Output for Last 24 Hours 09/18/20 09/19/20 09/20/20 23:59 23:59 23:59 Intake Total 2107.50 / 2107.50 1460.00 / 1460.00 1920 / 1920 Output Total 630 / 630 775 / 775 450 / 450 Balance 1477.50 / 1477.50 685.00 / 685.00 1470 / 1470 General: Cooperative, No apparent distress Lungs: Rhonchi Cardiovascular: Regular rate, Regular Rhythm Abdomen: Soft, Non Tender, Distended Skin: No rashes Microbiology Past 72 Hours 09/12/20 08:35 Blood Culture (Wb) - Anticubital Left Blood Culture - Final No growth in 5 days. 09/12/20 08:23 Blood Culture (Wb) - Anticubital Right Blood Culture - Final No growth in 5 days. 09/14/20 04:50 Sputum, Expectorated/Coughed Gram Stain - Final 09/14/20 04:50 Sputum, Expectorated/Coughed Respiratory Culture - Final Meth. resistant Staph. aureus Streptococcus agalactiae (B) Laboratory Results 09/20/20 05:16: WBC 33.5 H*, RBC 2.86 L, Hgb 9.1 L, Hct 28.4 L, MCV 99.3 H, MCH 31.8, MCHC 32.0, RDW Std Deviation 58.8 H, RDW Coeff of Arben 16.3 H, Plt Count 206, MPV 12.3 H, Immature Gran % (Auto) 4.500 H, Neut % (Auto) 33.3 L, Lymph % (Auto) 55.2 H, [place] % (Auto) 6.5, Eos % (Auto) 0.0, Baso % (Auto) 0.5, Absolute Neuts (auto) 11.1 H, Absolute Lymphs (auto) 18.47 H, Nucleated RBC % 0, Differential Comment SCANNED, Diff Path Review May foll, Smudge Cells 2+ 09/20/20 05:16: Sodium 139, Potassium 3.4 L, Chloride 114 H, Carbon Dioxide 16.0 L, Anion Gap 9, BUN 64 H, Creatinine 3.07 H, Estim Creat Clear Calc 20.79, Est GFR (MDRD) Af Amer 26 L, Est GFR (MDRD) Non-Af 21 L, BUN/Creatinine Ratio 20.8 H , Glucose 149 H, Calcium 7.8 L, Total Bilirubin 0.30, AST 22, ALT 18, Alkaline Phosphatase 55, Total Protein 4.9 L, Albumin 2.1 L, Globulin 2.8, Albumin/Globulin Ratio 0.8 L 09/20/20 05:16: Magnesium 2.0 Current Medications Acetaminophen (Acetaminophen 325 Mg Tablet) 650 mg PO Q6H PRN PRN PRN Reason: Pain Score 1-10/Temp > 100.7 F Last Admin: 09/17/20 08:46 Dose: 650 mg Documented by: Albuterol Sulfate (Albuterol 2.5 Mg/3 Ml Vial.Neb.) 2.5 mg INHALATION Q2H PRN PRN PRN Reason: SOB/Wheezing Last Admin: 09/17/20 08:25 Dose: 2.5 mg Documented by: Albuterol/Ipratropium (Ipratropium/Albuterol Sulfate 3 Ml Ampul.Neb) 3 ml INHALATION Q4H.RT MANOJ Last Admin: 09/16/20 20:18 Dose: 3 ml Documented by: Buspirone HCl (Buspirone 5 Mg Tablet) 12.5 mg PO BID MANOJ Last Admin: 09/20/20 09:23 Dose: 12.5 mg Documented by: Sodium Chloride () 250 mls @ 15 mls/hr IV .[id number] PRN PRN Reason: Saline Flush Last Infusion: 09/16/20 12:53 Dose: Infused Documented by: Sodium Chloride () 250 mls @ 15 mls/hr IV .[id number] PRN PRN Reason: Additional IVPB Infusion Pantoprazole Sodium 40 mg/ (Sodium Chloride) 110 mls @ 330 mls/hr IV Q24 [facility] Last Infusion: 09/20/20 09:40 Dose: Infused Documented by: Ceftriaxone Sodium (Rocephin) 1 gm in 50 mls @ 100 mls/hr IV Q24@2200 [facility] Last Infusion: 09/20/20 00:19 Dose: Infused Documented by: Vancomycin IV Pharmacy to Dose (1 each/ Sodium Chloride) 500 mls @ 250 mls/hr IV PRN PRN; Protocol PRN Reason: RX TO DOSE Dextrose () 1,000 mls @ 100 mls/hr IV .Q10H [facility] Last Infusion: 09/20/20 09:00 Dose: 0 mls/hr Documented by: Levothyroxine Sodium (Levothyroxine 100 Mcg Tablet) 100 mcg PO DAILY@0600 [facility] Last Admin: 09/20/20 09:23 Dose: 100 mcg Documented by: Nitroglycerin (Nitroglycerin (Inpatient Use) 0.4 Mg Tab.Subl) 0.4 mg SL Q5M PRN PRN Reason: CARDIAC/CHEST PAIN Ondansetron HCl (Ondansetron 4 Mg/2 Ml Vial) 4 mg IV Q8H PRN PRN PRN Reason: NAUSEA/VOMITING Prochlorperazine Edisylate (Prochlorperazine 10 Mg/2 Ml Vial) 5 mg IV Q4H PRN PRN PRN Reason: Breakthrough Nausea/Vomiting Quetiapine Fumarate (Quetiapine 100 Mg Tablet) 200 mg PO BREAKFAST [facility] Last Admin: 09/20/20 09:25 Dose: 200 mg Documented by: Quetiapine Fumarate (Quetiapine 100 Mg Tablet) 400 mg PO QHS [facility] Last Admin: 09/19/20 22:38 Dose: 400 mg Documented by: Senna/Docusate Sodium (Senna/Docusate Sodium 1 Tablet) 2 tablet GT BID PRN PRN Reason: Constipation Last Admin: 09/19/20 22:38 Dose: 2 tablet Documented by: Sodium Chloride (0.9% Saline Lock 10 Ml Syringe) 10 - 40 ml IV UD PRN PRN Reason: SALINE FLUSH Last Admin: 09/20/20 09:20 Dose: 10 ml Documented by: Medical Necessity - Tobacco Use Smoking Status: Never smoker Route of nutrition/ use of supplements: [] Nutritional Intake: [] IV Site: [] Raymond Catheter: [] - Assessment/Plan Antibiotics: [] Assessment/Plan: [] Active and Suspected Problems (Last Reviewed 08/27/20 @ 14:23 by Kacie Babcock RN) Pneumonia (Acute) Renal failure (Acute) sepsis with MSSA/GBS pneumonia and providencia uti - on vanc/ceftriaxone. No fever. JOSE ARMANDO improving. Wbc starting to improve, neutrophils much improved. Abd less distended. CT done, surgery following. Will follow
[2020-09-20 11:11] LABS: Pathologist Review Reviewed
[2020-09-20 11:11] LABS: Pathologist Review Reviewed
--- NOTE | 2020-09-20 11:54 | CASEMGMT ---
DESTINEY faxed updates to [employer]. Laura Thorpe [employer]
--- NOTE | 2020-09-20 13:46 | PN.RENAL_ITS ---
Patient Problems: Active and Suspected Problems (Last Reviewed 08/27/20 @ 14:23 by Kacie Babcock RN) Pneumonia (Acute) Renal failure (Acute) Debility (Acute) Weight loss, unintentional (Acute) Subjective: Mumbling cannot obtain review of systems - Physical Exam Vitals/I&O's: Vital Signs Temp Pulse Resp BP Pulse Ox 98.4 F 81 18 141/76 H 92 09/20/20 09:10 09/20/20 09:10 09/20/20 09:10 09/20/20 09:10 09/20/20 10:35 Oxygen Flow Rate (L/min) 2 Oxygen Delivery Method Room Air Weight: 84 kg Body Mass Index (BMI) 27.1 Intake and Output for Last 24 Hours 09/18/20 09/19/20 09/20/20 23:59 23:59 23:59 Intake Total 2107.50 / 2107.50 1460.00 / 1460.00 2146.67 / 2146.67 Output Total 630 / 630 775 / 775 450 / 450 Balance 1477.50 / 1477.50 685.00 / 685.00 1696.67 / 1696.67 General: Alert, Cooperative HEENT: Atraumatic, Normocephalic, - - ngt Lungs: Clear to auscultation, Normal air movement Cardiovascular: Regular rate, Regular Rhythm, Normal S1, Normal S2 Abdomen: Bowel Sounds Present, Soft, Non Tender Extremities: No edema Laboratory Results 09/19/20 05:56: Diff Path Review Reviewed 09/20/20 05:16: WBC 33.5 H*, RBC 2.86 L, Hgb 9.1 L, Hct 28.4 L, MCV 99.3 H, MCH 31.8, MCHC 32.0, RDW Std Deviation 58.8 H, RDW Coeff of Arben 16.3 H, Plt Count 206, MPV 12.3 H, Immature Gran % (Auto) 4.500 H, Neut % (Auto) 33.3 L, Lymph % (Auto) 55.2 H, Terrell % (Auto) 6.5, Eos % (Auto) 0.0, Baso % (Auto) 0.5, Absolute Neuts (auto) 11.1 H, Absolute Lymphs (auto) 18.47 H, Nucleated RBC % 0, Differential Comment SCANNED, Diff Path Review Reviewed, Smudge Cells 2+ 09/20/20 05:16: Sodium 139, Potassium 3.4 L, Chloride 114 H, Carbon Dioxide 16.0 L, Anion Gap 9, BUN 64 H, Creatinine 3.07 H, Estim Creat Clear Calc 20.79, Est GFR (MDRD) Af Amer 26 L, Est GFR (MDRD) Non-Af 21 L, BUN/Creatinine Ratio 20.8 H , Glucose 149 H, Calcium 7.8 L, Total Bilirubin 0.30, AST 22, ALT 18, Alkaline Phosphatase 55, Total Protein 4.9 L, Albumin 2.1 L, Globulin 2.8, Albumin/Globulin Ratio 0.8 L 09/20/20 05:16: Magnesium 2.0 Current Medications Acetaminophen (Acetaminophen 325 Mg Tablet) 650 mg PO Q6H PRN PRN PRN Reason: Pain Score 1-10/Temp > 100.7 F Last Admin: 09/17/20 08:46 Dose: 650 mg Documented by: Albuterol Sulfate (Albuterol 2.5 Mg/3 Ml Vial.Neb.) 2.5 mg INHALATION Q2H PRN PRN PRN Reason: SOB/Wheezing Last Admin: 09/17/20 08:25 Dose: 2.5 mg Documented by: Albuterol/Ipratropium (Ipratropium/Albuterol Sulfate 3 Ml Ampul.Neb) 3 ml INHALATION Q4H.RT [facility] Last Admin: 09/16/20 20:18 Dose: 3 ml Documented by: Buspirone HCl (Buspirone 5 Mg Tablet) 12.5 mg PO BID [facility] Last Admin: 09/20/20 09:23 Dose: 12.5 mg Documented by: Sodium Chloride () 250 mls @ 15 mls/hr IV .[id number] PRN PRN Reason: Saline Flush Last Infusion: 09/16/20 12:53 Dose: Infused Documented by: Sodium Chloride () 250 mls @ 15 mls/hr IV .[id number] PRN PRN Reason: Additional IVPB Infusion Pantoprazole Sodium 40 mg/ (Sodium Chloride) 110 mls @ 330 mls/hr IV Q24 [facility] Last Infusion: 09/20/20 09:40 Dose: Infused Documented by: Ceftriaxone Sodium (Rocephin) 1 gm in 50 mls @ 100 mls/hr IV Q24@2200 [facility] Last Infusion: 09/20/20 00:19 Dose: Infused Documented by: Vancomycin IV Pharmacy to Dose (1 each/ Sodium Chloride) 500 mls @ 250 mls/hr IV PRN PRN; Protocol PRN Reason: RX TO DOSE Dextrose () 1,000 mls @ 100 mls/hr IV .Q10H [facility] Last Admin: 09/20/20 11:57 Dose: 100 mls/hr Documented by: Levothyroxine Sodium (Levothyroxine 100 Mcg Tablet) 100 mcg PO DAILY@0600 [facility] Last Admin: 09/20/20 09:23 Dose: 100 mcg Documented by: Nitroglycerin (Nitroglycerin (Inpatient Use) 0.4 Mg Tab.Subl) 0.4 mg SL Q5M PRN PRN Reason: CARDIAC/CHEST PAIN Ondansetron HCl (Ondansetron 4 Mg/2 Ml Vial) 4 mg IV Q8H PRN PRN PRN Reason: NAUSEA/VOMITING Prochlorperazine Edisylate (Prochlorperazine 10 Mg/2 Ml Vial) 5 mg IV Q4H PRN PRN PRN Reason: Breakthrough Nausea/Vomiting Quetiapine Fumarate (Quetiapine 100 Mg Tablet) 200 mg PO BREAKFAST [facility] Last Admin: 09/20/20 09:25 Dose: 200 mg Documented by: Quetiapine Fumarate (Quetiapine 100 Mg Tablet) 400 mg PO QHS [facility] Last Admin: 09/19/20 22:38 Dose: 400 mg Documented by: Senna/Docusate Sodium (Senna/Docusate Sodium 1 Tablet) 2 tablet GT BID PRN PRN Reason: Constipation Last Admin: 09/19/20 22:38 Dose: 2 tablet Documented by: Sodium Chloride (0.9% Saline Lock 10 Ml Syringe) 10 - 40 ml IV UD PRN PRN Reason: SALINE FLUSH Last Admin: 09/20/20 09:20 Dose: 10 ml Documented by: Medical Necessity - Tobacco Use Smoking Status: Never smoker Assessment/Plan All Active Problems (Last Reviewed 08/27/20 @ 14:23 by Kacie Babcock RN) Pneumonia (Acute) Renal failure (Acute) Debility (Acute) Weight loss, unintentional (Acute) Anxiety (Resolved) Atherosclerotic heart disease (Resolved) Bipolar 1 disorder (Resolved) COPD (chronic obstructive pulmonary disease) (Resolved) Chronic lymphocytic leukemia of B-cell type not having achieved remission (Resolved) Dementia (Resolved) Dementia without behavioral disturbance (Resolved) HCAP (healthcare-associated pneumonia) (Resolved) Hypo-osmolality and hyponatremia (Resolved) Hyponatremia (Resolved) Hypothyroidism (Resolved) Insomnia (Resolved) Obsessive compulsive disorder (Resolved) Retention of urine (Resolved) Schizoaffective disorder (Resolved) Schizoaffective disorder (Resolved) Schizoaffective disorder (Resolved) Schizoaffective disorder (Resolved) JOSE ARMANDO?ATN Renal cysts bilaterally Ileus CLL Scr 3.07 less prerenal continue ivf surgery following st d/w patient avoid neprhtoxins Recommend to dose vancomycin with levels to avoid nephrotoxicity
--- NOTE | 2020-09-20 16:12 | PCM.NTREPORT ---
Nutrition Therapy Report - History Nutrition Services has been consulted to:: Manage nutrient details of diet order Current diet / nutrition support order:: NPO- NG in place. - Anthropometric Measurements Height:: 5 ft 9 in Weight:: 84 kg Body Mass Index (BMI):: 27.3 - Relevant Labs Relevant Labs:: WBC 33.5 K/mm3 (4.4-11.0) H* 09/20/20 05:16 RBC 2.86 M/mm3 (4.6-6.2) L 09/20/20 05:16 Hgb 9.1 g/dL (13.0-16.5) L 09/20/20 05:16 Hct 28.4 % (40-54) L 09/20/20 05:16 MCV 99.3 fL (80-94) H 09/20/20 05:16 MCH 32.1 pg (27.0-32.0) H 09/19/20 05:56 MCHC 31.9 g/dL (32-36) L 09/19/20 05:56 RDW Std Deviation 58.8 fl (35.1-43.9) H 09/20/20 05:16 RDW Coeff of Arben 16.3 % (11.6-14.6) H 09/20/20 05:16 Plt Count 143 K/mm3 (150-450) L 09/17/20 06:00 MPV 12.3 fl (6.2-12.0) H 09/20/20 05:16 Immature Gran % (Auto) 4.500 % (0.0-0.9) H 09/20/20 05:16 Neut % (Auto) 33.3 % (47-70) L 09/20/20 05:16 Lymph % (Auto) 55.2 % (19-41) H 09/20/20 05:16 Absolute Neuts (auto) 11.1 X10^3/uL (2.0-7.7) H 09/20/20 05:16 Absolute Lymphs (auto) 18.47 X10^3/uL (0.83-4.51) H 09/20/20 05:16 Neutrophils % (Manual) 29 % (47-70) L 09/18/20 05:55 Band Neutrophils % 10 % (0-5) H 09/18/20 05:55 Lymphocytes % (Manual) 54 % (19-41) H 09/18/20 05:55 Metamyelocytes % 4 % (0-1) H 09/17/20 06:00 Myelocytes % 5 % (0-0) H 09/17/20 06:00 Promyelocytes % 1 % (0-0) H 09/18/20 05:55 Blast Cells % 3 % (0-0) H* 09/18/20 05:55 PT 16.4 SECONDS (11.7-14.9) H 09/12/20 08:23 Sodium 146 mmol/L (136-145) H 09/19/20 05:56 Potassium 3.4 mmol/L (3.5-5.1) L 09/20/20 05:16 Chloride 114 mmol/L (98-107) H 09/20/20 05:16 Carbon Dioxide 16.0 mmol/L (21.0-32.0) L 09/20/20 05:16 BUN 64 mg/dL (7-18) H 09/20/20 05:16 Creatinine 3.07 mg/dL (0.70-1.30) H 09/20/20 05:16 Est GFR (MDRD) Af Amer 26 mL/min (>60) L 09/20/20 05:16 Est GFR (MDRD) Non-Af 21 mL/min (>60) L 09/20/20 05:16 BUN/Creatinine Ratio 20.8 RATIO (10-20) H 09/20/20 05:16 Glucose 149 mg/dL (74-106) H 09/20/20 05:16 Lactic Acid 3.2 mmol/L (0.4-1.9) H* 09/12/20 14:30 Calcium 7.8 mg/dL (8.5-10.1) L 09/20/20 05:16 Phosphorus 5.0 mg/dL (2.5-4.9) H 09/14/20 04:45 ALT 15 U/L (16-61) L 09/14/20 04:45 Total Protein 4.9 g/dL (6.4-8.2) L 09/20/20 05:16 Albumin 2.1 g/dL (3.2-5.0) L 09/20/20 05:16 Globulin 2.1 g/dL (2.2-4.2) L 09/19/20 05:56 Albumin/Globulin Ratio 0.8 RATIO (0.9-2.4) L 09/20/20 05:16 - Assessment Food / Nutrition-Related History:: RDN spoke w/ pt sister as pt states I can't talk. States believes pt wt maintaining ~158#; variable intake at NH depending on his mood, consumes Ensure 3x/day. 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 Wt per EMR, ED bedscale 179.2# 10/09/19. Wt gain likely d/t edema- Bilat. arms & R hand non-pitting, Bilat Legs & L hand 1+pitting. Per RN note pt has had 5 enemas this day with minimal results. - Nutrition Diagnosis Problem / Etiology / Signs & Symptoms (PES):: Inadequate oral intake RT altered GI function AEB NPO status w/ NG in place to suction. Evidence of Malnutrition Exists:: No - Food / Nutrient Delivery Interventions Summary of nutrition intervention:: Rec consideration of parenteral nutrition support as it has been 7 days and patient is unable to receive >50% of estimated nutrition requirements orally or enterally. Pt with </=50% energy intake compared to estimated energy needs x 8 days d/t NPO status and minimal intake when PO intake progressed consuming at best ~50% of meals. 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 Nutrition education provided?: No - MNT Monitoring Further MNT monitoring and evaluation required?: Yes MNT Follow-up in:: 1-2 days
[2020-09-20] MEDS: Ceftriaxone 1 GM/50 ML BAG IV (21:35)
[2020-09-21] VITALS (7 sets, daily range): BP systolic 114–134; BP diastolic 65–80; PULSE 71–81; RESP 16–20; TEMP 36.1–37.3; O2SAT 93–96
[2020-09-21] MEDS: 0.9% Saline Lock 10 ML Syringe IV (06:28)
[2020-09-21 06:56] LABS: Vancomycin, Random Level 17.3 ug/mL (0.0-15.0)
--- NOTE | 2020-09-21 07:27 | PCM.RX.CS ---
Consult Pharmacy has been consulted to manage selected antiobiotic: Vancomycin Type of Consult: Follow-up Suspected Infection: Pneumonia Prior Doses of Antibiotics Received/Current Regimen: last received 1250mg IV x1 on 09/19/20 at 0844 Labs: Sodium 139 mmol/L (136-145) 09/20/20 05:16 Potassium 3.4 mmol/L (3.5-5.1) L 09/20/20 05:16 Chloride 114 mmol/L (98-107) H 09/20/20 05:16 Carbon Dioxide 16.0 mmol/L (21.0-32.0) L 09/20/20 05:16 Anion Gap 9 (5-15) 09/20/20 05:16 BUN 64 mg/dL (7-18) H 09/20/20 05:16 Creatinine 3.07 mg/dL (0.70-1.30) H 09/20/20 05:16 Est GFR (MDRD) Af Amer 26 mL/min (>60) L 09/20/20 05:16 Est GFR (MDRD) Non-Af 21 mL/min (>60) L 09/20/20 05:16 BUN/Creatinine Ratio 20.8 RATIO (10-20) H 09/20/20 05:16 Glucose 149 mg/dL (74-106) H 09/20/20 05:16 Random Vancomycin 17.3 ug/mL (0.0-15.0) H 09/21/20 05:45 Microbiology: Microbiology 09/12/20 08:35 Blood Culture (Wb) - Anticubital Left Blood Culture - Final No growth in 5 days. 09/12/20 08:23 Blood Culture (Wb) - Anticubital Right Blood Culture - Final No growth in 5 days. 09/14/20 04:50 Sputum, Expectorated/Coughed Gram Stain - Final 09/14/20 04:50 Sputum, Expectorated/Coughed Respiratory Culture - Final Meth. resistant Staph. aureus Streptococcus agalactiae (B) 09/12/20 10:15 Urine Catheter - Raymond Urine Culture - Final Providencia stuartii 09/12/20 14:33 Mucosa - Nose Respiratory Panel (PCR) - Final 09/12/20 08:50 Urine Catheter - Raymond Legionella Antigen - Final 09/12/20 08:50 Urine Catheter - Raymond Streptococcus pneumoniae Antigen (M - Final 09/12/20 08:35 Mucosa - Nose SARS-CoV-2 Antigen (Rapid) - Final Weight used for dosin.4 kg Estimated Creatinine Clearance: 20.8ml/min Goal Trough: 15-20 mcg/mL Pharmacy Plan for Drug Dosing: The vancomycin random level drawn today at 0545 was 17.3. Per [facility] protocol since it is below 20, will order another 1250mg IV x1 to be given today. Will continue to dose based off random levels since the patient's CrCl is still hovering around 20. Repeat another random vanc level in 48 hours and pharmacy will then use that to determine further dosing. Pharmacy Service will continue to monitor and adjust dosing as required. Follow-Up Labs: Trough Vancomycin - random Labs to be done on [date and time ordered]: 09/23/20 0600
--- NOTE | 2020-09-21 07:29 | RAD_ITS ---
STUDY: X-RAY - ABDOMEN/PELVIS REASON FOR EXAM: Male, 75 years old. Ileus -- portable TECHNIQUE: Single AP view of the abdomen / pelvis. COMPARISON: Comparison is made with prior study dated 09/20/2020. FINDINGS: The tip of the nasogastric tube is in the fundal portion of the stomach. Contrast is seen within the right hemicolon. Persistent mild dilatation of small bowel loops although there has been improvement. The visualized liver, spleen and kidneys are grossly normal in size and morphology. Normal soft tissue structures. There are diffuse degenerative changes of the visualized lumbar spine. RAD/Abdomen Single View (Portable) IMPRESSION: Oral contrast is seen within the right hemicolon. Residual small bowel dilatation although this has improved as compared to prior study. Electronically Signed: Darryl Mays MD at 13:51 EDT , Service support ,
[2020-09-21 08:50] LABS: Hematocrit 27.4 % (40-54); Hemoglobin 8.9 g/dL (13.0-16.5); Mean Corp Hgb Conc 32.5 g/dL (32-36); Mean Corpuscular Hgb 32.1 pg (27.0-32.0); Mean Corpuscular Volume 98.9 fL (80-94); Mean Platelet Vol. 11.7 fl (6.2-12.0); POSITIVE COUNT YES; POSITIVE DIFFERENTIAL YES; POSITIVE MORPHOLOGY YES; Platelet Count 235 K/mm3 (150-450); RBC Distribution Width CV 16.2 % (11.6-14.6); RBC Distribution Width SD 58.7 fl (35.1-43.9); Red Blood Count 2.77 M/mm3 (4.6-6.2); White Blood Count 40.6 K/mm3 (4.4-11.0)
[2020-09-21 08:54] LABS: Differential Indicated MANUAL DIFF
--- NOTE | 2020-09-21 08:58 | PCM.PN.SRG ---
Patient Problems: Active and Suspected Problems (Last Reviewed 08/27/20 @ 14:23 by Kacie Babcock RN) Pneumonia (Acute) Renal failure (Acute) Debility (Acute) Weight loss, unintentional (Acute) Subjective: Patient's contrast is now in the right colon as well as the transverse colon still has gaseous distention of the the colon mostly do not see much Distention of the small bowel, patient states he is passing gas. Patient did get up to the chair yesterday one time. - Physical Exam Vitals/I&O's: Vital Signs Temp Pulse Resp BP Pulse Ox 97.6 F L 74 20 H 114/72 94 09/21/20 08:47 09/21/20 08:47 09/21/20 08:47 09/21/20 08:47 09/21/20 08:47 Oxygen Flow Rate (L/min) 2 Oxygen Delivery Method Room Air Weight: 183 lb 13.848 oz Body Mass Index (BMI) 27.3 Intake and Output for Last 24 Hours 09/19/20 09/20/20 09/21/20 23:59 23:59 23:59 Intake Total 1460.00 / 1460.00 3213.34 / 3213.34 871.67 / 871.67 Output Total 775 / 775 775 / 1100 500 / 500 Balance 685.00 / 685.00 2438.34 / 2113.34 371.67 / 371.67 Laboratory Results 09/19/20 05:56: Diff Path Review Reviewed 09/20/20 05:16: Diff Path Review Reviewed 09/21/20 05:45: Random Vancomycin 17.3 H 09/21/20 05:45: Sodium Pending, Potassium Pending, Chloride Pending, Carbon Dioxide Pending, Anion Gap Pending, BUN Pending, Creatinine Pending, Est GFR (MDRD) Af Amer Pending, Est GFR (MDRD) Non-Af Pending, BUN/Creatinine Ratio Pending, Glucose Pending, Calcium Pending, Total Bilirubin Pending, AST Pending, ALT Pending, Alkaline Phosphatase Pending, Total Protein Pending, Albumin Pending 09/21/20 08:44: WBC 40.6 H*, RBC 2.77 L, Hgb 8.9 L, Hct 27.4 L, MCV 98.9 H, MCH 32.1 H, MCHC 32.5, RDW Std Deviation 58.7 H, RDW Coeff of Arben 16.2 H, Plt Count 235, MPV 11.7, Neut % (Auto) Not Reportable, Absolute Neuts (auto) Pending Current Medications Acetaminophen (Acetaminophen 325 Mg Tablet) 650 mg PO Q6H PRN PRN PRN Reason: Pain Score 1-10/Temp > 100.7 F Last Admin: 09/17/20 08:46 Dose: 650 mg Documented by: Albuterol Sulfate (Albuterol 2.5 Mg/3 Ml Vial.Neb.) 2.5 mg INHALATION Q2H PRN PRN PRN Reason: SOB/Wheezing Last Admin: 09/17/20 08:25 Dose: 2.5 mg Documented by: Albuterol/Ipratropium (Ipratropium/Albuterol Sulfate 3 Ml Ampul.Neb) 3 ml INHALATION Q4H.RT [facility] Last Admin: 09/16/20 20:18 Dose: 3 ml Documented by: Bisacodyl (Bisacodyl 10 Mg Suppository) 10 mg RC DAILY [facility] Buspirone HCl (Buspirone 5 Mg Tablet) 12.5 mg PO BID [facility] Last Admin: 09/20/20 22:23 Dose: Not Given Documented by: Sodium Chloride () 250 mls @ 15 mls/hr IV .[id number] PRN PRN Reason: Saline Flush Last Infusion: 09/16/20 12:53 Dose: Infused Documented by: Sodium Chloride () 250 mls @ 15 mls/hr IV .[id number] PRN PRN Reason: Additional IVPB Infusion Pantoprazole Sodium 40 mg/ (Sodium Chloride) 110 mls @ 330 mls/hr IV Q24 [facility] Last Admin: 09/21/20 08:52 Dose: 330 mls/hr Documented by: Ceftriaxone Sodium (Rocephin) 1 gm in 50 mls @ 100 mls/hr IV Q24@2200 [facility] Last Infusion: 09/20/20 22:23 Dose: Infused Documented by: Vancomycin IV Pharmacy to Dose (1 each/ Sodium Chloride) 500 mls @ 250 mls/hr IV PRN PRN; Protocol PRN Reason: RX TO DOSE Dextrose () 1,000 mls @ 100 mls/hr IV .Q10H [facility] Last Admin: 09/21/20 06:28 Dose: 100 mls/hr Documented by: Vancomycin HCl 1,250 mg/ (Sodium Chloride) 275 mls @ 167 mls/hr IV X1 ONE Stop: 09/21/20 09:38 Last Admin: 09/21/20 07:50 Dose: 167 mls/hr Documented by: Levothyroxine Sodium (Levothyroxine 100 Mcg Tablet) 100 mcg PO DAILY@0600 [facility] Last Admin: 09/21/20 05:10 Dose: Not Given Documented by: Nitroglycerin (Nitroglycerin (Inpatient Use) 0.4 Mg Tab.Subl) 0.4 mg SL Q5M PRN PRN Reason: CARDIAC/CHEST PAIN Ondansetron HCl (Ondansetron 4 Mg/2 Ml Vial) 4 mg IV Q8H PRN PRN PRN Reason: NAUSEA/VOMITING Prochlorperazine Edisylate (Prochlorperazine 10 Mg/2 Ml Vial) 5 mg IV Q4H PRN PRN PRN Reason: Breakthrough Nausea/Vomiting Quetiapine Fumarate (Quetiapine 100 Mg Tablet) 200 mg PO BREAKFAST [facility] Last Admin: 09/20/20 09:25 Dose: 200 mg Documented by: Quetiapine Fumarate (Quetiapine 100 Mg Tablet) 400 mg PO QHS [facility] Last Admin: 09/20/20 22:23 Dose: Not Given Documented by: Senna/Docusate Sodium (Senna/Docusate Sodium 1 Tablet) 2 tablet GT BID PRN PRN Reason: Constipation Last Admin: 09/19/20 22:38 Dose: 2 tablet Documented by: Sodium Chloride (0.9% Saline Lock 10 Ml Syringe) 10 - 40 ml IV UD PRN PRN Reason: SALINE FLUSH Last Admin: 09/21/20 06:28 Dose: 10 ml Documented by: Medical Necessity - Tobacco Use Smoking Status: Never smoker Assessment/Plan All Active Problems (Last Reviewed 08/27/20 @ 14:23 by Kacie Babcock RN) Pneumonia (Acute) Renal failure (Acute) Debility (Acute) Weight loss, unintentional (Acute) Anxiety (Resolved) Atherosclerotic heart disease (Resolved) Bipolar 1 disorder (Resolved) COPD (chronic obstructive pulmonary disease) (Resolved) Chronic lymphocytic 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 N.p.o./IV fluids, NG. KUB does show contrast in the right colonAnd transverse seems to have less in the small bowel with mostly in the colon. We will continue enemas to hopefully help get the bowels moving , Speech has limited patient to critical p.o. meds with applesauce. This can be difficult as patient is immobile and is resistant to therapy or getting up in the chair, But Did get up to the chair once yesterday 2. Leukocytosis?Pending?Abx per ID Raquel Melissa M.D. Pager: [phone] [facility] [address] [place] [address], Outpatient [place], [address] [place] [address] Office: [phone] Inpatient E&M: 30664 Subs Hosp L2
[2020-09-21 09:03] LABS: ALB/GLOB Ratio 0.9 RATIO (0.9-2.4); AST(SGOT) 24 U/L (15-37); Alanine Aminotransfer ALT/SGPT 15 U/L (16-61); Alkaline Phosphatase 54 U/L (45-117); Anion Gap 10 (5-15); BUN 50 mg/dL (7-18); BUN/Creat Ratio 19.8 RATIO (10-20); Calcium,Total 7.3 mg/dL (8.5-10.1); Chloride 114 mmol/L (98-107); Creatinine, Serum 2.52 mg/dL (0.70-1.30); EST Glomerular Filtration Rate 27 mL/min (>60); Est Glom Filt Rate - Afr Amer 32 mL/min (>60); Estimated Creatinine Clearance 25.33 ml/min; Globulin 2.2 g/dL (2.2-4.2); Glucose 112 mg/dL (74-106); Potassium 3.7 mmol/L (3.5-5.1); Protein, Total 4.2 g/dL (6.4-8.2); Sodium Level 140 mmol/L (136-145)
[2020-09-21 09:22] LABS: Metamyelocyte 1 % (0-1); Myelocyte 2 % (0-0); Neutrophil-Band 3 % (0-5); Neutrophil-Segmented 31 % (47-70); Total Cells Counted 100 (MANUAL DIFF)
[2020-09-21 09:23] LABS: Lymphocyte 61 % (19-41); Monocyte 2 % (0-10)
[2020-09-21 09:24] LABS: Absolute Lymphocyte Count 24.74 X10^3/uL (0.83-4.51); Absolute Neutrophil Count 13.8 X10^3/uL (2.0-7.7)
[2020-09-21 09:25] LABS: Platelet Estimate ADEQUATE (ADEQ)
[2020-09-21] MEDS: QUEtiapine 100 MG Tablet 200 MG PO (09:25)
[2020-09-21] MEDS: busPIRone 5 MG Tablet 12.5 MG PO ×2 (09:26→20:37)
[2020-09-21 09:27] LABS: Red Cell Morphology NORM C+C NORMAL (NORM C&C)
--- NOTE | 2020-09-21 11:30 | CON.PCM_ITS ---
- Problem List (1) Neutrophilic leukocytosis Status: Acute (2) CLL (chronic lymphocytic leukemia) Status: Chronic (3) Anemia Status: Chronic (4) Pneumonia Status: Acute (5) Renal failure Status: Acute Consult Referring Physician: Hospitalist Consult Results: Chronic lymphocytic leukemia and leukemoid reaction Subjective Date of Service:: 09/21/20 Chief Complaint: SOB History of Present Illness: 75-year-old male , long[facility]term resident at a [facility] admitted with increasing shortness of breath, pneumonia and JOSE ARMANDO. Patient's past medical history notable for chronic lymphocytic leukemia (pr esenting with progressively increasing lymphocytosis, anemia and confirmed on peripheral blood flow cytometry in September 2020), Cardiac disease with a pacemaker, hypertension, dyslipidemia, psychiatric disease on medical treatment long-term, impaired performance status (ECOG 2-3) . Hematology consultation requested for increasing leukocytosis and immature myeloid cells seen on peripheral blood. Past Medical History: Chronic Problems (Last Reviewed 08/27/20 @ 14:23 by Kacie Babcock RN) Hypothyroidism (Chronic) Bipolar 1 disorder (Chronic) COPD (chronic obstructive pulmonary disease) (Chronic) Schizo affective schizophrenia (Chronic) Lymphocytosis (Chronic) Anemia (Chronic) Schizophrenia (Chronic) CLL (chronic lymphocytic leukemia) (Chronic) Presence of permanent cardiac pacemaker (Chronic) Pacemaker placement 1992;Replacement of pulse generator 1999; Implant [employer] Pacemaker 2004; Implant of dual chamber [employer] pacemaker 12/17/10; Pure hypercholesterolemia (Chronic) Essential hypertension (Chronic) Sinoatrial node dysfunction (Chronic) intermediate designer use of drug (Chronic) Antihyperlipidemic Retinopathy (Chronic) Past Medical/Surgical History: Past Medical History - Most Recent Inpatient Visit Past Medical History Start: 09/12/20 12:52 Text: Status: Complete Freq: ONCE Protocol: Document 09/12/20 14:51 ANNA (Rec: 09/12/20 14:54 ANNA [id number]) BMI Required to complete PMH What is Patient's BMI 25.3 Past Medical History Unable History Recalled Yes Query Text:Pt Unable/Family Not Present Neurologic Medical History Hx Stroke/TIA No Hx Dementia/Alzheimer's No Hx Parkinson's Disease No Hx Seizures No Hx Multiple Sclerosis No Hx Migraines No Cardiac Medical History VTE Present on Admission No Hx of Deep Vein Thrombosis/VTE/PE No Hx Hypertension Yes Hx Chest Pain/Angina No Hx Heart Attack No Hx Cardiac Surgery/Stents/Etc. No Hx Heart Failure No Hx Pacemaker/AICD Yes Hx Irregular Heartbeat and/or Afib No Hx Anticoagulant Therapy Yes: ASA Query Text:(Coumadin, Aspirin, Plavix, Xarelto, etc.) Hx Pain in Legs when Walking/Leg Cramps Yes Respiratory Medical History Hx COPD Yes Hx Emphysema No Hx Smoking Yes Smoking Status Never smoker Hx Tobacco Use in last 12 months No Hx Sleep Apnea No Do you snore loudly (louder than talking No or can be heard through closed doors)? Do you often feel tired/ fatigued/ No sleepy during daytime? Has anyone observed you stop breathing No during sleep? STOP Results Negative GI Medical History Hx Ulcer No Hx Hepatitis No Hx Cirrhosis No Hx GI Bleed No Hx Unplanned Weight Loss No Genitourinary Medical History Indwelling Catheter in Place on Arrival/ No Admission Hx Renal Disease No Hx Dialysis No Musculoskeletal History Hx Arthritis No Hx Rheumatoid Arthritis No Endocrine Medical History Hx Diabetes No Hx Thyroid Disease Yes Hematologic Medical History Patient unable to answer at this time ( Yes ie. confused, unresponsive etc...) Psycho/Social Medical History Hx Depression Yes Hx Anxiety Yes Hx Behavior Disorder Yes Hx Alcohol Use No Hx Substance Use No Other Medical History Hx Blood Disorders No Hx Anemia No Hx Cancer Yes: LEUKEMIA Hx Drug Resistant Organism No Wound/Pressure Injury Present on Arrival No /Admission Query Text:If yes, chart assessment in Shift/Clinical Findings Central Line/PICC/VAD Present on Arrival No /Admission Risk for Readmission Number of Risk Factors 6 At Risk for Readmission Patient is At Risk For Readmission Patient is eligible for Call Back Y Past Medical History (Last Reviewed 08/27/20 @ 14:23 by Kacie Babcock RN) Presence of permanent cardiac pacemaker (Chronic) Pure hypercholesterolemia (Chronic) Essential hypertension (Chronic) Sinoatrial node dysfunction (Chronic) intermediate designer use of drug (Chronic) Retinopathy (Chronic) Gout (Chronic) Gout (Inactive) HTN (hypertension) (Inactive) Past Surgical History (Last Reviewed 08/27/20 @ 14:03 by Caro Prieto) History of lumbar surgery (Resolved) Maternal Family History: Family History (Last Reviewed 08/27/20 @ 14:03 by Caro Prieto) Mother CAD (coronary artery disease) Family History: Heart Disease - Social History Lives: Half-Way Smoking Status: Never smoker Allergies/Adverse Reactions: Allergy/AdvReac Type Severity Reaction Status Date / Time No Known Allergies Allergy Verified 09/12/20 08:19 Review of Systems Constitutional:: Reports: Weakness, Fatigue. Denies: Fever, Sweats, Weight loss, Appetite change, Chills Cardiovascular:: Reports: Dyspnea on exertion, Shortness of breath. Denies: Chest pain, Palpitations, Orthopnea, PND Respiratory: Reports: Shortness of Breath, Shortness of breath at rest, Shortness of breath upon exertion. Denies: Cough, Hemoptysis, Wheezing Gastrointestinal:: Denies: Abdominal pain, Nausea, Vomiting, Diarrhea, Constipation, Hematochezia Genitourinary: Denies: Dysuria, Hematuria, 15, Flank pain Musculoskeletal:: Denies: Back pain, Myalgia, Arthralgia Skin: Denies: Rash, Skin Changes, Wounds Neurological:: Reports: Memory loss, Hearing loss. Denies: Headache, Dizziness, Visual changes, Tinnitus Psychiatric: Reports: - - On treatment. Denies: Anxiety, Depression, Homicidal Ideations, Suicidal Ideations Review of Systems Comments: Systems reviews were obtained by patient interview and review of inpatient record keeping in mind the limitations from the patient's mental status Vital Signs Temperature 97.6 F L 09/21/20 08:47 Temperature Source Temporal 09/21/20 08:47 Pulse Rate 74 09/21/20 08:47 Pulse Strength Weak (1+) 09/21/20 07:31 Respiratory Rate 20 H 09/21/20 08:47 Respiratory Effort Non-Labored 09/21/20 07:32 Respiratory Depth Normal 09/21/20 07:32 Respiratory Pattern Normal 09/21/20 07:32 Blood Pressure 114/72 09/21/20 08:47 Blood Pressure Mean 86 09/21/20 08:47 Blood Pressure Source Monitor 09/21/20 08:47 Blood Pressure Position Semi-Fowlers 09/21/20 08:47 Blood Pressure Location Left Arm 09/21/20 08:47 Pulse Ox 94 09/21/20 08:47 Oxygen Delivery Method Room Air 09/21/20 08:47 Oxygen Flow Rate (L/min) 2 09/14/20 13:03 Fraction of Inspired Oxygen (FIO2) 30 09/12/20 12:49 - Physical Exam General: Cooperative - ECOG 3 HEENT: Atraumatic, Normocephalic, - - NG tube Oropharynx:: Dry mucosa Neck:: Supple, Trachea midline. Negative for: JVD, bilateral Cardiac:: Regular rate, Regular rhythm, Normal S1, Normal S2. Negative for: Murmur Lungs: Clear to auscultation, Diminished, Excusion symmetrical. Negative for: Rhonchi, Wheezes Abdomen:: Soft, Non-tender Extremities:: Negative for: Cyanosis, Edema Neurological: - - Patient is hard of hearing, was seen and examined sitting in a chair, moved all extremities to command, hard of hearing and was a poor recent memory recall Skin:: Ecchymosis - Extremities, venipuncture. Negative for: Lesions, Rash, Petechiae Psychiatric:: Appropriate affect, Euthymic Lymphatics:: Negative for: Cervical lymphadenopathy, Supraclavicular lymphadeno serjio, Axillary lymphadenopathy Laboratory Data: Laboratory Tests 09/21/20 09/21/20 09/21/20 Range/Units 08:44 05:45 05:45 WBC 40.6 H* (4.4-11.0) K/mm3 RBC 2.77 L (4.6-6.2) M/mm3 Hgb 8.9 L (13.0-16.5) g/dL Hct 27.4 L (40-54) % MCV 98.9 H (80-94) fL MCH 32.1 H (27.0-32.0) pg MCHC 32.5 (32-36) g/dL RDW Std Deviation 58.7 H (35.1-43.9) fl RDW Coeff of Arben 16.2 H (11.6-14.6) % Plt Count 235 (150-450) K/mm3 MPV 11.7 (6.2-12.0) fl Neut % (Auto) Not Reportable Absolute Neuts (auto) 13.8 H (2.0-7.7) X10^3/uL Absolute Lymphs (auto) 24.74 H (0.83-4.51) X10^3/uL Total Counted 100 (MANUAL DIFF) Neutrophils % (Manual) 31 L (47-70) % Band Neutrophils % 3 (0-5) % Lymphocytes % (Manual) 61 H (19-41) % Monocytes % (Manual) 2 (0-10) % Metamyelocytes % 1 (0-1) % Myelocytes % 2 H (0-0) % Diff Path Review May foll Platelet Estimate ADEQUATE (ADEQ) RBC Morphology NORM C+C (NORM C&C) NORMAL Sodium 140 (136-145) mmol/L Potassium 3.7 (3.5-5.1) mmol/L Chloride 114 H (98-107) mmol/L Carbon Dioxide 16.0 L (21.0-32.0) mmol/L Anion Gap 10 (5-15) BUN 50 H (7-18) mg/dL Creatinine 2.52 H (0.70-1.30) mg/dL Estim Creat Clear Calc 25.33 ml/min Est GFR (MDRD) Af Amer 32 L (>60) mL/min Est GFR (MDRD) Non-Af 27 L (>60) mL/min BUN/Creatinine Ratio 19.8 (10-20) RATIO Glucose 112 H (74-106) mg/dL Calcium 7.3 L (8.5-10.1) mg/dL Total Bilirubin 0.30 (0.20-1.00) mg/dL AST 24 (15-37) U/L ALT 15 L (16-61) U/L Alkaline Phosphatase 54 (45-117) U/L Total Protein 4.2 L (6.4-8.2) g/dL Albumin 2.0 L (3.2-5.0) g/dL Globulin 2.2 (2.2-4.2) g/dL Albumin/Globulin Ratio 0.9 (0.9-2.4) RATIO Random Vancomycin 17.3 H (0.0-15.0) ug/mL Peripheral blood smear review: I personally reviewed patient's peripheral blood smear of September 21, 2020, his erythroid series is normocytic normochromic, platelets appeared normal and morphology and adequate in number, there is increased mature small lymphocytes consistent with CLL. The myeloid series shows a leukocytosis predominantly mature neutrophilic with a left shift including bands, metamyelocytes and myelocytes, no blasts seen. Diagnostic Data: Diagnostic Data Chest X-Ray 09/12/20 08:50 IMPRESSION: Left lower lobe pneumonia or atelectasis. Electronically Signed: Jermain Nicoel MD at 9:14 EDT Tel , Service support , Abdomen/Pelvis CT 09/12/20 09:28 IMPRESSION: 1. Possible moderate small bowel obstruction but a transition point not clearly identified. No evidence of ischemia or perforation. Small amount of free fluid in the pelvis. 2. Small right inguinal hernia containing a segment of the cecum. 3. Large bilateral renal cysts. Electronically Signed: Jermain Nicole MD at 10:32 EDT Tel , Service support , Chest CT 09/12/20 09:28 IMPRESSION: Left lower lobe pneumonia. Electronically Signed: Jermain Nicole MD at 10:22 EDT Tel , Service support , Renal Ultrasound 09/13/20 06:20 IMPRESSION: There is no evidence of hydronephrosis. Electronically Signed: Jose Kirk MD at 13:36 EDT Tel , Service support , Abdomen X-Ray 09/17/20 12:15 IMPRESSION: Increasing small bowel dilatation. Electronically Signed: Darryl Mays MD at 12:55 EDT , Service support , Abdomen CT 09/17/20 13:30 IMPRESSION: Moderate small bowel obstruction without visualization of the transition point. Small amount of ascites in the pelvis but no evidence of bowel ischemia or bowel perforation. Electronically Signed: Jermain Nicole MD at 16:40 EDT Tel , Service support , Small Bowel X-Ray 09/18/20 08:20 IMPRESSION: Findings in keeping with an ileus gas pattern. Electronically Signed: Darryl Mays MD at 10:39 EDT , Service support , Assessment and Plan 75-year-old male with multiple chronic medical problems (see under HPI) and impaired performance status requiring long-term [facility] care. Patient admitted with pneumonia and JOSE ARMANDO. From the hematology consultation view patient has: 1. Chronic lymphocytic leukemia confirmed by peripheral blood flow cytometry Ap ril 2020 with a multifactorial anemia including bone marrow involvement by CLL. 2. Acute neutrophilic leukocytosis with a left shift (leukemoid reaction) consistent with a reactive process secondary to his acute illness and pneumonia. 3. Underlying chronic immune compromised status from his chronic lymphoproliferative neoplastic disease. Recommendations: 1. Treatment of pneumonia and other acute medical problems defer to the primary service. 2. There is no indication for intervention for his chronic lymphocytic leukemia. Although this neoplastic process with its chronic immune compromised status complicate his acute illness (pneumonia, other acute organ/system failure) it is not the primary cause for his acute morbidity for this hospital admission. 3. For anemia, transfused with packed red blood cells to keep hemoglobin above 8 g per DL. 4. The acute neutrophilic leukocytosis and left shift (leukemoid reaction) would improve if his acute illness specially the pneumonia would improve without specific therapy. Impression and recommendations discussed with patient (again keeping in mind limitations of understanding from his chronic mental disease) and over the phone with Dr. vEans. I spent a total of 60 minutes in preparation and review of records, history review and taking, physical examination, review of imaging reports and pertinent labs, discussion of impression and plan and documentation of visit. Jose Mendoza MD [employer], [facility] Divisions of Medical Oncology & Hematology Department of Internal Medicine [facility] [place] [id number] This note was generated using a voice recognition system software. Although it was reviewed by the author prior to finalization, it may still contain incorrect words, spelling, and punctuation that were not noted when reviewing prior to saving. If a clinically significant typo or inaccurately typed phrase is noted, please notify the author. Medications: Prescriptions This Visit Medication Instructions Recorded Levofloxacin [Levaquin] 500 mg PO QHS 04/07/21 Medications Added to Medication List This Visit Category Date Time Status Bisacodyl [Dulcolax] Med 09/21/20 10:00 Active 10 mg RC DAILY Primary Care Provider: Dr. Guillermo Espinal MD Referring Provider:
--- NOTE | 2020-09-21 11:47 | PCM.PN.HOSP ---
Patient Problems: Active and Suspected Problems (Last Reviewed 08/27/20 @ 14:23 by Kacie Babcock RN) Pneumonia (Acute) Renal failure (Acute) Debility (Acute) Weight loss, unintentional (Acute) Neutrophilic leukocytosis (Acute) Reason for Visit: Follow-up on severe sepsis secondary to pneumonia/UTI/small bowel ileus Subjective: Patient was seen and examined. Patient is more interactive today. He is alert oriented to person, place, year. He still has an NG tube with bilious discharge. He has had some flatus but no bowel movement. Objective: Physical exam General: Awake, oriented x3, looks more awake today and interactive. HEENT: Atraumatic, PERRLA, EOMI, Normocephalic Oral: Oral mucosa is dry Neck: Supple Lungs: Air entry diminished in bilateral lung bases. No crepitation/rhonchi. Cardiovascular: Regular rate, Regular Rhythm, Normal S1, Normal S2, left second ICS/LLSB systolic murmur grade 3/6 Abdomen: Soft, Mild distention, Bowel sounds sluggish : Indwelling Raymond catheter. Clear urine in the Raymond catheter. No suprapubic tenderness. Extremities: Mild bilateral ankle edema Skin: Skin is dry. No open ulcer. Musculoskeletal: Bilateral knee and hip joint arthritis and stiffness. No Tenderness to Palpation of Joints or Extremities Neurological: Cranial nerves II-XII grossly intact, Deep Tendon Reflexes 2+/4 Psych/Mental Status: Awake and pleasant behavior Vitals/I&O's: Vital Signs Temp Pulse Resp BP Pulse Ox 97.6 F L 74 20 H 114/72 94 09/21/20 08:47 09/21/20 08:47 09/21/20 08:47 09/21/20 08:47 09/21/20 08:47 Oxygen Flow Rate (L/min) 2 Oxygen Delivery Method Room Air Weight: 83.4 kg Body Mass Index (BMI) 27.3 Intake and Output for Last 24 Hours 09/19/20 09/20/20 09/21/20 23:59 23:59 23:59 Intake Total 1460.00 / 1460.00 3213.34 / 3213.34 1256.67 / 1256.67 Output Total 775 / 775 775 / 1100 500 / 500 Balance 685.00 / 685.00 2438.34 / 2113.34 756.67 / 756.67 Laboratory Results 09/21/20 05:45: Random Vancomycin 17.3 H 09/21/20 05:45: Sodium 140, Potassium 3.7, Chloride 114 H, Carbon Dioxide 16.0 L, Anion Gap 10, BUN 50 H, Creatinine 2.52 H, Estim Creat Clear Calc 25.33, Est GFR (MDRD) Af Amer 32 L, Est GFR (MDRD) Non-Af 27 L, BUN/Creatinine Ratio 19.8, Glucose 112 H, Calcium 7.3 L, Total Bilirubin 0.30, AST 24, ALT 15 L, Alkaline Phosphatase 54, Total Protein 4.2 L, Albumin 2.0 L, Globulin 2.2, Albumin/Globulin Ratio 0.9 09/21/20 08:44: WBC 40.6 H*, RBC 2.77 L, Hgb 8.9 L, Hct 27.4 L, MCV 98.9 H, MCH 32.1 H, MCHC 32.5, RDW Std Deviation 58.7 H, RDW Coeff of Arben 16.2 H, Plt Count 235, MPV 11.7, Neut % (Auto) Not Reportable, Absolute Neuts (auto) 13.8 H, Absolute Lymphs (auto) 24.74 H, Total Counted 100, Neutrophils % (Manual) 31 L, Band Neutrophils % 3, Lymphocytes % (Manual) 61 H, Monocytes % (Manual) 2, Metamyelocytes % 1, Myelocytes % 2 H, Diff Path Review May foll, Platelet Estimate ADEQUATE, RBC Morphology NORM C+C Current Medications Acetaminophen (Acetaminophen 325 Mg Tablet) 650 mg PO Q6H PRN PRN PRN Reason: Pain Score 1-10/Temp > 100.7 F Last Admin: 09/17/20 08:46 Dose: 650 mg Documented by: Albuterol Sulfate (Albuterol 2.5 Mg/3 Ml Vial.Neb.) 2.5 mg INHALATION Q2H PRN PRN PRN Reason: SOB/Wheezing Last Admin: 09/17/20 08:25 Dose: 2.5 mg Documented by: Albuterol/Ipratropium (Ipratropium/Albuterol Sulfate 3 Ml Ampul.Neb) 3 ml INHALATION Q4H.RT MANOJ Last Admin: 09/16/20 20:18 Dose: 3 ml Documented by: Bisacodyl (Bisacodyl 10 Mg Suppository) 10 mg RC DAILY [facility] Buspirone HCl (Buspirone 5 Mg Tablet) 12.5 mg PO BID [facility] Last Admin: 09/21/20 09:26 Dose: 12.5 mg Documented by: Sodium Chloride () 250 mls @ 15 mls/hr IV .[id number] PRN PRN Reason: Saline Flush Last Infusion: 09/16/20 12:53 Dose: Infused Documented by: Sodium Chloride () 250 mls @ 15 mls/hr IV .[id number] PRN PRN Reason: Additional IVPB Infusion Pantoprazole Sodium 40 mg/ (Sodium Chloride) 110 mls @ 330 mls/hr IV Q24 [facility] Last Infusion: 09/21/20 09:20 Dose: Infused Documented by: Ceftriaxone Sodium (Rocephin) 1 gm in 50 mls @ 100 mls/hr IV Q24@2200 [facility] Last Infusion: 09/20/20 22:23 Dose: Infused Documented by: Vancomycin IV Pharmacy to Dose (1 each/ Sodium Chloride) 500 mls @ 250 mls/hr IV PRN PRN; Protocol PRN Reason: RX TO DOSE Dextrose () 1,000 mls @ 100 mls/hr IV .Q10H [facility] Last Admin: 09/21/20 06:28 Dose: 100 mls/hr Documented by: Levothyroxine Sodium (Levothyroxine 100 Mcg Tablet) 100 mcg PO DAILY@0600 [facility] Last Admin: 09/21/20 05:10 Dose: Not Given Documented by: Nitroglycerin (Nitroglycerin (Inpatient Use) 0.4 Mg Tab.Subl) 0.4 mg SL Q5M PRN PRN Reason: CARDIAC/CHEST PAIN Ondansetron HCl (Ondansetron 4 Mg/2 Ml Vial) 4 mg IV Q8H PRN PRN PRN Reason: NAUSEA/VOMITING Prochlorperazine Edisylate (Prochlorperazine 10 Mg/2 Ml Vial) 5 mg IV Q4H PRN PRN PRN Reason: Breakthrough Nausea/Vomiting Quetiapine Fumarate (Quetiapine 100 Mg Tablet) 200 mg PO BREAKFAST [facility] Last Admin: 09/21/20 09:25 Dose: 200 mg Documented by: Quetiapine Fumarate (Quetiapine 100 Mg Tablet) 400 mg PO QHS MANOJ Last Admin: 09/20/20 22:23 Dose: Not Given Documented by: Senna/Docusate Sodium (Senna/Docusate Sodium 1 Tablet) 2 tablet GT BID PRN PRN Reason: Constipation Last Admin: 09/19/20 22:38 Dose: 2 tablet Documented by: Sodium Chloride (0.9% Saline Lock 10 Ml Syringe) 10 - 40 ml IV UD PRN PRN Reason: SALINE FLUSH Last Admin: 09/21/20 06:28 Dose: 10 ml Documented by: STROKE Vital Signs/Narrative: Vital Signs Temp Pulse Resp BP Pulse Ox 09/21/20 08:47 97.6 F L 74 20 H 114/72 94 Medical Necessity - Tobacco Use Smoking Status: Never smoker Assessment/Plan All Active Problems (Last Reviewed 08/27/20 @ 14:23 by Kacie Babcock RN) Pneumonia (Acute) Renal failure (Acute) Debility (Acute) Weight loss, unintentional (Acute) Neutrophilic leukocytosis (Acute) Anxiety (Resolved) Atherosclerotic heart disease (Resolved) Bipolar 1 disorder (Resolved) COPD (chronic obstructive pulmonary disease) (Resolved) Chronic lymphocytic leukemia of B-cell type not having achieved remission (Resolved) Dementia (Resolved) Dementia without behavioral disturbance (Resolved) HCAP (healthcare-associated pneumonia) (Resolved) Hypo-osmolality and hyponatremia (Resolved) Hyponatremia (Resolved) Hypothyroidism (Resolved) Insomnia (Resolved) Obsessive compulsive disorder (Resolved) Retention of urine (Resolved) Schizoaffective disorder (Resolved) Schizoaffective disorder (Resolved) Schizoaffective disorder (Resolved) Schizoaffective disorder (Resolved) 1. Acute small bowel ileus and gastric retention, persistent, very slow to improve. Patient is immobile. He has been sitting out of bed in a chair for only a couple of hours a day. Daily KUB shows some improvement but slow Continue with ambulation out of bed, and enemas. General surgery following. Patient is n.p.o. and would hold off on starting any TPN as recommended by nutrition on account of his general precarious condition -ongoing severe sepsis. Definite plan for nutrition will be determined in the next 24 to 48 hours, pending evaluation of his ileus 2. Severe sepsis secondary to secondary to left lower lobe MRSA/trept agalactiae pneumonia/Providencia stuartii, MDR, Providencia CAUTI due to indwelling Raymond catheter. Blood cultures are negative. Sputum cultures growing MRSA/ strept agalactiae. Cultures also growing Providentia ID following. Continue on IV vancomycin and ceftriaxone. 3. Acute hypoxic respiratory failure secondary to pneumonia, appears resolved 4. Acute kidney injury stage 3 on CKD stage II with proteinuria in urine, slowly improving Creatinine is 2.52. Continue on D5 water Repeat blood work in am 5. Hypernatremia due to dehydration, resolved, continue to monitor on D5W 6. Hypokalemia, K 3.4, resolved 7. CLL with anemia of chronic disease due to CLL, follows in the outpatient, WBC count appears to be worsening, platelet and hemoglobin are stable s/p 1 unit pRBC, will continue to monitor 8. Rest of other co-morbidities are stable- schizoaffective disorder/sick sinus syndrome status post pacemaker/hypothyroidism/dyslipidemia 9. DVT PPx-SCDs Inpatient E&M: [id number] Subs Hosp L2
--- NOTE | 2020-09-21 12:00 | NURSING ---
This RN gave x1 soap suds enema to pt.
--- NOTE | 2020-09-21 14:33 | CASEMGMT ---
Updates were faxed to [facility]. [facility] also called and notified Najma that patient will likely be here through the weekend. Plan: Patient will return to [facility] when medically ready. Laura DU
--- NOTE | 2020-09-21 14:38 | PN.RENAL_ITS ---
Patient Problems: Active and Suspected Problems (Last Reviewed 08/27/20 @ 14:23 by Kacie Babcock RN) Pneumonia (Acute) Renal failure (Acute) Debility (Acute) Weight loss, unintentional (Acute) Neutrophilic leukocytosis (Acute) Subjective: no cp/sob - Physical Exam Vitals/I&O's: Vital Signs Temp Pulse Resp BP Pulse Ox 97.6 F L 74 20 H 114/72 94 09/21/20 08:47 09/21/20 08:47 09/21/20 08:47 09/21/20 08:47 09/21/20 08:47 Oxygen Flow Rate (L/min) 2 Oxygen Delivery Method Room Air Weight: 83.4 kg Body Mass Index (BMI) 27.3 Intake and Output for Last 24 Hours 09/19/20 09/20/20 09/21/20 23:59 23:59 23:59 Intake Total 1460.00 / 1460.00 3213.34 / 3213.34 1256.67 / 1256.67 Output Total 775 / 775 775 / 1100 750 / 750 Balance 685.00 / 685.00 2438.34 / 2113.34 506.67 / 506.67 General: Alert, Cooperative HEENT: Atraumatic, Normocephalic Lungs: Clear to auscultation, Normal air movement Cardiovascular: Regular rate, Regular Rhythm, Normal S1 Abdomen: Bowel Sounds Present, Soft Extremities: No edema Laboratory Results 09/21/20 05:45: Random Vancomycin 17.3 H 09/21/20 05:45: Sodium 140, Potassium 3.7, Chloride 114 H, Carbon Dioxide 16.0 L , Anion Gap 10, BUN 50 H, Creatinine 2.52 H, Estim Creat Clear Calc 25.33, Est GFR (MDRD) Af Amer 32 L, Est GFR (MDRD) Non-Af 27 L, BUN/Creatinine Ratio 19.8, Glucose 112 H, Calcium 7.3 L, Total Bilirubin 0.30, AST 24, ALT 15 L, Alkaline Phosphatase 54, Total Protein 4.2 L, Albumin 2.0 L, Globulin 2.2, Albumin/Globulin Ratio 0.9 09/21/20 08:44: WBC 40.6 H*, RBC 2.77 L, Hgb 8.9 L, Hct 27.4 L, MCV 98.9 H, MCH 32.1 H, MCHC 32.5, RDW Std Deviation 58.7 H, RDW Coeff of Arben 16.2 H, Plt Count 235, MPV 11.7, Neut % (Auto) Not Reportable, Absolute Neuts (auto) 13.8 H, Absolute Lymphs (auto) 24.74 H, Total Counted 100, Neutrophils % (Manual) 31 L, Band Neutrophils % 3, Lymphocytes % (Manual) 61 H, Monocytes % (Manual) 2, Metamyelocytes % 1, Myelocytes % 2 H, Diff Path Review May foll, Platelet Estimate ADEQUATE, RBC Morphology NORM C+C Current Medications Acetaminophen (Acetaminophen 325 Mg Tablet) 650 mg PO Q6H PRN PRN PRN Reason: Pain Score 1-10/Temp > 100.7 F Last Admin: 09/17/20 08:46 Dose: 650 mg Documented by: Albuterol Sulfate (Albuterol 2.5 Mg/3 Ml Vial.Neb.) 2.5 mg INHALATION Q2H PRN PRN PRN Reason: SOB/Wheezing Last Admin: 09/17/20 08:25 Dose: 2.5 mg Documented by: Albuterol/Ipratropium (Ipratropium/Albuterol Sulfate 3 Ml Ampul.Neb) 3 ml INHALATION Q4H.RT [facility] Last Admin: 09/16/20 20:18 Dose: 3 ml Documented by: Bisacodyl (Bisacodyl 10 Mg Suppository) 10 mg RC DAILY [facility] Buspirone HCl (Buspirone 5 Mg Tablet) 12.5 mg PO BID [facility] Last Admin: 09/21/20 09:26 Dose: 12.5 mg Documented by: Sodium Chloride () 250 mls @ 15 mls/hr IV .[id number] PRN PRN Reason: Saline Flush Last Infusion: 09/16/20 12:53 Dose: Infused Documented by: Sodium Chloride () 250 mls @ 15 mls/hr IV .[id number] PRN PRN Reason: Additional IVPB Infusion Pantoprazole Sodium 40 mg/ (Sodium Chloride) 110 mls @ 330 mls/hr IV Q24 [facility] Last Infusion: 09/21/20 09:20 Dose: Infused Documented by: Ceftriaxone Sodium (Rocephin) 1 gm in 50 mls @ 100 mls/hr IV Q24@2200 [facility] Last Infusion: 09/20/20 22:23 Dose: Infused Documented by: Vancomycin IV Pharmacy to Dose (1 each/ Sodium Chloride) 500 mls @ 250 mls/hr IV PRN PRN; Protocol PRN Reason: RX TO DOSE Dextrose () 1,000 mls @ 100 mls/hr IV .Q10H [facility] Last Admin: 09/21/20 06:28 Dose: 100 mls/hr Documented by: Levothyroxine Sodium (Levothyroxine 100 Mcg Tablet) 100 mcg PO DAILY@0600 [facility] Last Admin: 09/21/20 05:10 Dose: Not Given Documented by: Nitroglycerin (Nitroglycerin (Inpatient Use) 0.4 Mg Tab.Subl) 0.4 mg SL Q5M PRN PRN Reason: CARDIAC/CHEST PAIN Ondansetron HCl (Ondansetron 4 Mg/2 Ml Vial) 4 mg IV Q8H PRN PRN PRN Reason: NAUSEA/VOMITING Quetiapine Fumarate (Quetiapine 100 Mg Tablet) 200 mg PO BREAKFAST [facility] Last Admin: 09/21/20 09:25 Dose: 200 mg Documented by: Quetiapine Fumarate (Quetiapine 100 Mg Tablet) 400 mg PO QHS [facility] Last Admin: 09/20/20 22:23 Dose: Not Given Documented by: Senna/Docusate Sodium (Senna/Docusate Sodium 1 Tablet) 2 tablet GT BID PRN PRN Reason: Constipation Last Admin: 09/19/20 22:38 Dose: 2 tablet Documented by: Sodium Chloride (0.9% Saline Lock 10 Ml Syringe) 10 - 40 ml IV UD PRN PRN Reason: SALINE FLUSH Last Admin: 09/21/20 06:28 Dose: 10 ml Documented by: Medical Necessity - Tobacco Use Smoking Status: Never smoker Assessment/Plan All Active Problems (Last Reviewed 08/27/20 @ 14:23 by Kacie Babcock RN) Pneumonia (Acute) Renal failure (Acute) Debility (Acute) Weight loss, unintentional (Acute) Neutrophilic leukocytosis (Acute) Anxiety (Resolved) Atherosclerotic heart disease (Resolved) Bipolar 1 disorder (Resolved) COPD (chronic obstructive pulmonary disease) (Resolved) Chronic lymphocytic leukemia of B-cell type not having achieved remission (Resolved) Dementia (Resolved) Dementia without behavioral disturbance (Resolved) HCAP (healthcare-associated pneumonia) (Resolved) Hypo-osmolality and hyponatremia (Resolved) Hyponatremia (Resolved) Hypothyroidism (Resolved) Insomnia (Resolved) Obsessive compulsive disorder (Resolved) Retention of urine (Resolved) Schizoaffective disorder (Resolved) Schizoaffective disorder (Resolved) Schizoaffective disorder (Resolved) Schizoaffective disorder (Resolved) JOSE ARMANDO?ATN Renal cysts bilaterally Ileus CLL Scr 2.5 less prerenal continue ivf surgery following d/w patient avoid nephrotoxins Recommend to dose vancomycin with levels to avoid nephrotoxicity
[2020-09-21] MEDS: Bisacodyl 10 MG Suppository RC (15:11)
--- NOTE | 2020-09-21 15:21 | PN.ID_ITS ---
Patient Problems: Active and Suspected Problems (Last Reviewed 08/27/20 @ 14:23 by Kacie Babcock RN) Pneumonia (Acute) Renal failure (Acute) Debility (Acute) Weight loss, unintentional (Acute) Neutrophilic leukocytosis (Acute) Subjective: Up in chair, reports 2 BM, feeling better, no sputum. - Physical Exam Vitals/I&O's: Vital Signs Temp Pulse Resp BP Pulse Ox 97.6 F L 78 20 H 114/72 94 09/21/20 08:47 09/21/20 14:39 09/21/20 08:47 09/21/20 08:47 09/21/20 08:47 Oxygen Flow Rate (L/min) 2 Oxygen Delivery Method Room Air Weight: 83.4 kg Body Mass Index (BMI) 27.3 Intake and Output for Last 24 Hours 09/19/20 09/20/20 09/21/20 23:59 23:59 23:59 Intake Total 1460.00 / 1460.00 3213.34 / 3213.34 2128.34 / 2128.34 Output Total 775 / 775 775 / 1100 750 / 750 Balance 685.00 / 685.00 2438.34 / 2113.34 1378.34 / 1378.34 General: Alert, Cooperative, No apparent distress Lungs: Clear to auscultation, Normal air movement Cardiovascular: Regular rate, Regular Rhythm Abdomen: Soft, Distended - better Skin: No rashes Laboratory Results 09/21/20 05:45: Random Vancomycin 17.3 H 09/21/20 05:45: Sodium 140, Potassium 3.7, Chloride 114 H, Carbon Dioxide 16.0 L , Anion Gap 10, BUN 50 H, Creatinine 2.52 H, Estim Creat Clear Calc 25.33, Est GFR (MDRD) Af Amer 32 L, Est GFR (MDRD) Non-Af 27 L, BUN/Creatinine Ratio 19.8, Glucose 112 H, Calcium 7.3 L, Total Bilirubin 0.30, AST 24, ALT 15 L, Alkaline Phosphatase 54, Total Protein 4.2 L, Albumin 2.0 L, Globulin 2.2, Albumin/Globulin Ratio 0.9 09/21/20 08:44: WBC 40.6 H*, RBC 2.77 L, Hgb 8.9 L, Hct 27.4 L, MCV 98.9 H, MCH 32.1 H, MCHC 32.5, RDW Std Deviation 58.7 H, RDW Coeff of Arben 16.2 H, Plt Count 235, MPV 11.7, Neut % (Auto) Not Reportable, Absolute Neuts (auto) 13.8 H, Absolute Lymphs (auto) 24.74 H, Total Counted 100, Neutrophils % (Manual) 31 L, Band Neutrophils % 3, Lymphocytes % (Manual) 61 H, Monocytes % (Manual) 2, Metamyelocytes % 1, Myelocytes % 2 H, Diff Path Review October, Platelet Estimate ADEQUATE, RBC Morphology NORM C+C Current Medications Acetaminophen (Acetaminophen 325 Mg Tablet) 650 mg PO Q6H PRN PRN PRN Reason: Pain Score 1-10/Temp > 100.7 F Last Admin: 09/17/20 08:46 Dose: 650 mg Documented by: Albuterol Sulfate (Albuterol 2.5 Mg/3 Ml Vial.Neb.) 2.5 mg INHALATION Q2H PRN PRN PRN Reason: SOB/Wheezing Last Admin: 09/17/20 08:25 Dose: 2.5 mg Documented by: Albuterol/Ipratropium (Ipratropium/Albuterol Sulfate 3 Ml Ampul.Neb) 3 ml INHALATION Q4H.RT [facility] Last Admin: 09/16/20 20:18 Dose: 3 ml Documented by: Bisacodyl (Bisacodyl 10 Mg Suppository) 10 mg RC DAILY [facility] Last Admin: 09/21/20 15:11 Dose: 10 mg Documented by: Buspirone HCl (Buspirone 5 Mg Tablet) 12.5 mg PO BID [facility] Last Admin: 09/21/20 09:26 Dose: 12.5 mg Documented by: Sodium Chloride () 250 mls @ 15 mls/hr IV .[id number] PRN PRN Reason: Saline Flush Last Infusion: 09/16/20 12:53 Dose: Infused Documented by: Sodium Chloride () 250 mls @ 15 mls/hr IV .[id number] PRN PRN Reason: Additional IVPB Infusion Pantoprazole Sodium 40 mg/ (Sodium Chloride) 110 mls @ 330 mls/hr IV Q24 [facility] Last Infusion: 09/21/20 09:20 Dose: Infused Documented by: Ceftriaxone Sodium (Rocephin) 1 gm in 50 mls @ 100 mls/hr IV Q24@2200 [facility] Last Infusion: 09/20/20 22:23 Dose: Infused Documented by: Vancomycin IV Pharmacy to Dose (1 each/ Sodium Chloride) 500 mls @ 250 mls/hr IV PRN PRN; Protocol PRN Reason: RX TO DOSE Dextrose () 1,000 mls @ 100 mls/hr IV .Q10H [facility] Last Admin: 09/21/20 15:11 Dose: 100 mls/hr Documented by: Levothyroxine Sodium (Levothyroxine 100 Mcg Tablet) 100 mcg PO DAILY@0600 [facility] Last Admin: 09/21/20 05:10 Dose: Not Given Documented by: Nitroglycerin (Nitroglycerin (Inpatient Use) 0.4 Mg Tab.Subl) 0.4 mg SL Q5M PRN PRN Reason: CARDIAC/CHEST PAIN Ondansetron HCl (Ondansetron 4 Mg/2 Ml Vial) 4 mg IV Q8H PRN PRN PRN Reason: NAUSEA/VOMITING Quetiapine Fumarate (Quetiapine 100 Mg Tablet) 200 mg PO BREAKFAST [facility] Last Admin: 09/21/20 09:25 Dose: 200 mg Documented by: Quetiapine Fumarate (Quetiapine 100 Mg Tablet) 400 mg PO QHS [facility] Last Admin: 09/20/20 22:23 Dose: Not Given Documented by: Senna/Docusate Sodium (Senna/Docusate Sodium 1 Tablet) 2 tablet GT BID PRN PRN Reason: Constipation Last Admin: 09/19/20 22:38 Dose: 2 tablet Documented by: Sodium Chloride (0.9% Saline Lock 10 Ml Syringe) 10 - 40 ml IV UD PRN PRN Reason: SALINE FLUSH Last Admin: 09/21/20 06:28 Dose: 10 ml Documented by: Medical Necessity - Tobacco Use Smoking Status: Never smoker Route of nutrition/ use of supplements: [] Nutritional Intake: [] IV Site: [] Raymond Catheter: [] - Assessment/Plan Antibiotics: [] Assessment/Plan: [] Active and Suspected Problems (Last Reviewed 08/27/20 @ 14:23 by Kacie Babcock RN) Pneumonia (Acute) Renal failure (Acute) sepsis with MSSA/GBS pneumonia and providencia uti - on vanc/ceftriaxone. No fever. JOSE ARMANDO improving. Abd less distended. CT done, surgery following. Neutrophils improved overall. Will stop abx today. Will follow, d/w Dr. Evans
[2020-09-21] MEDS: QUEtiapine 100 MG Tablet 400 MG PO (20:37)
[2020-09-22] VITALS (14 sets, daily range): BP systolic 105–137; BP diastolic 59–75; PULSE 70–90; RESP 16–24; TEMP 36.4–36.9; O2SAT 93–96; BMI 26.9
[2020-09-22] MEDS: Levothyroxine 100 MCG Tablet PO (03:02)
--- NOTE | 2020-09-22 05:45 | RAD_ITS ---
STUDY: X-RAY - ABDOMEN/PELVIS REASON FOR EXAM: Male, 75 years old. ileus TECHNIQUE: Single AP view of the abdomen / pelvis. COMPARISON: 09/21/2020 FINDINGS: Nasogastric tube coiled in left upper quadrant likely in the stomach. No change in the moderately dilated colon with oral contrast in the ascending colon. The visualized liver, spleen and kidneys are grossly normal in size and morphology. Normal soft tissue structures. Normal visualized osseous structures. RAD/Abdomen Single View (Portable) IMPRESSION: 1. Nasogastric tube coiled in the stomach. 2. No change in moderately dilated colon with oral contrast in the ascending colon. Electronically Signed: Jermain Nicole MD at 7:21 EDT Tel , Service support ,
[2020-09-22] MEDS: Ipratropium/Albuterol Sulfate 3 ML AMPUL.NEB INHALATION ×4 (07:02→23:46)
[2020-09-22] MEDS: busPIRone 5 MG Tablet 12.5 MG PO ×2 (11:16→20:43)
[2020-09-22] MEDS: QUEtiapine 100 MG Tablet 200 MG PO (11:16)
[2020-09-22] MEDS: Bisacodyl 10 MG Suppository RC (11:18)
--- NOTE | 2020-09-22 11:19 | PCM.PN.SRG ---
Patient Problems: Active and Suspected Problems (Last Reviewed 08/27/20 @ 14:23 by Kacie Babcock RN) Pneumonia (Acute) Renal failure (Acute) Debility (Acute) Weight loss, unintentional (Acute) Neutrophilic leukocytosis (Acute) Subjective: Patient states that he has passed a small amount of flatus. Objective: Abdomen is soft there is no rebound tenderness - Physical Exam Vitals/I&O's: Vital Signs Temp Pulse Resp BP Pulse Ox 98.0 F 76 18 132/74 H 95 09/22/20 09:00 09/22/20 09:00 09/22/20 09:00 09/22/20 09:00 09/22/20 09:40 Oxygen Flow Rate (L/min) 2 Oxygen Delivery Method Room Air Weight: 182 lb 1.629 oz Body Mass Index (BMI) 27.3 Intake and Output for Last 24 Hours 09/20/20 09/21/20 09/22/20 23:59 23:59 23:59 Intake Total 3213.34 / 3213.34 2158.34 / 2158.34 958.33 / 958.33 Output Total 775 / 1100 1000 / 1175 450 / 450 Balance 2438.34 / 2113.34 1158.34 / 983.34 508.33 / 508.33 Current Medications Acetaminophen (Acetaminophen 325 Mg Tablet) 650 mg PO Q6H PRN PRN PRN Reason: Pain Score 1-10/Temp > 100.7 F Last Admin: 09/17/20 08:46 Dose: 650 mg Documented by: Albuterol Sulfate (Albuterol 2.5 Mg/3 Ml Vial.Neb.) 2.5 mg INHALATION Q2H PRN PRN PRN Reason: SOB/Wheezing Last Admin: 09/17/20 08:25 Dose: 2.5 mg Documented by: Albuterol/Ipratropium (Ipratropium/Albuterol Sulfate 3 Ml Ampul.Neb) 3 ml INHALATION Q4H.RT [facility] Last Admin: 09/22/20 07:02 Dose: 3 ml Documented by: Bisacodyl (Bisacodyl 10 Mg Suppository) 10 mg RC DAILY [facility] Last Admin: 09/21/20 15:11 Dose: 10 mg Documented by: Buspirone HCl (Buspirone 5 Mg Tablet) 12.5 mg PO BID [facility] Last Admin: 09/21/20 20:37 Dose: 12.5 mg Documented by: Sodium Chloride () 250 mls @ 15 mls/hr IV .[id number] PRN PRN Reason: Saline Flush Last Infusion: 09/16/20 12:53 Dose: Infused Documented by: Sodium Chloride () 250 mls @ 15 mls/hr IV .[id number] PRN PRN Reason: Additional IVPB Infusion Pantoprazole Sodium 40 mg/ (Sodium Chloride) 110 mls @ 330 mls/hr IV Q24 [facility] Last Infusion: 09/21/20 09:20 Dose: Infused Documented by: Dextrose () 1,000 mls @ 100 mls/hr IV .Q10H [facility] Last Admin: 09/22/20 00:28 Dose: 100 mls/hr Documented by: Levothyroxine Sodium (Levothyroxine 100 Mcg Tablet) 100 mcg PO DAILY@0600 [facility] Last Admin: 09/22/20 03:02 Dose: 100 mcg Documented by: Nitroglycerin (Nitroglycerin (Inpatient Use) 0.4 Mg Tab.Subl) 0.4 mg SL Q5M PRN PRN Reason: CARDIAC/CHEST PAIN Ondansetron HCl (Ondansetron 4 Mg/2 Ml Vial) 4 mg IV Q8H PRN PRN PRN Reason: NAUSEA/VOMITING Quetiapine Fumarate (Quetiapine 100 Mg Tablet) 200 mg PO BREAKFAST [facility] Last Admin: 09/21/20 09:25 Dose: 200 mg Documented by: Quetiapine Fumarate (Quetiapine 100 Mg Tablet) 400 mg PO QHS [facility] Last Admin: 09/21/20 20:37 Dose: 400 mg Documented by: Senna/Docusate Sodium (Senna/Docusate Sodium 1 Tablet) 2 tablet GT BID PRN PRN Reason: Constipation Last Admin: 09/19/20 22:38 Dose: 2 tablet Documented by: Sodium Chloride (0.9% Saline Lock 10 Ml Syringe) 10 - 40 ml IV UD PRN PRN Reason: SALINE FLUSH Last Admin: 09/21/20 06:28 Dose: 10 ml Documented by: Medical Necessity - Tobacco Use Smoking Status: Never smoker Assessment/Plan All Active Problems (Last Reviewed 08/27/20 @ 14:23 by Kacie Babcock RN) Pneumonia (Acute) Renal failure (Acute) Debility (Acute) Weight loss, unintentional (Acute) Neutrophilic leukocytosis (Acute) Anxiety (Resolved) Atherosclerotic heart disease (Resolved) Bipolar 1 disorder (Resolved) COPD (chronic obstructive pulmonary disease) (Resolved) Chronic lymphocytic leukemia of B-cell type not having achieved remission (Resolved) Dementia (Resolved) Dementia without behavioral disturbance (Resolved) HCAP (healthcare-associated pneumonia) (Resolved) Hypo-osmolality and hyponatremia (Resolved) Hyponatremia (Resolved) Hypothyroidism (Resolved) Insomnia (Resolved) Obsessive compulsive disorder (Resolved) Retention of urine (Resolved) Schizoaffective disorder (Resolved) Schizoaffective disorder (Resolved) Schizoaffective disorder (Resolved) Schizoaffective disorder (Resolved) We will wait for more GI function at this point. Contrast really does not look like it is moved significantly and KUB today
--- NOTE | 2020-09-22 12:44 | PCM.NTREPORT ---
Nutrition Therapy Report - History Nutrition Services has been consulted to:: Manage nutrient details of diet order Current diet / nutrition support order:: NPO x day #6 today; pt with NG tube to suction currently - Anthropometric Measurements Height:: 5 ft 9 in Weight:: 82.6 kg Body Mass Index (BMI):: 26.9 - Relevant Labs Relevant Labs:: WBC 40.6 K/mm3 (4.4-11.0) H* 09/21/20 08:44 RBC 2.77 M/mm3 (4.6-6.2) L 09/21/20 08:44 Hgb 8.9 g/dL (13.0-16.5) L 09/21/20 08:44 Hct 27.4 % (40-54) L 09/21/20 08:44 MCV 98.9 fL (80-94) H 09/21/20 08:44 MCH 32.1 pg (27.0-32.0) H 09/21/20 08:44 MCHC 31.9 g/dL (32-36) L 09/19/20 05:56 RDW Std Deviation 58.7 fl (35.1-43.9) H 09/21/20 08:44 RDW Coeff of Arben 16.2 % (11.6-14.6) H 09/21/20 08:44 Plt Count 143 K/mm3 (150-450) L 09/17/20 06:00 MPV 12.3 fl (6.2-12.0) H 09/20/20 05:16 Immature Gran % (Auto) 4.500 % (0.0-0.9) H 09/20/20 05:16 Neut % (Auto) 33.3 % (47-70) L 09/20/20 05:16 Lymph % (Auto) 55.2 % (19-41) H 09/20/20 05:16 Absolute Neuts (auto) 13.8 X10^3/uL (2.0-7.7) H 09/21/20 08:44 Absolute Lymphs (auto) 24.74 X10^3/uL (0.83-4.51) H 09/21/20 08:44 Neutrophils % (Manual) 31 % (47-70) L 09/21/20 08:44 Band Neutrophils % 10 % (0-5) H 09/18/20 05:55 Lymphocytes % (Manual) 61 % (19-41) H 09/21/20 08:44 Metamyelocytes % 4 % (0-1) H 09/17/20 06:00 Myelocytes % 2 % (0-0) H 09/21/20 08:44 Promyelocytes % 1 % (0-0) H 09/18/20 05:55 Blast Cells % 3 % (0-0) H* 09/18/20 05:55 PT 16.4 SECONDS (11.7-14.9) H 09/12/20 08:23 Sodium 146 mmol/L (136-145) H 09/19/20 05:56 Potassium 3.4 mmol/L (3.5-5.1) L 09/20/20 05:16 Chloride 114 mmol/L (98-107) H 09/21/20 05:45 Carbon Dioxide 16.0 mmol/L (21.0-32.0) L 09/21/20 05:45 BUN 50 mg/dL (7-18) H 09/21/20 05:45 Creatinine 2.52 mg/dL (0.70-1.30) H 09/21/20 05:45 Est GFR (MDRD) Af Amer 32 mL/min (>60) L 09/21/20 05:45 Est GFR (MDRD) Non-Af 27 mL/min (>60) L 09/21/20 05:45 BUN/Creatinine Ratio 20.8 RATIO (10-20) H 09/20/20 05:16 Glucose 112 mg/dL (74-106) H 09/21/20 05:45 Lactic Acid 3.2 mmol/L (0.4-1.9) H* 09/12/20 14:30 Calcium 7.3 mg/dL (8.5-10.1) L 09/21/20 05:45 Phosphorus 5.0 mg/dL (2.5-4.9) H 09/14/20 04:45 ALT 15 U/L (16-61) L 09/21/20 05:45 Total Protein 4.2 g/dL (6.4-8.2) L 09/21/20 05:45 Albumin 2.0 g/dL (3.2-5.0) L 09/21/20 05:45 Globulin 2.1 g/dL (2.2-4.2) L 09/19/20 05:56 Albumin/Globulin Ratio 0.8 RATIO (0.9-2.4) L 09/20/20 05:16 - Assessment Food / Nutrition-Related History:: Since admission---pt was NPO 09/12-09/14 then advanced to Regular/no added salt with mech soft (minced/moist) and nectar-thick (mildly thick) liquids and ensure pudding for 2 days 09/15-09/16. NPO restarted on 09/17 to today which is NPO day #6 today. - Nutrition Diagnosis Problem / Etiology / Signs & Symptoms (PES):: Altered GI function related to ileus as evidenced by extended NPO x day#6 without nutrition. Evidence of Malnutrition Exists:: No - Nutrition Intervention Nutrition Prescription:: [id number] kcal/day (25 kcal/Kg). 80-90 g protein/day (1g/kg). 2000mL fluid/day (25mL/kg) - Food / Nutrient Delivery Interventions Summary of nutrition intervention:: Pt remains NPO at this time. In view of extended NPO status day#6 today, consider advance PO nutrition as medically able in the next 24 hours or consider parenteral nutrition support if PO remains contraindicated. If pt not deemed safe for PO nutrition as GI status allows, consider TF support for nutrition and maintain NPO status. Consult RD to order and manage nutiiton support as indicated. Nutrition education provided?: No - MNT Monitoring Further MNT monitoring and evaluation required?: Yes MNT Follow-up in:: 3-5 days
--- NOTE | 2020-09-22 13:00 | PCM.PN.HOSP ---
Patient Problems: Active and Suspected Problems (Last Reviewed 08/27/20 @ 14:23 by Kacie Babcock RN) Pneumonia (Acute) Renal failure (Acute) Debility (Acute) Weight loss, unintentional (Acute) Neutrophilic leukocytosis (Acute) Subjective: No new issues overnight. Doing okay, denies any abdominal pain Vitals/I&O's: Vital Signs Temp Pulse Resp BP Pulse Ox 98.0 F 71 18 132/74 H 95 09/22/20 09:00 09/22/20 11:20 09/22/20 11:20 09/22/20 09:00 09/22/20 09:40 Oxygen Flow Rate (L/min) 2 Oxygen Delivery Method Room Air Weight: 182 lb 1.629 oz Body Mass Index (BMI) 26.9 Intake and Output for Last 24 Hours 09/20/20 09/21/20 09/22/20 23:59 23:59 23:59 Intake Total 3213.34 / 3213.34 2158.34 / 2158.34 2101.66 / 2101.66 Output Total 775 / 1100 1000 / 1175 750 / 750 Balance 2438.34 / 2113.34 1158.34 / 983.34 1351.66 / 1351.66 General: Alert, Oriented x3, Cooperative, No apparent distress, - - NG tube in place with bilious drainage HEENT: Atraumatic, PERRLA, EOMI, Normocephalic Oral: Dry Mucosa Neck: Supple, No JVD Lungs: Normal air movement, No rhonchi, No wheeze, No rales, Diminished Cardiovascular: Regular rate, Regular Rhythm, Normal S1, Normal S2, No murmurs Abdomen: Soft, Non Tender, Distended Extremities: Capillary Refill Less than 3 Seconds, Edema - Trace Skin: No rashes, No breakdown Neurological: Neuro grossly intact, Sensory exam intact to light touch and pain Psych/Mental Status: Normal Affect, Appropriate Current Medications Acetaminophen (Acetaminophen 325 Mg Tablet) 650 mg PO Q6H PRN PRN PRN Reason: Pain Score 1-10/Temp > 100.7 F Last Admin: 09/17/20 08:46 Dose: 650 mg Documented by: Albuterol Sulfate (Albuterol 2.5 Mg/3 Ml Vial.Neb.) 2.5 mg INHALATION Q2H PRN PRN PRN Reason: SOB/Wheezing Last Admin: 09/17/20 08:25 Dose: 2.5 mg Documented by: Albuterol/Ipratropium (Ipratropium/Albuterol Sulfate 3 Ml Ampul.Neb) 3 ml INHALATION Q4H.RT [facility] Last Admin: 09/22/20 11:20 Dose: 3 ml Documented by: Bisacodyl (Bisacodyl 10 Mg Suppository) 10 mg RC DAILY [facility] Last Admin: 09/22/20 11:18 Dose: 10 mg Documented by: Buspirone HCl (Buspirone 5 Mg Tablet) 12.5 mg PO BID [facility] Last Admin: 09/22/20 11:16 Dose: 12.5 mg Documented by: Sodium Chloride () 250 mls @ 15 mls/hr IV .[id number] PRN PRN Reason: Saline Flush Last Infusion: 09/16/20 12:53 Dose: Infused Documented by: Sodium Chloride () 250 mls @ 15 mls/hr IV .[id number] PRN PRN Reason: Additional IVPB Infusion Pantoprazole Sodium 40 mg/ (Sodium Chloride) 110 mls @ 330 mls/hr IV Q24 [facility] Last Infusion: 09/22/20 11:42 Dose: Infused Documented by: Dextrose () 1,000 mls @ 100 mls/hr IV .Q10H [facility] Last Infusion: 09/22/20 11:42 Dose: 100 mls/hr Documented by: Levothyroxine Sodium (Levothyroxine 100 Mcg Tablet) 100 mcg PO DAILY@0600 [facility] Last Admin: 09/22/20 03:02 Dose: 100 mcg Documented by: Nitroglycerin (Nitroglycerin (Inpatient Use) 0.4 Mg Tab.Subl) 0.4 mg SL Q5M PRN PRN Reason: CARDIAC/CHEST PAIN Ondansetron HCl (Ondansetron 4 Mg/2 Ml Vial) 4 mg IV Q8H PRN PRN PRN Reason: NAUSEA/VOMITING Quetiapine Fumarate (Quetiapine 100 Mg Tablet) 200 mg PO BREAKFAST [facility] Last Admin: 09/22/20 11:16 Dose: 200 mg Documented by: Quetiapine Fumarate (Quetiapine 100 Mg Tablet) 400 mg PO QHS [facility] Last Admin: 09/21/20 20:37 Dose: 400 mg Documented by: Senna/Docusate Sodium (Senna/Docusate Sodium 1 Tablet) 2 tablet GT BID PRN PRN Reason: Constipation Last Admin: 09/19/20 22:38 Dose: 2 tablet Documented by: Sodium Chloride (0.9% Saline Lock 10 Ml Syringe) 10 - 40 ml IV UD PRN PRN Reason: SALINE FLUSH Last Admin: 09/21/20 06:28 Dose: 10 ml Documented by: STROKE Vital Signs/Narrative: Vital Signs Pulse Resp Pulse Ox 09/22/20 11:20 71 18 09/22/20 11:00 71 09/22/20 09:40 95 Medical Necessity - Tobacco Use Smoking Status: Never smoker Assessment/Plan All Active Problems (Last Reviewed 08/27/20 @ 14:23 by Kacie Babcock RN) Pneumonia (Acute) Renal failure (Acute) Debility (Acute) Weight loss, unintentional (Acute) Neutrophilic leukocytosis (Acute) Anxiety (Resolved) Atherosclerotic heart disease (Resolved) Bipolar 1 disorder (Resolved) COPD (chronic obstructive pulmonary disease) (Resolved) Chronic lymphocytic leukemia of B-cell type not having achieved remission (Resolved) Dementia (Resolved) Dementia without behavioral disturbance (Resolved) HCAP (healthcare-associated pneumonia) (Resolved) Hypo-osmolality and hyponatremia (Resolved) Hyponatremia (Resolved) Hypothyroidism (Resolved) Insomnia (Resolved) Obsessive compulsive disorder (Resolved) Retention of urine (Resolved) Schizoaffective disorder (Resolved) Schizoaffective disorder (Resolved) Schizoaffective disorder (Resolved) Schizoaffective disorder (Resolved) 1. Acute small bowel ileus with gastric retention likely secondary to his severe sepsis -Appreciate general surgery's input -Continue with NG as he has slow to improve ileus. No bowel movements and KUB did not demonstrate any major movement of his previous oral contrast -He has had about 50 cc out of his NG tube today total of about 1.8 L of gastric drainage -He is not a candidate for any type of surgical intervention if this does not improve -May need to start TPN tomorrow evening if he has no significant improvement in his GI symptoms by then 2. Severe sepsis and acute hypoxic respiratory failure secondary to left lower lobe MRSA pneumonia as well as strep agalactiae pneumonia/UTI secondary to multidrug-resistant [place] [facility] secondary to indwelling Raymond/JOSE ARMANDO now ATN on CKD 2 -He completed all of his antibiotics -Appreciate IDs assistance -Respiratory failure has resolved secondary treatment and resolution of his pneumonia 3. CLL with anemia of chronic disease -Chronic leukocytosis and anemia secondary to his CLL -Appreciate oncology's input -No intervention at this time, will continue to monitor his anemia and transfuse as necessary -Unfortunately given his NG tube and his ileus he is at high risk for aspiration therefore will need to monitor for fevers and treat empirically. Cannot trust his white blood cell count as it is always elevated 4. HTN/HLD/sick sinus syndrome status post pacemaker placement -We will hold his blood pressure medication secondary to his sepsis -We will hold his Lipitor and aspirin secondary to the fact that he has an ileus 5. Hypothyroidism -Stable -Continue Synthroid 6. Schizophrenia -Stable -Continue with his Seroquel -He is also does be on risperidone, Depakote, and BuSpar however there is concern of giving too much of these medications p.o. given his ileus [place] [facility] [place] 76274 Subs Hosp L2
--- NOTE | 2020-09-22 17:36 | PN.RENAL_ITS ---
Patient Problems: Active and Suspected Problems (Last Reviewed 08/27/20 @ 14:23 by Kacie Babcock RN) Pneumonia (Acute) Renal failure (Acute) Debility (Acute) Weight loss, unintentional (Acute) Neutrophilic leukocytosis (Acute) Objective: No complaints no shortness of breath no chest pain abdominal pain - Physical Exam Vitals/I&O's: Vital Signs Temp Pulse Resp BP Pulse Ox 97.5 F L 90 20 H 105/75 95 09/22/20 15:00 09/22/20 15:00 09/22/20 15:00 09/22/20 15:00 09/22/20 15:00 Oxygen Flow Rate (L/min) 2 Oxygen Delivery Method Room Air Weight: 82.6 kg Body Mass Index (BMI) 26.9 Intake and Output for Last 24 Hours 09/20/20 09/21/20 09/22/20 23:59 23:59 23:59 Intake Total 3213.34 / 3213.34 2158.34 / 2158.34 2101.66 / 2101.66 Output Total 775 / 1100 1000 / 1175 750 / 750 Balance 2438.34 / 2113.34 1158.34 / 983.34 1351.66 / 1351.66 General: Alert, Cooperative HEENT: Atraumatic, Normocephalic Neck: Supple Lungs: Clear to auscultation, Normal air movement Extremities: No edema Current Medications Acetaminophen (Acetaminophen 325 Mg Tablet) 650 mg PO Q6H PRN PRN PRN Reason: Pain Score 1-10/Temp > 100.7 F Last Admin: 09/17/20 08:46 Dose: 650 mg Documented by: Albuterol Sulfate (Albuterol 2.5 Mg/3 Ml Vial.Neb.) 2.5 mg INHALATION Q2H PRN PRN PRN Reason: SOB/Wheezing Last Admin: 09/17/20 08:25 Dose: 2.5 mg Documented by: Albuterol/Ipratropium (Ipratropium/Albuterol Sulfate 3 Ml Ampul.Neb) 3 ml INHALATION Q4H.RT [facility] Last Admin: 09/22/20 14:50 Dose: 3 ml Documented by: Bisacodyl (Bisacodyl 10 Mg Suppository) 10 mg RC DAILY [facility] Last Admin: 09/22/20 11:18 Dose: 10 mg Documented by: Buspirone HCl (Buspirone 5 Mg Tablet) 12.5 mg PO BID [facility] Last Admin: 09/22/20 11:16 Dose: 12.5 mg Documented by: Sodium Chloride () 250 mls @ 15 mls/hr IV .[id number] PRN PRN Reason: Saline Flush Last Infusion: 09/16/20 12:53 Dose: Infused Documented by: Sodium Chloride () 250 mls @ 15 mls/hr IV .[id number] PRN PRN Reason: Additional IVPB Infusion Pantoprazole Sodium 40 mg/ (Sodium Chloride) 110 mls @ 330 mls/hr IV Q24 [facility] Last Infusion: 09/22/20 11:42 Dose: Infused Documented by: Dextrose () 1,000 mls @ 100 mls/hr IV .Q10H [facility] Last Infusion: 09/22/20 11:42 Dose: 100 mls/hr Documented by: Levothyroxine Sodium (Levothyroxine 100 Mcg Tablet) 100 mcg PO DAILY@0600 [facility] Last Admin: 09/22/20 03:02 Dose: 100 mcg Documented by: Nitroglycerin (Nitroglycerin (Inpatient Use) 0.4 Mg Tab.Subl) 0.4 mg SL Q5M PRN PRN Reason: CARDIAC/CHEST PAIN Ondansetron HCl (Ondansetron 4 Mg/2 Ml Vial) 4 mg IV Q8H PRN PRN PRN Reason: NAUSEA/VOMITING Quetiapine Fumarate (Quetiapine 100 Mg Tablet) 200 mg PO BREAKFAST [facility] Last Admin: 09/22/20 11:16 Dose: 200 mg Documented by: Quetiapine Fumarate (Quetiapine 100 Mg Tablet) 400 mg PO QHS [facility] Last Admin: 09/21/20 20:37 Dose: 400 mg Documented by: Senna/Docusate Sodium (Senna/Docusate Sodium 1 Tablet) 2 tablet GT BID PRN PRN Reason: Constipation Last Admin: 09/19/20 22:38 Dose: 2 tablet Documented by: Sodium Chloride (0.9% Saline Lock 10 Ml Syringe) 10 - 40 ml IV UD PRN PRN Reason: SALINE FLUSH Last Admin: 09/21/20 06:28 Dose: 10 ml Documented by: Medical Necessity - Tobacco Use Smoking Status: Never smoker Assessment/Plan All Active Problems (Last Reviewed 08/27/20 @ 14:23 by Kacie Babcock, ZEESHAN) Pneumonia (Acute) Renal failure (Acute) Debility (Acute) Weight loss, unintentional (Acute) Neutrophilic leukocytosis (Acute) Anxiety (Resolved) Atherosclerotic heart disease (Resolved) Bipolar 1 disorder (Resolved) COPD (chronic obstructive pulmonary disease) (Resolved) Chronic lymphocytic leukemia of B-cell type not having achieved remission (Resolved) Dementia (Resolved) Dementia without behavioral disturbance (Resolved) HCAP (healthcare-associated pneumonia) (Resolved) Hypo-osmolality and hyponatremia (Resolved) Hyponatremia (Resolved) Hypothyroidism (Resolved) Insomnia (Resolved) Obsessive compulsive disorder (Resolved) Retention of urine (Resolved) Schizoaffective disorder (Resolved) Schizoaffective disorder (Resolved) Schizoaffective disorder (Resolved) Schizoaffective disorder (Resolved) JOSE ARMANDO?ATN Renal cysts bilaterally Ileus CLL Scr 2.5 less prerenal continue ivf no bmp today check bmp in am surgery following d/w patient avoid nephrotoxins
[2020-09-22] MEDS: Dextrose 5%/0.9% NaCl 1,000 ML 100 ML IV (18:13)
[2020-09-22] MEDS: 0.9% Saline Lock 10 ML Syringe IV (18:14)
[2020-09-22] MEDS: QUEtiapine 100 MG Tablet 400 MG PO (20:43)
[2020-09-23] VITALS (13 sets, daily range): BP systolic 107–136; BP diastolic 60–72; PULSE 68–84; RESP 18–20; TEMP 36.6–37.1; O2SAT 93–95; BMI 26.9
[2020-09-23] MEDS: Dextrose 5%/0.9% NaCl 1,000 ML 100 ML IV ×2 (03:09→15:29)
--- NOTE | 2020-09-23 04:57 | NURSING ---
Suctioned patient due to pt having much difficulty clearing oral secretions. Pt became very agitated after stating I said I don't want that. Offerred oral care pt refused.
[2020-09-23] MEDS: Levothyroxine 100 MCG Tablet PO (05:50)
[2020-09-23] MEDS: Ipratropium/Albuterol Sulfate 3 ML AMPUL.NEB INHALATION ×4 (07:08→22:54)
--- NOTE | 2020-09-23 07:48 | CPS ---
pt refused to allow yankeaur to be used to help with his secretions
[2020-09-23] MEDS: QUEtiapine 100 MG Tablet 200 MG PO (10:23)
[2020-09-23] MEDS: Bisacodyl 10 MG Suppository RC (10:24)
[2020-09-23] MEDS: busPIRone 5 MG Tablet 12.5 MG PO ×2 (10:24→21:57)
--- NOTE | 2020-09-23 10:37 | PCM.PN.SRG ---
Patient Problems: Active and Suspected Problems (Last Reviewed 08/27/20 @ 14:23 by Kacie Babcock RN) Pneumonia (Acute) Renal failure (Acute) Debility (Acute) Weight loss, unintentional (Acute) Neutrophilic leukocytosis (Acute) Subjective: No change from yesterday. Still pretty gurgly with that NG tube in. Objective: Abdomen is soft and nontender - Physical Exam Vitals/I&O's: Vital Signs Temp Pulse Resp BP Pulse Ox 98.8 F 70 18 133/71 H 95 09/23/20 10:10 09/23/20 10:10 09/23/20 10:10 09/23/20 10:10 09/23/20 10:10 Oxygen Flow Rate (L/min) 2 Oxygen Delivery Method Room Air Weight: 182 lb 8.684 oz Body Mass Index (BMI) 26.9 Intake and Output for Last 24 Hours 09/21/20 09/22/20 09/23/20 23:59 23:59 23:59 Intake Total 2158.34 / 2158.34 2741.66 / 2741.66 1613.33 / 1613.33 Output Total 1000 / 1175 1250 / 1550 540 / 540 Balance 1158.34 / 983.34 1491.66 / 1191.66 1073.33 / 1073.33 Current Medications Acetaminophen (Acetaminophen 325 Mg Tablet) 650 mg PO Q6H PRN PRN PRN Reason: Pain Score 1-10/Temp > 100.7 F Last Admin: 09/17/20 08:46 Dose: 650 mg Documented by: Albuterol Sulfate (Albuterol 2.5 Mg/3 Ml Vial.Neb.) 2.5 mg INHALATION Q2H PRN PRN PRN Reason: SOB/Wheezing Last Admin: 09/17/20 08:25 Dose: 2.5 mg Documented by: Albuterol/Ipratropium (Ipratropium/Albuterol Sulfate 3 Ml Ampul.Neb) 3 ml INHALATION Q4H.RT [facility] Last Admin: 09/23/20 07:08 Dose: 3 ml Documented by: Bisacodyl (Bisacodyl 10 Mg Suppository) 10 mg RC DAILY [facility] Last Admin: 09/23/20 10:24 Dose: 10 mg Documented by: Buspirone HCl (Buspirone 5 Mg Tablet) 12.5 mg PO BID [facility] Last Admin: 09/23/20 10:24 Dose: 12.5 mg Documented by: Sodium Chloride () 250 mls @ 15 mls/hr IV .[id number] PRN PRN Reason: Saline Flush Last Infusion: 09/16/20 12:53 Dose: Infused Documented by: Sodium Chloride () 250 mls @ 15 mls/hr IV .[id number] PRN PRN Reason: Additional IVPB Infusion Pantoprazole Sodium 40 mg/ (Sodium Chloride) 110 mls @ 330 mls/hr IV Q24 [facility] Last Admin: 09/23/20 10:23 Dose: 330 mls/hr Documented by: Dextrose/Sodium Chloride (Dextrose 5%/0.9% Nacl) 1,000 mls @ 100 mls/hr IV .Q10H [facility] Last Infusion: 09/23/20 10:21 Dose: 0 mls/hr Documented by: Levothyroxine Sodium (Levothyroxine 100 Mcg Tablet) 100 mcg PO DAILY@0600 [facility] Last Admin: 09/23/20 05:50 Dose: 100 mcg Documented by: Nitroglycerin (Nitroglycerin (Inpatient Use) 0.4 Mg Tab.Subl) 0.4 mg SL Q5M PRN PRN Reason: CARDIAC/CHEST PAIN Ondansetron HCl (Ondansetron 4 Mg/2 Ml Vial) 4 mg IV Q8H PRN PRN PRN Reason: NAUSEA/VOMITING Quetiapine Fumarate (Quetiapine 100 Mg Tablet) 200 mg PO BREAKFAST [facility] Last Admin: 09/23/20 10:23 Dose: 200 mg Documented by: Quetiapine Fumarate (Quetiapine 100 Mg Tablet) 400 mg PO QHS [facility] Last Admin: 09/22/20 20:43 Dose: 400 mg Documented by: Senna/Docusate Sodium (Senna/Docusate Sodium 1 Tablet) 2 tablet GT BID PRN PRN Reason: Constipation Last Admin: 09/19/20 22:38 Dose: 2 tablet Documented by: Sodium Chloride (0.9% Saline Lock 10 Ml Syringe) 10 - 40 ml IV UD PRN PRN Reason: SALINE FLUSH Last Admin: 09/22/20 18:14 Dose: 10 ml Documented by: Medical Necessity - Tobacco Use Smoking Status: Never smoker Assessment/Plan All Active Problems (Last Reviewed 08/27/20 @ 14:23 by Kacie Babcock RN) Pneumonia (Acute) Renal failure (Acute) Debility (Acute) Weight loss, unintentional (Acute) Neutrophilic leukocytosis (Acute) Anxiety (Resolved) Atherosclerotic heart disease (Resolved) Bipolar 1 disorder (Resolved) COPD (chronic obstructive pulmonary disease) (Resolved) Chronic lymphocytic leukemia of B-cell type not having achieved remission (Resolved) Dementia (Resolved) Dementia without behavioral disturbance (Resolved) HCAP (healthcare-associated pneumonia) (Resolved) Hypo-osmolality and hyponatremia (Resolved) Hyponatremia (Resolved) Hypothyroidism (Resolved) Insomnia (Resolved) Obsessive compulsive disorder (Resolved) Retention of urine (Resolved) Schizoaffective disorder (Resolved) Schizoaffective disorder (Resolved) Schizoaffective disorder (Resolved) Schizoaffective disorder (Resolved) No resolution as of yet
--- NOTE | 2020-09-23 12:16 | PCM.PN.HOSP ---
Patient Problems: Active and Suspected Problems (Last Reviewed 08/27/20 @ 14:23 by Kacie Babcock RN) Pneumonia (Acute) Renal failure (Acute) Debility (Acute) Weight loss, unintentional (Acute) Neutrophilic leukocytosis (Acute) Subjective: Seems about the same as he did yesterday, still with distention and bilious NG tube drainage Vitals/I&O's: Vital Signs Temp Pulse Resp BP Pulse Ox 98.8 F 73 18 133/71 H 95 09/23/20 10:10 09/23/20 10:57 09/23/20 10:57 09/23/20 10:10 09/23/20 10:10 Oxygen Flow Rate (L/min) 2 Oxygen Delivery Method Room Air Weight: 182 lb 8.684 oz Body Mass Index (BMI) 26.9 Intake and Output for Last 24 Hours 09/21/20 09/22/20 09/23/20 23:59 23:59 23:59 Intake Total 2158.34 / 2158.34 2741.66 / 2741.66 1753.33 / 1753.33 Output Total 1000 / 1175 1250 / 1550 790 / 790 Balance 1158.34 / 983.34 1491.66 / 1191.66 963.33 / 963.33 General: Alert, Oriented x3, Cooperative, No apparent distress, - - NG tube in place with bilious drainage HEENT: Atraumatic, PERRLA, EOMI, Normocephalic Oral: Dry Mucosa Neck: Supple, No JVD Lungs: Normal air movement, No rhonchi, No wheeze, No rales, Diminished, upper airway sounds secondary to mucus from NG tube Cardiovascular: Regular rate, Regular Rhythm, Normal S1, Normal S2, No murmurs Abdomen: Soft, Non Tender, Distended Extremities: Capillary Refill Less than 3 Seconds, Edema - Trace Skin: No rashes, No breakdown Neurological: Neuro grossly intact, Sensory exam intact to light touch and pain Psych/Mental Status: Normal Affect, Appropriate Current Medications Acetaminophen (Acetaminophen 325 Mg Tablet) 650 mg PO Q6H PRN PRN PRN Reason: Pain Score 1-10/Temp > 100.7 F Last Admin: 09/17/20 08:46 Dose: 650 mg Documented by: Albuterol Sulfate (Albuterol 2.5 Mg/3 Ml Vial.Neb.) 2.5 mg INHALATION Q2H PRN PRN PRN Reason: SOB/Wheezing Last Admin: 09/17/20 08:25 Dose: 2.5 mg Documented by: Albuterol/Ipratropium (Ipratropium/Albuterol Sulfate 3 Ml Ampul.Neb) 3 ml INHALATION Q4H.RT [facility] Last Admin: 09/23/20 10:57 Dose: 3 ml Documented by: Bisacodyl (Bisacodyl 10 Mg Suppository) 10 mg RC DAILY [facility] Last Admin: 09/23/20 10:24 Dose: 10 mg Documented by: Buspirone HCl (Buspirone 5 Mg Tablet) 12.5 mg PO BID [facility] Last Admin: 09/23/20 10:24 Dose: 12.5 mg Documented by: Sodium Chloride () 250 mls @ 15 mls/hr IV .[id number] PRN PRN Reason: Saline Flush Last Infusion: 09/16/20 12:53 Dose: Infused Documented by: Sodium Chloride () 250 mls @ 15 mls/hr IV .[id number] PRN PRN Reason: Additional IVPB Infusion Pantoprazole Sodium 40 mg/ (Sodium Chloride) 110 mls @ 330 mls/hr IV Q24 [facility] Last Infusion: 09/23/20 10:45 Dose: Infused Documented by: Dextrose/Sodium Chloride (Dextrose 5%/0.9% Nacl) 1,000 mls @ 100 mls/hr IV .Q10H [facility] Last Infusion: 09/23/20 11:41 Dose: 100 mls/hr Documented by: Levothyroxine Sodium (Levothyroxine 100 Mcg Tablet) 100 mcg PO DAILY@0600 [facility] Last Admin: 09/23/20 05:50 Dose: 100 mcg Documented by: Nitroglycerin (Nitroglycerin (Inpatient Use) 0.4 Mg Tab.Subl) 0.4 mg SL Q5M PRN PRN Reason: CARDIAC/CHEST PAIN Ondansetron HCl (Ondansetron 4 Mg/2 Ml Vial) 4 mg IV Q8H PRN PRN PRN Reason: NAUSEA/VOMITING Quetiapine Fumarate (Quetiapine 100 Mg Tablet) 200 mg PO BREAKFAST [facility] Last Admin: 09/23/20 10:23 Dose: 200 mg Documented by: Quetiapine Fumarate (Quetiapine 100 Mg Tablet) 400 mg PO QHS [facility] Last Admin: 09/22/20 20:43 Dose: 400 mg Documented by: Senna/Docusate Sodium (Senna/Docusate Sodium 1 Tablet) 2 tablet GT BID PRN PRN Reason: Constipation Last Admin: 09/19/20 22:38 Dose: 2 tablet Documented by: Sodium Chloride (0.9% Saline Lock 10 Ml Syringe) 10 - 40 ml IV UD PRN PRN Reason: SALINE FLUSH Last Admin: 09/22/20 18:14 Dose: 10 ml Documented by: STROKE Vital Signs/Narrative: Vital Signs Temp Pulse Resp BP Pulse Ox 09/23/20 10:57 73 18 09/23/20 10:10 98.8 F 70 18 133/71 H 95 Medical Necessity - Tobacco Use Smoking Status: Never smoker Assessment/Plan All Active Problems (Last Reviewed 08/27/20 @ 14:23 by Kacie Babcock RN) Pneumonia (Acute) Renal failure (Acute) Debility (Acute) Weight loss, unintentional (Acute) Neutrophilic leukocytosis (Acute) Anxiety (Resolved) Atherosclerotic heart disease (Resolved) Bipolar 1 disorder (Resolved) COPD (chronic obstructive pulmonary disease) (Resolved) Chronic lymphocytic leukemia of B-cell type not having achieved remission (Resolved) Dementia (Resolved) Dementia without behavioral disturbance (Resolved) HCAP (healthcare-associated pneumonia) (Resolved) Hypo-osmolality and hyponatremia (Resolved) Hyponatremia (Resolved) Hypothyroidism (Resolved) Insomnia (Resolved) Obsessive compulsive disorder (Resolved) Retention of urine (Resolved) Schizoaffective disorder (Resolved) Schizoaffective disorder (Resolved) Schizoaffective disorder (Resolved) Schizoaffective disorder (Resolved) 1. Acute small bowel ileus with gastric retention likely secondary to his severe sepsis -Appreciate general surgery's input -Continue with NG as he has slow to improve ileus. No bowel movements and KUB did not demonstrate any major movement of his previous oral contrast -He has had about 150 cc out of his NG tube yesterday total of about 1.8 L of gastric drainage -He is not a candidate for any type of surgical intervention if this does not improve -We will place a PICC line today and start TPN as he is no longer septic. Tried to call the POA with no answer, will need to have a family meeting and discussed the possibility of pulling the NG tube to minimize risk of aspiration and to see if he has resolution of his symptoms. If he does not have resolution, he may need to consider hospice as he is not a good surgical candidate. 2. Severe sepsis and acute hypoxic respiratory failure secondary to left lower lobe MRSA pneumonia as well as strep agalactiae pneumonia/UTI secondary to multidrug-resistant [place] [facility] secondary to indwelling Raymond/JOSE ARMANDO now ATN on CKD 2 -He completed all of his antibiotics -Appreciate IDs assistance -Respiratory failure has resolved secondary treatment and resolution of his pneumonia 3. CLL with anemia of chronic disease -Chronic leukocytosis and anemia secondary to his CLL -Appreciate oncology's input -No intervention at this time, will continue to monitor his anemia and transfuse as necessary -Unfortunately given his NG tube and his ileus he is at high risk for aspiration therefore will need to monitor for fevers and treat empirically. Cannot trust his white blood cell count as it is always elevated 4. HTN/HLD/sick sinus syndrome status post pacemaker placement -We will hold his blood pressure medication secondary to his sepsis -We will hold his Lipitor and aspirin secondary to the fact that he has an ileus 5. Hypothyroidism -Stable -Continue Synthroid 6. Schizophrenia -Stable -Continue with his Seroquel -He is also supposed to be on risperidone, Depakote, and BuSpar however there is concern of giving too much of these medications p.o. given his ileus [facility]: 12858 Subs Hosp L2
--- NOTE | 2020-09-23 13:35 | RAD_ITS ---
INDICATION: PICC insertion -- portable EXAMINATION/TECHNIQUE: X-RAY - XR Chest 1 View COMPARISON: 09/12/2020. FINDINGS: Interval placement of right-sided PICC with tip difficult to visualize but possibly in the upper SVC. Unchanged position of NG tube and left-sided cardiac device. The lungs are clear. The cardiomediastinal silhouette is stable. No pleural effusion or pneumothorax. No acute osseous abnormalities. Degenerative changes of the thoracic spine. RAD/CXR for Line Placement IMPRESSION: Interval placement of right-sided PICC with tip difficult to visualize but possibly in the upper SVC. Otherwise, stable exam. Electronically Signed: Jean-Pierre Alvarenga MD at 14:06 EDT Tel , Service support ,
--- NOTE | 2020-09-23 14:40 | RAD_ITS ---
STUDY: X-RAY CHEST REASON FOR EXAM: Male, 75 years old. PICC Line placement -- x-ray after adjustment made TECHNIQUE: Frontal portable view of the chest COMPARISON: Earlier same day FINDINGS: The tip of the right PICC line is somewhat difficult to visualize but most likely it terminates in the mid SVC. Gastric tube courses into the stomach below the diaphragm. Lungs are clear without pneumothorax, pulmonary edema pleural effusions. Cardiac size is normal. Pacemaker is present in the left upper chest with multiple leads terminating in the right atrium and right ventricle. Appearance is similar to recent prior. RAD/CXR for Line Placement IMPRESSION: PICC line with tip in the mid SVC. No acute chest disease. Electronically Signed: Alfreda Pina MD at 17:20 EDT Tel , Service support ,
--- NOTE | 2020-09-23 16:51 | PCM.NTREPORT ---
Nutrition Therapy Report - History Nutrition Services has been consulted to:: Manage nutrient details of diet order Current diet / nutrition support order:: NPO x day #7 - Anthropometric Measurements Height:: 5 ft 9 in Weight:: 82.8 kg Body Mass Index (BMI):: 26.9 - Relevant Labs Relevant Labs:: WBC 40.6 K/mm3 (4.4-11.0) H* 09/21/20 08:44 RBC 2.77 M/mm3 (4.6-6.2) L 09/21/20 08:44 Hgb 8.9 g/dL (13.0-16.5) L 09/21/20 08:44 Hct 27.4 % (40-54) L 09/21/20 08:44 MCV 98.9 fL (80-94) H 09/21/20 08:44 MCH 32.1 pg (27.0-32.0) H 09/21/20 08:44 MCHC 31.9 g/dL (32-36) L 09/19/20 05:56 RDW Std Deviation 58.7 fl (35.1-43.9) H 09/21/20 08:44 RDW Coeff of Arben 16.2 % (11.6-14.6) H 09/21/20 08:44 Plt Count 143 K/mm3 (150-450) L 09/17/20 06:00 MPV 12.3 fl (6.2-12.0) H 09/20/20 05:16 Immature Gran % (Auto) 4.500 % (0.0-0.9) H 09/20/20 05:16 Neut % (Auto) 33.3 % (47-70) L 09/20/20 05:16 Lymph % (Auto) 55.2 % (19-41) H 09/20/20 05:16 Absolute Neuts (auto) 13.8 X10^3/uL (2.0-7.7) H 09/21/20 08:44 Absolute Lymphs (auto) 24.74 X10^3/uL (0.83-4.51) H 09/21/20 08:44 Neutrophils % (Manual) 31 % (47-70) L 09/21/20 08:44 Band Neutrophils % 10 % (0-5) H 09/18/20 05:55 Lymphocytes % (Manual) 61 % (19-41) H 09/21/20 08:44 Metamyelocytes % 4 % (0-1) H 09/17/20 06:00 Myelocytes % 2 % (0-0) H 09/21/20 08:44 Promyelocytes % 1 % (0-0) H 09/18/20 05:55 Blast Cells % 3 % (0-0) H* 09/18/20 05:55 PT 16.4 SECONDS (11.7-14.9) H 09/12/20 08:23 Sodium 146 mmol/L (136-145) H 09/19/20 05:56 Potassium 3.4 mmol/L (3.5-5.1) L 09/20/20 05:16 Chloride 114 mmol/L (98-107) H 09/21/20 05:45 Carbon Dioxide 16.0 mmol/L (21.0-32.0) L 09/21/20 05:45 BUN 50 mg/dL (7-18) H 09/21/20 05:45 Creatinine 2.52 mg/dL (0.70-1.30) H 09/21/20 05:45 Est GFR (MDRD) Af Amer 32 mL/min (>60) L 09/21/20 05:45 Est GFR (MDRD) Non-Af 27 mL/min (>60) L 09/21/20 05:45 BUN/Creatinine Ratio 20.8 RATIO (10-20) H 09/20/20 05:16 Glucose 112 mg/dL (74-106) H 09/21/20 05:45 Lactic Acid 3.2 mmol/L (0.4-1.9) H* 09/12/20 14:30 Calcium 7.3 mg/dL (8.5-10.1) L 09/21/20 05:45 Phosphorus 5.0 mg/dL (2.5-4.9) H 09/14/20 04:45 ALT 15 U/L (16-61) L 09/21/20 05:45 Total Protein 4.2 g/dL (6.4-8.2) L 09/21/20 05:45 Albumin 2.0 g/dL (3.2-5.0) L 09/21/20 05:45 Globulin 2.1 g/dL (2.2-4.2) L 09/19/20 05:56 Albumin/Globulin Ratio 0.8 RATIO (0.9-2.4) L 09/20/20 05:16 - Assessment Food / Nutrition-Related History:: NPO restarted on 09/17 to today which is NPO day #7 today. Pt with slow to improve ileus. Plan for PICC line and TPN. - Nutrition Diagnosis Problem / Etiology / Signs & Symptoms (PES):: Altered GI function related to ileus as evidenced by extended NPO x day#7 without nutrition. Evidence of Malnutrition Exists:: No - Nutrition Intervention Nutrition Prescription:: Estimated nutrition needs~4757-7002 kcal (21-22 kcal/Kg) and ~65-85 gm pro (.8-1 gm pro/Kg since BUN/creat elevated). Estimated fluid needs~1900-2100ml/day (24 ml/Kg). - Food / Nutrient Delivery Interventions Summary of nutrition intervention:: Suggest start TPN with 1 L 4.25% amino acid/10% dextrose without lipids to provide 42 gm pro and 510 kcal. This will meet~50% estimated protein needs and ~30% estimated energy needs to start. Will increase TPN concentration as tolerated to better meet estimated nutrition needs. Pt is at risk for refeeding syndrome given extended period without nutrition. Nutrition support ordered as / adjusted to:: Consult dietitian to order and manage TPN daily; recommendation requested by OMAIRA Landin charge nurse on PCU. Nutrition education provided?: No - MNT Monitoring Further MNT monitoring and evaluation required?: Yes MNT Follow-up in:: 1-2 days
--- NOTE | 2020-09-23 18:57 | NURSING ---
Patient's sister, Pat in earlier today. Dr. Cadena spoke with her in detail regarding patient's POC. Discussed options of Hospice vs Palliative Care vs. aggressive care. Pat would like to discuss options with sister and the patient before making a decision. Pat states she will be here tomorrow around 11am to speak with the hospitalist caring for patient,and if possible surgery.
[2020-09-23] MEDS: QUEtiapine 100 MG Tablet 400 MG PO (21:56)
[2020-09-23] MEDS: Menthol/Lanolin/Calamine/Znox 113 GM Tube 1 APPLIC TOPICAL (21:57)
[2020-09-24] VITALS (7 sets, daily range): BP systolic 126–132; BP diastolic 59–81; PULSE 74–86; RESP 18–24; TEMP 36.9–37.2; O2SAT 94–96
[2020-09-24] MEDS: Dextrose 5%/0.9% NaCl 1,000 ML 100 ML IV (00:52)
[2020-09-24] MEDS: Menthol/Lanolin/Calamine/Znox 113 GM Tube 1 APPLIC TOPICAL (05:30)
[2020-09-24 06:03] LABS: Absolute Lymphocyte Count 18.66 X10^3/uL (0.83-4.51); Absolute Neutrophil Count 7.7 X10^3/uL (2.0-7.7); Basophil# 0.09 X10^3/uL; Basophil% 0.3 % (0-1); Hematocrit 24.2 % (40-54); Hemoglobin 7.8 g/dL (13.0-16.5); Lymphocyte # 18.66 X10^3/ul (0.83-4.51); Lymphocyte % 67.6 % (19-41); Mean Corp Hgb Conc 32.2 g/dL (32-36); Mean Corpuscular Hgb 31.6 pg (27.0-32.0); Monocyte# 0.96 X10^3/uL; Monocyte% 3.5 % (0-10); NRBC Flagged by Analyzer 0 % (0-5); Neutrophil % 27.9 % (47-70); POSITIVE DIFFERENTIAL YES; POSITIVE MORPHOLOGY YES; Platelet Count 219 K/mm3 (150-450); RBC Distribution Width CV 15.9 % (11.6-14.6); Red Blood Count 2.47 M/mm3 (4.6-6.2); White Blood Count 27.6 K/mm3 (4.4-11.0)
[2020-09-24 06:04] LABS: Differential Indicated SCAN CRITERIA MET
[2020-09-24 06:29] LABS: Anion Gap 10 (5-15); BUN 26 mg/dL (7-18); BUN/Creat Ratio 11.9 RATIO (10-20); Calcium,Total 7.1 mg/dL (8.5-10.1); Chloride 115 mmol/L (98-107); Creatinine, Serum 2.18 mg/dL (0.70-1.30); EST Glomerular Filtration Rate 31 mL/min (>60); Est Glom Filt Rate - Afr Amer 38 mL/min (>60); Estimated Creatinine Clearance 29.28 ml/min; Glucose 114 mg/dL (74-106); Potassium 3.2 mmol/L (3.5-5.1); Sodium Level 142 mmol/L (136-145)
[2020-09-24] MEDS: QUEtiapine 100 MG Tablet 200 MG PO (08:56)
[2020-09-24] MEDS: busPIRone 5 MG Tablet 12.5 MG PO (08:56)
[2020-09-24] MEDS: 0.9% Saline Lock 10 ML Syringe IV ×2 (09:07→11:32)
--- NOTE | 2020-09-24 09:15 | RAD_ITS ---
STUDY: X-RAY - ABDOMEN/PELVIS REASON FOR EXAM: Male, 75 years old. ileus TECHNIQUE: Single AP view of the abdomen / pelvis. COMPARISON: 09/22/2020 FINDINGS: Normal visualized lung bases. There is an NG tube coiled in the stomach. There is a rectal tube in place. There is persistent oral contrast in the ascending colon, unchanged since 09/22/2020. There is increase colonic gaseous distention. Evaluation of the small bowel is limited. There is no demonstrated free abdominal air. Normal soft tissue structures. There is marked bilateral hip arthrosis and degenerative changes of the visualized thoracic and lumbar spine. RAD/Abdomen Single View (Portable) IMPRESSION: There is persistent oral contrast in the ascending colon, unchanged since 09/22/2020. There is increases colonic gaseous distention. Evaluation of the small bowel is limited. Electronically Signed: Silvino Jim MD at 11:43 EDT Tel , Service support ,
[2020-09-24] MEDS: Bisacodyl 10 MG Suppository RC (09:36)
--- NOTE | 2020-09-24 09:59 | PCM.PN.SRG ---
Patient Problems: Active and Suspected Problems (Last Reviewed 08/27/20 @ 14:23 by Kacie Babcock RN) Pneumonia (Acute) Renal failure (Acute) Debility (Acute) Weight loss, unintentional (Acute) Neutrophilic leukocytosis (Acute) Subjective: Patient has not been having much V NG currently only 100 cc in the canister Looks like mostly secretions, patient states he is having some flatus denies any abdominal pain. Patient's repeat KUB looks unchanged with increased gas in the colon and contrast still in the right colon. - Physical Exam Vitals/I&O's: Vital Signs Temp Pulse Resp BP Pulse Ox 98.4 F 78 18 132/59 H 96 09/24/20 09:11 09/24/20 09:11 09/24/20 09:11 09/24/20 09:11 09/24/20 09:11 Oxygen Flow Rate (L/min) 2 Oxygen Delivery Method Room Air Weight: 183 lb 3.266 oz Body Mass Index (BMI) 26.9 Intake and Output for Last 24 Hours 09/22/20 09/23/20 09/24/20 23:59 23:59 23:59 Intake Total 2741.66 / 2741.66 2093.33 / 2093.33 1953.33 / 1953.33 Output Total 1250 / 1550 1040 / 1140 400 / 400 Balance 1491.66 / 1191.66 1053.33 / 953.33 1553.33 / 1553.33 General: Cooperative, No apparent distress Cardiovascular: Regular rate Abdomen: Soft, Non Tender, Non-Distended, - - Easily Reducible right inguinal hernia Laboratory Results 09/24/20 05:26: Sodium 142, Potassium 3.2 L, Chloride 115 H, Carbon Dioxide 17.0 L, Anion Gap 10, BUN 26 H, Creatinine 2.18 H, Estim Creat Clear Calc 29.28, Est GFR (MDRD) Af Amer 38 L, Est GFR (MDRD) Non-Af 31 L, BUN/Creatinine Ratio 11.9, Glucose 114 H, Calcium 7.1 L 09/24/20 05:26: WBC 27.6 H, RBC 2.47 L, Hgb 7.8 L, Hct 24.2 L, MCV 98.0 H, MCH 31.6, MCHC 32.2, RDW Std Deviation 57.0 H, RDW Coeff of Arben 15.9 H, Plt Count 219, MPV 12.0, Immature Gran % (Auto) 0.700, Neut % (Auto) 27.9 L, Lymph % (Auto) 67.6 H, [place] % (Auto) 3.5, Eos % (Auto) 0.0, Baso % (Auto) 0.3, Absolute Neuts (auto) 7.7, Absolute Lymphs (auto) 18.66 H, Nucleated RBC % 0 Current Medications Acetaminophen (Acetaminophen 325 Mg Tablet) 650 mg PO Q6H PRN PRN PRN Reason: Pain Score 1-10/Temp > 100.7 F Last Admin: 09/17/20 08:46 Dose: 650 mg Documented by: Albuterol Sulfate (Albuterol 2.5 Mg/3 Ml Vial.Neb.) 2.5 mg INHALATION Q2H PRN PRN PRN Reason: SOB/Wheezing Last Admin: 09/17/20 08:25 Dose: 2.5 mg Documented by: Albuterol/Ipratropium (Ipratropium/Albuterol Sulfate 3 Ml Ampul.Neb) 3 ml INHALATION Q4H.RT [facility] Last Admin: 09/23/20 22:54 Dose: 3 ml Documented by: Bisacodyl (Bisacodyl 10 Mg Suppository) 10 mg RC DAILY [facility] Last Admin: 09/24/20 09:36 Dose: 10 mg Documented by: Buspirone HCl (Buspirone 5 Mg Tablet) 12.5 mg PO BID [facility] Last Admin: 09/24/20 08:56 Dose: 12.5 mg Documented by: Calamine/Phenol (Menthol/Lanolin/Calamine/Znox 113 Gm Tube) 1 applic TOPICAL TID [facility]; Protocol Last Admin: 09/24/20 05:30 Dose: 1 applic Documented by: Sodium Chloride () 250 mls @ 15 mls/hr IV .[id number] PRN PRN Reason: Saline Flush Last Infusion: 09/16/20 12:53 Dose: Infused Documented by: Sodium Chloride () 250 mls @ 15 mls/hr IV .[id number] PRN PRN Reason: Additional IVPB Infusion Pantoprazole Sodium 40 mg/ (Sodium Chloride) 110 mls @ 330 mls/hr IV Q24 [facility] Last Infusion: 09/24/20 09:30 Dose: Infused Documented by: Dextrose/Sodium Chloride (Dextrose 5%/0.9% Nacl) 1,000 mls @ 100 mls/hr IV .Q10H [facility] Last Infusion: 09/24/20 09:58 Dose: 100 mls/hr Documented by: Levothyroxine Sodium (Levothyroxine 100 Mcg Tablet) 100 mcg PO DAILY@0600 [facility] Last Admin: 09/24/20 05:26 Dose: Not Given Documented by: Nitroglycerin (Nitroglycerin (Inpatient Use) 0.4 Mg Tab.Subl) 0.4 mg SL Q5M PRN PRN Reason: CARDIAC/CHEST PAIN Ondansetron HCl (Ondansetron 4 Mg/2 Ml Vial) 4 mg IV Q8H PRN PRN PRN Reason: NAUSEA/VOMITING Quetiapine Fumarate (Quetiapine 100 Mg Tablet) 200 mg PO BREAKFAST [facility] Last Admin: 09/24/20 08:56 Dose: 200 mg Documented by: Quetiapine Fumarate (Quetiapine 100 Mg Tablet) 400 mg PO QHS [facility] Last Admin: 09/23/20 21:56 Dose: 400 mg Documented by: Senna/Docusate Sodium (Senna/Docusate Sodium 1 Tablet) 2 tablet GT BID PRN PRN Reason: Constipation Last Admin: 09/19/20 22:38 Dose: 2 tablet Documented by: Sodium Chloride (0.9% Saline Lock 10 Ml Syringe) 10 - 40 ml IV UD PRN PRN Reason: SALINE FLUSH Last Admin: 09/24/20 09:07 Dose: 10 ml Documented by: Medical Necessity - Tobacco Use Smoking Status: Never smoker Assessment/Plan All Active Problems (Last Reviewed 08/27/20 @ 14:23 by Kacie Babcock, ZEESHAN) Pneumonia (Acute) Renal failure (Acute) Debility (Acute) Weight loss, unintentional (Acute) Neutrophilic leukocytosis (Acute) Anxiety (Resolved) Atherosclerotic heart disease (Resolved) Bipolar 1 disorder (Resolved) COPD (chronic obstructive pulmonary disease) (Resolved) Chronic lymphocytic 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 N.p.o./IV fluids, NG. KUB KUB today does not show much progress dilated gas in the colon contrast still in small bowel. Patient is getting been getting enemas as well as some suppositories. With no improvement. Have attempted some p.o. medication however Speech has been patient restricted to critical medication only. Difficult situation as patient has not been getting up to the chair and usually has been refusing therapy and is usually just laying in bed, Which does not help his ileus. Discussion today with patient's family possible hospice. 2. Leukocytosis?Pending?Abx per ID Raquel Melissa M.D. Pager: [phone] [facility] [address] [place] [address], Outpatient [place], [address] [place] [address] Office: [phone] Inpatient E&M: [id number] [facility]
--- NOTE | 2020-09-24 10:33 | PCM.PN.HOSP ---
Patient Problems: Active and Suspected Problems (Last Reviewed 08/27/20 @ 14:23 by Kacie Babcock RN) Pneumonia (Acute) Renal failure (Acute) Debility (Acute) Weight loss, unintentional (Acute) Neutrophilic leukocytosis (Acute) Vitals/I&O's: Vital Signs Temp Pulse Resp BP Pulse Ox 98.4 F 78 18 132/59 H 96 09/24/20 09:11 09/24/20 09:11 09/24/20 09:11 09/24/20 09:11 09/24/20 09:11 Oxygen Flow Rate (L/min) 2 Oxygen Delivery Method Room Air Weight: 183 lb 3.266 oz Body Mass Index (BMI) 26.9 Intake and Output for Last 24 Hours 09/22/20 09/23/20 09/24/20 23:59 23:59 23:59 Intake Total 2741.66 / 2741.66 2093.33 / 2093.33 1953.33 / 1953.33 Output Total 1250 / 1550 1040 / 1140 400 / 400 Balance 1491.66 / 1191.66 1053.33 / 953.33 1553.33 / 1553.33 Laboratory Results 09/24/20 05:26: Sodium 142, Potassium 3.2 L, Chloride 115 H, Carbon Dioxide 17.0 L, Anion Gap 10, BUN 26 H, Creatinine 2.18 H, Estim Creat Clear Calc 29.28, Est GFR (MDRD) Af Amer 38 L, Est GFR (MDRD) Non-Af 31 L, BUN/Creatinine Ratio 11.9, Glucose 114 H, Calcium 7.1 L 09/24/20 05:26: WBC 27.6 H, RBC 2.47 L, Hgb 7.8 L, Hct 24.2 L, MCV 98.0 H, MCH 31.6, MCHC 32.2, RDW Std Deviation 57.0 H, RDW Coeff of Arben 15.9 H, Plt Count 219, MPV 12.0, Immature Gran % (Auto) 0.700, Neut % (Auto) 27.9 L, Lymph % (Auto) 67.6 H, [place] % (Auto) 3.5, Eos % (Auto) 0.0, Baso % (Auto) 0.3, Absolute Neuts (auto) 7.7, Absolute Lymphs (auto) 18.66 H, Nucleated RBC % 0 Current Medications Acetaminophen (Acetaminophen 325 Mg Tablet) 650 mg PO Q6H PRN PRN PRN Reason: Pain Score 1-10/Temp > 100.7 F Last Admin: 09/17/20 08:46 Dose: 650 mg Documented by: Albuterol Sulfate (Albuterol 2.5 Mg/3 Ml Vial.Neb.) 2.5 mg INHALATION Q2H PRN PRN PRN Reason: SOB/Wheezing Last Admin: 09/17/20 08:25 Dose: 2.5 mg Documented by: Albuterol/Ipratropium (Ipratropium/Albuterol Sulfate 3 Ml Ampul.Neb) 3 ml INHALATION Q4H.RT [facility] Last Admin: 09/23/20 22:54 Dose: 3 ml Documented by: Bisacodyl (Bisacodyl 10 Mg Suppository) 10 mg RC DAILY [facility] Last Admin: 09/24/20 09:36 Dose: 10 mg Documented by: Buspirone HCl (Buspirone 5 Mg Tablet) 12.5 mg PO BID [facility] Last Admin: 09/24/20 08:56 Dose: 12.5 mg Documented by: Calamine/Phenol (Menthol/Lanolin/Calamine/Znox 113 Gm Tube) 1 applic TOPICAL TID [facility]; Protocol Last Admin: 09/24/20 05:30 Dose: 1 applic Documented by: Sodium Chloride () 250 mls @ 15 mls/hr IV .[id number] PRN PRN Reason: Saline Flush Last Infusion: 09/16/20 12:53 Dose: Infused Documented by: Sodium Chloride () 250 mls @ 15 mls/hr IV .[id number] PRN PRN Reason: Additional IVPB Infusion Pantoprazole Sodium 40 mg/ (Sodium Chloride) 110 mls @ 330 mls/hr IV Q24 [facility] Last Infusion: 09/24/20 09:30 Dose: Infused Documented by: Dextrose/Sodium Chloride (Dextrose 5%/0.9% Nacl) 1,000 mls @ 100 mls/hr IV .Q10H [facility] Last Infusion: 09/24/20 09:58 Dose: 100 mls/hr Documented by: Levothyroxine Sodium (Levothyroxine 100 Mcg Tablet) 100 mcg PO DAILY@0600 [facility] Last Admin: 09/24/20 05:26 Dose: Not Given Documented by: Nitroglycerin (Nitroglycerin (Inpatient Use) 0.4 Mg Tab.Subl) 0.4 mg SL Q5M PRN PRN Reason: CARDIAC/CHEST PAIN Ondansetron HCl (Ondansetron 4 Mg/2 Ml Vial) 4 mg IV Q8H PRN PRN PRN Reason: NAUSEA/VOMITING Quetiapine Fumarate (Quetiapine 100 Mg Tablet) 200 mg PO BREAKFAST [facility] Last Admin: 09/24/20 08:56 Dose: 200 mg Documented by: Quetiapine Fumarate (Quetiapine 100 Mg Tablet) 400 mg PO QHS [facility] Last Admin: 09/23/20 21:56 Dose: 400 mg Documented by: Senna/Docusate Sodium (Senna/Docusate Sodium 1 Tablet) 2 tablet GT BID PRN PRN Reason: Constipation Last Admin: 09/19/20 22:38 Dose: 2 tablet Documented by: Sodium Chloride (0.9% Saline Lock 10 Ml Syringe) 10 - 40 ml IV UD PRN PRN Reason: SALINE FLUSH Last Admin: 09/24/20 09:07 Dose: 10 ml Documented by: STROKE Vital Signs/Narrative: Vital Signs Temp Pulse Resp BP Pulse Ox 09/24/20 09:11 98.4 F 78 18 132/59 H 96 09/24/20 07:00 74 Medical Necessity - Tobacco Use Smoking Status: Never smoker Assessment/Plan All Active Problems (Last Reviewed 08/27/20 @ 14:23 by Kacie Babcock, RN) Pneumonia (Acute) Renal failure (Acute) Debility (Acute) Weight loss, unintentional (Acute) Neutrophilic leukocytosis (Acute) Anxiety (Resolved) Atherosclerotic heart disease (Resolved) Bipolar 1 disorder (Resolved) COPD (chronic obstructive pulmonary disease) (Resolved) Chronic lymphocytic leukemia of B-cell type not having achieved remission (Resolved) Dementia (Resolved) Dementia without behavioral disturbance (Resolved) HCAP (healthcare-associated pneumonia) (Resolved) Hypo-osmolality and hyponatremia (Resolved) Hyponatremia (Resolved) Hypothyroidism (Resolved) Insomnia (Resolved) Obsessive compulsive disorder (Resolved) Retention of urine (Resolved) Schizoaffective disorder (Resolved) Schizoaffective disorder (Resolved) Schizoaffective disorder (Resolved) Schizoaffective disorder (Resolved)
[2020-09-24 11:02] LABS: Magnesium 1.9 mg/dL (1.6-2.6)
[2020-09-24] MEDS: Ipratropium/Albuterol Sulfate 3 ML AMPUL.NEB INHALATION (11:07)
[2020-09-24] MEDS: Potassium Chloride 10mEq/100mL 10 MEQ/100 ML IV.SOLN. 100 MEQ IV BOLUS ×2 (11:33→12:47)
--- NOTE | 2020-09-24 11:50 | CASEMGMT ---
SW accompanied physician to talk with patient's sister, Elvia. Physician explained patient's medical situation and that he is not getting better. Hospice is being recommended. Patient's sister was in agreement with Hospice and she would like the inpatient unit. SW explained to her that SW will make the referral and someone from Hospice will give her a call to set up a time to meet. SW met with patient, introduced self and role at [facility]. SW explained to patient that Hospice is being recommended for him as he is not getting better. SW told him they will work on keeping him comfortable. SW told him his sister would like him to go to the Inpatient Hospice Unit. He was in agreement with this plan. SW then called Hospice and spoke with Anais regarding referral. SW also faxed referral information. Anais said [facility] physician will need to call Dr Valenzuela to determine if he qualifies for the inpatient unit. DESTINEY let Dr Aguilar know this information. Await response. Laura Thorpe [employer]
[2020-09-24] MEDS: Magnesium Citrate 300 ML NG (12:03)
--- NOTE | 2020-09-24 13:47 | PHA.DC.MR ---
Pharmacy Service has performed discharge medication reconciliation for this patient. The patient's discharge medication list was reviewed for discrepancies and discrepancies were resolved. Home Medications Acetaminophen [Tylenol] 650 mg PO Q4H PRN PRN 09/14/15 Allopurinol [Zyloprim] 100 mg PO DAILYCM 09/14/15 Aspirin [Aspirin, Baby] 81 mg PO DAILY@0800 09/14/15 Atorvastatin Calcium [Lipitor] 10 mg PO QHS 09/14/15 Divalproex Sodium [Depakote] 250 mg PO BID 09/14/15 Enalapril Maleate [Vasotec] 5 mg PO DAILY 09/14/15 Levothyroxine [Synthroid] 100 mcg PO DAILY 09/14/15 Quetiapine Fumarate [Seroquel] 200 mg PO BREAKFAST 09/14/15 Quetiapine Fumarate [Seroquel] 400 mg PO QHS 09/14/15 Risperidone [Risperdal] 3 mg PO QHS 09/14/15 traZODone [Desyrel] 50 mg PO QHS 09/14/15 alprazolam 1 mg tablet 1 mg PO DAILY PRN tab 10/18/18 guaifenesin 100 mg/5 mL oral liquid 200 mg PO Q6H PRN 10/18/18 ipratropium 0.5 mg-albuterol 3 mg (2.5 mg base)/3 mL nebulization soln 3 ml INHALATION Q4H PRN ml 10/18/18 magnesium hydroxide 400 mg/5 mL oral suspension 30 ml PO DAILY ml 10/18/18 aluminum-mag hydroxide-simethicone 200 mg-200 mg-20 mg/5 mL oral susp 15 ml PO Q4H ml 12/14/18 buspirone 5 mg tablet 12.5 mg PO BID tab 11/03/19 mirabegron 50 mg tablet,extended release 24 hr 50 mg PO DAILY 14 Days #14 tab 11/03/19 Levofloxacin [Levaquin] 500 mg PO QHS 09/12/20
--- NOTE | 2020-09-24 13:55 | PCM.DC.SUM ---
Discharge Date and Diagnosis - Problem List Patient Problems: Active and Suspected Problems (Last Reviewed 08/27/20 @ 14:23 by Kacie Babcock RN) Pneumonia (Acute) Renal failure (Acute) Debility (Acute) Weight loss, unintentional (Acute) Neutrophilic leukocytosis (Acute) Date of Admission: 09/18/20 Date of Discharge: 09/24/20 - Primary Discharge Diagnosis Acute Problems: Active Problems (Last Reviewed 08/27/20 @ 14:23 by Kacie Babcock RN) Pneumonia (Acute) Renal failure (Acute) Debility (Acute) Weight loss, unintentional (Acute) Neutrophilic leukocytosis (Acute) - Secondary Discharge Diagnosis Chronic Problems: Chronic Problems (Last Reviewed 08/27/20 @ 14:23 by Kacie Babcock RN) Hypothyroidism (Chronic) Bipolar 1 disorder (Chronic) COPD (chronic obstructive pulmonary disease) (Chronic) Schizo affective schizophrenia (Chronic) Lymphocytosis (Chronic) Anemia (Chronic) Schizophrenia (Chronic) CLL (chronic lymphocytic leukemia) (Chronic) Presence of permanent cardiac pacemaker (Chronic) Pacemaker placement 1992;Replacement of pulse generator 1999; Implant [employer] Pacemaker 2004; Implant of dual chamber 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 Severe sepsis and acute hypoxic respiratory failure secondary to secondary to left lower lobe MRSA pneumonia as well as strep agalactiae pneumonia/UTI secondary to multidrug-resistant Providencia stuartii CAUTI due to indwelling Raymond catheter, MDRO secondary to indwelling Raymond/JOSE ARMANDO now ATN on CKD 2: Patient was admitted with hypotension, tachypnea, tachycardia and hypoxia and leukocytosis 25,000. Lactic acidosis Resuscitated with including severe sepsis protocol broad-spectrum antibiotics IV vancomycin and Zosyn. ID was consulted. Zosyn antibiotics was narrowed down to ceftriaxone.Patient completed antibiotic therefore start. Acute hypoxic respiratory failure resolved patient pulse ox 96% on room air. 2. Acute small bowel ileus with gastric retention likely secondary to his severe sepsis: General surgery was consulted. Patient did not had bowel movement. CT abdomen showed moderate small bowel obstruction without visualization of transition point. Small amount of ascites in pelvis but no evidence of bowel ischemia or bowel perforation. Repeat serial KUB did not show progress of oral contrast from ascending colon. Patient did not had much NG tube suction today, just 50 mill. Patient mainly having oral secretions/saliva and dry heaving but no vomiting. Patient was given magnesium citrate today. Patient is discharged with the NG tube as it helps with abdominal pain and gastric compression. 3. CLL with anemia of chronic disease: Chronic leukocytosis and anemia secondary to CLL. Patient was seen by oncologist Ramesh ER was CLL with multifactorial anemia due to bone marrow involvement by CLL. 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 4. Acute kidney injury stage 3, now ATN on CKD stage II with proteinuria in urine: Baseline BUN/creatinine 23/1.11 in July 29. Patient was seen by central office maintainer. Initially he had anuria for first 2 days but he started making urine. Last urine output 1000 mL yesterday. Last BUN/creatinine 26/2.18 5. Hypertension, dyslipidemia and sick sinus syndrome status post pacemaker placement. Blood pressure was on hold initially due to low blood pressure but currently normotensive. 6. Hypothyroidism 7.schizoaffective disorder -Stable -Continue with his Seroquel Hold risperidone, Depakote, and BuSpar however because of concern of overmedication/sedation given his ileus status. Concern of giving too much of these medications p.o. given his ileus DVT: SCDs Living will/advanced directive/end of life care: I had meeting with patient's sister power of commercial attorney for health. I discussed the admitting diagnosis, comorbidities, hospital course and ongoing issue of ileus, NG suction and severe constipation. I also gave her surgeons opinion regarding ileus and failure of stool softener, enema and suppositories. I discussed about TPN which not a good option for long-term feeding. They agreed for [facility] hospice care. After that I called Dr. Valenzuela, palliative/hr business partner consultant and he agreed for inpatient hospice care. wafer line worker Laura was present during the discussion with the family. [facility] hospice care Patient Problems: Active and Suspected Problems (Last Reviewed 08/27/20 @ 14:23 by Kacie Babcock RN) Pneumonia (Acute) Renal failure (Acute) Debility (Acute) Weight loss, unintentional (Acute) Neutrophilic leukocytosis (Acute) Objective: Seen and examined Patient awake, intermittent confusion. Disoriented to time and situation. Heart rate and blood pressure controlled. Patient having dry heaving and trying to do oral suction himself. Looks anxious. General: Awake, disoriented, confused HEENT: Atraumatic, PERRLA, EOMI, Normocephalic Oral: NG tube present. NG tube 50 mL. On oral suction, no significant pharyngeal secretion/fluid Neck: Supple, No JVD, Negative Carotid Bruits Lungs: Air entry diminished in bilateral lung bases. No crepitation/rhonchi Cardiovascular: Regular rate, Regular Rhythm, Normal S1, Normal S2, No murmurs Abdomen: Bowel Sounds absent, abdominal distention, nontender. No localized mass palpable. : No renal angle tenderness. No suprapubic tenderness. Extremities: Bilateral leg edema, Capillary Refill Less than 3 Seconds Skin: No rashes, No breakdown Musculoskeletal: No Tenderness to Palpation of Joints or Extremities Neurological: Cranial nerves II-XII grossly intact, no focal neurological deficit Psych/Mental Status: Anxious, confused - Physical Exam Vitals/I&O's: Vital Signs Temp Pulse Resp BP Pulse Ox 98.4 F 86 24 H 132/59 H 96 09/24/20 09:11 09/24/20 11:08 09/24/20 11:08 09/24/20 09:11 09/24/20 09:11 Oxygen Flow Rate (L/min) 2 Oxygen Delivery Method Room Air Weight: 183 lb 3.266 oz Body Mass Index (BMI) 26.9 Intake and Output for Last 24 Hours 09/22/20 09/23/20 09/24/20 23:59 23:59 23:59 Intake Total 2741.66 / 2741.66 2093.33 / 2093.33 2211.66 / 2211.66 Output Total 1250 / 1550 1040 / 1140 525 / 525 Balance 1491.66 / 1191.66 1053.33 / 953.33 1686.66 / 1686.66 Laboratory Results 09/24/20 05:26: Sodium 142, Potassium 3.2 L, Chloride 115 H, Carbon Dioxide 17.0 L, Anion Gap 10, BUN 26 H, Creatinine 2.18 H, Estim Creat Clear Calc 29.28, Est GFR (MDRD) Af Amer 38 L, Est GFR (MDRD) Non-Af 31 L, BUN/Creatinine Ratio 11.9, Glucose 114 H, Calcium 7.1 L 09/24/20 05:26: WBC 27.6 H, RBC 2.47 L, Hgb 7.8 L, Hct 24.2 L, MCV 98.0 H, MCH 31.6, MCHC 32.2, RDW Std Deviation 57.0 H, RDW Coeff of Arben 15.9 H, Plt Count 219, MPV 12.0, Immature Gran % (Auto) 0.700, Neut % (Auto) 27.9 L, Lymph % (Auto) 67.6 H, [place] % (Auto) 3.5, Eos % (Auto) 0.0, Baso % (Auto) 0.3, Absolute Neuts (auto) 7.7, Absolute Lymphs (auto) 18.66 H, Nucleated RBC % 0 09/24/20 05:26: Magnesium 1.9 Current Medications Acetaminophen (Acetaminophen 325 Mg Tablet) 650 mg PO Q6H PRN PRN PRN Reason: Pain Score 1-10/Temp > 100.7 F Last Admin: 09/17/20 08:46 Dose: 650 mg Documented by: Albuterol Sulfate (Albuterol 2.5 Mg/3 Ml Vial.Neb.) 2.5 mg INHALATION Q2H PRN PRN PRN Reason: SOB/Wheezing Last Admin: 09/17/20 08:25 Dose: 2.5 mg Documented by: Albuterol/Ipratropium (Ipratropium/Albuterol Sulfate 3 Ml Ampul.Neb) 3 ml INHALATION Q4H.RT [facility] Last Admin: 09/24/20 11:07 Dose: 3 ml Documented by: Bisacodyl (Bisacodyl 10 Mg Suppository) 10 mg RC DAILY [facility] Last Admin: 09/24/20 09:36 Dose: 10 mg Documented by: Buspirone HCl (Buspirone 5 Mg Tablet) 12.5 mg PO BID [facility] Last Admin: 09/24/20 08:56 Dose: 12.5 mg Documented by: Calamine/Phenol (Menthol/Lanolin/Calamine/Znox 113 Gm Tube) 1 applic TOPICAL TID [facility]; Protocol Last Admin: 09/24/20 05:30 Dose: 1 applic Documented by: Sodium Chloride () 250 mls @ 15 mls/hr IV .[id number] PRN PRN Reason: Saline Flush Last Infusion: 09/16/20 12:53 Dose: Infused Documented by: Sodium Chloride () 250 mls @ 15 mls/hr IV .[id number] PRN PRN Reason: Additional IVPB Infusion Pantoprazole Sodium 40 mg/ (Sodium Chloride) 110 mls @ 330 mls/hr IV Q24 [facility] Last Infusion: 09/24/20 09:30 Dose: Infused Documented by: Dextrose/Sodium Chloride (Dextrose 5%/0.9% Nacl) 1,000 mls @ 100 mls/hr IV .Q10H [facility] Last Infusion: 09/24/20 11:33 Dose: 0 mls/hr Documented by: Levothyroxine Sodium (Levothyroxine 100 Mcg Tablet) 100 mcg PO DAILY@0600 [facility] Last Admin: 09/24/20 05:26 Dose: Not Given Documented by: Nitroglycerin (Nitroglycerin (Inpatient Use) 0.4 Mg Tab.Subl) 0.4 mg SL Q5M PRN PRN Reason: CARDIAC/CHEST PAIN Ondansetron HCl (Ondansetron 4 Mg/2 Ml Vial) 4 mg IV Q8H PRN PRN PRN Reason: NAUSEA/VOMITING Quetiapine Fumarate (Quetiapine 100 Mg Tablet) 200 mg PO BREAKFAST [facility] Last Admin: 09/24/20 08:56 Dose: 200 mg Documented by: Quetiapine Fumarate (Quetiapine 100 Mg Tablet) 400 mg PO QHS [facility] Last Admin: 09/23/20 21:56 Dose: 400 mg Documented by: Senna/Docusate Sodium (Senna/Docusate Sodium 1 Tablet) 2 tablet GT BID PRN PRN Reason: Constipation Last Admin: 09/19/20 22:38 Dose: 2 tablet Documented by: Sodium Chloride (0.9% Saline Lock 10 Ml Syringe) 10 - 40 ml IV UD PRN PRN Reason: SALINE FLUSH Last Admin: 09/24/20 11:32 Dose: 10 ml Documented by: Home Medications: Medications to take at Discharge Acetaminophen [Tylenol] 650 mg PO Q4H PRN PRN 09/14/15 Allopurinol [Zyloprim] 100 mg PO DAILYCM 09/14/15 Aspirin [Aspirin, Baby] 81 mg PO DAILY@0800 09/14/15 Atorvastatin Calcium [Lipitor] 10 mg PO QHS 09/14/15 Divalproex Sodium [Depakote] 250 mg PO BID 09/14/15 Enalapril Maleate [Vasotec] 5 mg PO DAILY 09/14/15 Levothyroxine [Synthroid] 100 mcg PO DAILY 09/14/15 Quetiapine Fumarate [Seroquel] 200 mg PO BREAKFAST 09/14/15 Quetiapine Fumarate [Seroquel] 400 mg PO QHS 09/14/15 Risperidone [Risperdal] 3 mg PO QHS 09/14/15 traZODone [Desyrel] 50 mg PO QHS 09/14/15 alprazolam 1 mg tablet 1 mg PO DAILY PRN tab 10/18/18 guaifenesin 100 mg/5 mL oral liquid 200 mg PO Q6H PRN 10/18/18 ipratropium 0.5 mg-albuterol 3 mg (2.5 mg base)/3 mL nebulization soln 3 ml INHALATION Q4H PRN ml 10/18/18 magnesium hydroxide 400 mg/5 mL oral suspension 30 ml PO DAILY ml 10/18/18 aluminum-mag hydroxide-simethicone 200 mg-200 mg-20 mg/5 mL oral susp 15 ml PO Q4H ml 12/14/18 buspirone 5 mg tablet 12.5 mg PO BID tab 11/03/19 mirabegron 50 mg tablet,extended release 24 hr 50 mg PO DAILY 14 Days #14 tab 11/03/19 Levofloxacin [Levaquin] 500 mg PO QHS 09/12/20 Primary Care Physician: Guillermo Espinal MD [Primary Care Provider] - Medical Necessity - Tobacco Use Smoking Status: Never smoker Meaningful Use Info Meaningful Use Diagnoses (Choose all that apply): None applicable Inpatient E&M: 99252 [facility]
--- NOTE | 2020-09-24 14:20 | NURSING ---
Report called to Su at inpatient hospice unit. Expecting patient to leave [facility] around 1500.
--- NOTE | 2020-09-24 14:20 | CASEMGMT ---
DESTINEY spoke with Anais at Hospice and she said patient has been accepted in the Inpatient Unit. DESTINEY told her SW will arrange transport and let them know about a time. DESTINEY arranged for patient to get picked up at 1500 via cot. DESTINEY notified police department secretary who notified RN, patient's sister Jhoan Gan at [facility], and a message was left for Najma at [place]. Plan: d/c to [facility] Inpatient Hospice Unit. [facility] transported via cot. Laura DU
[2020-09-24 14:23] LABS: Pathologist Review Reviewed
--- NOTE | 2020-09-24 15:18 | CASEMGMT ---
SW let patient know that he is being picked up at 3p. SW also let him know his sister will be at Hospice to see him tomorrow. He thanked SW. Plan: d/c to [facility] Inpatient Hospice unit. [facility] transported patient via cot. Laura DU
== END 2020-09-24 15:22 | disposition hospice, inpatient (51) | DRG 698 ==
LOC: ED 11:33 → ICU 11:40 → PCU 09-14 13:13
PROVIDERS: Family Medicine; Internal Medicine; Internal Medicine Critical Care Medicine; Admitting Provider Internal Medicine; Emergency Provider Emergency Medicine; Visit Provider Internal Medicine
DX: T83.511A Infection and inflammatory reaction due to indwelling urethral catheter, initial encounter (principal); A41.02 Sepsis due to Methicillin resistant Staphylococcus aureus; J15.212 Pneumonia due to Methicillin resistant Staphylococcus aureus; J96.01 Acute respiratory failure with hypoxia; N17.0 Acute kidney failure with tubular necrosis; R65.20 Severe sepsis without septic shock; J15.4 Pneumonia due to other streptococci; K56.7 Ileus, unspecified; C91.10 Chronic lymphocytic leukemia of B-cell type not having achieved remission; E87.0 Hyperosmolality and hypernatremia; J44.0 Chronic obstructive pulmonary disease with (acute) lower respiratory infection; N39.0 Urinary tract infection, site not specified; B96.89 Other specified bacterial agents as the cause of diseases classified elsewhere; R63.4 Abnormal weight loss; K31.89 Other diseases of stomach and duodenum; Y84.6 Urinary catheterization as the cause of abnormal reaction of the patient, or of later complication, without mention of misadventure at the time of the procedure; D63.0 Anemia in neoplastic disease; E03.9 Hypothyroidism, unspecified; E78.00 Pure hypercholesterolemia, unspecified; E78.5 Hyperlipidemia, unspecified; E86.0 Dehydration; E87.6 Hypokalemia; F03.90 Unspecified dementia, unspecified severity, without behavioral disturbance, psychotic disturbance, mood disturbance, and anxiety; F25.9 Schizoaffective disorder, unspecified; F31.9 Bipolar disorder, unspecified; F41.9 Anxiety disorder, unspecified; I12.9 Hypertensive chronic kidney disease with stage 1 through stage 4 chronic kidney disease, or unspecified chronic kidney disease; N28.1 Cyst of kidney, acquired; M10.9 Gout, unspecified; I49.5 Sick sinus syndrome; H35.00 Unspecified background retinopathy; N18.2 Chronic kidney disease, stage 2 (mild); Z87.440 Personal history of urinary (tract) infections; Z95.0 Presence of cardiac pacemaker; Z66 Do not resuscitate; Z87.891 Personal history of nicotine dependence; Z79.82 Long term (current) use of aspirin; Z79.899 Other long term (current) drug therapy
CPT/HCPCS: 36415; 36569; 71045; 71250; 74018; 74019; 74176; 74250; 76770; 80048; 80053; 80202; 81001; 83605; 83735; 84100; 85014; 85018; 85025; 85610; 85730; 86850; 86900; 86901; 86920; 87040; 87070; 87077; 87086; 87088; 87186; 87205; 87426; 87449; 87633; 87641; 92526; 92610; 93005; 94002; 94640; 94762; 97110; 97162; 97166; 97530; 97535; 97802; 97803; 99251; 99285; J7030; J7040; J7050; J7120; P9016; A4216; G0463